=== PATIENT | female | born 1960 | race Caucasian/White ===

== ENCOUNTER 2017-02-20 10:24 | Observation (INO) | payer MEDICARE ==
--- NOTE | 2017-02-20 11:19 | ED ---
General Adult HPI - General Source: patient, RN notes reviewed Mode of arrival: ambulatory Limitations: no limitations <Ben Lynn - Last Filed: 02/20/17 11:17> <Ben Oliveira - Last Filed: 02/20/17 14:30> - General Chief complaint: Shortness of Breath Stated complaint: fatigue/sweating Time Seen by Provider: 02/20/17 11:12 - History of Present Illness Initial comments: Patient is a pleasant 56-year-old female presenting to the emergency department with exertional dyspnea. Sometimes have been worsening over the past couple of months, especially the past week. Patient has decreased exercise tolerance. Patient is easily fatigued. Patient has shortness of breath only with exertion. Patient had a minimal amount of chest discomfort last time she tried to exercise a couple of days ago. No chest discomfort today. Patient still has fatigue and exercise intolerance. No leg pain or leg swelling. Patient is on Coumadin with history of blood clots. Patient states this does not feel like her previous history of blood clots. (Ben Lynn) - Related Data Home Medications Medication Instructions Recorded Confirmed Amitriptyline HCl [Elavil] 75 mg PO HS 02/20/17 02/20/17 Biotin 5 mg PO DAILY 02/20/17 02/20/17 Cyclobenzaprine [Flexeril] 10 mg PO BID 02/20/17 02/20/17 HYDROcodone/APAP 10-325MG [[place] 1 tab PO DAILY 02/20/17 02/20/17 10-325] Morphine Sulfate ER [Ms Contin 30 mg PO BID 02/20/17 02/20/17 30Mg] Morphine Sulfate ER [Ms Contin] 15 mg PO HS 02/20/17 02/20/17 [place]-3 Fatty Acids/Fish Oil [Fish 1 cap PO DAILY 02/20/17 02/20/17 Oil 1,000 mg Softgel] Pregabalin [Lyrica] 225 mg PO BID 02/20/17 02/20/17 Verapamil [Isoptin] 80 mg PO BID 02/20/17 02/20/17 Warfarin [Coumadin] 3.75 mg PO SUMOTUTHFR 02/20/17 02/20/17 Warfarin [Coumadin] 5 mg PO WESA 02/20/17 02/20/17 buPROPion [Wellbutrin] 75 mg PO DAILY 02/20/17 02/20/17 Allergies Allergy/AdvReac Type Severity Reaction Status Date / Time carbamazepine [From Tegretol] Allergy Rash/Hives Verified 02/20/17 11:35 codeine Allergy Anaphylaxis Verified 02/20/17 11:35 Review of Systems ROS Other: All systems not noted in ROS Statement are negative. Constitutional: Denies: fever Eyes: Denies: eye pain ENT: Denies: ear pain Respiratory: Reports: dyspnea Cardiovascular: Denies: palpitations Endocrine: Reports: fatigue Gastrointestinal: Denies: abdominal pain Genitourinary: Denies: dysuria Musculoskeletal: Denies: back pain Skin: Denies: rash Neurological: Denies: weakness <Ben Lynn - Last Filed: 02/20/17 11:17> ROS Other: All systems not noted in ROS Statement are negative. <Ben Oliveira - Last Filed: 02/20/17 14:30> ROS Statement: Those systems with pertinent positive or pertinent negative responses have been documented in the HPI. Past Medical History Past Medical History: COPD, Fibromyalgia, Thyroid Disorder Additional Past Medical History / Comment(s): atypical facial pain, trigeminal neuralgia History of Any Multi-Drug Resistant Organisms: None Reported Past Surgical History: No Surgical Hx Reported Past Psychological History: Depression Smoking Status: Never smoker Past Alcohol Use History: None Reported Past Drug Use History: None Reported <Ben Lynn - Last Filed: 02/20/17 11:17> General Exam Limitations: no limitations General appearance: alert, in no apparent distress Head exam: Present: atraumatic Eye exam: Present: normal appearance, PERRL ENT exam: Present: normal oropharynx Neck exam: Present: normal inspection Respiratory exam: Present: normal lung sounds bilaterally Cardiovascular Exam: Present: regular rate, normal rhythm, normal heart sounds Expanded Peripheral pulses: 2+: Radial (R), Radial (L), Posterior Tibialis (R), Posterior Tibialis (L) GI/Abdominal exam: Present: soft. Absent: tenderness Extremities exam: Present: normal inspection. Absent: pedal edema, calf tenderness Neurological exam: Present: alert Psychiatric exam: Present: normal affect, normal mood Skin exam: Present: normal color <Ben Lynn - Last Filed: 02/20/17 11:17> Course <Ben Lynn - Last Filed: 02/20/17 11:17> <Ben Oliveira - Last Filed: 02/20/17 14:30> Vital Signs 02/20/17 02/20/17 02/20/17 10:33 11:32 12:32 Temperature 97.6 F Pulse Rate 107 H 86 87 Respiratory 18 18 20 Rate Blood Pressure 131/77 120/66 117/77 O2 Sat by Pulse 96 94 L 95 Oximetry 02/20/17 13:42 Temperature Pulse Rate 96 Respiratory 20 Rate Blood Pressure 110/74 O2 Sat by Pulse 96 Oximetry - Reevaluation(s) Reevaluation #1: 02/20/17 14:29 Patient was endorsed to me by Dr. Lynn and her shift change at 12 pm. This is pending a CAT scan of the chest. The scans negative for PE patient will be admitted however 4 evaluation of exertional dyspnea cardiac disease is considered (Ben Oliveira) EKG Findings - EKG Comments: EKG Findings:: Normal sinus rhythm 93. VA 168. QRS 88. QT 370. QTc 460. Normal axis. Normal QRS. No acute ST change. <Ben Lynn - Last Filed: 02/20/17 11:17> Medical Decision Making - Lab Data Result diagrams: 02/20/17 11:30 02/20/17 11:30 <Ben Oliveira - Last Filed: 02/20/17 14:30> - Lab Data Lab Results 02/20/17 02/20/17 02/20/17 Range/Units 11:30 11:30 11:30 WBC 8.4 (3.8-10.6) k/uL RBC 4.55 (3.80-5.40) m/uL Hgb 13.2 (11.4-16.0) gm/dL Hct 40.9 (34.0-46.0) % MCV 89.8 (80.0-100.0) fL MCH 29.0 (25.0-35.0) pg MCHC 32.3 (31.0-37.0) g/dL RDW 13.4 (11.5-15.5) % Plt Count 246 (150-450) k/uL Neutrophils % 69 % Lymphocytes % 21 % Monocytes % 7 % Eosinophils % 1 % Basophils % 1 % Neutrophils # 5.8 (1.3-7.7) k/uL Lymphocytes # 1.7 (1.0-4.8) k/uL Monocytes # 0.6 (0-1.0) k/uL Eosinophils # 0.1 (0-0.7) k/uL Basophils # 0.1 (0-0.2) k/uL PT (9.0-12.0) sec INR (<1.2) APTT (22.0-30.0) sec Sodium 139 (137-145) mmol/L Potassium 4.3 (3.5-5.1) mmol/L Chloride 106 (98-107) mmol/L Carbon Dioxide 23 (22-30) mmol/L Anion Gap 10 mmol/L BUN 17 (7-17) mg/dL Creatinine 0.90 (0.52-1.04) mg/dL Est GFR (MDRD) Af Amer >60 (>60 ml/min/1.73 sqM) Est GFR (MDRD) Non-Af >60 (>60 ml/min/1.73 sqM) Glucose 101 H (74-99) mg/dL Calcium 9.3 (8.4-10.2) mg/dL Total Bilirubin 0.3 (0.2-1.3) mg/dL AST 23 (14-36) U/L ALT 37 (9-52) U/L Alkaline Phosphatase 92 (38-126) U/L Total Creatine Kinase 96 (30-135) U/L CK-MB (CK-2) 0.4 (0.0-2.4) ng/mL CK-MB (CK-2) Rel Index 0.4 Troponin I <0.012 (0.000-0.034) ng/mL NT-Pro-B Natriuret Pep pg/mL Total Protein 6.7 (6.3-8.2) g/dL Albumin 3.6 (3.5-5.0) g/dL TSH 0.034 L (0.465-4.680) mIU/L Free T4 1.54 (0.78-2.19) ng/dL Free T3 pg/mL 3.1 (2.8-5.3) pg/ml 02/20/17 02/20/17 Range/Units 11:30 11:30 WBC (3.8-10.6) k/uL RBC (3.80-5.40) m/uL Hgb (11.4-16.0) gm/dL Hct (34.0-46.0) % MCV (80.0-100.0) fL MCH (25.0-35.0) pg MCHC (31.0-37.0) g/dL RDW (11.5-15.5) % Plt Count (150-450) k/uL Neutrophils % % Lymphocytes % % Monocytes % % Eosinophils % % Basophils % % Neutrophils # (1.3-7.7) k/uL Lymphocytes # (1.0-4.8) k/uL Monocytes # (0-1.0) k/uL Eosinophils # (0-0.7) k/uL Basophils # (0-0.2) k/uL PT 15.9 H (9.0-12.0) sec INR 1.6 H (<1.2) APTT 27.2 (22.0-30.0) sec Sodium (137-145) mmol/L Potassium (3.5-5.1) mmol/L Chloride (98-107) mmol/L Carbon Dioxide (22-30) mmol/L Anion Gap mmol/L BUN (7-17) mg/dL Creatinine (0.52-1.04) mg/dL Est GFR (MDRD) Af Amer (>60 ml/min/1.73 sqM) Est GFR (MDRD) Non-Af (>60 ml/min/1.73 sqM) Glucose (74-99) mg/dL Calcium (8.4-10.2) mg/dL Total Bilirubin (0.2-1.3) mg/dL AST (14-36) U/L ALT (9-52) U/L Alkaline Phosphatase (38-126) U/L Total Creatine Kinase (30-135) U/L CK-MB (CK-2) (0.0-2.4) ng/mL CK-MB (CK-2) Rel Index Troponin I (0.000-0.034) ng/mL NT-Pro-B Natriuret Pep 39 pg/mL Total Protein (6.3-8.2) g/dL Albumin (3.5-5.0) g/dL TSH (0.465-4.680) mIU/L Free T4 (0.78-2.19) ng/dL Free T3 pg/mL (2.8-5.3) pg/ml Disposition <Lynn,Ben - Last Filed: 02/20/17 11:17> <Ben Oliveira - Last Filed: 02/20/17 14:30> Clinical Impression: Exertional dyspnea, Atypical chest pain Disposition: ADMITTED IP TO THIS HOSP Condition: Stable Referrals: Yovanny Mcdonald MD [Primary Care Provider] - 1-2 days
[2017-02-20 11:49] LABS: Basophils # (A) 0.1 k/uL (0-0.2); Basophils % (A) 1 %; CH 28.9; CHCM 32.4; Eosinophils # (A) 0.1 k/uL (0-0.7); Eosinophils % (A) 1 %; HCT 40.9 % (34.0-46.0); HDW 2.48; HGB 13.2 gm/dL (11.4-16.0); Luc # (Auto) 0.15; Luc % (Auto) 2; Lymphocytes # (A) 1.7 k/uL (1.0-4.8); Lymphocytes % (A) 21 %; MCHC 32.3 g/dL (31.0-37.0); MCV 89.8 fL (80.0-100.0); Mean Platelet Volume 6.6; Monocytes # (A) 0.6 k/uL (0-1.0); Monocytes % (A) 7 %; Neutrophils # (A) 5.8 k/uL (1.3-7.7); Neutrophils % (A) 69 %; RBC 4.55 m/uL (3.80-5.40); RDW 13.4 % (11.5-15.5); WBC 8.4 k/uL (3.8-10.6); WBC (Perox) 8.42
[2017-02-20 12:03] LABS: ALT 37 U/L (9-52); AST 23 U/L (14-36); Alkaline Phosphatase 92 U/L (38-126); Anion Gap 10 mmol/L; Blood Urea Nitrogen 17 mg/dL (7-17); Calcium 9.3 mg/dL (8.4-10.2); Carbon Dioxide 23 mmol/L (22-30); Chloride 106 mmol/L (98-107); Glucose 101 mg/dL (74-99); Non-African American GFR(MDRD) >60 (>60 ml/min/1.73 sqM); Potassium 4.3 mmol/L (3.5-5.1); Sodium 139 mmol/L (137-145); Total Bilirubin 0.3 mg/dL (0.2-1.3); Total Protein 6.7 g/dL (6.3-8.2)
[2017-02-20 12:09] LABS: Creatine Kinase 96 U/L (30-135)
[2017-02-20 12:12] LABS: INR 1.6 (<1.2); Partial Thromboplastin Time 27.2 sec (22.0-30.0); Prothrombin Time 15.9 sec (9.0-12.0)
--- NOTE | 2017-02-20 12:19 | XR ---
EXAMINATION TYPE: XR chest 2V DATE OF EXAM: 02/20/2017 COMPARISON: 3-to-12 HISTORY: Weakness and shortness of breath TECHNIQUE: Frontal and lateral views of the chest are obtained. FINDINGS: There is no focal air space opacity, pleural effusion, or pneumothorax seen. The cardiac silhouette size is within normal limits. The osseous structures are intact. Mild degenerative grady es of the thoracic spine and acromioclavicular joints are noted. IMPRESSION: No acute cardiopulmonary process.
[2017-02-20 12:22] LABS: Creatine Kinase MB 0.4 ng/mL (0.0-2.4); Troponin I <0.012 ng/mL (0.000-0.034)
[2017-02-20] MEDS ORDERED: RX INFO: IV CONTRAST WAS GIVEN 1 EACH MISC MISCELLANE PRN (12:50)
--- NOTE | 2017-02-20 13:38 | CT ---
EXAMINATION TYPE: CT angio chest DATE OF EXAM: 02/20/2017 COMPARISON: NONE HISTORY: Fatigue, Diaphoresis, SOB since September CT DLP: 662 mGycm. Automated Exposure Control for Dose Reduction was Utilized. CONTRAST: CTA scan of the thorax is performed with IV Contrast, patient injected with 100 ml mL of Omnipaque 30 0, pulmonary embolism protocol. MIP Images are created on CT scanner and reviewed. FINDINGS: LUNGS: Scattered areas of subsegmental atelectasis predominating dependently within the lungs. Right apical patchy groundglass airspace disease measures 1.7 x 1.2 cm. There is no concerning parenchymal mass or nodule identified. There is no pleural effusion or pneumothorax seen. The tracheobronchial tree is patent. MEDIASTINUM: There is slightly diminished enhancement of the pulmonary artery and its branches, howev er there is no CT evidence for pulmonary embolism. There are no greater than 1 cm hilar or mediastin al lymph nodes. No cardiomegaly or pericardial effusion is seen. The main pulmonary artery is mildl y enlarged measuring 3.2 cm, which may clinically correlate with pulmonary arterial hypertension. OTHER: No additional significant abnormality is seen. IMPRESSION: 1. No evidence of pulmonary embolus. 2. Right apical groundglass opacity that is favored to represent atelectasis, however this could repr esent early pneumonia or inflammatory etiology. Other scattered areas of predominantly dependent atel ectasis are seen throughout the lungs. 3. Main pulmonary arterial enlargement, which may clinically correlate with pulmonary arterial hypert ension.
[2017-02-20] MEDS ORDERED: NITROGLYCERIN SL TABS 0.4 MG TAB SUBLINGUAL PRN (14:30)
[2017-02-20 15:45] VITALS: RESP 18
--- NOTE | 2017-02-20 17:20 | P.HPIM ---
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 Patient underwent an extensive workup in the ER all of which came back negative patient had a CT angios the chest did not show any pulmonary embolism except for some nonspecific groundglass a paced is no pneumonia on the chest x-ray. Patient the does not have any fluid overload patient's BNP is 49 patient denied any orthopnea PND patient also is complaining of excessive diaphoresis upon ambulation. Patient had history of DVTs in the past INR is subtherapeutic at 1.7 because of which Coumadin dose is being increased. Patient denied any nausea vomiting diarrhea fever chills dysuria. Denied any fevers. TSH is low T4 is 1.54, patient is not on any thyroid medications. Unsure of the exact etiology of her shortness of breath patient vitals are stable saturating well on room air and anion relation. We will obtain ABG, cardiology will be consulted with possible shortness of breath being an anginal equalant may need a stress test, we'll rule out acute coronary syndromes with 2 more sets of troponins. Pulmonology will be consulted as well. Anxiety may be a contributing for her factor for her shortness of breath patient is menopausal it to 38 years of age Review of Systems REVIEW OF SYSTEMS: CONSTITUTIONAL: No fever, no malaise, no fatigue. HEENT: No recent visual problems or hearing problems. Denied any sore throat. CARDIOVASCULAR: No chest pain, orthopnea, PND, no palpitations, no syncope. PULMONARY: no cough, no hemoptysis. GASTROINTESTINAL: No diarrhea, no nausea, no vomiting, no abdominal pain. Normoactive bowel sounds. NEUROLOGICAL: No headaches, no weakness, no numbness. HEMATOLOGICAL: Denies any bleeding or petechiae. GENITOURINARY: Denies any burning micturition, frequency, or urgency. MUSCULOSKELETAL/RHEUMATOLOGICAL: Denies any joint pain, swelling, or any muscle pain. ENDOCRINE: Denies any polyuria or polydipsia. The rest of the 14-point review of systems is negative. 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 History of Any Multi-Drug Resistant Organisms: None Reported Past Surgical History: Appendectomy, Section, Cholecystectomy Additional Past Surgical History / Comment(s): 2 c-sections, fissurectomy, colonoscopy Past Anesthesia/Blood Transfusion Reactions: No Reported Reaction Smoking Status: Never smoker - Past Family History Mother Family Medical History: Hypertension Additional Family Medical History / Comment(s): mom's mom had mi and stroke, mom 's dad had hx of first mi age 40 and several after and stroke. Father Family Medical History: Cancer, Diabetes Mellitus, Mitral Valve Prolapse (MVP) Additional Family Medical History / Comment(s): lung/bone cancer. dad's mother had hx of cervical cancer and a pacemaker and dad's dad had hx mi's Sister(s) Family Medical History: Cancer, Diabetes Mellitus, Seizure Disorder Additional Family Medical History / Comment(s): one sister had seizures and 2nd sister had dm,skin cancer. Brother(s) Additional Family Medical History / Comment(s): brother had hernia sx and post op complictions-bleeding Medications and Allergies Home Medications Medication Instructions Recorded Confirmed Type Amitriptyline HCl [Elavil] 75 mg PO HS 02/20/17 02/20/17 History Biotin 5 mg PO DAILY 02/20/17 02/20/17 History Cyclobenzaprine [Flexeril] 10 mg PO BID 02/20/17 02/20/17 History HYDROcodone/APAP 10-325MG [[place] 1 tab PO DAILY 02/20/17 02/20/17 History 10-325] Morphine Sulfate ER [Ms Contin 30 mg PO BID 02/20/17 02/20/17 History 30Mg] Morphine Sulfate ER [Ms Contin] 15 mg PO HS 02/20/17 02/20/17 History [place]-3 Fatty Acids/Fish Oil [Fish 1 cap PO DAILY 02/20/17 02/20/17 History Oil 1,000 mg Softgel] Pregabalin [Lyrica] 225 mg PO BID 02/20/17 02/20/17 History Verapamil [Isoptin] 80 mg PO BID 02/20/17 02/20/17 History Warfarin [Coumadin] 3.75 mg PO SUMOTUTHFR 02/20/17 02/20/17 History Warfarin [Coumadin] 5 mg PO WESA 02/20/17 02/20/17 History buPROPion [Wellbutrin] 75 mg PO DAILY 02/20/17 02/20/17 History Allergies Allergy/AdvReac Type Severity Reaction Status Date / Time carbamazepine [From Tegretol] Allergy Rash/Hives Verified 02/20/17 11:35 codeine Allergy Anaphylaxis Verified 02/20/17 11:35 Physical Exam Vitals: Vital Signs Temp Pulse Pulse Resp BP BP Pulse Ox 02/20/17 15:43 98.0 F 77 18 129/74 95 02/20/17 14:56 98.6 F 95 20 105/66 97 02/20/17 13:42 96 20 110/74 96 02/20/17 12:32 87 20 117/77 95 02/20/17 11:32 86 18 120/66 94 L 02/20/17 10:33 97.6 F 107 H 18 131/77 96 Intake and Output 02/20/17 02/20/17 02/20/17 06:59 14:59 22:59 Other: Weight 103.873 kg 101.9 kg Patient Weight 02/21/17 06:59 Weight 101.9 kg PHYSICAL EXAMINATION: GENERAL: The patient is alert and oriented x3, not in any acute distress. Well developed, well nourished. HEENT: Pupils are round and equally reacting to light. EOMI. No scleral icterus. No conjunctival pallor. Normocephalic, atraumatic. No pharyngeal erythema. No thyromegaly. CARDIOVASCULAR: S1 and S2 present. No murmurs, rubs, or gallops. PULMONARY: Chest is clear to auscultation, no wheezing or crackles. ABDOMEN: Soft, nontender, nondistended, normoactive bowel sounds. No palpable organomegaly. MUSCULOSKELETAL: No joint swelling or deformity. EXTREMITIES: No cyanosis, clubbing, or pedal edema. NEUROLOGICAL: Gross neurological examination did not reveal any focal deficits. SKIN: No rashes. Results CBC & Chem 7: 02/20/17 11:30 09/28/17 11:30 Labs: Abnormal Lab Results - Last 24 Hours (Table) 02/20/17 02/20/17 Range/Units 11:30 11:30 PT 15.9 H (9.0-12.0) sec INR 1.6 H (<1.2) Glucose 101 H (74-99) mg/dL TSH 0.034 L (0.465-4.680) mIU/L Assessment and Plan Plan: #1 shortness of breath: All the workup so far is negative. Patient will be admitted and monitored overnight on telemetry. Her shortness of breath may be related to anxiety. Anyways pulmonology and cardiology consulted since will be obtained. Possibly of discharge tomorrow. #2 history of DVT in the past: Patient is of the week and INR increase the Coumadin to 5 mg. #3 fibromyalgia.
[2017-02-20] MEDS ORDERED: WARFARIN 5 MG TAB PO SCH (18:00)
--- NOTE | 2017-02-20 18:04 | P.CNPUL ---
History of Present Illness Consult date: 02/20/17 Requesting physician: Gianfranco Wilson Reason for consult: dyspnea Chief complaint: Shortness of breath on exertion History of present illness: This is a 56-year-old female with history of fibromyalgia, chronic pain syndrome , history of deep vein thrombosis, but no documented pulmonary embolism. Patient is also known to have history of chronic facial pain secondary to trigeminal neuralgia. History of hypercoagulable state, maintained on Coumadin because of multiple episodes of deep vein thromboses in the past. At any rate patient has been following up with Dr. Mcdonald primary care physician, and since October of 2016, patient has been complaining of shortness of breath with any activity. Unable to walk even 1 block without having to rest. Denies any chest pain, denies any fever, no chills, no hemoptysis. Denies any wheezing. Patient had no previous pulmonary history whatsoever no history of asthma as a child. No history of pulmonary hypertension. No history of smoking. She does have a strong family history of coronary artery disease including her sister was couple of years younger than the patient had recent OR. CT of the chest was noted to be nondiagnostic. But was negative for pulmonary embolism. CBC was normal. Electrolytes and basic metabolic profile were normal. INR was subtherapeutic. Considering shortness of breath on exertion, this consult was initiated. I reviewed the CT of the chest, and I have noted that the findings are nonspecific. Review of Systems ROS Other: All systems not noted in ROS Statement are negative. Constitutional: No weight loss, no fever, no chills, she does have generalized weakness, fatigue, and chronic pain syndrome Eyes: No blurred vision no diplopia. ENT: No earache, no tinnitus, no vertigo Respiratory: As noted in HPI Cardiovascular: As noted in HPI Endocrine: No heat or cold intolerance, no polyuria, polyphagia, no polydipsia Gastrointestinal: No nausea vomiting abdominal pain melena or hematemesis Genitourinary: No dysuria frequency or urgency Musculoskeletal: Chronic pain syndrome and chronic facial pain. Skin: No rashes, no ulcerations. Neurological: No headaches, no blurred vision, no dizziness, no ataxia, patient has symptoms of trigeminal neuralgia. 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 History of Any Multi-Drug Resistant Organisms: None Reported Past Surgical History: Appendectomy, Section, Cholecystectomy Additional Past Surgical History / Comment(s): 2 c-sections, fissurectomy, colonoscopy Past Anesthesia/Blood Transfusion Reactions: No Reported Reaction Smoking Status: Never smoker - Past Family History Mother Family Medical History: Hypertension Additional Family Medical History / Comment(s): mom's mom had mi and stroke, mom 's dad had hx of first mi age 40 and several after and stroke. Father Family Medical History: Cancer, Diabetes Mellitus, Mitral Valve Prolapse (MVP) Additional Family Medical History / Comment(s): lung/bone cancer. dad's mother had hx of cervical cancer and a pacemaker and dad's dad had hx mi's Sister(s) Family Medical History: Cancer, Diabetes Mellitus, Seizure Disorder Additional Family Medical History / Comment(s): one sister had seizures and 2nd sister had dm,skin cancer. Brother(s) Additional Family Medical History / Comment(s): brother had hernia sx and post op complictions-bleeding Medications and Allergies Home Medications Medication Instructions Recorded Confirmed Type Amitriptyline HCl [Elavil] 75 mg PO HS 02/20/17 02/20/17 History Biotin 5 mg PO DAILY 02/20/17 02/20/17 History Cyclobenzaprine [Flexeril] 10 mg PO BID 02/20/17 02/20/17 History HYDROcodone/APAP 10-325MG [[place] 1 tab PO DAILY 02/20/17 02/20/17 History 10-325] Morphine Sulfate ER [Ms Contin 30 mg PO BID 02/20/17 02/20/17 History 30Mg] Morphine Sulfate ER [Ms Contin] 15 mg PO HS 02/20/17 02/20/17 History [place]-3 Fatty Acids/Fish Oil [Fish 1 cap PO DAILY 02/20/17 02/20/17 History Oil 1,000 mg Softgel] Pregabalin [Lyrica] 225 mg PO BID 02/20/17 02/20/17 History Verapamil [Isoptin] 80 mg PO BID 02/20/17 02/20/17 History Warfarin [Coumadin] 3.75 mg PO SUMOTUTHFR 02/20/17 02/20/17 History Warfarin [Coumadin] 5 mg PO WESA 02/20/17 02/20/17 History buPROPion [Wellbutrin] 75 mg PO DAILY 02/20/17 02/20/17 History Allergies Allergy/AdvReac Type Severity Reaction Status Date / Time carbamazepine [From Tegretol] Allergy Rash/Hives Verified 02/20/17 11:35 codeine Allergy Anaphylaxis Verified 02/20/17 11:35 Physical Exam Vitals: Vital Signs Temp Pulse Pulse Resp BP BP Pulse Ox 02/20/17 15:43 98.0 F 77 18 129/74 95 02/20/17 14:56 98.6 F 95 20 105/66 97 02/20/17 14:31 95 02/20/17 13:42 96 20 110/74 96 02/20/17 12:32 87 20 117/77 95 02/20/17 11:32 86 18 120/66 94 L 02/20/17 10:33 97.6 F 107 H 18 131/77 96 Intake and Output 02/20/17 02/20/17 02/20/17 06:59 14:59 22:59 Other: Weight 103.873 kg 101.9 kg Patient Weight 02/21/17 06:59 Weight 101.9 kg General appearance: alert, in no apparent distress Head exam: Normocephalic, atraumatic Eye exam: PERRLA, EOMI, no icterus ENT exam: No neck masses, no JVD, no stridor, no thyromegaly, or lymphadenopathy Neck exam: Short obese neck, no neck masses. Respiratory exam: Clear throughout, crackles or rhonchi or wheezes, no tenderness, symmetrical chest expansion Cardiovascular Exam: Normal S1 and S2, no S3 gallop, no murmur, Peripheral pulses: 2+: Radial (R), Radial (L), Posterior Tibialis (R), Posterior Tibialis (L) GI/Abdominal exam: Soft nontender no megaly no rebound no guarding. Extremities exam: No clubbing edema or cyanosis. Neurological exam: No focal neurologic deficit Psychiatric exam: Normal mood and affect, normal mental status examination. Skin exam: No rashes, no ulcerations. Results - Laboratory Findings CBC and BMP: 02/20/17 11:30 02/20/17 11:30 PT/INR, D-dimer PT 15.9 sec (9.0-12.0) H 02/20/17 11:30 INR 1.6 (<1.2) H 02/20/17 11:30 Abnormal lab findings: Abnormal Labs 02/20/17 02/20/17 11:30 11:30 PT 15.9 H INR 1.6 H Glucose 101 H TSH 0.034 L - Diagnostic Findings CT scan - chest: image reviewed (Findings are nonspecific, and definitely did not correlate with the clinical history.) Assessment and Plan Plan: Impression: 1 chronic dyspnea on exertion, the differential diagnoses includes pulmonary disease, cardiac disease, and/or deconditioning. I feel that the patient has some underlying cardiac disease mostly based on her clinical history and based on her strong family history of underlying coronary artery disease. Hence I have recommended an echocardiogram to be done in a.m., assess LV function, and assess for any possibility of pulmonary hypertension, patient will have to be seen by cardiology on consultation, and at least should have a Cardiolite stress test. I would even recommend further workup including cardiac catheterization before we could blame her symptoms on deconditioning or anxiety. Based on the clinical history and the lung findings, patient does not seem to have any intrinsic pulmonary disease. Patient to be seen by cardiology on consultation in a.m. 2 multiple comorbidities including history of chronic pain syndrome, fibromyalgia, hypothyroidism, trigeminal neuralgia, atypical facial pain, and history of depression. I will also recommend a bedside spirometry to be done on this patient in a.m. however I strongly doubt underlying pulmonary disease. To explain her symptoms Time with Patient: Greater than 30
[2017-02-20 18:10] LABS: Creatine Kinase 79 U/L (30-135)
[2017-02-20 18:22] LABS: Creatine Kinase MB 0.4 ng/mL (0.0-2.4); Troponin I <0.012 ng/mL (0.000-0.034)
[2017-02-20] MEDS: CYCLOBENZAPRINE 10 MG TAB PO SCH (20:06)
[2017-02-20] MEDS: PREGABALIN 75 MG CAP PO SCH (20:06)
[2017-02-20] MEDS: MORPHINE SULFATE ER 30 MG TABLET PO SCH (20:07)
[2017-02-20] MEDS ORDERED: AMITRIPTYLINE HCL 25 MG TAB PO SCH (21:00)
[2017-02-20] MEDS ORDERED: MORPHINE SULFATE ER 15 MG TABLET PO SCH (21:00)
[2017-02-20 21:13] LABS: ABG PCO2 35 mmHg (35-45); ABG PH 7.48 (7.35-7.45)
[2017-02-20 21:14] LABS: ABG HCO3 26 mmol/L (21-25); ABG PO2 77 mmHg (83-108); ABG TCO2 27 mmol/L (19-24)
[2017-02-20 21:15] LABS: ABG Base Excess 2.5 mmol/L; ABG Oxygen Saturation 96.2 % (94-97)
[2017-02-20] MEDS: VERAPAMIL 80 MG TAB PO SCH (22:17)
[2017-02-20 23:37] LABS: Cholesterol 197 mg/dL (<200); HDL Cholesterol 47 mg/dL (40-60)
[2017-02-21 00:54] LABS: Creatine Kinase 60 U/L (30-135)
[2017-02-21 01:08] LABS: Creatine Kinase MB 0.4 ng/mL (0.0-2.4); Troponin I <0.012 ng/mL (0.000-0.034)
[2017-02-21] MEDS ORDERED: DOBUTamine DRIP for NUC MED 500 MG in DEXTROSE/WATER 1 250ML.BAG IV ONE (08:53)
[2017-02-21] MEDS ORDERED: buPROPion 75 MG TAB PO SCH (09:00)
[2017-02-21] MEDS ORDERED: ASPIRIN 325 MG TAB PO SCH (09:00)
[2017-02-21] MEDS ORDERED: HYDROcodone/APAP 10-325MG 1 EACH TAB PO SCH (09:00)
[2017-02-21] MEDS ORDERED: NON-FORMULARY DRUG (Biotin [Biotin] 5 MG) PO SCH (09:00)
[2017-02-21] MEDS ORDERED: NON-FORMULARY DRUG (Omega-3 Fatty Acids/Fish Oil [Fish Oil 1,000 Mg Softgel] 1 CAP) PO SCH (09:00)
--- NOTE | 2017-02-21 10:22 | P.CRDCN ---
History of Present Illness History of present illness: Patient reviewed and examined. Admitted with shortness of breath and diaphoresis Cardiac consult to evaluate the symptoms Cardiac enzymes are normal 3. ECG is normal. Symptoms are very atypical for a cardiac problem 2-D echo reviewed normal LV function normal valves Suggest Dobutamine stress echo to evaluate for ischemia/possible CAD Update Dobutamine stress echo was normal Mild dyslipidemia with a mildly elevated triglyceride and LDL TSH is suppressed, needs evaluation and treatment as appropriate Please evaluate for noncardiac causes of chest discomfort Past Medical History Past Medical History: COPD, Fibromyalgia, Thyroid Disorder Additional Past Medical History / Comment(s): atypical facial pain, trigeminal neuralgia, "24 hour tension headache syndrome", migraines, shingles 2013 .,hx dvt rt leg and multiple pe's found,past tx for "copd d/t mold in basement of her home thqat permeated to upstairs", murmur when younger,constipation,vertigo , "dry eye syndrome uses drops 4-6 times a day. History of Any Multi-Drug Resistant Organisms: None Reported Past Surgical History: Appendectomy, Section, Cholecystectomy Additional Past Surgical History / Comment(s): 2 c-sections, fissurectomy, colonoscopy Past Anesthesia/Blood Transfusion Reactions: No Reported Reaction Smoking Status: Never smoker - Past Family History Mother Family Medical History: Hypertension Additional Family Medical History / Comment(s): mom's mom had mi and stroke, mom 's dad had hx of first mi age 40 and several after and stroke. Father Family Medical History: Cancer, Diabetes Mellitus, Mitral Valve Prolapse (MVP) Additional Family Medical History / Comment(s): lung/bone cancer. dad's mother had hx of cervical cancer and a pacemaker and dad's dad had hx mi's Sister(s) Family Medical History: Cancer, Diabetes Mellitus, Seizure Disorder Additional Family Medical History / Comment(s): one sister had seizures and 2nd sister had dm,skin cancer. Brother(s) Additional Family Medical History / Comment(s): brother had hernia sx and post op complictions-bleeding Medications and Allergies Home Medications Medication Instructions Recorded Confirmed Type Amitriptyline HCl [Elavil] 75 mg PO HS 02/20/17 02/20/17 History Biotin 5 mg PO DAILY 02/20/17 02/20/17 History Cyclobenzaprine [Flexeril] 10 mg PO BID 02/20/17 02/20/17 History HYDROcodone/APAP 10-325MG [[place] 1 tab PO DAILY 02/20/17 02/20/17 History 10-325] Morphine Sulfate ER [Ms Contin 30 mg PO BID 02/20/17 02/20/17 History 30Mg] Morphine Sulfate ER [Ms Contin] 15 mg PO HS 02/20/17 02/20/17 History [place]-3 Fatty Acids/Fish Oil [Fish 1 cap PO DAILY 02/20/17 02/20/17 History Oil 1,000 mg Softgel] Pregabalin [Lyrica] 225 mg PO BID 02/20/17 02/20/17 History Verapamil [Isoptin] 80 mg PO BID 02/20/17 02/20/17 History Warfarin [Coumadin] 3.75 mg PO SUMOTUTHFR 02/20/17 02/20/17 History Warfarin [Coumadin] 5 mg PO WESA 02/20/17 02/20/17 History buPROPion [Wellbutrin] 75 mg PO DAILY 02/20/17 02/20/17 History Allergies Allergy/AdvReac Type Severity Reaction Status Date / Time carbamazepine [From Tegretol] Allergy Rash/Hives Verified 02/20/17 11:35 codeine Allergy Anaphylaxis Verified 02/20/17 11:35 Physical Exam Vitals: Vital Signs Temp Pulse Pulse Resp BP BP Pulse Ox 02/21/17 07:40 98.1 F 70 18 108/58 96 02/21/17 03:18 65 18 02/21/17 03:12 98.2 F 69 18 104/57 95 02/21/17 00:00 98.7 F 67 18 109/58 96 02/20/17 20:00 76 18 02/20/17 19:43 98.2 F 75 18 95/56 93 L 02/20/17 15:43 98.0 F 77 18 129/74 95 02/20/17 14:56 98.6 F 95 20 105/66 97 02/20/17 14:31 95 02/20/17 13:42 96 20 110/74 96 02/20/17 12:32 87 20 117/77 95 02/20/17 11:32 86 18 120/66 94 L 02/20/17 10:33 97.6 F 107 H 18 131/77 96 Intake and Output 02/20/17 02/21/17 02/21/17 22:59 06:59 14:59 Intake Total 236 Balance 236 Intake: Oral 236 Other: Weight 101.9 kg Results 02/20/17 11:30 02/20/17 11:30 Cardiac Enzymes 02/20/17 02/20/17 02/20/17 Range/Units 11:30 11:30 17:49 AST 23 (14-36) U/L CK-MB (CK-2) 0.4 0.4 (0.0-2.4) ng/mL Troponin I <0.012 <0.012 (0.000-0.034) ng/mL 02/21/17 Range/Units 00:06 AST (14-36) U/L CK-MB (CK-2) 0.4 (0.0-2.4) ng/mL Troponin I <0.012 (0.000-0.034) ng/mL Coagulation 02/20/17 Range/Units 11:30 PT 15.9 H (9.0-12.0) sec APTT 27.2 (22.0-30.0) sec Lipids 02/20/17 Range/Units 11:30 Triglycerides 186 H (<150) mg/dL Cholesterol 197 (<200) mg/dL HDL Cholesterol 47 (40-60) mg/dL CBC 02/20/17 Range/Units 11:30 WBC 8.4 (3.8-10.6) k/uL RBC 4.55 (3.80-5.40) m/uL Hgb 13.2 (11.4-16.0) gm/dL Hct 40.9 (34.0-46.0) % Plt Count 246 (150-450) k/uL Comprehensive Metabolic Panel 02/20/17 Range/Units 11:30 Sodium 139 (137-145) mmol/L Potassium 4.3 (3.5-5.1) mmol/L Chloride 106 (98-107) mmol/L Carbon Dioxide 23 (22-30) mmol/L BUN 17 (7-17) mg/dL Creatinine 0.90 (0.52-1.04) mg/dL Glucose 101 H (74-99) mg/dL Calcium 9.3 (8.4-10.2) mg/dL AST 23 (14-36) U/L ALT 37 (9-52) U/L Alkaline Phosphatase 92 (38-126) U/L Total Protein 6.7 (6.3-8.2) g/dL Albumin 3.6 (3.5-5.0) g/dL Current Medications Generic Name Dose Route Start Last Admin Trade Name Freq PRN Reason Stop Dose Admin Hydrocodone Bitart/Acetaminophen 1 each 02/21/17 09:00 [place] 10 PO DAILY KIMBERLYN Amitriptyline HCl 75 mg 02/20/17 21:00 02/20/17 20:06 Elavil PO 75 mg HS KIMBERLYN Administration Aspirin 325 mg 02/21/17 09:00 Aspirin PO DAILY KIMBERLYN Bupropion HCl 75 mg 02/21/17 09:00 Wellbutrin PO DAILY KIMBERLYN Cyclobenzaprine HCl 10 mg 02/20/17 21:00 02/20/17 20:06 Flexeril PO 10 mg BID KIMBERLYN Administration Miscellaneous Information 1 each 02/20/17 12:50 Rx Info: Iv Contrast Was Given MISCELLANE 02/22/17 12:50 DAILY PRN Per Protocol Morphine Sulfate 30 mg 02/20/17 21:00 02/20/17 20:07 Ms Contin PO 30 mg BID KIMBERLYN Administration Morphine Sulfate 15 mg 02/20/17 21:00 02/20/17 20:07 Ms Contin PO 15 mg HS KIMBERLYN Administration Nitroglycerin 0.4 mg 02/20/17 14:30 Nitrostat SUBLINGUAL Q5M PRN Chest Pain Pregabalin 225 mg 02/20/17 21:00 02/20/17 20:06 Lyrica PO 225 mg BID KIMBERLYN Administration Verapamil HCl 80 mg 02/20/17 21:00 02/20/17 22:17 Isoptin PO Not Given BID KIMBERLYN Warfarin Sodium 5 mg 02/20/17 18:00 02/20/17 18:40 Coumadin PO 5 mg DAILY@1800 KIMBERLYN Administration Intake and Output 02/20/17 02/21/17 02/21/17 22:59 06:59 14:59 Intake Total 236 Balance 236 Intake: Oral 236 Other: Weight 101.9 kg 02/20/17 11:30 02/20/17 11:30
[2017-02-21] MEDS: CYCLOBENZAPRINE 10 MG TAB PO SCH (10:29)
[2017-02-21] MEDS: PREGABALIN 75 MG CAP PO SCH (10:30)
[2017-02-21] MEDS: MORPHINE SULFATE ER 30 MG TABLET PO SCH (10:31)
[2017-02-21] MEDS: VERAPAMIL 80 MG TAB PO SCH (10:31)
--- NOTE | 2017-02-21 10:31 | P.CRDCN ---
History of Present Illness Consult date: 02/21/17 History of present illness: This is a 56-year-old female. Past medical history significant for chronic DVT, essential hypertension, chronic pain syndrome, fibromyalgia and chronic headaches. Patient states beginning back in approximately October she started feeling shortness of breath with exertion. She states this has progressively gotten worse over the previous couple of months. In the last week with shortness of breath has been associated with extreme diaphoresis. She says it is hard to determine if she is having chest pain because she takes pain medications on a regular basis which include MS Contin, [place], Elavil and Flexeril. She states her shortness of breath is getting progressively worse she can barely make it through department stores without having to stop and take a rest. She denies diabetes, hyperlipidemia or tobacco use. She states she has a family history her sister recently had a heart attack last week. She has never seen a audio visual project manager. And has had any undergone any recent stress testing. She follows regularly with her primary care doctor. EKG reveals normal sinus mechanism with no acute ST or T-wave abnormality. Troponin negative 3, potassium 4.3 proBNP 39, TSH 0.034. Blood pressure 108/58 heart rate 70. Review of Systems Extensive review of systems performed, negative except mentioned in HPI. 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 History of Any Multi-Drug Resistant Organisms: None Reported Past Surgical History: Appendectomy, Section, Cholecystectomy Additional Past Surgical History / Comment(s): 2 c-sections, fissurectomy, colonoscopy Past Anesthesia/Blood Transfusion Reactions: No Reported Reaction Smoking Status: Never smoker - Past Family History Mother Family Medical History: Hypertension Additional Family Medical History / Comment(s): mom's mom had mi and stroke, mom 's dad had hx of first mi age 40 and several after and stroke. Father Family Medical History: Cancer, Diabetes Mellitus, Mitral Valve Prolapse (MVP) Additional Family Medical History / Comment(s): lung/bone cancer. dad's mother had hx of cervical cancer and a pacemaker and dad's dad had hx mi's Sister(s) Family Medical History: Cancer, Diabetes Mellitus, Seizure Disorder Additional Family Medical History / Comment(s): one sister had seizures and 2nd sister had dm,skin cancer. Brother(s) Additional Family Medical History / Comment(s): brother had hernia sx and post op complictions-bleeding Medications and Allergies Home Medications Medication Instructions Recorded Confirmed Type Amitriptyline HCl [Elavil] 75 mg PO HS 02/20/17 02/20/17 History Biotin 5 mg PO DAILY 02/20/17 02/20/17 History Cyclobenzaprine [Flexeril] 10 mg PO BID 02/20/17 02/20/17 History HYDROcodone/APAP 10-325MG [[place] 1 tab PO DAILY 02/20/17 02/20/17 History 10-325] Morphine Sulfate ER [Ms Contin 30 mg PO BID 02/20/17 02/20/17 History 30Mg] Morphine Sulfate ER [Ms Contin] 15 mg PO HS 02/20/17 02/20/17 History [place]-3 Fatty Acids/Fish Oil [Fish 1 cap PO DAILY 02/20/17 02/20/17 History Oil 1,000 mg Softgel] Pregabalin [Lyrica] 225 mg PO BID 02/20/17 02/20/17 History Verapamil [Isoptin] 80 mg PO BID 02/20/17 02/20/17 History Warfarin [Coumadin] 3.75 mg PO SUMOTUTHFR 02/20/17 02/20/17 History Warfarin [Coumadin] 5 mg PO WESA 02/20/17 02/20/17 History buPROPion [Wellbutrin] 75 mg PO DAILY 02/20/17 02/20/17 History Allergies Allergy/AdvReac Type Severity Reaction Status Date / Time carbamazepine [From Tegretol] Allergy Rash/Hives Verified 02/20/17 11:35 codeine Allergy Anaphylaxis Verified 02/20/17 11:35 Physical Exam Vitals: Vital Signs Temp Pulse Pulse Resp BP BP Pulse Ox 02/21/17 07:40 98.1 F 70 18 108/58 96 02/21/17 03:18 65 18 02/21/17 03:12 98.2 F 69 18 104/57 95 02/21/17 00:00 98.7 F 67 18 109/58 96 02/20/17 20:00 76 18 02/20/17 19:43 98.2 F 75 18 95/56 93 L 02/20/17 15:43 98.0 F 77 18 129/74 95 02/20/17 14:56 98.6 F 95 20 105/66 97 02/20/17 14:31 95 02/20/17 13:42 96 20 110/74 96 02/20/17 12:32 87 20 117/77 95 02/20/17 11:32 86 18 120/66 94 L 02/20/17 10:33 97.6 F 107 H 18 131/77 96 Intake and Output 02/20/17 02/21/17 02/21/17 22:59 06:59 14:59 Intake Total 236 Balance 236 Intake: Oral 236 Other: Weight 101.9 kg GENERAL: This is a 56-year-old female in no apparent distress at the time of my examination. Obese. HEENT: Head is atraumatic, normocephalic. Pupils are equal, round. Sclerae anicteric. Conjunctivae are clear. Mucous membranes of the mouth are moist. Neck is supple. There is no jugular venous distention. No carotid bruit is heard. LUNGS: Clear to auscultation no wheezes, rales or rhonchi. No chest wall tenderness is noted on palpation or with deep breathing. HEART: Regular rate and rhythm without murmurs, rubs or gallops. S1 and S2 heard. ABDOMEN: Soft, nontender. Bowel sounds are heard. No organomegaly noted. EXTREMITIES: 2+ peripheral pulses with no evidence of peripheral edema and no calf tenderness noted. NEUROLOGIC: Patient is awake, alert and oriented x3. Results 02/20/17 11:30 02/20/17 11:30 Cardiac Enzymes 02/20/17 02/20/17 02/20/17 Range/Units 11:30 11:30 17:49 AST 23 (14-36) U/L CK-MB (CK-2) 0.4 0.4 (0.0-2.4) ng/mL Troponin I <0.012 <0.012 (0.000-0.034) ng/mL 02/21/17 Range/Units 00:06 AST (14-36) U/L CK-MB (CK-2) 0.4 (0.0-2.4) ng/mL Troponin I <0.012 (0.000-0.034) ng/mL Coagulation 02/20/17 Range/Units 11:30 PT 15.9 H (9.0-12.0) sec APTT 27.2 (22.0-30.0) sec Lipids 02/20/17 Range/Units 11:30 Triglycerides 186 H (<150) mg/dL Cholesterol 197 (<200) mg/dL HDL Cholesterol 47 (40-60) mg/dL CBC 02/20/17 Range/Units 11:30 WBC 8.4 (3.8-10.6) k/uL RBC 4.55 (3.80-5.40) m/uL Hgb 13.2 (11.4-16.0) gm/dL Hct 40.9 (34.0-46.0) % Plt Count 246 (150-450) k/uL Comprehensive Metabolic Panel 02/20/17 Range/Units 11:30 Sodium 139 (137-145) mmol/L Potassium 4.3 (3.5-5.1) mmol/L Chloride 106 (98-107) mmol/L Carbon Dioxide 23 (22-30) mmol/L BUN 17 (7-17) mg/dL Creatinine 0.90 (0.52-1.04) mg/dL Glucose 101 H (74-99) mg/dL Calcium 9.3 (8.4-10.2) mg/dL AST 23 (14-36) U/L ALT 37 (9-52) U/L Alkaline Phosphatase 92 (38-126) U/L Total Protein 6.7 (6.3-8.2) g/dL Albumin 3.6 (3.5-5.0) g/dL Current Medications Generic Name Dose Route Start Last Admin Trade Name Freq PRN Reason Stop Dose Admin Hydrocodone Bitart/Acetaminophen 1 each 02/21/17 09:00 [place] 10 PO DAILY KIMBERLYN Amitriptyline HCl 75 mg 02/20/17 21:00 02/20/17 20:06 Elavil PO 75 mg HS KIMBERLYN Administration Aspirin 325 mg 02/21/17 09:00 Aspirin PO DAILY KIMBERLYN Bupropion HCl 75 mg 02/21/17 09:00 Wellbutrin PO DAILY KIMBERLYN Cyclobenzaprine HCl 10 mg 02/20/17 21:00 02/20/17 20:06 Flexeril PO 10 mg BID KIMBERLYN Administration Miscellaneous Information 1 each 02/20/17 12:50 Rx Info: Iv Contrast Was Given MISCELLANE 02/22/17 12:50 DAILY PRN Per Protocol Morphine Sulfate 30 mg 02/20/17 21:00 02/20/17 20:07 Ms Contin PO 30 mg BID KIMBERLYN Administration Morphine Sulfate 15 mg 02/20/17 21:00 02/20/17 20:07 Ms Contin PO 15 mg HS KIMBERLYN Administration Nitroglycerin 0.4 mg 02/20/17 14:30 Nitrostat SUBLINGUAL Q5M PRN Chest Pain Pregabalin 225 mg 02/20/17 21:00 02/20/17 20:06 Lyrica PO 225 mg BID KIMBERLYN Administration Verapamil HCl 80 mg 02/20/17 21:00 02/20/17 22:17 Isoptin PO Not Given BID KIMBERLYN Warfarin Sodium 5 mg 02/20/17 18:00 02/20/17 18:40 Coumadin PO 5 mg DAILY@1800 KIMBERLYN Administration Intake and Output 02/20/17 02/21/17 02/21/17 22:59 06:59 14:59 Intake Total 236 Balance 236 Intake: Oral 236 Other: Weight 101.9 kg 02/20/17 11:30 02/20/17 11:30 EKG Interpretations (text) EKG reveals sinus mechanism with no acute ST or T-wave abnormalities. Assessment and Plan Plan: ASSESSMENT 1. Shortness of breath on exertion 2. Hyperthyroid, appears new PLAN 2D echo and doppler study normal, dobutamine stress echo normal. Cardiac cause of shortness of breath not supported. Thyroid suppression should be evaluated per medical team. According to ACC risk assessment tool, 10 year risk of heart attack 2.6%. Statins not indicated at this time. Lifestyle modification with weight reduction discussed. Nurse Practitioner note has been reviewed, I agree with a documented findings and plan of care. Patient was seen and examined.
--- NOTE | 2017-02-21 11:22 | ECHOF ---
Referral Reason:pulm htn,sob MEASUREMENTS -------- HEIGHT: 175.3 cm WEIGHT: 101.6 kg BP: 104/67 RVIDd: 2.9 cm (< 3.3) IVSd: 1.1 cm (0.6 - 1.1) LVIDd: 4.6 cm (3.9 - 5.3) LVPWd: 1.2 cm (0.6 - 1.1) IVSs: 1.6 cm LVIDs: 3.2 cm LVPWs: 1.7 cm LA Diam: 3.7 cm (2.7 - 3.8) LAESV Index (A-L): 23.41 ml/m Ao Diam: 3.7 cm (2.0 - 3.7) AV Cusp: 2.1 cm (1.5 - 2.6) MV EXCURSION: 17.354 mm (> 18.000) MV EF SLOPE: 102 mm/s (70 - 150) EPSS: 0.5 cm MV E Ramez: 0.59 m/s MV DecT: 204 ms MV A Ramez: 0.70 m/s MV E/A Ratio: 0.85 FINDINGS -------- Sinus rhythm. This was a technically adequate study. The left ventricular size is normal. There is borderline concentric left ventricular hypertrophy. Overall left ventricular systolic function is normal with, an EF between 60 - 65 %. The right ventricle is normal in size. Normal LA size by volume 22+/-6 ml/m2. The right atrium is normal in size. The aortic valve is trileaflet and appears structurally normal. The mitral valve is normal. Trace tricuspid regurgitation present. Trace/mild (physiologic) pulmonic regurgitation. The aortic root size is normal. IVC Not well visulized. There is no pericardial effusion. CONCLUSIONS -------- 1. Sinus rhythm. 2. The mitral valve is normal. 3. Trace tricuspid regurgitation present. 4. Trace/mild (physiologic) pulmonic regurgitation. 5. The aortic root size is normal. 6. IVC Not well visulized. 7. There is no pericardial effusion. 8. This was a technically adequate study. 9. The left ventricular size is normal. 10. There is borderline concentric left ventricular hypertrophy. 11. Overall left ventricular systolic function is normal with, an EF between 60 - 65 %. 12. The right ventricle is normal in size. 13. Normal LA size by volume 22+/-6 ml/m2. 14. The right atrium is normal in size. 15. The aortic valve is trileaflet and appears structurally normal. CHARM FILTER OPERATOR HELPER: Geneva Spence RDCS
[2017-02-21 11:37] VITALS: BP 113/59; PULSE 75; TEMP 98.3
--- NOTE | 2017-02-21 12:57 | P.DS ---
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 Patient underwent an extensive workup in the ER all of which came back negative patient had a CT angios the chest did not show any pulmonary embolism except for some nonspecific groundglass a paced is no pneumonia on the chest x-ray. Patient the does not have any fluid overload patient's BNP is 49 patient denied any orthopnea PND patient also is complaining of excessive diaphoresis upon ambulation. Patient had history of DVTs in the past INR is subtherapeutic at 1.7 because of which Coumadin dose is being increased. Patient denied any nausea vomiting diarrhea fever chills dysuria. Denied any fevers. TSH is low T4 is 1.54, patient is not on any thyroid medications. Unsure of the exact etiology of her shortness of breath patient vitals are stable saturating well on room air and anion relation. We will obtain ABG, cardiology will be consulted with possible shortness of breath being an anginal equalant may need a stress test, we'll rule out acute coronary syndromes with 2 more sets of troponins. Pulmonology will be consulted as well. Anxiety may be a contributing for her factor for her shortness of breath patient is menopausal it to 38 years of age 0902/21/2017 Patient was evaluated bypulmonary and cardiology, pulmonary will follow the patient as outpatient and the cardiology recommended no be given a call after that patient will be discharged, if that is negative. Patient shortness of breath is probably related to her anxiety disorder. PHYSICAL EXAMINATION: GENERAL: The patient is alert and oriented x3, not in any acute distress. Well developed, well nourished. HEENT: Pupils are round and equally reacting to light. EOMI. No scleral icterus. No conjunctival pallor. Normocephalic, atraumatic. No pharyngeal erythema. No thyromegaly. CARDIOVASCULAR: S1 and S2 present. No murmurs, rubs, or gallops. PULMONARY: Chest is clear to auscultation, no wheezing or crackles. ABDOMEN: Soft, nontender, nondistended, normoactive bowel sounds. No palpable organomegaly. MUSCULOSKELETAL: No joint swelling or deformity. EXTREMITIES: No cyanosis, clubbing, or pedal edema. NEUROLOGICAL: Gross neurological examination did not reveal any focal deficits. SKIN: No rashes. #1 shortness of breath: Aprobably due to anxiety disorder #2 history of DVT in the past: Patient is of the week and INR increase the Coumadin to 5 mg. #3 fibromyalgia. Patient Condition at Discharge: Stable Plan - Discharge Summary New Discharge Prescriptions: No Action Amitriptyline HCl [Elavil] 75 mg PO HS Biotin 5 mg PO DAILY buPROPion [Wellbutrin] 75 mg PO DAILY Cyclobenzaprine [Flexeril] 10 mg PO BID HYDROcodone/APAP 10-325MG [[place] 10-325] 1 tab PO DAILY Morphine Sulfate ER [Ms Contin 30Mg] 30 mg PO BID Morphine Sulfate ER [Ms Contin] 15 mg PO HS [place]-3 Fatty Acids/Fish Oil [Fish Oil 1,000 mg Softgel] 1 cap PO DAILY Pregabalin [Lyrica] 225 mg PO BID Verapamil [Isoptin] 80 mg PO BID Warfarin [Coumadin] 3.75 mg PO SUMOTUTHFR Warfarin [Coumadin] 5 mg PO WESA Discharge Medication List Amitriptyline HCl [Elavil] 75 mg PO HS 02/20/17 [History] Biotin 5 mg PO DAILY 02/20/17 [History] Cyclobenzaprine [Flexeril] 10 mg PO BID 02/20/17 [History] HYDROcodone/APAP 10-325MG [[place] 10-325] 1 tab PO DAILY 02/20/17 [History] Morphine Sulfate ER [Ms Contin 30Mg] 30 mg PO BID 02/20/17 [History] Morphine Sulfate ER [Ms Contin] 15 mg PO HS 02/20/17 [History] [place]-3 Fatty Acids/Fish Oil [Fish Oil 1,000 mg Softgel] 1 cap PO DAILY [History] Pregabalin [Lyrica] 225 mg PO BID 02/20/17 [History] Verapamil [Isoptin] 80 mg PO BID 02/20/17 [History] Warfarin [Coumadin] 3.75 mg PO SUMOTUTHFR 02/20/17 [History] Warfarin [Coumadin] 5 mg PO WESA 02/20/17 [History] buPROPion [Wellbutrin] 75 mg PO DAILY 02/20/17 [History] Follow up Appointment(s)/Referral(s): Yovanny Mcdonald MD [Primary Care Provider] - 3 Days Discharge Disposition: HOME SELF-CARE
--- NOTE | 2017-02-21 13:20 | ECHOS ---
STRESS ECHOCARDIOGRAM INDICATIONS: Chest pain. BASELINE HEART RATE: 75 BASELINE BLOOD PRESSURE: 108/61 MAXIMUM HEART RATE: 122 MAXIMUM BLOOD PRESSURE: 171/53 85% MPHR: 139 100% MPHR: 164 MAXIMUM STAGE REACHED: 6 TOTAL EXERCISE TIME: 15:10 CLINICAL INFORMATION: Patient presenting with shortness of breath and sweating spells. This is a dobutamine stress echo to evaluate for ischemia. Baseline heart rate 75 beats per minute. Baseline blood pressure 108/61 mmHg. Baseline 12-lead ECG shows sinus rhythm and normal ST segments. Patient received dobutamine infusion per protocol up to 50 mcg. Normal heart rate and blood pressure response to dobutamine infusion. There was no ECG evidence for ischemia. No arrhythmias were noted. The baseline 2D echo images showed normal LV size and systolic function without segmental wall motion abnormalities. There was a stepwise increment in overall LV contractility without developing any wall motion abnormalities. At recovery, regional global LV systolic function remained normal. IMPRESSION: No ECG or echocardiographic evidence for ischemia. MMODL / IJN: [id number] /
--- NOTE | 2017-02-21 14:20 | P.PN ---
Subjective Principal diagnosis: Shortness of breath on exertion This is a 56-year-old female with history of fibromyalgia, chronic pain syndrome , history of deep vein thrombosis, but no documented pulmonary embolism. Patient is also known to have history of chronic facial pain secondary to trigeminal neuralgia. History of hypercoagulable state, maintained on Coumadin because of multiple episodes of deep vein thromboses in the past. At any rate patient has been following up with Dr. Mcdonald primary care physician, and since October of 2016, patient has been complaining of shortness of breath with any activity. Unable to walk even 1 block without having to rest. Denies any chest pain, denies any fever, no chills, no hemoptysis. Denies any wheezing. Patient had no previous pulmonary history whatsoever no history of asthma as a child. No history of pulmonary hypertension. No history of smoking. She does have a strong family history of coronary artery disease including her sister was couple of years younger than the patient had recent MA. CT of the chest was noted to be nondiagnostic. But was negative for pulmonary embolism. CBC was normal. Electrolytes and basic metabolic profile were normal. INR was subtherapeutic. Considering shortness of breath on exertion, this consult was initiated. I reviewed the CT of the chest, and I have noted that the findings are nonspecific. On 02/21/2017 patient underwent debridement stress echo which did not reveal any ECG or echocardiographic evidence for ischemia. Her troponins were negative 3. Cardiac workup was negative. She is in no apparent distress resting in bed. Her lung sounds are clear, no evidence of lower leg edema. She will be discharged home today. She needs to follow up with Dr. Knowles in the office for evaluation of her pulmonary function status. Objective - Vital Signs Vital signs: Vital Signs Temp 98.3 F 02/21/17 11:36 Pulse 75 02/21/17 11:36 Resp 18 02/21/17 12:00 BP 113/59 02/21/17 11:36 Pulse Ox 95 02/21/17 11:36 Intake & Output 02/20/17 02/21/17 02/21/17 18:59 06:59 18:59 Intake Total 236 240 Balance 236 240 Weight 101.9 kg Intake: Oral 236 240 - Exam GENERAL EXAM: Alert, comfortable in no apparent distress. HEAD: Normocephalic. EYES: Normal reaction of pupils, equal size. NOSE: Clear with pink turbinates. THROAT: No erythema or exudates. NECK: No masses, no JVD. CHEST: No chest wall deformity. LUNGS: Equal air entry with no crackles, wheeze, rhonchi or dullness. CVS: S1 and S2 normal with no audible mumurs, regular rhythm. ABDOMEN: No hepatosplenomegaly, normal bowel sounds, no guarding or rigidity. SPINE: No scoliosis or deformity SKIN: No rashes CENTRAL NERVOUS SYSTEM: No focal deficits, tone is normal in all 4 extremities. - Labs CBC & Chem 7: 02/20/17 11:30 02/20/17 11:30 Labs: Abnormal Lab Results - Last 24 Hours (Table) 02/20/17 02/20/17 Range/Units 11:30 21:04 ABG pH 7.48 H (7.35-7.45) ABG pO2 77 L (83-108) mmHg ABG HCO3 26 H (21-25) mmol/L ABG Total CO2 27 H (19-24) mmol/L Triglycerides 186 H (<150) mg/dL LDL Cholesterol, Calc 113 H (0-99) mg/dL Assessment and Plan Plan: Assessment and Plan Plan: Impression: 1 chronic dyspnea on exertion, the differential diagnoses includes pulmonary disease, cardiac disease, and/or deconditioning. I feel that the patient has some underlying cardiac disease mostly based on her clinical history and based on her strong family history of underlying coronary artery disease. Patient cardiac workup did not show any evidence of ischemia. 2-D echocardiogram showed overall left ventricular systolic function normal with an EF between 60 and 65% Based on the clinical history and the lung findings, patient does not seem to have any intrinsic pulmonary disease. She may be discharged home today. 2 multiple comorbidities including history of chronic pain syndrome, fibromyalgia, hypothyroidism, trigeminal neuralgia, atypical facial pain, and history of depression. Plan: Patient may be discharged home today. Patient needs to follow-up with Dr. Knowles in the office in one week for evaluation of her pulmonary function status. I performed a history & physical examination of the patient and discussed their management with my nurse practitioner, Tiana Carrillo. I reviewed the nurse practitioner's note and agree with the documented findings and plan of care.
[2017-02-21] MEDS ORDERED: WARFARIN 2.5 MG TAB PO SCH (18:00)
[2017-02-22] MEDS ORDERED: WARFARIN 5 MG TAB PO SCH (18:00)
== END 2017-02-21 15:02 | disposition home or self-care (01) ==
LOC: EC 10:24 → 3OBS 14:31
PROVIDERS: ADMIT Hospitalist; ATTEND Hospitalist
DX: R06.02 Shortness of breath (principal); R61 Generalized hyperhidrosis; R07.89 Other chest pain; F41.9 Anxiety disorder, unspecified; R79.1 Abnormal coagulation profile; G50.0 Trigeminal neuralgia; M79.7 Fibromyalgia; F32.9 Major depressive disorder, single episode, unspecified; J44.9 Chronic obstructive pulmonary disease, unspecified; E07.9 Disorder of thyroid, unspecified; I10 Essential (primary) hypertension; G89.4 Chronic pain syndrome; G44.209 Tension-type headache, unspecified, not intractable; G43.909 Migraine, unspecified, not intractable, without status migrainosus; H04.129 Dry eye syndrome of unspecified lacrimal gland; E78.1 Pure hyperglyceridemia; E66.9 Obesity, unspecified; E78.5 Hyperlipidemia, unspecified; Z86.718 Personal history of other venous thrombosis and embolism; Z79.01 Long term (current) use of anticoagulants; Z79.891 Long term (current) use of opiate analgesic; Z79.899 Other long term (current) drug therapy; Z88.5 Allergy status to narcotic agent; Z88.8 Allergy status to other drugs, medicaments and biological substances; Z86.711 Personal history of pulmonary embolism; Z82.49 Family history of ischemic heart disease and other diseases of the circulatory system
CPT/HCPCS: 99285 ×2; 36415; 93005; 93017; 93306; 93350; 84439; 84481; 83880; 80061; 80053; 82550 ×2; 82553 ×2; 82805; 84443; 84484 ×2; 85025; 85610; 85730; 71020; 71275; G0378 ×2; J1250; Q9967

== ENCOUNTER → 2017-03-01 | Outpatient (CLI) | payer MEDICARE ==
--- NOTE | 2017-03-01 09:20 | MR ---
EXAMINATION TYPE: MR magdaleneine/lspine wo con DATE OF EXAM ORDERED: 03/01/2017 9:14 AM HISTORY: M54.2 cervicalgia,M54.5 lumbago. TECHNOLOGIST HISTORY AT TIME OF EXAM: Neck and back pain into darrell upper and lower extremities COMPARISON: Previous MRI of the cervical and lumbar spines dated 11/04/2014. TECHNIQUE: Multiplanar, multiecho imaging of the cervical and lumbar spines was obtained without con trast on a 1.5 pawel magnet. FINDINGS: CERVICAL SPINE: Prevertebral soft tissues are normal. Vertebral body height and alignment are maintained. There is a normal craniocervical junction. Cord signal is normal. At C2-C3, no definite abnormality is seen. At C3-C4, there is mild uncovertebral joint hypertrophy causing minimal right-sided intervertebral fo raminal narrowing. There is no significant compressive discopathy. The facets are unremarkable. At C4-C5, there is bilateral intervertebral foraminal narrowing, worse on the right than the left. Th ere is facet arthropathy on the right. There is mild uncovertebral joint disease. There is no signifi cant compressive discopathy. At C5-C6, there is bilateral intervertebral foraminal narrowing, worse on the right than the left. Th ere is no significant compressive discopathy. The facet are unremarkable. There is mild uncovertebral joint change. At C6-C7, there is mild, bilateral intervertebral foraminal narrowing. There is no significant compre ssive discopathy. The facets are unremarkable. There is mild uncovertebral joint disease. At C7-T1, no definite abnormality is seen. IMPRESSION: 1. NO SIGNIFICANT COMPRESSIVE DISCOPATHY. 2. MULTILEVEL INTERVERTEBRAL FORAMINAL NARROWING. 3. MILD FACET AND UNCOVERTEBRAL JOINT DISEASE. LUMBAR SPINE: Paravertebral soft tissues are unremarkable. There is a mild dextroscoliosis with its apex at the thoracolumbar junction. Vertebral body height is maintained. There is a mild, degenerative grade 1 spondylolisthesis of L4 on L5. Alignment is otherw ise normal. Cord signal is maintained. The conus ends normally at the level of the T12-L1 disc. At T12-L1, no definite abnormality is seen. At L1-2, there is mild disc space loss. Intervertebral foramina are reasonably well-maintained. There is mild hypertrophic change and capsulitis within the facets. There is a bilobed disc displacement. There is mild trefoiling of the thecal sac. At L2-3, there is disc space loss. Intervertebral foramina are reasonably well-maintained. There is a diffuse disc displacement. There is mild hypertrophic change and capsulitis within the facets. There is mild trefoiling of the thecal sac. At L3-4, there is mild disc space loss. There is a broad-based disc displacement. The intervertebral foramina are reasonably well-maintained. There is moderate facet arthropathy. There is mild trefoilin g of the thecal sac. At L4-5, there is a mild, degenerative grade 1 spondylolisthesis of L4 on L5. This has progressed fro m previous. There is mild, bilateral intervertebral foraminal narrowing. There is a mild pseudodisc. There are fairly marked hypertrophic changes in the facets. There is mild trefoiling of the thecal sa c. At L5-S1, the intervertebral foramina are well maintained. There is tiny central disc displacement mi ldly deforming the thecal sac without definite neural compression. This hypertrophic changes within t he facets. IMPRESSION: 1. DIFFUSE DEGENERATIVE DISC DISEASE AND FACET ARTHROPATHY. 2. DEGENERATIVE, GRADE 1 SPONDYLOLISTHESIS OF L4 AND L5, CAUSING MILD, BILATERAL INTERVERTEBRAL ZAHIDA INAL NARROWING.
== END ==
LOC: RADMRIMAIN 07:58
PROVIDERS: ATTEND Physician Assistant
DX: M99.71 Connective tissue and disc stenosis of intervertebral foramina of cervical region (principal); M99.73 Connective tissue and disc stenosis of intervertebral foramina of lumbar region; M43.16 Spondylolisthesis, lumbar region; M51.36 Other intervertebral disc degeneration, lumbar region; M46.86 Other specified inflammatory spondylopathies, lumbar region
CPT/HCPCS: 72141; 72148

== ENCOUNTER 2017-07-15 17:45 | Observation (INO) | payer MEDICARE ==
[2017-07-15] MEDS ORDERED: WARFARIN 7.5 MG TAB PO SCH (18:00)
[2017-07-15] MEDS ORDERED: NITROGLYCERIN OINT 1 INCH/GM PACKET TOPICAL STA (18:07)
[2017-07-15] MEDS ORDERED: ASPIRIN 81 MG PO STA (18:07)
--- NOTE | 2017-07-15 18:09 | ED ---
General Adult HPI - General Chief complaint: Chest Pain Stated complaint: Chest pain Time Seen by Provider: 07/15/17 17:50 Source: patient, RN notes reviewed Mode of arrival: ambulatory Limitations: no limitations - History of Present Illness Initial comments: This is a 56-year-old female presents emergency department past medical history significant for a pain syndrome for which she is on morphine and hydrocodone. Patient also states she has fibromyalgia. Patient states she also is going she has a clotting problem. Patient comes in today because she's been having intermittent chest pain that unlike her fibromyalgia. Patient states the pain is in her left chest that lasted typically for an hour and then it subsides. Patient states exertion has brought him in the past as well. Patient states the pain is gone down the left arm and she's also been short of breath. Patient states currently she is not having any chest pain at all. Patient denies any difficulty breathing at this time. Patient denies any calf tenderness or leg swelling. Patient denies abdominal pain patient denies nausea vomiting diarrhea. Patient denies any lightheadedness or dizziness currently. - Related Data Home Medications Medication Instructions Recorded Confirmed Amitriptyline HCl [Elavil] 75 mg PO HS 02/20/17 07/15/17 Cyclobenzaprine [Flexeril] 10 mg PO BID 02/20/17 07/15/17 HYDROcodone/APAP 10-325MG [[place] 1 tab PO BID@1200,2100 02/20/17 07/15/17 10-325] Morphine Sulfate ER [Ms Contin] 30 mg PO BID@0800,1500 02/20/17 07/15/17 [place] Fatty Acids/Fish Oil [Fish 1 cap PO DAILY 02/20/17 07/15/17 Oil 1,000 mg Softgel] Pregabalin [Lyrica] 225 mg PO BID 02/20/17 07/15/17 Verapamil [Isoptin] 80 mg PO BID 02/20/17 07/15/17 buPROPion [Wellbutrin] 75 mg PO DAILY 02/20/17 07/15/17 Warfarin [Coumadin] 3.75 mg PO SUTUWETHSA 07/15/17 07/15/17 Warfarin [Coumadin] 5 mg PO MOFR 07/15/17 07/15/17 Allergies Allergy/AdvReac Type Severity Reaction Status Date / Time carbamazepine [From Tegretol] Allergy Rash/Hives Verified 07/15/17 18:39 codeine Allergy Anaphylaxis Verified 07/15/17 18:39 Review of Systems ROS Statement: Those systems with pertinent positive or pertinent negative responses have been documented in the HPI. ROS Other: All systems not noted in ROS Statement are negative. 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 History of Any Multi-Drug Resistant Organisms: None Reported Past Surgical History: Appendectomy, Section, Cholecystectomy Additional Past Surgical History / Comment(s): 2 c-sections, fissurectomy, colonoscopy Past Anesthesia/Blood Transfusion Reactions: No Reported Reaction Past Psychological History: Depression Smoking Status: Never smoker Past Alcohol Use History: None Reported Past Drug Use History: None Reported - Past Family History Mother Family Medical History: Hypertension Additional Family Medical History / Comment(s): mom's mom had mi and stroke, mom 's dad had hx of first mi age 40 and several after and stroke. Father Family Medical History: Cancer, Diabetes Mellitus, Mitral Valve Prolapse (MVP) Additional Family Medical History / Comment(s): lung/bone cancer. dad's mother had hx of cervical cancer and a pacemaker and dad's dad had hx mi's Sister(s) Family Medical History: Cancer, Diabetes Mellitus, Seizure Disorder Additional Family Medical History / Comment(s): one sister had seizures and 2nd sister had dm,skin cancer. Brother(s) Additional Family Medical History / Comment(s): brother had hernia sx and post op complictions-bleeding General Exam - General Exam Comments Initial Comments: GENERAL: Patient is well-developed and well-nourished. Patient is nontoxic and well- hydrated and is in no acute distress. ENT: Neck is soft and supple. No significant lymphadenopathy is noted. Oropharynx is clear. Moist mucous membranes. EYES: The sclera were anicteric and conjunctiva were pink and moist. Extraocular movements were intact and pupils were equal round and reactive to light. Eyelids were unremarkable. PULMONARY: Unlabored respirations. Good breath sounds bilaterally. No audible rales rhonchi or wheezing was noted. CARDIOVASCULAR: There is a regular rate and rhythm without any murmurs gallops or rubs. ABDOMEN: Soft and nontender with normal bowel sounds. No palpable organomegaly was noted. There is no palpable pulsatile mass. SKIN: Skin is clear with no lesions or rashes and otherwise unremarkable. NEUROLOGIC: Patient is alert and oriented x3. Cranial nerves II through XII are grossly intact. Motor and sensory are also intact. Normal speech, volume and content. Symmetrical smile. MUSCULOSKELETAL: Normal extremities with adequate strength and full range of motion. LYMPHATICS: No significant lymphadenopathy is noted PSYCHIATRIC: Normal psychiatric evaluation. Limitations: no limitations Course Vital Signs 07/15/17 07/15/17 17:50 18:28 Temperature 97.1 F L Pulse Rate 101 H 84 Respiratory 18 Rate Blood Pressure 126/82 131/82 O2 Sat by Pulse 97 94 L Oximetry Medical Decision Making - Medical Decision Making EKG shows a normal sinus rhythm at 77 bpm IL interval 166 dresses 82 QT interval 380 QTC is 4:30 per patient's EKG shows no ST segment elevation or depression or T wave abnormalities are noted. Chest x-ray shows no acute normalities. I spoke with the patient she is no longer having any pain at this time. I spoke with Dr. Sandy he agreed to admit the patient admitted the patient I wrote admitting orders. Held a heparin because the patient started on Coumadin and therapeutic. Consult cardiology. - Lab Data Result diagrams: 07/15/17 18:13 07/15/17 18:13 Lab Results 07/15/17 07/15/17 07/15/17 Range/Units 18:13 18:13 18:13 WBC 10.4 (3.8-10.6) k/uL RBC 4.85 (3.80-5.40) m/uL Hgb 13.7 (11.4-16.0) gm/dL Hct 42.8 (34.0-46.0) % MCV 88.2 (80.0-100.0) fL MCH 28.2 (25.0-35.0) pg MCHC 32.0 (31.0-37.0) g/dL RDW 13.1 (11.5-15.5) % Plt Count 239 (150-450) k/uL Neutrophils % 44 % Lymphocytes % 45 % Monocytes % 7 % Eosinophils % 2 % Basophils % 1 % Neutrophils # 4.5 (1.3-7.7) k/uL Lymphocytes # 4.7 (1.0-4.8) k/uL Monocytes # 0.8 (0-1.0) k/uL Eosinophils # 0.2 (0-0.7) k/uL Basophils # 0.1 (0-0.2) k/uL PT (9.0-12.0) sec INR (<1.2) APTT (22.0-30.0) sec Sodium 138 (137-145) mmol/L Potassium 4.1 (3.5-5.1) mmol/L Chloride 102 (98-107) mmol/L Carbon Dioxide 25 (22-30) mmol/L Anion Gap 11 mmol/L BUN 17 (7-17) mg/dL Creatinine 0.95 (0.52-1.04) mg/dL Est GFR (MDRD) Af Amer >60 (>60 ml/min/1.73 sqM) Est GFR (MDRD) Non-Af >60 (>60 ml/min/1.73 sqM) Glucose 89 (74-99) mg/dL Calcium 9.5 (8.4-10.2) mg/dL Magnesium 1.7 (1.6-2.3) mg/dL Total Bilirubin 0.4 (0.2-1.3) mg/dL AST 27 (14-36) U/L ALT 31 (9-52) U/L Alkaline Phosphatase 95 (38-126) U/L Total Creatine Kinase 62 (30-135) U/L CK-MB (CK-2) 0.6 (0.0-2.4) ng/mL CK-MB (CK-2) Rel Index 1.0 Troponin I <0.012 (0.000-0.034) ng/mL Total Protein 7.0 (6.3-8.2) g/dL Albumin 4.0 (3.5-5.0) g/dL 07/15/17 Range/Units 18:13 WBC (3.8-10.6) k/uL RBC (3.80-5.40) m/uL Hgb (11.4-16.0) gm/dL Hct (34.0-46.0) % MCV (80.0-100.0) fL MCH (25.0-35.0) pg MCHC (31.0-37.0) g/dL RDW (11.5-15.5) % Plt Count (150-450) k/uL Neutrophils % % Lymphocytes % % Monocytes % % Eosinophils % % Basophils % % Neutrophils # (1.3-7.7) k/uL Lymphocytes # (1.0-4.8) k/uL Monocytes # (0-1.0) k/uL Eosinophils # (0-0.7) k/uL Basophils # (0-0.2) k/uL PT 23.1 H (9.0-12.0) sec INR 2.6 H (<1.2) APTT 31.4 H (22.0-30.0) sec Sodium (137-145) mmol/L Potassium (3.5-5.1) mmol/L Chloride (98-107) mmol/L Carbon Dioxide (22-30) mmol/L Anion Gap mmol/L BUN (7-17) mg/dL Creatinine (0.52-1.04) mg/dL Est GFR (MDRD) Af Amer (>60 ml/min/1.73 sqM) Est GFR (MDRD) Non-Af (>60 ml/min/1.73 sqM) Glucose (74-99) mg/dL Calcium (8.4-10.2) mg/dL Magnesium (1.6-2.3) mg/dL Total Bilirubin (0.2-1.3) mg/dL AST (14-36) U/L ALT (9-52) U/L Alkaline Phosphatase (38-126) U/L Total Creatine Kinase (30-135) U/L CK-MB (CK-2) (0.0-2.4) ng/mL CK-MB (CK-2) Rel Index Troponin I (0.000-0.034) ng/mL Total Protein (6.3-8.2) g/dL Albumin (3.5-5.0) g/dL Disposition Clinical Impression: Unstable angina pectoris Disposition: ADMITTED IP TO THIS HOSP Referrals: Yovanny Mcdonald MD [Primary Care Provider] - 1-2 days Time of Disposition: 19:15
--- NOTE | 2017-07-15 18:29 | XR ---
EXAMINATION TYPE: XR chest 2V DATE OF EXAM: 07/15/2017 COMPARISON: Prior exam 02/20/2017 HISTORY: Chest pain TECHNIQUE: Frontal and lateral views of the chest are obtained. FINDINGS: There is no focal air space opacity, pleural effusion, or pneumothorax seen. The cardiac silhouette size is within normal limits. There are overlying cardiac leads. The osseous structures a re intact. IMPRESSION: No acute cardiopulmonary process.
[2017-07-15 18:37] LABS: Basophils # (A) 0.1 k/uL (0-0.2); Basophils % (A) 1 %; Eosinophils # (A) 0.2 k/uL (0-0.7); Eosinophils % (A) 2 %; HCT 42.8 % (34.0-46.0); HGB 13.7 gm/dL (11.4-16.0); Lymphocytes # (A) 4.7 k/uL (1.0-4.8); Lymphocytes % (A) 45 %; MCH 28.2 pg (25.0-35.0); MCV 88.2 fL (80.0-100.0); Mean Platelet Volume 6.8; Monocytes # (A) 0.8 k/uL (0-1.0); Monocytes % (A) 7 %; Neutrophils # (A) 4.5 k/uL (1.3-7.7); Neutrophils % (A) 44 %; Platelet Count 239 k/uL (150-450); RBC 4.85 m/uL (3.80-5.40); RDW 13.1 % (11.5-15.5); WBC 10.4 k/uL (3.8-10.6)
[2017-07-15 18:42] LABS: INR 2.6 (<1.2); Partial Thromboplastin Time 31.4 sec (22.0-30.0); Prothrombin Time 23.1 sec (9.0-12.0)
[2017-07-15 18:45] LABS: ALT 31 U/L (9-52); AST 27 U/L (14-36); Alkaline Phosphatase 95 U/L (38-126); Anion Gap 11 mmol/L; Blood Urea Nitrogen 17 mg/dL (7-17); Calcium 9.5 mg/dL (8.4-10.2); Carbon Dioxide 25 mmol/L (22-30); Chloride 102 mmol/L (98-107); Glucose 89 mg/dL (74-99); Magnesium 1.7 mg/dL (1.6-2.3); Potassium 4.1 mmol/L (3.5-5.1); Sodium 138 mmol/L (137-145); Total Bilirubin 0.4 mg/dL (0.2-1.3)
[2017-07-15 18:50] LABS: Creatine Kinase 62 U/L (30-135)
[2017-07-15 19:02] LABS: Creatine Kinase MB 0.6 ng/mL (0.0-2.4); Troponin I <0.012 ng/mL (0.000-0.034)
[2017-07-15] MEDS ORDERED: NITROGLYCERIN SL TABS 0.4 MG TAB SUBLINGUAL PRN (19:16)
[2017-07-15] MEDS ORDERED: HYDROcodone/APAP 10-325MG 1 EACH TAB PO SCH (21:00)
[2017-07-15] MEDS ORDERED: AMITRIPTYLINE HCL 25 MG TAB PO SCH (21:00)
[2017-07-15] MEDS: NITROGLYCERIN OINT 1 INCH/GM PACKET TOPICAL SCH (23:31)
[2017-07-16 00:56] LABS: Creatine Kinase 54 U/L (30-135)
[2017-07-16 01:09] LABS: Creatine Kinase MB 0.4 ng/mL (0.0-2.4); Troponin I <0.012 ng/mL (0.000-0.034)
[2017-07-16] MEDS ORDERED: TEMAZEPAM 15 MG CAP PO PRN (01:22)
--- NOTE | 2017-07-16 06:10 | HP ---
HISTORY AND PHYSICAL DATE OF SERVICE: 07/15/2017 CHIEF COMPLAINT: Chest pain. HISTORY OF PRESENT ILLNESS: This 56-year-old woman with a past medical history of multiple medical problems including COPD, fibromyalgia, hypothyroidism, atypical facial pain, trigeminal neuralgia, history of appendectomy, section, and depression being followed by Dr. Yovanny Mcdonald in the outpatient setting was complaining of chest pain. Patient apparently had a stress test in January. Subsequently patient with on and off chest pain in the anterior part of the chest. Patient also had plowed snow recently and then subsequently patient had pain in the anterior part of the chest. Today, the pain started mostly in the left side, then radiated slightly to the mid part and right side and also to the left abdomen. Patient came to [facility] and was admitted for further evaluation and treatment. There is no history of any fever, rigors or chills. No history of headache, loss of consciousness or seizures. The patient also had multiple other symptoms including shortness of breath also. PAST MEDICAL HISTORY: History of COPD, fibromyalgia, hypothyroidism, trigeminal neuralgia, appendectomy, section, cholecystectomy. MEDICATIONS: Medications prior to admission include: 1. Morphine sulfate, MS Contin, 30 mg p.o. b.i.d. 2. Coumadin 5 mg Friday and Friday and 3.75 mg Friday, Friday, Friday, , Friday. 3. Hydrocodone 10 mg p.o. b.i.d. 4. Elavil 75 mg q.h.s. 5. Wellbutrin 75 mg p.o. daily. 6. Isoptin 80 mg p.o. b.i.d. 7. Lyrica 225 mg p.o. b.i.d. 8. Fish oil 1 p.o. daily. 9. Flexeril 10 mg p.o. b.i.d. ALLERGIES: Allergies are TEGRETOL and CODEINE. FAMILY HISTORY: History of stroke in the family and also coronary artery disease in the family. 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 No history of smoking. No history of alcohol intake. REVIEW OF SYSTEMS: ENT: No diminished hearing or diminished vision. CARDIOVASCULAR SYSTEM: As mentioned earlier. RESPIRATORY SYSTEM: As mentioned earlier. GI: No nausea, as mentioned earlier. : No dysuria. NERVOUS SYSTEM: No numbness or weakness. ALLERGY/IMMUNOLOGY: No history of asthma. MUSCULOSKELETAL: As mentioned earlier. HEMATOLOGY/ONCOLOGY: As mentioned earlier. ENDOCRINE: As mentioned earlier. CONSTITUTIONAL: As mentioned earlier. DERMATOLOGY: Negative. RHEUMATOLOGY: Negative. PSYCHIATRY: As mentioned earlier. PHYSICAL EXAMINATION: The patient is alert and oriented x3. Pulse 79, blood pressure 93/52, respirations 16, temperature 97.5, pulse ox 90% on room air. HEENT: Conjunctivae normal. Oral mucosa moist. Neck is no jugular venous distention. No carotid bruit. No lymph node enlargement. CARDIOVASCULAR: S1 and S2 muffled. No S3 or S4. RESPIRATORY: Breath sounds diminished at the bases. No rhonchi. No crackles. ABDOMEN: Soft, obese, nontender. No mass palpable. LEGS: No edema, no swelling. NERVOUS SYSTEM: Higher functions as mentioned earlier. Moves all 4 limbs. No focal motor or sensory deficits. LYMPHATICS: No lymphadenopathy of the neck, axillae or groin. SKIN: No ulcer, rash or bleeding. LAB: CBC within normal limits. INR 2.6. BMP within normal limits. ASSESSMENT: 1. Chest pain, possible unstable angina. 2. History of chronic obstructive pulmonary disease. 3. Fibromyalgia. 4. Hypothyroidism. 5. Trigeminal neuralgia. 6. History of tension headaches and history of migraines. 7. History of shingles. 8. History of dry eye syndrome. 9. History of depression. RECOMMENDATIONS AND DISCUSSION: In this 56-year-old woman who presented with multiple complex medical issues, will monitor the patient closely, continue the current medications, continue symptomatic treatment, rule out myocardial infarction, unstable angina protocol, cardiology consultation. EKG showed incomplete right bundle block. Otherwise, I would recommend further testing either stress testing or cardiac catheterization to delineate multiple continuous symptomatology. The prognosis guarded. Will closely follow with Cardiology and await their input and further recommendation to follow. Discussed with the patient, understands and agrees and will monitor the PT, INR closely. MMODL / IJN: [id number] /
[2017-07-16] MEDS: NITROGLYCERIN OINT 1 INCH/GM PACKET TOPICAL SCH (06:12)
[2017-07-16 07:26] LABS: Prothrombin Time 26.5 sec (9.0-12.0)
[2017-07-16 07:39] LABS: Creatine Kinase 56 U/L (30-135)
[2017-07-16 07:45] LABS: Cholesterol 207 mg/dL (<200); HDL Cholesterol 47 mg/dL (40-60); LDL Cholesterol,Calculated 120 mg/dL (0-99); Triglycerides 201 mg/dL (<150)
[2017-07-16 07:50] LABS: Creatine Kinase MB 0.4 ng/mL (0.0-2.4); Troponin I <0.012 ng/mL (0.000-0.034)
[2017-07-16] MEDS ORDERED: MORPHINE SULFATE ER 30 MG TABLET PO SCH (08:00)
[2017-07-16] MEDS ORDERED: ASPIRIN 325 MG TAB PO SCH (09:00)
[2017-07-16] MEDS ORDERED: NON-FORMULARY DRUG (Omega-3 Fatty Acids/Fish Oil [Fish Oil 1,000 Mg Softgel] 1 CAP) PO SCH (09:00)
[2017-07-16] MEDS ORDERED: buPROPion 75 MG TAB PO SCH (09:00)
[2017-07-16] MEDS ORDERED: CYCLOBENZAPRINE 10 MG TAB PO SCH (09:00)
[2017-07-16] MEDS ORDERED: VERAPAMIL 80 MG TAB PO SCH (09:00)
[2017-07-16] MEDS ORDERED: PREGABALIN 75 MG CAP PO SCH (09:00)
[2017-07-16 10:29] LABS: T4, Free (Free Thyroxine) 1.49 ng/dL (0.78-2.19)
--- NOTE | 2017-07-16 11:10 | P.CRDCN ---
History of Present Illness Consult date: 07/16/17 Consult reason: chest pain History of present illness: Mrs. Mendez is a pleasant 56-year-old female patient past medical history significant for COPD, fibromyalgia, history of DVT and PE. She denies history of coronary artery disease. She was here in January with similar symptoms and underwent a dobutamine stress test that was negative for stress induced ischemia. We have been asked to see her in consultation for chest pain. She states approximately 3 weeks ago while she was shoveling she experienced increased shortness of breath, palpitations and mild chest pain. The symptoms relieved on its own after she sat down and rested. Yesterday she was shopping at [employer] and afterwards walking to her car she felt very fatigued, weak and short of breath. She went home and laid down to rest and started having chest pain. The pain was heavy and in the precordial region. it radiated to the midsternal region and over to the right then back to the left and into the left shoulder. This went off an on over about 2 hrs before she came to the hospital. overnight while she was getting up and down to the bathroom and around the room she felt increased shortness of breath with exertion. At the time of my exam she is chest pain free and breathing is better. EKG on arrival reveals sinus mechanism with no acute ST or T-wave abnormalities. Chest xray is negative for an acute cardiopulmonary process. Laboratory data reviewed, hgb 13.7, plt 239, INR 3.0, potassium 4.1, magnesium 1.7, creatinine 0.95, cardiac enzymes negative x3, LDL 120, HDL 47, TSH 1.5, free T4 1.49. Currently she takes verapamil 80 mg BID for migraines and coumadin 5mg - and 3.75 mg Xp-Ce-C--. Most recent echocardiogram was performed 01/2017 reveals preserved systolic LV function with EF 60-65%. Most recent stress test was a dobuatime echo 01/2017 was negative for stress induced ischemia. Review of Systems At the time of my exam: CONSTITUTIONAL: Denies fever. Denies chills. EYES: Denies blurred vision. Denies vision changes. Denies eye pain. EARS, NOSE, MOUTH & THROAT: Denies headache. Denies sore throat. Denies ear pain. CARDIOVASCULAR: Denies chest pain. Denies shortness of breath. Denies orthopnea. Denies PND. Denies palpitations. RESPIRATORY: Denies cough. GASTROINTESTINAL: Denies abdominal pain. Denies diarrhea. Denies constipation. Denies nausea. Denies vomiting. MUSCULOSKELETAL: Denies myalgias. INTEGUMENTARY: Denies pruitis. Denies rash. NEUROLOGIC: Denies numbness. Denies tingling. Denies weakness. PSYCHIATRIC: Denies anxiety. Denies depression. ENDOCRINE: Denies fatigue. Denies weight change. Denies polydipsia. Denies polyurina. GENITOURINARY: Denies burning, hematuria or urgency with micturation. HEMATOLOGIC: Denies history of anemia. Denies bleeding. 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 inpast used 02 but not now", murmur when younger,constipation(last bm 2-18,vertigo, "dry eye syndrome uses drops 4-6 times a day.stress test .had mamogram apr 2017-neg History of Any Multi-Drug Resistant Organisms: None Reported Past Surgical History: Appendectomy, Section, Cholecystectomy Additional Past Surgical History / Comment(s): 2 c-sections, fissurectomy, colonoscopy Past Anesthesia/Blood Transfusion Reactions: No Reported Reaction Smoking Status: Never smoker - Past Family History Mother Family Medical History: Hypertension Additional Family Medical History / Comment(s): mom's mom had mi and stroke, mom 's dad had hx of first mi age 40 and several after and stroke. Father Family Medical History: Cancer, Diabetes Mellitus, Mitral Valve Prolapse (MVP) Additional Family Medical History / Comment(s): lung/bone cancer. dad's mother had hx of cervical cancer and a pacemaker and dad's dad had hx mi's Sister(s) Family Medical History: Cancer, Diabetes Mellitus, Seizure Disorder Additional Family Medical History / Comment(s): one sister had seizures and 2nd sister had dm,skin cancer. Brother(s) Additional Family Medical History / Comment(s): brother had hernia sx and post op complictions-bleeding Medications and Allergies Home Medications Medication Instructions Recorded Confirmed Type Amitriptyline HCl [Elavil] 75 mg PO HS 02/20/17 07/15/17 History Cyclobenzaprine [Flexeril] 10 mg PO BID 02/20/17 07/15/17 History HYDROcodone/APAP 10-325MG [[place] 1 tab PO BID@1200,2100 02/20/17 07/15/17 History 10-325] Morphine Sulfate ER [Ms Contin] 30 mg PO BID@0800,1500 02/20/17 07/15/17 History [place]-3 Fatty Acids/Fish Oil [Fish 1 cap PO DAILY 02/20/17 07/15/17 History Oil 1,000 mg Softgel] Pregabalin [Lyrica] 225 mg PO BID 02/20/17 07/15/17 History Verapamil [Isoptin] 80 mg PO BID 02/20/17 07/15/17 History buPROPion [Wellbutrin] 75 mg PO DAILY 02/20/17 07/15/17 History Warfarin [Coumadin] 3.75 mg PO SUTUWETHSA 07/15/17 07/15/17 History Warfarin [Coumadin] 5 mg PO MOFR 07/15/17 07/15/17 History Allergies Allergy/AdvReac Type Severity Reaction Status Date / Time carbamazepine [From Tegretol] Allergy Rash/Hives Verified 07/15/17 18:39 codeine Allergy Anaphylaxis Verified 07/15/17 18:39 Physical Exam Vitals: Vital Signs Temp Pulse Pulse Resp BP BP BP 07/16/17 08:00 97.4 F L 71 17 92/50 07/16/17 03:50 16 07/16/17 03:42 97.9 F 70 16 102/57 07/16/17 00:00 97.5 F L 79 16 93/52 07/15/17 20:40 98.4 F 70 16 123/75 07/15/17 20:00 16 07/15/17 18:28 84 131/82 07/15/17 17:50 97.1 F L 101 H 18 126/82 Pulse Ox 07/16/17 08:00 93 L 07/16/17 03:50 07/16/17 03:42 93 L 07/16/17 00:00 90 L 07/15/17 20:40 93 L 07/15/17 20:00 07/15/17 18:28 94 L 07/15/17 17:50 97 Intake and Output 07/15/17 07/16/17 07/16/17 22:59 06:59 14:59 Intake Total 50 Balance 50 Intake: Amount of Fluid Infused ( 50 ml) Other: # Voids 1 Weight 108.862 kg Blood pressure 92/50 heart rate 71 afebrile GENERAL: This is a 13-[id number]-year-old female in no apparent distress at the time of my examination. Obese. HEENT: Head is atraumatic, normocephalic. Pupils are equal, round. Sclerae anicteric. Conjunctivae are clear. Mucous membranes of the mouth are moist. Neck is supple. There is no jugular venous distention. No carotid bruit is heard. LUNGS: Clear to auscultation no wheezes, rales or rhonchi. No chest wall tenderness is noted on palpation or with deep breathing. HEART: Regular rate and rhythm without murmurs, rubs or gallops. S1 and S2 heard. ABDOMEN: Soft, nontender. Bowel sounds are heard. No organomegaly noted. EXTREMITIES: No evidence of peripheral edema and no calf tenderness noted. VASCULAR: Radial and dorsalis pedis pulses palpated, no evidence of clubbing. NEUROLOGIC: Patient is awake, alert and oriented x3. Results 07/15/17 18:13 07/15/17 18:13 Cardiac Enzymes 07/15/17 07/15/17 07/16/17 Range/Units 18:13 18:13 00:13 AST 27 (14-36) U/L CK-MB (CK-2) 0.6 0.4 (0.0-2.4) ng/mL Troponin I <0.012 <0.012 (0.000-0.034) ng/mL 07/16/17 Range/Units 06:45 AST (14-36) U/L CK-MB (CK-2) 0.4 (0.0-2.4) ng/mL Troponin I <0.012 (0.000-0.034) ng/mL Coagulation 07/15/17 07/16/17 Range/Units 18:13 06:45 PT 23.1 H 26.5 H (9.0-12.0) sec APTT 31.4 H (22.0-30.0) sec Lipids 07/16/17 Range/Units 06:45 Triglycerides 201 H (<150) mg/dL Cholesterol 207 H (<200) mg/dL HDL Cholesterol 47 (40-60) mg/dL CBC 07/15/17 Range/Units 18:13 WBC 10.4 (3.8-10.6) k/uL RBC 4.85 (3.80-5.40) m/uL Hgb 13.7 (11.4-16.0) gm/dL Hct 42.8 (34.0-46.0) % Plt Count 239 (150-450) k/uL Comprehensive Metabolic Panel 07/15/17 Range/Units 18:13 Sodium 138 (137-145) mmol/L Potassium 4.1 (3.5-5.1) mmol/L Chloride 102 (98-107) mmol/L Carbon Dioxide 25 (22-30) mmol/L BUN 17 (7-17) mg/dL Creatinine 0.95 (0.52-1.04) mg/dL Glucose 89 (74-99) mg/dL Calcium 9.5 (8.4-10.2) mg/dL AST 27 (14-36) U/L ALT 31 (9-52) U/L Alkaline Phosphatase 95 (38-126) U/L Total Protein 7.0 (6.3-8.2) g/dL Albumin 4.0 (3.5-5.0) g/dL Current Medications Generic Name Dose Route Start Last Admin Trade Name Freq PRN Reason Stop Dose Admin Hydrocodone Bitart/Acetaminophen 1 each 07/15/17 21:00 07/15/17 21:22 [place] 10 PO 1 each BID@1200,2100 KIMBERLYN Administration Amitriptyline HCl 75 mg 07/15/17 21:00 07/15/17 21:22 Elavil PO 75 mg HS KIMBERLYN Administration Aspirin 325 mg 07/16/17 09:00 Aspirin PO DAILY KIMBERLYN Bupropion HCl 75 mg 07/16/17 09:00 Wellbutrin PO DAILY KIMBERLYN Cyclobenzaprine HCl 10 mg 07/16/17 09:00 Flexeril PO BID KIMBERLYN Morphine Sulfate 30 mg 07/16/17 08:00 Ms Contin PO BID@0800,1500 [facility] Nitroglycerin 1 inch 07/16/17 00:00 07/16/17 06:12 Nitro-Bid Oint TOPICAL Not Given Q6HR [facility] Nitroglycerin 0.4 mg 07/15/17 19:16 Nitrostat SUBLINGUAL Q5M PRN Chest Pain Non-Formulary Medication 1 cap 07/16/17 09:00 [place]-3 Fatty Acids/Fish Oil [Fish Oil 1,000 Mg Softgel] PO DAILY [facility] Pregabalin 225 mg 07/16/17 09:00 Lyrica PO BID KIMBERLYN Temazepam 15 mg 07/16/17 01:22 07/16/17 01:32 Restoril PO 15 mg HS PRN Administration Insomnia Verapamil HCl 80 mg 07/16/17 09:00 Isoptin PO BID KIMBERLYN Warfarin Sodium 3.75 mg 07/15/17 18:00 07/15/17 21:22 Coumadin PO Not Given SUTUWETHSA [facility] Warfarin Sodium 5 mg 07/18/17 18:00 Coumadin PO MOFR KIMBERLYN Intake and Output 07/15/17 07/16/17 07/16/17 22:59 06:59 14:59 Intake Total 50 Balance 50 Intake: Amount of Fluid Infused ( 50 ml) Other: # Voids 1 Weight 108.862 kg 07/15/17 18:13 07/15/17 18:13 Assessment and Plan Assessment: ASSESSMENT 1. Chest pain, atypical. No EKG evidence of ischemia with negative cardiac enzymes. 2. Shortness of breath on exertion, effectively anticoagulated on Coumadin INR 3 for history of DVT and PE. Recent echo shows normal EF. 3. Palpitations PLAN Check TSH and free T4. Pt is stable from a cardiac perspective. No need for any further work-up as an inpatient. Recommend she goes home with an event monitor for 2 weeks to assess palpitations. Outpatient Lexiscan stress test and follow-up appointment with Dr. Luu. These appointments have been made with the office. Nurse Practitioner note has been reviewed, I agree with a documented findings and plan of care. Patient was seen and examined.
[2017-07-16 12:04] VITALS: BP 115/70; PULSE 85; RESP 18; TEMP 97.5
--- NOTE | 2017-07-17 06:53 | DS ---
DISCHARGE SUMMARY DATE OF SERVICE: 07/16/2017 FINAL DIAGNOSES: 1. Chest pain, myocardial infarction ruled out, rule out coronary artery disease. 2. History of chronic obstructive pulmonary disease. 3. Fibromyalgia. 4. Recent negative stress test. 5. Hypothyroidism. 6. History of trigeminal neuralgia. 7. History of tension headaches and history of migraine. 8. History of shingles. 9. History of dry eye syndrome. 10.History of depression. DISCHARGE DISPOSITION: The patient will be discharged in a stable condition with guarded prognosis. Cardiology cleared the patient for discharge. HISTORY OF PRESENT ILLNESS: This 56-year-old woman with past medical history of multiple medical problems admitted with chest pain. Myocardial infarction ruled out. Cardiology recommended the patient to follow up in outpatient setting for possible evaluation including cardiac cath if the patient is not feeling better. On exam, vitals are stable. CARDIOVASCULAR: S1 and S2 muffled. ABDOMEN: Soft. NERVOUS SYSTEM: No focal deficits. DISCHARGE ADVICE: 1. Diet is cardiac. 2. Activity limited until followup. 3. Follow up with Dr. Mcdonald in 2 to 3 days. 4. Follow up with Cardiology as recommended. Medications are as follows: 1. Elavil 75 mg q.h.s. 2. Wellbutrin 75 mg daily. 3. Flexeril 10 mg p.o. b.i.d. 4. [place] 10 mg b.i.d. p.r.n. 5. MS Contin 30 mg p.o. b.i.d. 6. [place]-3 fatty acids 1 p.o. daily. 7. Lyrica 225 mg p.o. b.i.d. 8. Isoptin 80 mg p.o. b.i.d. 9. Coumadin 5 mg on Friday and Friday, 3.75 mg on other days. Once again, the patient will be discharged in a stable condition with guarded prognosis. MMODL / IJN: [id number] / JUDY
[2017-07-18] MEDS ORDERED: WARFARIN 5 MG TAB PO SCH (18:00)
== END 2017-07-16 12:55 | disposition home or self-care (01) ==
LOC: EC 17:45 → 3OBS 19:16
PROVIDERS: ADMIT Hospitalist; ATTEND Hospitalist
DX: R07.9 Chest pain, unspecified (principal); J44.9 Chronic obstructive pulmonary disease, unspecified; M79.7 Fibromyalgia; E03.9 Hypothyroidism, unspecified; G50.0 Trigeminal neuralgia; G43.909 Migraine, unspecified, not intractable, without status migrainosus; Z86.19 Personal history of other infectious and parasitic diseases; H04.129 Dry eye syndrome of unspecified lacrimal gland; F32.9 Major depressive disorder, single episode, unspecified; G50.1 Atypical facial pain; G44.209 Tension-type headache, unspecified, not intractable; K59.00 Constipation, unspecified; R53.1 Weakness; R00.2 Palpitations; R42 Dizziness and giddiness; R06.02 Shortness of breath; Z86.711 Personal history of pulmonary embolism; Z86.718 Personal history of other venous thrombosis and embolism; Z80.1 Family history of malignant neoplasm of trachea, bronchus and lung; Z82.3 Family history of stroke; Z82.49 Family history of ischemic heart disease and other diseases of the circulatory system; Z83.3 Family history of diabetes mellitus; Z82.0 Family history of epilepsy and other diseases of the nervous system; Z80.8 Family history of malignant neoplasm of other organs or systems; Z88.8 Allergy status to other drugs, medicaments and biological substances; Z88.5 Allergy status to narcotic agent; Z79.899 Other long term (current) drug therapy; Z79.891 Long term (current) use of opiate analgesic; Z79.01 Long term (current) use of anticoagulants; Z90.49 Acquired absence of other specified parts of digestive tract
CPT/HCPCS: 99285; 36415; 93005; 84439; 80061; 80053; 84443; 82550 ×2; 82553 ×2; 83735; 84484 ×2; 85025; 85610 ×2; 85730; 71046; G0378 ×2

== ENCOUNTER → 2018-01-28 | Outpatient (CLI) | payer MEDICARE | END | disposition home or self-care (01) | LOC: LABWHC1 10:12 | PROVIDERS: ATTEND Physician Assistant | DX: I49.9 Cardiac arrhythmia, unspecified (principal) | CPT/HCPCS: 93005 ==

== ENCOUNTER 2018-04-16 13:03 | Emergency (ER) | payer MEDICARE ==
[2018-04-16 13:15] VITALS: BP 117/81; PULSE 114; RESP 18; TEMP 97.6
[2018-04-16] MEDS ORDERED: ACETAMINOPHEN TAB 500 MG TAB PO STA (13:49)
[2018-04-16] MEDS ORDERED: IBUPROFEN 800 MG TAB PO STA (13:49)
--- NOTE | 2018-04-16 13:52 | ED ---
General Adult HPI - General Chief complaint: Extremity Injury, Lower Stated complaint: fall left hip pain Source: patient Mode of arrival: wheelchair Limitations: no limitations - History of Present Illness Initial comments: Dictation was produced using [employer] dictation software. please excuse any grammatical, word or spelling errors. Chief Complaint: 57-year-old female with past medical history of chronic pain presents with left hip pain. History of Present Illness: Patient complains of left hip pain. Last week she fell in her garage. She states she struck her head had a traumatic nosebleed. She was seen at [facility] were computed tomography scan was performed. Patient was cleared for discharge. 2 days after that incident she began noticing that her left hip was hurting. She states that she would [place] however she had delivery of a lot of close to her house. Patient states that she has severe left hip pain. She is able to actively however with difficulties. No other complaints at this time. The ROS documented in this emergency department record has been reviewed and confirmed by me. Those systems with pertinent positive or negative responses have been documented in the HPI. All other systems are other negative and/or noncontributory. - Related Data Home Medications Medication Instructions Recorded Confirmed Amitriptyline HCl [Elavil] 75 mg PO HS 02/20/17 04/16/18 Cyclobenzaprine [Flexeril] 10 mg PO BID 02/20/17 04/16/18 HYDROcodone/APAP 10-325MG [[place] 1 tab PO BID@1200,2100 02/20/17 04/16/18 10-325] Morphine Sulfate ER [Ms Contin] 30 mg PO BID@0800,1500 02/20/17 04/16/18 [place]-3 Fatty Acids/Fish Oil [Fish 1 cap PO DAILY 02/20/17 04/16/18 Oil 1,000 mg Softgel] Pregabalin [Lyrica] 225 mg PO BID 02/20/17 04/16/18 buPROPion [Wellbutrin] 75 mg PO DAILY 02/20/17 04/16/18 Warfarin [Coumadin] 3.75 mg PO DAILY 07/15/17 04/16/18 Levothyroxine Sodium [Synthroid] 150 mcg PO DAILY 04/16/18 04/16/18 Propranolol HCl [Propranolol HCl 120 mg PO DAILY 04/16/18 04/16/18 ER] Allergies Allergy/AdvReac Type Severity Reaction Status Date / Time carbamazepine [From Tegretol] Allergy Rash/Hives Verified 04/16/18 14:11 codeine Allergy Anaphylaxis Verified 04/16/18 14:11 Review of Systems ROS Statement: Those systems with pertinent positive or pertinent negative responses have been documented in the HPI. ROS Other: All systems not noted in ROS Statement are negative. 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 inpast used 02 but not now", murmur when younger,constipation(last bm 07-15-17,vertigo, "dry eye syndrome uses drops 4-6 times a day.stress test .had mamogram apr 2017-neg History of Any Multi-Drug Resistant Organisms: None Reported Past Surgical History: Appendectomy, Section, Cholecystectomy Additional Past Surgical History / Comment(s): 2 c-sections, fissurectomy, colonoscopy Past Anesthesia/Blood Transfusion Reactions: No Reported Reaction Past Psychological History: Depression Smoking Status: Never smoker - Past Family History Mother Family Medical History: Hypertension Additional Family Medical History / Comment(s): mom's mom had mi and stroke, mom 's dad had hx of first mi age 40 and several after and stroke. Father Family Medical History: Cancer, Diabetes Mellitus, Mitral Valve Prolapse (MVP) Additional Family Medical History / Comment(s): lung/bone cancer. dad's mother had hx of cervical cancer and a pacemaker and dad's dad had hx mi's Sister(s) Family Medical History: Cancer, Diabetes Mellitus, Seizure Disorder Additional Family Medical History / Comment(s): one sister had seizures and 2nd sister had dm,skin cancer. Brother(s) Additional Family Medical History / Comment(s): brother had hernia sx and post op complictions-bleeding General Exam - General Exam Comments Initial Comments: PHYSICAL EXAM: General Impression: Alert and oriented x3, not in acute distress HEENT: Normocephalic atraumatic, extra-ocular movements intact, pupils equal and reactive to light bilaterally, mucous membranes moist. Cardiovascular: Heart regular rate and rhythm, S1&S2 audible, no murmurs, rubs or gallops Chest: Lungs clear to auscultation bilaterally, no rhonchi, no wheeze, no rales Abdomen: Bowel sounds present, abdomen soft, non-tender, non-distended, no organomegaly Musculoskeletal: Pulses present and equal in all extremities, no peripheral edema, tenderness to palpation over the left hip. Patient the left hip with range of motion motion passively. Left lower extremity is not shortened Motor: Antalgic Neurological: CN II-XII grossly intact, no focal motor or sensory deficits noted Skin: Intact with no visualized rashes Psych: Normal affect and mood Limitations: no limitations Course Vital Signs 04/16/18 13:12 Temperature 97.6 F Pulse Rate 114 H Respiratory 18 Rate Blood Pressure 117/81 O2 Sat by Pulse 97 Oximetry Medical Decision Making - Medical Decision Making ED course: 57-year-old female presents with chief complaint of left hip pain. Patient did have a genetic fall approximately one week ago. Arrival are within acceptable limits. Patient stable to walk however walking very gingerly. X-ray of the pelvis and left hip was obtained showing no acute processes. Patient has MS Contin at home that she is going to take for her analgesia. Patient told to wait so she gets home before taking this medication. Patient given referral to orthopedic surgery. Disposition Clinical Impression: Hip strain Disposition: HOME SELF-CARE Condition: Good Instructions: Muscle Strain (ED) Is patient prescribed a controlled substance at d/c from ED?: No Referrals: Yovanny Mcdonald MD [Primary Care Provider] - 1-2 days Justo Banda MD [STAFF PHYSICIAN] - 1-2 days Time of Disposition: 16:50
--- NOTE | 2018-04-16 14:48 | XR ---
EXAMINATION TYPE: XR Hip LT and AP Pelvis DATE OF EXAM: 04/16/2018 COMPARISON: NONE HISTORY: Pelvic and left hip pain after fall injury 2 weeks ago. TECHNIQUE: A single AP view of the pelvis is obtained. Two views of the left hip are obtained. FINDINGS: There is no acute fracture/dislocation evident in the pelvis. The hip and sacroiliac join ts appear symmetric and unremarkable. Scattered pelvic phleboliths are present. Two views of left hip show no acute fracture or dislocation. No focal lytic or sclerotic lesion seen in the proximal left femur. The overlying soft tissue is unremarkable. IMPRESSION: There is no acute fracture or dislocation in the pelvis or left hip.
== END 2018-04-16 17:06 | disposition home or self-care (01) ==
LOC: EC 13:03
DX: S76.012A Strain of muscle, fascia and tendon of left hip, initial encounter (principal); M79.7 Fibromyalgia; E07.9 Disorder of thyroid, unspecified; F32.9 Major depressive disorder, single episode, unspecified; Z86.718 Personal history of other venous thrombosis and embolism; Z79.01 Long term (current) use of anticoagulants; Z79.891 Long term (current) use of opiate analgesic; Z79.899 Other long term (current) drug therapy; Z88.5 Allergy status to narcotic agent; Z88.8 Allergy status to other drugs, medicaments and biological substances; W19.XXXA Unspecified fall, initial encounter
CPT/HCPCS: 73502; 99283

== ENCOUNTER → 2018-09-03 | Outpatient (CLI) | payer MEDICARE ==
--- NOTE | 2018-09-03 16:35 | CT ---
EXAMINATION TYPE: CT chest wo con DATE OF EXAM: 09/03/2018 COMPARISON: 02/20/2017 HISTORY: ILD. CT DLP: 241 mGycm, Automated exposure control for dose reduction was used. CONTRAST: None TECHNIQUE: Axial images were obtained at 1 mm thick sections at 10 mm intervals. This will limit po rtions of the examination which may not be visualized within the [id number]. Images were obtained in the prone and supine views. FINDINGS: No suspicious lung nodules or focal infiltrates are present. No enlarged mediastinal or hilar adenopathy is evident. The ascending aorta diameter at the level o f the main pulmonary artery is 3.2 cm. The main pulmonary artery diameter at the bifurcation is 3.9 cm. Correlate for pulmonary hypertension. Limited CT sections are obtained through the upper abdomen. Abdomen is essentially unremarkable. IMPRESSIONS: 1. Normal High Resolution Chest CT. 2. Prominent main pulmonary artery, correlate for pulmonary hypertension.
== END | disposition home or self-care (01) ==
LOC: RADCTMAIN 15:49
PROVIDERS: ATTEND Preventive Medicine Preventive Medicine/Occupational Environmental Medicine
DX: J84.9 Interstitial pulmonary disease, unspecified (principal)
CPT/HCPCS: 71250

== ENCOUNTER → 2018-10-21 | Outpatient (CLI) | payer MEDICARE ==
[2018-10-21 09:16] LABS: INR 0.9 (<1.2)
== END | disposition home or self-care (01) ==
LOC: LABWHC1 08:54
PROVIDERS: ATTEND Physician Assistant
DX: Z51.81 Encounter for therapeutic drug level monitoring (principal); Z79.01 Long term (current) use of anticoagulants; Z79.899 Other long term (current) drug therapy
CPT/HCPCS: 36415; 85610

== ENCOUNTER → 2018-11-03 | Outpatient (CLI) | payer MEDICARE ==
--- NOTE | 2018-11-04 05:25 | CONS ---
CONSULTATION REASON FOR CONSULTATION: Poor sleep quality. This patient was referred to me by her teacher assistant and neurologist for further advice regarding her sleep. Note that the patient has been seen by me many years back for DVT and pulmonary embolism. 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 Meanwhile the patient also has history of fibromyalgia, depression, hypothyroidism and chronic back pain. I lost to follow up this patient for quite some time. During this time, the patient had some Mold exposures, which she has been seen by Dr. Ben Snell at [place], [place]. He has an industrial teacher assistant. Apparently, the patient has been having a lot of other symptoms including shortness of breath with activity and walking, complete body aches, facial pain, headaches, entire body aching, difficulty with mobility and walk, tension and migraine, chronic stiffness, numbness and tingling and difficulty with memory and concentration and irritability, difficulty in focusing. She feels as if she is drunk all the time. This affected her sleep quality. She has been having some difficulty in sleep initiation. She is going to bed around 3:30 a.m. and sometimes she goes to sleep at around 5:30 a.m. she gets out of bed somewhere between 7 to 9 a.m. in the morning. In the morning she feels like she is constantly lethargic, sleepy, weak, hangover and she reports feeling drunk even at around 11 p.m. According to her , she estimates her time of sleep to be somewhere between 2 to 4 hours. She does not take any naps during the day. She is not sure if she snores however she has been diagnosed having obstructive sleep apnea. She was offered CPAP therapy more than 10 years ago by another teacher assistant and she has quit the treatment due to failure to respond back then. Over the years, she has gained significant amount of weight and her weight is up for now in the order of 35 pounds over the past 1 year. She states she sleeps on her back. She has no sleep paralysis, hallucinations or cataplexy. She has been also on thyroid replacement therapy regarding hypothyroidism. She takes Flexeril for muscle aches and pains and hydrocodone 10/325 for chronic pain and she is also on MS Contin 30 mg p.o. b.i.d. and Lyrica 225 mg p.o. b.i.d., and she takes bupropion 75 mg for chronic anxiety/depression. PAST MEDICAL HISTORY: 1. Questionable history of JULITA. 2. 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 3. DVT and pulmonary embolism 2007 and 2011 respectively. 4. Fibromyalgia. 5. Depression. 6. Hypothyroidism. 7. Chronic back pain. SURGICAL HISTORY: Surgical history includes laparoscopic cholecystectomy, appendectomy and 2 C-sections. DRUG ALLERGIES: Drug allergies are not known other than CODEINE and TEGRETOL. OUTPATIENT MEDICATION: Outpatient medications include propranolol 120 mg p.o. q. day, Flexeril 10 mg 3 times a day, warfarin 2.5 mg alternating with 3.5 mg, levothyroxine 175 mcg, [place] 10/325 on a p.r.n. basis, amitriptyline 75 mg at bedtime, MS Contin 30 mg b.i.d., Lyrica 225 mg p.o. b.i.d., and bupropion 75 mg p.o. daily. SOCIAL HISTORY: Nonsmoker. No history of alcohol. No history of IV drugs. FAMILY HISTORY: Positive for sleep apnea. REVIEW OF SYSTEMS: Fourteen-point review of system was done. There is no history of snoring. She has occasional symptoms of nocturia and waking up gasping for air. She wakes up with dry mouth. She has occasional nighttime palpitations. She has problem with concentration, memory and tiredness and weakness and fatigue. She has occasional anxiety. PHYSICAL EXAMINATION: BP is 118/89, pulse 89, respirations 16, temperature 98.4, saturation 92% on room air. Height is 5 feet 6 inches, weight is 232. Neck size 16 inches. Parnell score is 2. Her BMI 37.4. GENERAL APPEARANCE: Calm, comfortable. HEAD: Atraumatic, normocephalic. NECK: Supple. There is no JVD. No goiter or neck mass. LUNGS: Clear to auscultation. HEART: Sounds regular rate and rhythm. Normal S1, S2. No S3. No murmurs. ABDOMEN: Soft, nontender. No organomegaly. EXTREMITIES: No edema, cyanosis or clubbing. IMPRESSION: 1. Poor sleep quality essentially with symptoms of sleep onset and maintenance insomnia. Obviously the patient has multiple medical problems and comorbidities that can affect her sleep quality in general. She has poor sleep hygiene measures. In addition, she has fibromyalgia, chronic pain, depression and she has been on a combination of treatments including cyclobenzaprine, [place], MS Contin, Lyrica. She is also takes amitriptyline and Wellbutrin at the bedtime. She also gives a vague history of obstructive sleep apnea which could be another contributing factor to her poor sleep quality. This needs to be further investigated. 2. History of deep venous thrombosis and pulmonary embolism on lifelong anticoagulation with Coumadin. 3. History of mold exposure, consider toxic mold syndrome. 4. Fibromyalgia. 5. Depression. 6. Hypothyroidism. 7. Chronic back pain. 8. History of trigeminal neuralgia. PLAN: 1. Continue with same medication, no adjustment will be done for today. 2. Obtain records from her teacher assistant Dr. Ben Snell. 3. Set up this patient for polysomnogram to assess the severity of her insomnia, the extent of sleep disruption, rule out any underlying obstructive sleep apnea that may need further treatment and plan on treatment accordingly. 4. No change in medication will be done for now. 5. We will continue to follow. MMODL / IJN: [id number] /
== END | disposition home or self-care (01) ==
LOC: SLEEP 15:30
PROVIDERS: ATTEND Internal Medicine Critical Care Medicine
DX: G47.33 Obstructive sleep apnea (adult) (pediatric) (principal); M79.7 Fibromyalgia; F32.9 Major depressive disorder, single episode, unspecified; E03.9 Hypothyroidism, unspecified; G89.29 Other chronic pain; M54.5 Low back pain; Z86.69 Personal history of other diseases of the nervous system and sense organs; Z87.898 Personal history of other specified conditions; Z79.891 Long term (current) use of opiate analgesic; Z79.899 Other long term (current) drug therapy; Z86.718 Personal history of other venous thrombosis and embolism; Z86.711 Personal history of pulmonary embolism; Z79.01 Long term (current) use of anticoagulants; Z88.8 Allergy status to other drugs, medicaments and biological substances; Z88.5 Allergy status to narcotic agent
CPT/HCPCS: 99211

== ENCOUNTER → 2019-11-18 | Outpatient (CLI) | payer MEDICARE ==
[2019-11-19 10:05] VITALS: BMI 41.5
== END | disposition home or self-care (01) ==
LOC: DBWHC3 09:04
PROVIDERS: ATTEND Orthopaedic Surgery
DX: E66.9 Obesity, unspecified (principal); Z68.41 Body mass index [BMI] 40.0-44.9, adult
CPT/HCPCS: 97802

== ENCOUNTER → 2020-05-02 | Outpatient (CLI) | payer MEDICARE ==
--- NOTE | 2020-05-02 15:33 | CT ---
EXAMINATION TYPE: CT chest wo con DATE OF EXAM: 05/02/2020 COMPARISON: Prior chest CT September 03, 2018 and older CTA chest February 20, 2017 HISTORY: SOB CT DLP: 761 mGycm. Automated Exposure Control for Dose Reduction was Utilized. TECHNIQUE: CT scan of the thorax is performed without IV contrast. FINDINGS: LUNGS: Persistent mild to moderate peripheral reticulation in the lower lungs greatest in the lingula not significantly changed from 2017 study. No pleural effusion or pneumothorax seen bilaterally. Tra cheobronchial tree is patent. No new consolidation. No suspicious new masses. MEDIASTINUM: Lack of IV contrast is noted to limit evaluation for mediastinal and especially hilar ad enopathy. There are no definitive greater than 1 cm hilar or mediastinal lymph nodes. No cardiomega ly or pericardial effusion is seen. Stable enlarged main pulmonary artery of 3.9 cm greater than petr cent ascending aorta axial image 24. CT finding consistent with underlying pulmonary hypertension. OTHER: Visualized liver shows market hypodensity consistent with marked fatty infiltration. Cholecyst ectomy clips are redemonstrated. Colonic interposition anteriorly again seen. IMPRESSION: Mild pulmonary fibrotic changes inferiorly without significant progression from 2017 stud y. No new acute pulmonary process.
== END | disposition home or self-care (01) ==
LOC: RADCTMAIN 14:27
PROVIDERS: ATTEND Preventive Medicine Preventive Medicine/Occupational Environmental Medicine
DX: J84.10 Pulmonary fibrosis, unspecified (principal)
CPT/HCPCS: 71250

== ENCOUNTER → 2020-06-23 | Outpatient (CLI) | payer MEDICARE | END | disposition home or self-care (01) | LOC: LABWHC1 11:56 | PROVIDERS: ATTEND Physician Assistant | DX: I49.9 Cardiac arrhythmia, unspecified (principal) | CPT/HCPCS: 36415; 93005 ==

== ENCOUNTER 2020-08-14 18:45 | Emergency (ER) | payer MEDICARE ==
[2020-08-14 18:55] VITALS: TEMP 98.8
[2020-08-14] MEDS ORDERED: SODIUM CHLORIDE 0.9% 500 ML 500 ML IV STA (20:27)
[2020-08-14 20:42] LABS: Basophils # (A) 0.1 k/uL (0-0.2); Basophils % (A) 1 %; Eosinophils # (A) 0.3 k/uL (0-0.7); Eosinophils % (A) 3 %; HCT 41.4 % (34.0-46.0); HGB 14.1 gm/dL (11.4-16.0); Lymphocytes # (A) 4.4 k/uL (1.0-4.8); Lymphocytes % (A) 46 %; MCHC 33.9 g/dL (31.0-37.0); MCV 85.3 fL (80.0-100.0); Mean Platelet Volume 7.3; Monocytes % (A) 10 %; Neutrophils # (A) 3.8 k/uL (1.3-7.7); Neutrophils % (A) 39 %; Platelet Count 230 k/uL (150-450); RBC 4.85 m/uL (3.80-5.40); RDW 13.9 % (11.5-15.5); WBC 9.7 k/uL (3.8-10.6)
--- NOTE | 2020-08-14 20:57 | ED ---
General Adult HPI - General Chief complaint: Weakness Stated complaint: altered mental status Time Seen by Provider: 08/14/20 19:48 Source: patient Mode of arrival: ambulatory Limitations: no limitations - History of Present Illness Initial comments: Patient is a 59-year-old female presenting to the emergency Department with complaints of increasing weakness in her lower legs. Patient states she has chronic back pain and sometimes has "paralysis of one or both of her legs." She states she feels like this is been getting worse over the past few weeks. She did try to contact her doctor but they were unavailable today. Patient states she also has 2 bad knees and is getting total knee replacements in the next few months. She is also complaining of "had fallen and fatigue." She states that over the past few weeks she has been unable to get around her house secondary to the weakness in her legs, left is worse than the right. She denies any recent falls or trauma. She denies any fever or chills. She states she has had recent MRIs but through [place]. She does take morphine and [place] as at home for her chronic back pain. She has history of COPD and fibromyalgia as well. She denies any fever or chills, no chest pain or shortness of breath, no urinary or fecal incontinence. No saddle paresthesias. She has no further complaints at this time. - Related Data Home Medications Medication Instructions Recorded Confirmed Amitriptyline HCl [Elavil] 75 mg PO HS 02/20/17 08/14/20 Cyclobenzaprine [Flexeril] 10 mg PO BID 02/20/17 08/14/20 HYDROcodone/APAP 10-325MG [[place] 1 tab PO BID 02/20/17 08/14/20 10-325] Morphine Sulfate ER [Ms Contin] 30 mg PO BID 02/20/17 08/14/20 Pregabalin [Lyrica] 225 mg PO BID 02/20/17 08/14/20 buPROPion [Wellbutrin] 75 mg PO BID 02/20/17 08/14/20 Warfarin [Coumadin] 3.75 mg PO MOTH 07/15/17 08/14/20 Propranolol HCl [Propranolol HCl 120 mg PO DAILY 04/16/18 08/14/20 ER] Ascorbic Acid [Vitamin C] 1,000 mg PO DAILY 08/14/20 08/14/20 DULoxetine HCL [Cymbalta] 30 mg PO DAILY 08/14/20 08/14/20 Levothyroxine Sodium [Synthroid] 175 mcg PO DAILY 08/14/20 08/14/20 Meclizine HCl 25 mg PO TID PRN 08/14/20 08/14/20 Montelukast Sodium [Singulair] 10 mg PO HS 08/14/20 08/14/20 Multivitamins, Thera [Multivitamin 1 tab PO DAILY 08/14/20 08/14/20 (formulary)] Triamterene-Hctz 37.5-25Mg 1 cap PO DAILY 08/14/20 08/14/20 [Dyazide 37.5-25 Capsule] Warfarin Sodium [Jantoven] 3.125 mg PO SUTUWEFRSA 08/14/20 08/14/20 Previous Rx's Medication Instructions Recorded predniSONE 50 mg PO DAILY #5 tab 08/14/20 Allergies Allergy/AdvReac Type Severity Reaction Status Date / Time carbamazepine [From Tegretol] Allergy Rash/Hives Verified 08/14/20 21:04 codeine Allergy Anaphylaxis Verified 08/14/20 21:04 Review of Systems ROS Statement: Those systems with pertinent positive or pertinent negative responses have been documented in the HPI. ROS Other: All systems not noted in ROS Statement are negative. 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 inpast used 02 but not now", murmur when younger,constipation(last bm 2--18,vertigo, "dry eye syndrome uses drops 4-6 times a day.stress test .had mamogram apr 2017-neg History of Any Multi-Drug Resistant Organisms: None Reported Past Surgical History: Appendectomy, Section, Cholecystectomy Additional Past Surgical History / Comment(s): 2 c-sections, fissurectomy, colonoscopy Past Anesthesia/Blood Transfusion Reactions: No Reported Reaction Past Psychological History: Depression Smoking Status: Never smoker Past Alcohol Use History: None Reported Past Drug Use History: None Reported - Past Family History Mother Family Medical History: Hypertension Additional Family Medical History / Comment(s): mom's mom had mi and stroke, mom's dad had hx of first mi age 40 and several after and stroke. Father Family Medical History: Cancer, Diabetes Mellitus, Mitral Valve Prolapse (MVP) Additional Family Medical History / Comment(s): lung/bone cancer. dad's mother had hx of cervical cancer and a pacemaker and dad's dad had hx mi's Sister(s) Family Medical History: Cancer, Diabetes Mellitus, Seizure Disorder Additional Family Medical History / Comment(s): one sister had seizures and 2nd sister had dm,skin cancer. Brother(s) Additional Family Medical History / Comment(s): brother had hernia sx and post op complictions-bleeding General Exam - General Exam Comments Initial Comments: GENERAL: Patient is well-developed and well-nourished. Patient is nontoxic and in no acute distress. HEAD: Atraumatic, normocephalic. EYES: Pupils equal round and reactive to light, extraocular movements intact, sclera anicteric, conjunctiva are normal. Eyelids were unremarkable. ENT: TMs normal, nares patent, oropharynx clear without exudates. Moist mucous membranes. NECK: Normal range of motion, supple without lymphadenopathy or JVD. LUNGS: Unlabored respirations. Breath sounds clear to auscultation bilaterally and equal. No wheezes rales or rhonchi. HEART: Regular rate and rhythm without murmurs, rubs or gallops. ABDOMEN: Soft, nontender, normoactive bowel sounds. No guarding, no rebound. No masses appreciated. : Deferred MUSCULOSKELETAL: Patient is unable to actively lift her left extremity, however she is able to roll over onto her left side without difficulty, she is able to sit up on the bed without difficulty and can flex her left knee. Sensation is equal and bilateral lower extremities. She has 5 out of 5 strength in bilateral ankles. NEUROLOGICAL: Patient is alert and oriented x 3. Motor and sensory are also intact. Cranial nerves II through XII grossly intact. Symmetrical smile. Normal speech, she is able to ambulate around the room. PSYCH: Normal mood, normal affect. SKIN: Warm, Dry, normal turgor, no rashes or lesions noted. Limitations: no limitations Rectal exam: Present: normal inspection, normal rectal tone Course Vital Signs 08/14/20 18:52 Temperature 98.8 F Pulse Rate 88 Respiratory 20 Rate Blood Pressure 128/73 O2 Sat by Pulse 98 Oximetry Medical Decision Making - Medical Decision Making Patient is a 59-year-old female history of chronic back pain presenting with increased weakness of her lower extremities as well as having "brain fog." She takes chronic pain meds for her back pain. She denies any recent injuries or falls. She does admit to increased weakness of her left leg versus the right. Patient will not actively lift her left hip but is able to bend her left leg, roll over on her left side and sit up without difficulty. Sensation is equal and bilateral, rectal tone is normal, no saddle paresthesias. The urinary or fecal incontinence. I did do a CT of her low back which shows some chronic changes, no acute process. Lab work is also at her baseline. He was able to ambulate around the room. I discussed with patient that she is to follow-up with her back doctor regarding her symptoms. She is in agreement with this plan of care. I did recommend a small course of steroids to help improve inflammation. Return parameters were discussed with the patient she verbalized understanding. Case discussed with Dr. Small. - Lab Data Result diagrams: 08/14/20 20:34 08/14/20 20:34 Lab Results 08/14/20 08/14/20 Range/Units 20:34 20:34 WBC 9.7 (3.8-10.6) k/uL RBC 4.85 (3.80-5.40) m/uL Hgb 14.1 (11.4-16.0) gm/dL Hct 41.4 (34.0-46.0) % MCV 85.3 (80.0-100.0) fL MCH 29.0 (25.0-35.0) pg MCHC 33.9 (31.0-37.0) g/dL RDW 13.9 (11.5-15.5) % Plt Count 230 (150-450) k/uL MPV 7.3 Neutrophils % 39 % Lymphocytes % 46 % Monocytes % 10 % Eosinophils % 3 % Basophils % 1 % Neutrophils # 3.8 (1.3-7.7) k/uL Lymphocytes # 4.4 (1.0-4.8) k/uL Monocytes # 1.0 (0-1.0) k/uL Eosinophils # 0.3 (0-0.7) k/uL Basophils # 0.1 (0-0.2) k/uL Sodium 134 L (137-145) mmol/L Potassium 3.6 (3.5-5.1) mmol/L Chloride 98 (98-107) mmol/L Carbon Dioxide 30 (22-30) mmol/L Anion Gap 6 mmol/L BUN 18 H (7-17) mg/dL Creatinine 1.06 H (0.52-1.04) mg/dL Est GFR (CKD-EPI)AfAm 67 (>60 ml/min/1.73 sqM) Est GFR (CKD-EPI)NonAf 58 (>60 ml/min/1.73 sqM) Glucose 99 (74-99) mg/dL Calcium 9.2 (8.4-10.2) mg/dL Total Bilirubin 0.4 (0.2-1.3) mg/dL AST 41 H (14-36) U/L ALT 28 (4-34) U/L Alkaline Phosphatase 99 (38-126) U/L Total Protein 7.1 (6.3-8.2) g/dL Albumin 3.9 (3.5-5.0) g/dL Disposition Clinical Impression: Lower extremity weakness, Chronic back pain Disposition: HOME SELF-CARE Condition: Stable Instructions (If sedation given, give patient instructions): Chronic Back Pain (DC) Additional Instructions: Please return to the Emergency Department if symptoms worsen or any other concerns. Trial of steroids for possible inflammation. Follow-up with your regular doctor concerning back pain. Prescriptions: predniSONE 50 mg PO DAILY #5 tab Is patient prescribed a controlled substance at d/c from ED?: No Referrals: Yovanny Mcdonald MD [Primary Care Provider] - 1-2 days Time of Disposition: 21:36
[2020-08-14 21:04] LABS: Albumin 3.9 g/dL (3.5-5.0); Calcium 9.2 mg/dL (8.4-10.2); Potassium 3.6 mmol/L (3.5-5.1); Total Bilirubin 0.4 mg/dL (0.2-1.3); Total Protein 7.1 g/dL (6.3-8.2)
--- NOTE | 2020-08-14 21:08 | CT ---
EXAMINATION TYPE: CT lumbar spine wo con DATE OF EXAM: 08/14/2020 8:51 PM COMPARISON: None available. HISTORY: Increase in lumbar pain, c/o numbness bilateral legs CT DLP: 1233.6 mGycm TECHNIQUE: Axial images through the lumbar spine were obtained without contrast. Coronal and sagittal reformats were obtained. Automated dose control was used for this exam. FINDINGS: There are 5 nonrib-bearing vertebrae with lumbar characteristics. There is no acute fracture. Vertebr al body heights are maintained. There is mild levoconvex scoliosis centered at L2-L3. There is modera te disc height narrowing at L2-L3. Otherwise mild disc height narrowing elsewhere. There is mild to m oderate facet arthropathy in the lower lumbar spine. No significant paraspinal soft tissue abnormalit y. There is incidental 0.6 cm nonobstructing left renal calculus seen. IMPRESSION: Mild levoconvex scoliosis with associated moderate L2-L3 spondylosis.
[2020-08-14 22:09] VITALS: BP 104/63; PULSE 79; RESP 17
== END 2020-08-14 22:08 | disposition home or self-care (01) ==
LOC: EC 18:45
DX: R53.1 Weakness (principal); G89.29 Other chronic pain; M54.9 Dorsalgia, unspecified; J44.9 Chronic obstructive pulmonary disease, unspecified; M79.7 Fibromyalgia; E07.9 Disorder of thyroid, unspecified; F32.9 Major depressive disorder, single episode, unspecified; Z86.718 Personal history of other venous thrombosis and embolism
CPT/HCPCS: 36415; 72131; 80053; 85025; 99285

== ENCOUNTER → 2021-05-17 | Outpatient (CLI) | payer MEDICARE ==
--- NOTE | 2021-05-17 14:25 | FL ---
EXAMINATION TYPE: FL barium swallow w video DATE OF EXAM: 05/17/2021 COMPARISON: NONE HISTORY: Dysphagia. 43 seconds fluoroscopy time, no images obtained The patient was evaluated in the lateral projection during real-time fluoroscopy, during ingestion of barium mixed with solids and liquids. No aspiration or laryngeal penetration. Swallowing mechanism is normal. See report from speech pathology.
== END | disposition home or self-care (01) ==
LOC: RADFLMAIN 10:27
PROVIDERS: ATTEND Psychiatry & Neurology Neurology
DX: R13.10 Dysphagia, unspecified (principal)
CPT/HCPCS: 74230

== ENCOUNTER → 2021-06-14 | Outpatient (CLI) | payer MEDICARE | END | disposition home or self-care (01) | LOC: LABWHC1 10:41 | PROVIDERS: ATTEND Physician Assistant | DX: R47.02 Dysphasia (principal) | CPT/HCPCS: 36415 ==

== ENCOUNTER → 2021-06-26 | Outpatient (CLI) | payer MEDICARE | LOC: CPPFTMAIN 12:03 | DX: R05.9 Cough, unspecified (principal); I27.20 Pulmonary hypertension, unspecified; R06.09 Other forms of dyspnea; I26.99 Other pulmonary embolism without acute cor pulmonale; Z88.5 Allergy status to narcotic agent; Z88.1 Allergy status to other antibiotic agents | CPT/HCPCS: 94060; 94726; 94729 ==

== ENCOUNTER 2021-07-14 00:56 | Observation (INO) | payer MEDICARE ==
[2021-07-14] MEDS ORDERED: SODIUM CHLORIDE 0.9% 500 ML 500 ML IV ONE (01:27)
[2021-07-14] MEDS ORDERED: KETOROLAC 15 MG/ML 1 ML VIAL IVP STA (01:27)
[2021-07-14] MEDS ORDERED: METOCLOPRAMIDE 5 MG/ML 2 ML VIAL IVP STA (01:27)
[2021-07-14] MEDS ORDERED: diphenhydrAMINE 50 MG/ML 1 ML VIAL IVP STA (01:27)
--- NOTE | 2021-07-14 01:58 | ED ---
Headache HPI - General Mode of arrival: EMS <Sharlene Howell - Last Filed: 07/14/21 03:15> <Zan Amin - Last Filed: 07/14/21 06:47> - General Chief Complaint: Headache Stated Complaint: Dizziness, headache Time Seen by Provider: 07/14/21 01:02 - History of Present Illness Initial Comments: 60 year-old female patient presents to the emergency department for evaluation of headache. States she has been having persistent headaches for the last week. States that she has history of migraines and intermittent paralysis to various parts of her body on the right and left sides. States she thinks it is from exposure to [place] and toxic mold in the past. States she was seen at [facility] last week for similar symptoms. Denies any fever or chills. Denies any new symptoms other than persistent headaches. States her current paralysis is in her legs, thought she is able to feel and move some muscle groups. She does see a neurologist, Dr. Suazo for these issues. (Sharlene Howell) - Related Data Home Medications Medication Instructions Recorded Confirmed Amitriptyline HCl [Elavil] 75 mg PO HS 02/20/17 08/14/20 Cyclobenzaprine [Flexeril] 10 mg PO BID 02/20/17 08/14/20 HYDROcodone/APAP 10-325MG [[place] 1 tab PO BID 02/20/17 08/14/20 10-325] Morphine Sulfate ER [Ms Contin] 30 mg PO BID 02/20/17 08/14/20 Pregabalin [Lyrica] 225 mg PO BID 02/20/17 08/14/20 buPROPion [Wellbutrin] 75 mg PO BID 02/20/17 08/14/20 Warfarin [Coumadin] 3.75 mg PO MOTH 07/15/17 08/14/20 Propranolol HCl [Propranolol HCl 120 mg PO DAILY 04/16/18 08/14/20 ER] Ascorbic Acid [Vitamin C] 1,000 mg PO DAILY 08/14/20 08/14/20 DULoxetine HCL [Cymbalta] 30 mg PO DAILY 08/14/20 08/14/20 Levothyroxine Sodium [Synthroid] 175 mcg PO DAILY 08/14/20 08/14/20 Meclizine HCl 25 mg PO TID PRN 08/14/20 08/14/20 Montelukast Sodium [Singulair] 10 mg PO HS 08/14/20 08/14/20 Multivitamins, Thera [Multivitamin 1 tab PO DAILY 08/14/20 08/14/20 (formulary)] Triamterene-Hctz 37.5-25Mg 1 cap PO DAILY 08/14/20 08/14/20 [Dyazide 37.5-25 Capsule] Warfarin Sodium [Jantoven] 3.125 mg PO SUTUWEFRSA 08/14/20 08/14/20 Previous Rx's Medication Instructions Recorded predniSONE 50 mg PO DAILY #5 tab 08/14/20 Allergies Allergy/AdvReac Type Severity Reaction Status Date / Time carbamazepine [From Tegretol] Allergy Rash/Hives Verified 08/14/20 21:04 codeine Allergy Anaphylaxis Verified 08/14/20 21:04 Review of Systems ROS Other: All systems not noted in ROS Statement are negative. <Sharlene Howell - Last Filed: 07/14/21 03:15> ROS Other: All systems not noted in ROS Statement are negative. <Zan Amin - Last Filed: 07/14/21 06:47> ROS Statement: Those systems with pertinent positive or pertinent negative responses have been documented in the HPI. 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 inpast used 02 but not now", murmur when younger,constipation(last bm 2-18,vertigo, "dry eye syndrome uses drops 4-6 times a day.stress test .had mamogram apr 2017-neg History of Any Multi-Drug Resistant Organisms: None Reported Past Surgical History: Appendectomy, Section, Cholecystectomy Additional Past Surgical History / Comment(s): 2 c-sections, fissurectomy, colonoscopy Past Anesthesia/Blood Transfusion Reactions: No Reported Reaction Past Psychological History: Depression Smoking Status: Never smoker Past Alcohol Use History: None Reported Past Drug Use History: None Reported - Past Family History Mother Family Medical History: Hypertension Additional Family Medical History / Comment(s): mom's mom had mi and stroke, mom's dad had hx of first mi age 40 and several after and stroke. Father Family Medical History: Cancer, Diabetes Mellitus, Mitral Valve Prolapse (MVP) Additional Family Medical History / Comment(s): lung/bone cancer. dad's mother had hx of cervical cancer and a pacemaker and dad's dad had hx mi's Sister(s) Family Medical History: Cancer, Diabetes Mellitus, Seizure Disorder Additional Family Medical History / Comment(s): one sister had seizures and 2nd sister had dm,skin cancer. Brother(s) Additional Family Medical History / Comment(s): brother had hernia sx and post op complictions-bleeding <Sharlene Howell M - Last Filed: 07/14/21 03:15> General Exam General appearance: alert, in no apparent distress Eye exam: Present: normal appearance, PERRL, EOMI. Absent: scleral icterus, conjunctival injection, nystagmus, periorbital swelling ENT exam: Present: normal exam, normal oropharynx, mucous membranes moist Respiratory exam: Present: normal lung sounds bilaterally. Absent: respiratory distress, wheezes, rales, rhonchi, stridor Cardiovascular Exam: Present: regular rate, normal rhythm, normal heart sounds. Absent: systolic murmur, diastolic murmur, rubs, gallop, clicks GI/Abdominal exam: Present: soft, normal bowel sounds. Absent: distended, tenderness, guarding, rebound, rigid Neurological exam: Present: alert, oriented X3, CN II-XII intact Expanded Motor strength exam: RUE: 5, LUE: 5 Psychiatric exam: Present: normal affect, normal mood Skin exam: Present: warm, dry, intact, normal color. Absent: rash <Sharlene Howell - Last Filed: 07/14/21 03:15> General appearance: alert, in no apparent distress Head exam: Present: atraumatic, normocephalic, normal inspection Eye exam: Present: normal appearance, PERRL, EOMI. Absent: scleral icterus, conjunctival injection, periorbital swelling ENT exam: Present: normal exam, mucous membranes moist Neck exam: Present: normal inspection. Absent: tenderness, meningismus, lymphadenopathy Respiratory exam: Present: normal lung sounds bilaterally. Absent: respiratory distress, wheezes, rales, rhonchi, stridor Cardiovascular Exam: Present: regular rate, normal rhythm, normal heart sounds. Absent: systolic murmur, diastolic murmur, rubs, gallop, clicks GI/Abdominal exam: Present: soft, normal bowel sounds. Absent: distended, tenderness, guarding, rebound, rigid Extremities exam: Present: normal inspection, full ROM, normal capillary refill. Absent: tenderness, pedal edema, joint swelling, calf tenderness Back exam: Present: normal inspection Neurological exam: Present: alert, oriented X3, CN II-XII intact Psychiatric exam: Present: normal affect, normal mood Skin exam: Present: warm, dry, intact, normal color. Absent: rash <Zan Amin - Last Filed: 07/14/21 06:47> Course Vital Signs 07/14/21 07/14/21 07/14/21 01:01 03:30 06:04 Temperature 98.5 F Pulse Rate 80 84 103 H Respiratory 18 18 18 Rate Blood Pressure 125/80 129/78 123/77 O2 Sat by Pulse 98 98 95 Oximetry Medical Decision Making <Sharlene Howell - Last Filed: 07/14/21 03:15> - Lab Data Result diagrams: 07/14/21 06:23 - EKG Data -: EKG Interpreted by Me (EKG shows sinus rhythm rate of 96 TN 181 QRS 94 QTC 407) <Zan Amin - Last Filed: 07/14/21 06:47> - Medical Decision Making 60 year-old female patient presents for evaluation of headache. Patient chronic migraines. Physical examination is unremarkable. She was given IV fluids and medication. Did report slight improvement in symptoms on re-evaluation. States dilaudid usually works for her. She will be discharged to follow up with the [facility] physician and her neurologist for further evaluation. Return parameters are discussed in detail. She verbalizes understanding and agrees with this plan. My attending is Dr. Amin. (Sharlene Howell) 60 female feels discharge, patient is unable to ambulate secondary to pain. Patient need to be admitted for further evaluation management (Fransisca Amin) - Lab Data Lab Results 07/14/21 Range/Units 06:23 WBC 8.3 (3.8-10.6) k/uL RBC 4.40 (3.80-5.40) m/uL Hgb 12.8 (11.4-16.0) gm/dL Hct 38.0 (34.0-46.0) % MCV 86.5 (80.0-100.0) fL MCH 29.2 (25.0-35.0) pg MCHC 33.7 (31.0-37.0) g/dL RDW 15.1 (11.5-15.5) % Plt Count 194 (150-450) k/uL MPV 7.2 Neutrophils % 45 % Lymphocytes % 43 % Monocytes % 7 % Eosinophils % 2 % Basophils % 1 % Neutrophils # 3.7 (1.3-7.7) k/uL Lymphocytes # 3.6 (1.0-4.8) k/uL Monocytes # 0.6 (0-1.0) k/uL Eosinophils # 0.1 (0-0.7) k/uL Basophils # 0.1 (0-0.2) k/uL Disposition Is patient prescribed a controlled substance at d/c from ED?: No Time of Disposition: 02:58 <Sharlene Howlel - Last Filed: 07/14/21 03:15> Is patient prescribed a controlled substance at d/c from ED?: No <Zan Amin - Last Filed: 07/14/21 06:47> Clinical Impression: Migraine headache, Chronic pain, Weakness, Failure to thrive Disposition: ADMITTED IP TO THIS HOSP Condition: Good Instructions (If sedation given, give patient instructions): Migraine Headache (ED) Additional Instructions: Follow-up with Dr. Suazo's office on Friday. Return for any new, worsening, or concerning symptoms. Referrals: Yovanny Mcdonald MD [Primary Care Provider] - 1-2 days
[2021-07-14] MEDS ORDERED: HYDROmorphone 0.5 MG/0.5 ML SYRINGE IVP STA (02:55)
[2021-07-14] MEDS ORDERED: HYDROmorphone 1 MG/ML 1 ML SYRINGE IVP STA (05:59)
[2021-07-14] MEDS ORDERED: HYDROmorphone 1 MG/ML 1 ML SYRINGE IVP PRN (05:59)
[2021-07-14] MEDS ORDERED: SODIUM CHLORIDE 0.9% 1,000 ML IV STA ×2 (05:59)
[2021-07-14 06:39] LABS: Basophils # (A) 0.1 k/uL (0-0.2); Basophils % (A) 1 %; Eosinophils # (A) 0.1 k/uL (0-0.7); Eosinophils % (A) 2 %; HGB 12.8 gm/dL (11.4-16.0); Lymphocytes # (A) 3.6 k/uL (1.0-4.8); Lymphocytes % (A) 43 %; MCH 29.2 pg (25.0-35.0); MCHC 33.7 g/dL (31.0-37.0); MCV 86.5 fL (80.0-100.0); Mean Platelet Volume 7.2; Monocytes # (A) 0.6 k/uL (0-1.0); Monocytes % (A) 7 %; Neutrophils # (A) 3.7 k/uL (1.3-7.7); Neutrophils % (A) 45 %; Platelet Count 194 k/uL (150-450); RDW 15.1 % (11.5-15.5); WBC 8.3 k/uL (3.8-10.6)
[2021-07-14] MEDS ORDERED: NALOXONE 0.4 MG/ML 1 ML VIAL IV PRN (06:40)
[2021-07-14] MEDS ORDERED: ONDANSETRON 4 MG/2 ML VIAL IVP PRN (06:40)
[2021-07-14] MEDS ORDERED: LORazepam 2 MG/ML INJ IV PRN (06:40)
--- NOTE | 2021-07-14 06:42 | ED ---
Medical Decision Making - Medical Decision Making 60 female DF for evaluation. Upon attempted discharge patient states she hasn't inability to ambulate states she gets paralyzed in both of her legs and left arm on and off for the past 2 years and is currently paralyzed secondary to pain patient has severe pain headache pain bodyaches and generalized pain. Patient states she is unable to go home even though she wants to go home - Lab Data Result diagrams: 07/14/21 06:23 Lab Results 07/14/21 Range/Units 06:23 WBC 8.3 (3.8-10.6) k/uL RBC 4.40 (3.80-5.40) m/uL Hgb 12.8 (11.4-16.0) gm/dL Hct 38.0 (34.0-46.0) % MCV 86.5 (80.0-100.0) fL MCH 29.2 (25.0-35.0) pg MCHC 33.7 (31.0-37.0) g/dL RDW 15.1 (11.5-15.5) % Plt Count 194 (150-450) k/uL MPV 7.2 Neutrophils % 45 % Lymphocytes % 43 % Monocytes % 7 % Eosinophils % 2 % Basophils % 1 % Neutrophils # 3.7 (1.3-7.7) k/uL Lymphocytes # 3.6 (1.0-4.8) k/uL Monocytes # 0.6 (0-1.0) k/uL Eosinophils # 0.1 (0-0.7) k/uL Basophils # 0.1 (0-0.2) k/uL - Radiology Data Radiology results: report reviewed (CT C-spine and L-spine are pending), image reviewed Disposition Clinical Impression: Migraine headache, Chronic pain, Weakness, Failure to thrive Disposition: ADMITTED IP TO THIS [facility] Condition: Good Instructions (If sedation given, give patient instructions): Migraine Headache (ED) Additional Instructions: Follow-up with Dr. Suazo's office on Friday. Return for any new, worsening, or concerning symptoms. Is patient prescribed a controlled substance at d/c from ED?: No Referrals: Yovanny Mcdonald MD [Primary Care Provider] - 1-2 days
[2021-07-14 06:52] LABS: Albumin 3.5 g/dL (3.5-5.0); INR 2.6 (<1.2); Phosphorus 4.5 mg/dL (2.5-4.5); Total Bilirubin 0.6 mg/dL (0.2-1.3)
--- NOTE | 2021-07-14 07:24 | CT ---
EXAMINATION TYPE: CT cervical spine wo con DATE OF EXAM: 07/14/2021 COMPARISON: HISTORY: pain, pain down Lt leg TECHNIQUE: CT scan of the cervical spine performed without contrast CT DLP: 702.8 mGycm Automated exposure control for dose reduction was used. FINDINGS: Craniocervical junction alignment is maintained. There is slight straightening of the cervical curvat ure. Vertebral body heights are maintained. Posterior elements are acutely intact. Mild degenerative changes are seen at C1-2. Mild narrowing seen at C5-6, C6-7 and C7-T1. Mild uncover tebral facet joint arthropathy changes are also present. No bony spinal canal stenosis seen. No signi ficant soft tissue swelling. There is a 2.1 x 0.8 cm lucency in the inferior aspect of the right occipital bone. No aggressive ass ociated features seen. No cervical lymphadenopathy seen. Mild right maxillary sinus opacification is partially seen. Mastoid air cells are well aerated. Parapharyngeal fat is maintained. Linear opacities noted in the right up per lung may be reflective of atelectasis, clinical correlation is recommended. IMPRESSION: 1. NO ACUTE FRACTURE OR DISLOCATION. 2. LUCENT LESION IN THE RIGHT INFERIOR OCCIPITAL BONE MEASURING 2.1 X 0.8 CM, NO AGGRESSIVE FEATURES ARE SEEN. FOLLOW-UP WITH NONURGENT NONCONTRAST MRI OF THE CERVICAL SPINE FOR BETTER CHARACTERIZATION IS RECOMMENDED. 3. PARTIAL OPACIFICATION OF THE RIGHT MAXILLARY SINUS MAY BE REFLECTIVE OF MILD MUCOSAL SINUS DISEASE . 4. MILD DEGENERATIVE CHANGES OF THE CERVICAL SPINE.
[2021-07-14 07:27] LABS: Potassium 3.7 mmol/L (3.5-5.1)
--- NOTE | 2021-07-14 07:32 | CT ---
EXAMINATION TYPE: CT lumbar spine wo con DATE OF EXAM: 07/14/2021 COMPARISON: 01/14/2021 HISTORY: pain, pain down Lt leg TECHNIQUE: CT scan of the lumbar spine without contrast CT DLP: 1535.6 mGycm Automated exposure control for dose reduction was used. FINDINGS: Mild osteopenic changes. There is mild scoliosis and straightening of the lumbar curvature. There is mild narrowing of the int ervertebral spaces at L1-2, L2-3 and L5-S1. No bony spinal canal stenosis. Posterior elements are acu tely intact and vertebral body heights are within normal limits and not significantly changed. Disc d egenerative disease seen at L5-S1. Multilevel facet joint arthropathy changes are again seen. L5-1 bi lateral neural foraminal narrowing with bony spurring. No Significant soft tissue swelling seen. 0.5 cm calculi seen in the left kidney similar to prior study, no obvious hydronephrosis. Low attenua tion of the partially visualized liver suggestive of steatosis. Prominent extrahepatic common bile du ct similar to prior study status post cystectomy. IMPRESSION: 1. DEGENERATIVE CHANGES OF THE SPINE DESCRIBED ABOVE, NO ACUTE PROCESS SEEN. DEGENERATIVE CHANGES MAY HAVE PROGRESSED SLIGHTLY. 2. INCIDENTAL FINDINGS DESCRIBED IN BODY OF REPORT WITHOUT SIGNIFICANT CHANGE.
[2021-07-14] MEDS: SODIUM CHLORIDE 0.9% 1,000 ML IV SCH ×3 (08:05→21:12)
[2021-07-14] MEDS: MORPHINE SULFATE ER 30 MG TABLET PO SCH (16:43)
[2021-07-14] MEDS: PREGABALIN 75 MG CAP PO SCH (16:43)
[2021-07-14] MEDS: PROPRANOLOL LA 60 MG CAP.SA.24H PO SCH (17:13)
[2021-07-14] MEDS: WARFARIN 3 MG TAB PO SCH (17:16)
[2021-07-14 17:36] LABS: Appearance,Urine Clear (Clear); Bilirubin,Urine Negative (Negative); Blood,Urine Negative (Negative); Color,Urine Yellow; Glucose,Urine (UA) Negative (Negative); Ketones,Urine Negative (Negative); Leukocyte Esterase,Urine Negative (Negative); Nitrite,Urine Negative (Negative); Protein,Urine Negative (Negative); Specific Gravity,Urine 1.013 (1.001-1.035); Urobilinogen,Urine <2.0 mg/dL (<2.0)
--- NOTE | 2021-07-14 20:08 | P.HPIM ---
History of Present Illness H&P Date: 07/14/21 Chief Complaint: Intractable headache 60 year-old female patient presents to the emergency department for evaluation of headache. States she has been having persistent headaches for the last week. States that she has history of migraines and intermittent paralysis to various parts of her body on the right and left sides. States she thinks it is from exposure to Round-Up and toxic mold in the past. States she was seen at [facility] last week for similar symptoms. Denies any fever or chills. Denies any new symptoms other than persistent headaches. States her current paralysis is in her legs, thought she is able to feel and move some muscle groups. She does see a neurologist, Dr. Suazo for these issues. Workup in ED includes blood work revealing WBC of 8.3, hemoglobin 12.8, hematocrit 38.0 and platelet count of 194 Patient was initially planned to be discharged home; upon attempted discharge patient was unable to ambulate reporting that she gets paralyzed in both arms and and Lasix off and on for past 2 years secondary to pain Review of Systems REVIEW OF SYSTEMS: CONSTITUTIONAL: No fever, no malaise, no fatigue. HEENT: No recent visual problems or hearing problems. Denied any sore throat. CARDIOVASCULAR: No chest pain, orthopnea, PND, no palpitations, no syncope. PULMONARY: No shortness of breath, no cough, no hemoptysis. GASTROINTESTINAL: No diarrhea, no nausea, no vomiting, no abdominal pain. NEUROLOGICAL: No headaches, no weakness, no numbness. HEMATOLOGICAL: Denies any bleeding or petechiae. GENITOURINARY: Denies any burning micturition, frequency, or urgency. MUSCULOSKELETAL/RHEUMATOLOGICAL: Denies any joint pain, swelling, or any muscle pain. ENDOCRINE: Denies any polyuria or polydipsia. The rest of the 14-point review of systems is negative. 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 Father Family Medical History: Cancer, Diabetes Mellitus, Mitral Valve Prolapse (MVP) Additional Family Medical History / Comment(s): lung/bone cancer. dad's mother had hx of cervical cancer and a pacemaker and dad's dad had hx mi's Sister(s) Family Medical History: Cancer, Diabetes Mellitus, Seizure Disorder Additional Family Medical History / Comment(s): one sister had seizures and 2nd sister had dm,skin cancer. Brother(s) Additional Family Medical History / Comment(s): brother had hernia sx and post op complictions-bleeding Medications and Allergies Home Medications Medication Instructions Recorded Confirmed Type Amitriptyline HCl [Elavil] 75 mg PO HS 02/20/17 07/14/21 History Cyclobenzaprine [Flexeril] 10 mg PO BID 02/20/17 07/14/21 History HYDROcodone/APAP 10-325MG [[place] 1 tab PO BID 02/20/17 07/14/21 History 10-325] Morphine Sulfate ER [Ms Contin] 30 mg PO Q12H 02/20/17 07/14/21 History Pregabalin [Lyrica] 225 mg PO BID@0900,1600 02/20/17 07/14/21 History buPROPion [Wellbutrin] 75 mg PO BID 02/20/17 07/14/21 History Propranolol HCl [Propranolol HCl 120 mg PO DAILY 04/16/18 07/14/21 History ER] Levothyroxine Sodium [Synthroid] 175 mcg PO DAILY 08/14/20 07/14/21 History Montelukast Sodium [Singulair] 10 mg PO HS 08/14/20 07/14/21 History Triamterene-Hctz 37.5-25Mg 1 cap PO DAILY 08/14/20 07/14/21 History [Dyazide 37.5-25 Capsule] Warfarin Sodium [Jantoven] 3.125 mg PO DAILY 08/14/20 07/14/21 History Acetaminophen Tab [Tylenol Tab] 1,000 mg PO Q6H PRN 07/14/21 07/14/21 History Atorvastatin [Lipitor] 20 mg PO DAILY 07/14/21 07/14/21 History Cholecalciferol [Vitamin D3 (25 25 mcg PO DAILY 07/14/21 07/14/21 History Mcg = 1000 Iu)] Multivit-Min/FA/Lycopen/Lutein 1 tab PO DAILY 07/14/21 07/14/21 History [Centrum Silver Tablet] Ondansetron Odt [Zofran Odt] 4 mg PO DAILY PRN 07/14/21 07/14/21 History Zinc 50 mg PO DAILY 07/14/21 07/14/21 History Allergies Allergy/AdvReac Type Severity Reaction Status Date / Time carbamazepine [From Tegretol] Allergy Anaphylaxis Verified 07/14/21 09:10 codeine Allergy Anaphylaxis Verified 07/14/21 09:10 Physical Exam Vitals: Vital Signs Temp Pulse Pulse Resp BP BP Pulse Ox 07/14/21 12:20 97.8 F 95 19 168/82 99 07/14/21 11:36 88 18 131/75 96 07/14/21 06:04 103 H 18 123/77 95 07/14/21 03:30 84 18 129/78 98 07/14/21 01:01 98.5 F 80 18 125/80 98 Intake and Output 07/13/21 07/14/21 07/14/21 22:59 06:59 14:59 Other: Weight 120.202 kg 120.202 kg - Constitutional General appearance: Present: average body habitus, cooperative, no acute distress - EENT Eyes: Present: anicteric sclerae, EOMI, PERRLA, normal appearance ENT: Present: hearing grossly normal, normal oropharynx Ears: bilateral: normal - Neck Neck: Present: normal ROM. Absent: lymphadenopathy, rigidity, thyromegaly Carotids: negative: bruit present Thyroid: bilateral: normal size, negative: enlarged, nodule - Respiratory Respiratory: bilateral: CTA, negative: rales, rhonchi, wheezing - Cardiovascular Rhythm: regular Heart sounds: normal: S1, S2 Abnormal Heart Sounds: Absent: systolic murmur, diastolic murmur - Gastrointestinal General gastrointestinal: Present: normal bowel sounds, soft. Absent: distended, organomegaly, tenderness - Genitourinary Genitourinary Comment(s): deferred - Integumentary Integumentary: Present: normal turgor. Absent: jaundiced, rash, ulcer - Neurologic Neurologic: Present: CNII-XII intact. Absent: focal deficits - Musculoskeletal Musculoskeletal: Present: gait normal, strength equal bilaterally - Psychiatric Psychiatric: Present: A&O x's 3, appropriate affect, intact judgment & insight Results CBC & Chem 7: 07/14/21 06:23 07/14/21 06:23 Labs: Abnormal Lab Results - Last 24 Hours (Table) 07/14/21 07/14/21 Range/Units 06:23 06:23 PT 26.0 H (9.0-12.0) sec INR 2.6 H (<1.2) APTT 35.0 H (22.0-30.0) sec Carbon Dioxide 31 H (22-30) mmol/L BUN 18 H (7-17) mg/dL Creatinine 1.06 H (0.52-1.04) mg/dL AST 39 H (14-36) U/L Assessment and Plan Assessment: 1. Intractable headache; migraine; [place] 10 mg by mouth twice a day; morphine sulfate 30 mg by mouth every 12 hours; patient has been using Dilaudid 1 mg IV every 4 hours when necessary along with Toradol - Continue with propranolol 120 mg daily 2. Failure to thrive; likely related to intractable migraines; we will plan to monitor patient for next 24 hours with plans to consult neurology if continues to have headache 3. COPD/Asthma; Singulair 10 mg daily 4. Hypothyroidism; continue levothyroxine 176 MCG daily 5. Hypertension; propranolol 120 mg daily 6. 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 Fibromyalgia; Elavil 75 mg by mouth daily at bedtime; Lyrica to 25 mg by mouth twice a day 8. Hyperlipidemia; Lipitor 20 mg by mouth daily at bedtime DVT prophylaxis; SCDs/systemic anticoagulation CODE STATUS; full code
[2021-07-14] MEDS: CYCLOBENZAPRINE 10 MG TAB PO SCH (21:10)
[2021-07-14] MEDS: MONTELUKAST 10 MG TAB PO SCH (21:10)
[2021-07-14] MEDS: AMITRIPTYLINE HCL 25 MG TAB PO SCH (21:11)
[2021-07-14] MEDS: buPROPion 75 MG TAB PO SCH (21:11)
[2021-07-14] MEDS: HYDROcodone/APAP 10-325MG 1 EACH TAB PO SCH (21:11)
[2021-07-15] MEDS: MORPHINE SULFATE ER 30 MG TABLET PO SCH ×2 (03:00→15:33)
[2021-07-15] MEDS: LEVOTHYROXINE 88 MCG TAB PO SCH (05:31)
[2021-07-15 06:03] LABS: INR 2.6 (<1.2); Prothrombin Time 25.9 sec (9.0-12.0)
[2021-07-15] MEDS: SODIUM CHLORIDE 0.9% 1,000 ML IV SCH ×3 (07:45→23:35)
[2021-07-15] MEDS: TRIAMTERENE-HCTZ 37.5-25MG 1 EACH CAP PO SCH (08:31)
[2021-07-15] MEDS: PROPRANOLOL LA 60 MG CAP.SA.24H PO SCH (08:31)
[2021-07-15] MEDS: ATORVASTATIN 20 MG TAB PO SCH (08:40)
[2021-07-15] MEDS: CHOLECALCIFEROL 25 MCG (1000 IU) TABLET PO SCH (08:41)
[2021-07-15] MEDS: CYCLOBENZAPRINE 10 MG TAB PO SCH ×2 (08:41→21:05)
[2021-07-15] MEDS: HYDROcodone/APAP 10-325MG 1 EACH TAB PO SCH ×2 (08:42→21:05)
[2021-07-15] MEDS: MULTIVITAMINS, THERA 1 EACH TAB PO SCH (08:43)
[2021-07-15] MEDS: buPROPion 75 MG TAB PO SCH ×2 (08:43→21:05)
[2021-07-15] MEDS: ZINC SULFATE 220 MG CAP PO SCH (08:43)
[2021-07-15] MEDS: PREGABALIN 75 MG CAP PO SCH ×2 (08:43→15:33)
[2021-07-15 09:03] LABS: Basophils # (A) 0.07 X 10*3/uL (0.00-0.10); Eosinophils # (A) 0.16 X 10*3/uL (0.04-0.35); Eosinophils % (A) 2.4 %; HCT 36.2 % (37.2-46.3); HGB 11.2 g/dL (12.0-15.0); Immature Grans, Automated 0.6 %; Lymphocytes # (A) 3.29 X 10*3/uL (0.90-5.00); Lymphocytes % (A) 48.4 %; MCH 27.6 pg (27.0-32.0); MCHC 30.9 g/dL (32.0-37.0); MCV 89.2 fL (80.0-97.0); Mean Platelet Volume 9.7 fL (9.5-12.2); Monocytes # (A) 0.75 X 10*3/uL (0.20-1.00); NRBC Per 100 WBC 0 /100 WBCS (0.0-0.0); Neutrophils # (A) 2.49 X 10*3/uL (1.80-7.70); Neutrophils % (A) 36.6 %; Platelet Count 182 X 10*3/uL (140-440); RBC 4.06 X 10*6/uL (4.10-5.20); RDW 15.3 % (11.5-14.5)
[2021-07-15 09:19] LABS: African American GFR (CKD) 92.9 (60.0-200.0); Albumin 2.9 g/dL (3.8-4.9); Albumin/Globulin Ratio 1.21 (1.60-3.17); BUN/Creat Ratio 11.63 Ratio (12.00-20.00); Blood Urea Nitrogen 9.3 mg/dL (9.0-27.0); Calcium 8.2 mg/dL (8.7-10.3); Globulin 2.4 g/dL (1.6-3.3); Magnesium 2.1 mg/dL (1.5-2.4); Non-African American GFR(CKD) 80.1 (60.0-200.0); Phosphorus 2.4 mg/dL (2.4-5.1); Potassium 4.1 mmol/L (3.5-5.5); Total Bilirubin 0.3 mg/dL (0.30-1.20); Total Protein 5.3 g/dL (6.2-8.2)
--- NOTE | 2021-07-15 11:32 | P.PN ---
Subjective Progress Note Date: 07/15/21 Principal diagnosis: Intractable migraine headache Adult failure to thrive related to intractable migraines 60 year-old female patient presents to the emergency department for evaluation of headache. States she has been having persistent headaches for the last week. States that she has history of migraines and intermittent paralysis to various parts of her body on the right and left sides. States she thinks it is from exposure to Round-Up and toxic mold in the past. States she was seen at [facility] last week for similar symptoms. Denies any fever or chills. Denies any new symptoms other than persistent headaches. States her current paralysis is in her legs, thought she is able to feel and move some muscle groups. She does see a neurologist, Dr. Suazo for these issues. Workup in ED includes blood work revealing WBC of 8.3, hemoglobin 12.8, hematocrit 38.0 and platelet count of 194 Patient was initially planned to be discharged home; upon attempted discharge patient was unable to ambulate reporting that she gets paralyzed in both arms and and Lasix off and on for past 2 years secondary to pain 07/15/2021 Patient is seen and evaluated in room at bedside; does report slight improvement in headache but continues to have multiple complaints of weakness and inability to ambulate Vital signs are reviewed and stable with a temperature of 98.4, pulse 68, respiration 18 and blood pressure of 93/55, O2 saturation 95% on 2 L Laboratory review shows CBC of 6.8, hemoglobin 11.2, hematocrit 36.2 and platelet count of 182, INR of 2.6, sodium 141, potassium 4.1, BUN/creatinine of 9.3/0.8 Patient did have mild renal injury on admission which is resolved; neurology is consulted for multiple neurological complaints and inability to ambulate; headache is somewhat improved; patient has been placed back on home migraine regimen Further recommendations once neurology has evaluated patient; we will consult PT/OT Objective - Vital Signs Vital signs: Vital Signs Temp 98.4 F 07/15/21 07:24 Pulse 68 07/15/21 07:37 Resp 18 07/15/21 02:00 BP 93/55 07/15/21 07:24 Pulse Ox 95 07/15/21 07:24 Intake & Output 07/14/21 07/15/21 07/15/21 18:59 06:59 18:59 Weight 120.202 kg Other: Voiding Method Bedpan Bedpan # Voids 1 1 - Exam PHYSICAL EXAMINATION: GENERAL: The patient is alert and oriented x3, not in any acute distress. Well developed, well nourished. HEENT: Pupils are round and equally reacting to light. EOMI. No scleral icterus. No conjunctival pallor. Normocephalic, atraumatic. No pharyngeal erythema. No thyromegaly. CARDIOVASCULAR: S1 and S2 present. No murmurs, rubs, or gallops. PULMONARY: Chest is clear to auscultation, no wheezing or crackles. ABDOMEN: Soft, nontender, nondistended, normoactive bowel sounds. No palpable organomegaly. MUSCULOSKELETAL: No joint swelling or deformity. EXTREMITIES: No cyanosis, clubbing, or pedal edema. NEUROLOGICAL: Gross neurological examination did not reveal any focal deficits. SKIN: No rashes. - Labs CBC & Chem 7: 07/15/21 05:30 07/15/21 05:30 Labs: Abnormal Lab Results - Last 24 Hours (Table) 07/15/21 Range/Units 05:30 PT 25.9 H (9.0-12.0) sec INR 2.6 H (<1.2) Assessment and Plan Assessment: 1. Intractable headache; migraine; [place] 10 mg by mouth twice a day; morphine sulfate 30 mg by mouth every 12 hours; patient has been using Dilaudid 1 mg IV every 4 hours when necessary along with Toradol - Continue with propranolol 120 mg daily 2. Failure to thrive; likely related to intractable migraines; we will plan to monitor patient for next 24 hours with plans to consult neurology if continues to have headache 3. COPD/Asthma; Singulair 10 mg daily 4. Hypothyroidism; continue levothyroxine 176 MCG daily 5. Hypertension; propranolol 120 mg daily 6. 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 Fibromyalgia; Elavil 75 mg by mouth daily at bedtime; Lyrica to 25 mg by mouth twice a day 8. Hyperlipidemia; Lipitor 20 mg by mouth daily at bedtime DVT prophylaxis; SCDs/systemic anticoagulation CODE STATUS; full code
--- NOTE | 2021-07-15 14:38 | P.CNNES ---
History of Present Illness Consult date: 07/15/21 Reason for Consult: intractable headache History of Present Illness: The patient is a 60-year-old, right-handed female who is seen in n eurologic consultation on July 15, 2021, via telemedicine. The patient is being seen because of the intractable headache and other neurologic symptoms. According to the patient's nurse, she admitted the patient last p.m. and at that time the patient was reportedly "paralyzed from the shoulders down". This paralysis resolved and then reportedly returned again. According to the patient's nurse, this morning, the patient had paralysis of her legs and this supposedly resolved and then subsequently, reportedly returned. Upon review of the emergency department notes, patient was seen for severe headache and was ready to be discharged when she reportedly had "paralysis of both arms and legs" . The patient herself reports that she has been having these episodes of paralysis, off-and-on for the past 3 years. They are apparently becoming more frequent. They are always associated with a headache. Patient states that her initial episode of paralysis involved her left leg. She then had an episode involving her right leg. The left side is reportedly more involved than the right. The patient reports that her left leg "paralyzes every day". She also has episodes of paralysis of her left arm, her left vocal cord, her left head, back and throat. The patient states that she has been seen by a headache specialist however this was back in 1997. She has not returned to see the specialist. She does report that her current neurologist is reportedly a pain specialist. The patient reports that she was diagnosed with "24-hour tension headache syndrome". The patient describes her headache as a stabbing and tightness in her head. She says that last week the pain was as high as a 9 out of 10. The patient reports that she had a history of trigeminal neuralgia. She says that her neurologist is trying to find out what is causing all of her symptoms. There have been reported considerations for myasthenia gravis, multiple sclerosis. The patient reports having seen a "back surgeon" in the past because of back pain and right leg weakness. She was reportedly scheduled to have surgery however because of various problems, she missed her appointment to see him. The patient describes numerous neurological symptoms including, intermittent blurred vision, bilateral facial numbness, weakness of eye opening, difficulty initiating urination, occasional difficulty swallowing and paralysis of her left vocal cord. Review of Systems see history of present illness Past Medical History Past Medical History: COPD, Fibromyalgia, Thyroid Disorder Additional Past Medical History / Comment(s): atypical facial pain, trigeminal neuralgia, "24 hour tension headache syndrome", migraines, shingles 2013 around her rt eye area.,hx dvt rt leg and multiple pe's found,past tx for "copd d/t mold in basement of her home that permeated to upstairs. 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 Father Family Medical History: Cancer, Diabetes Mellitus, Mitral Valve Prolapse (MVP) Additional Family Medical History / Comment(s): lung/bone cancer. dad's mother had hx of cervical cancer and a pacemaker and dad's dad had hx mi's Sister(s) Family Medical History: Cancer, Diabetes Mellitus, Seizure Disorder Additional Family Medical History / Comment(s): one sister had seizures and 2nd sister had dm,skin cancer. Brother(s) Additional Family Medical History / Comment(s): brother had hernia sx and post op complictions-bleeding Medications and Allergies Home Medications Medication Instructions Recorded Confirmed Type Amitriptyline HCl [Elavil] 75 mg PO HS 02/20/17 07/14/21 History Cyclobenzaprine [Flexeril] 10 mg PO BID 02/20/17 07/14/21 History HYDROcodone/APAP 10-325MG [[place] 1 tab PO BID 02/20/17 07/14/21 History 10-325] Morphine Sulfate ER [Ms Contin] 30 mg PO Q12H 02/20/17 07/14/21 History Pregabalin [Lyrica] 225 mg PO BID@0900,1600 02/20/17 07/14/21 History buPROPion [Wellbutrin] 75 mg PO BID 02/20/17 07/14/21 History Propranolol HCl [Propranolol HCl 120 mg PO DAILY 04/16/18 07/14/21 History ER] Levothyroxine Sodium [Synthroid] 175 mcg PO DAILY 08/14/20 07/14/21 History Montelukast Sodium [Singulair] 10 mg PO HS 08/14/20 07/14/21 History Triamterene-Hctz 37.5-25Mg 1 cap PO DAILY 08/14/20 07/14/21 History [Dyazide 37.5-25 Capsule] Warfarin Sodium [Jantoven] 3.125 mg PO DAILY 08/14/20 07/14/21 History Acetaminophen Tab [Tylenol Tab] 1,000 mg PO Q6H PRN 07/14/21 07/14/21 History Atorvastatin [Lipitor] 20 mg PO DAILY 07/14/21 07/14/21 History Cholecalciferol [Vitamin D3 (25 25 mcg PO DAILY 07/14/21 07/14/21 History Mcg = 1000 Iu)] Multivit-Min/FA/Lycopen/Lutein 1 tab PO DAILY 07/14/21 07/14/21 History [Centrum Silver Tablet] Ondansetron Odt [Zofran Odt] 4 mg PO DAILY PRN 07/14/21 07/14/21 History Zinc 50 mg PO DAILY 07/14/21 07/14/21 History Allergies Allergy/AdvReac Type Severity Reaction Status Date / Time carbamazepine [From Tegretol] Allergy Anaphylaxis Verified 07/14/21 09:10 codeine Allergy Anaphylaxis Verified 07/14/21 09:10 Physical Examination - Vital Signs Vital Signs: Vital Signs Temp Pulse Pulse Resp BP BP Pulse Ox 07/15/21 07:37 68 07/15/21 07:24 98.4 F 68 93/55 95 02/20/22 02:00 98.6 F 70 18 100/65 98 07/14/21 20:12 83 18 07/14/21 19:53 98.0 F 83 16 127/80 97 07/14/21 14:00 97.9 F 64 18 122/64 93 L 07/14/21 12:20 97.8 F 95 19 168/82 99 07/14/21 11:36 88 18 131/75 96 Intake and Output 07/14/21 07/15/21 07/15/21 22:59 06:59 14:59 Other: Voiding Method Bedpan Bedpan # Voids 1 1 Gen.: The patient is reclining in the bed. She is in no acute distress. She is obese. HEENT: Head is atraumatic, normocephalic. Fundus not visualized. There is no scleral icterus. Mucous membranes are moist. Neck: Supple without carotid bruits Heart: Regular rate and rhythm Lungs: Clear to auscultation Extremities: Without edema Neurological examination Mental status: The patient is awake, alert and oriented 3. Her speech is clear. There is no dysarthria or aphasia. The patient's voice is high pitched at times and raspy at times. Cranial nerves: Pupils are equal at 3 mm and reactive. Visual alvarado are full to confrontation. Extraocular movements are intact. There is no nystagmus. Facial sensation is intact. There is no facial asymmetry. Hearing is grossly intact. Uvula and palate are midline. Shoulder shrug is symmetric. Tongue protrudes midline. Motor: Strength is 5/5 in the bilateral upper extremities. Prior to strength testing of the lower extremities, the patient is observed to have movement of her toes, under the blankets. With formal strength testing of the lower extremities, there is no effort with testing of hip flexor strength (there is la ck of downward pressure of the opposite heel, when attempting to raise either leg from the bed), ankle dorsiflexors, plantar flexors, quadriceps or hamstrings. Sensation: Grossly intact to light touch throughout. There is no extinction with double simultaneous stimulation. Deep tendon reflexes: 2+/4+ throughout. Plantar responses are flexor bilaterally. Gait: Not assessed Results - Laboratory Findings CBC and BMP: 07/15/21 05:30 07/15/21 05:30 Abnormal Lab Findings: Abnormal Labs 07/14/21 07/14/21 07/15/21 06:23 06:23 05:30 RBC 4.06 L Hgb 11.2 L Hct 36.2 L MCHC 30.9 L RDW 15.3 H PT 26.0 H INR 2.6 H APTT 35.0 H Chloride Carbon Dioxide 31 H Anion Gap BUN 18 H Creatinine 1.06 H BUN/Creatinine Ratio Calcium AST 39 H Total Protein Albumin Albumin/Globulin Ratio 07/15/21 07/15/21 05:30 05:30 RBC Hgb Hct MCHC RDW PT 25.9 H INR 2.6 H APTT Chloride 110 H Carbon Dioxide Anion Gap 8.00 L BUN Creatinine BUN/Creatinine Ratio 11.63 L Calcium 8.2 L AST Total Protein 5.3 L Albumin 2.9 L Albumin/Globulin Ratio 1.21 L Assessment and Plan Assessment: 1. Reported history of chronic headaches, being treated by a neurologist- complicated migraine would/could cause unilateral neurologic deficits, not bilateral 2. Multiple neurological complaints with unclear/questionable etiology Plan: 1. The patient's chronic pain would be better served if with treatment other than opioids 2. It was suggested to the patient that she return to a headache/migraine specialist for more up-to-date treatment of her migraines, such as CGRP meds 3. Consider psychiatry consultation 4. Agree with physical therapy consultation Time with Patient: Greater than 30 (spent 40 minutes with patient via telemedicine)
[2021-07-15] MEDS: WARFARIN 3 MG TAB PO SCH (17:02)
[2021-07-15] MEDS: MONTELUKAST 10 MG TAB PO SCH (21:05)
[2021-07-15] MEDS: AMITRIPTYLINE HCL 25 MG TAB PO SCH (21:05)
[2021-07-16] MEDS: MORPHINE SULFATE ER 30 MG TABLET PO SCH ×2 (02:50→15:52)
[2021-07-16] MEDS: LEVOTHYROXINE 88 MCG TAB PO SCH (05:41)
[2021-07-16] MEDS: SODIUM CHLORIDE 0.9% 1,000 ML IV SCH ×3 (05:41→22:04)
[2021-07-16] MEDS: PREGABALIN 75 MG CAP PO SCH ×2 (09:56→15:52)
[2021-07-16] MEDS: MULTIVITAMINS, THERA 1 EACH TAB PO SCH (09:56)
[2021-07-16] MEDS: ATORVASTATIN 20 MG TAB PO SCH (09:56)
[2021-07-16] MEDS: ZINC SULFATE 220 MG CAP PO SCH (09:56)
[2021-07-16] MEDS: CHOLECALCIFEROL 25 MCG (1000 IU) TABLET PO SCH (09:56)
[2021-07-16] MEDS: TRIAMTERENE-HCTZ 37.5-25MG 1 EACH CAP PO SCH (09:56)
[2021-07-16] MEDS: CYCLOBENZAPRINE 10 MG TAB PO SCH ×2 (09:56→22:03)
[2021-07-16] MEDS: HYDROcodone/APAP 10-325MG 1 EACH TAB PO SCH ×2 (09:56→22:03)
[2021-07-16] MEDS: buPROPion 75 MG TAB PO SCH ×2 (09:57→22:02)
[2021-07-16] MEDS: PROPRANOLOL LA 60 MG CAP.SA.24H PO SCH (09:57)
[2021-07-16 10:20] LABS: INR 2.36 (0.90-1.11); Prothrombin Time 25.6 sec (9.9-11.9)
[2021-07-16 10:27] LABS: African American GFR (CKD) 80.5 (60.0-200.0); Anion Gap 10.2 mmol/L (10.00-18.00); BUN/Creat Ratio 13.78 Ratio (12.00-20.00); Blood Urea Nitrogen 12.4 mg/dL (9.0-27.0); Calcium 8.4 mg/dL (8.7-10.3); Carbon Dioxide 22.8 mmol/L (20.0-27.5); Non-African American GFR(CKD) 69.5 (60.0-200.0); Potassium 4.2 mmol/L (3.5-5.5)
--- NOTE | 2021-07-16 16:29 | P.PN ---
Subjective Progress Note Date: 07/16/21 Intractable migraine headache Adult failure to thrive related to intractable migraines 60 year-old female patient presents to the emergency department for evaluation of headache. States she has been having persistent headaches for the last week. States that she has history of migraines and intermittent paralysis to various parts of her body on the right and left sides. States she thinks it is from exp osure to Round-Up and toxic mold in the past. States she was seen at [facility] last week for similar symptoms. Denies any fever or chills. Denies any new symptoms other than persistent headaches. States her current paralysis is in her legs, thought she is able to feel and move some muscle groups. She does see a neurologist, Dr. Suazo for these issues. Workup in ED includes blood work revealing WBC of 8.3, hemoglobin 12.8, hematocrit 38.0 and platelet count of 194 Patient was initially planned to be discharged home; upon attempted discharge patient was unable to ambulate reporting that she gets paralyzed in both arms and and Lasix off and on for past 2 years secondary to pain 07/15/2021 Patient is seen and evaluated in room at bedside; does report slight improvement in headache but continues to have multiple complaints of weakness and inability to ambulate Vital signs are reviewed and stable with a temperature of 98.4, pulse 68, respiration 18 and blood pressure of 93/55, O2 saturation 95% on 2 L Laboratory review shows CBC of 6.8, hemoglobin 11.2, hematocrit 36.2 and platelet count of 182, INR of 2.6, sodium 141, potassium 4.1, BUN/creatinine of 9.3/0.8 Patient did have mild renal injury on admission which is resolved; neurology is consulted for multiple neurological complaints and inability to ambulate; headache is somewhat improved; patient has been placed back on home migraine regimen Further recommendations once neurology has evaluated patient; we will consult PT/OT 07/16/2021 Patient is seen and evaluated and follow-up currently being closely monitored. She continues with severe headache and also inability to ambulate and currently awaiting PT/OT therapy consultation. Patient continued on appropriate home medications and also being followed by neurology. Patient does follow with Dr. Suazo in the outpatient setting and recommended close outpatient follow-up with him. She denies any chest pain, shortness of breath, or palpitations. Patient is afebrile. Patient denies nausea or vomiting and is tolerating diet. INR is 2.36 Review of systems: Constitutional: No reports of fatigue, fever, or chills Cardiovascular: No reports of chest pain or palpitations Respiratory: No reports of shortness of breath or cough GI: No reports of nausea, no reports of of vomiting : No reports of dysuria or retention Neurovascular: reports of generalized weakness, reports inability to walk All medications have been reviewed Active Medications Hydrocodone Bitart/Acetaminophen (Hydrocodone/Apap 10-325mg 1 Each Tab) 1 each PO BID [facility] Last Admin: 07/16/21 09:56 Dose: 1 each Documented by: Amitriptyline HCl (Amitriptyline Hcl 25 Mg Tab) 75 mg PO [facility] Last Admin: 07/15/21 21:05 Dose: 75 mg Documented by: Atorvastatin Calcium (Atorvastatin 20 Mg Tab) 20 mg PO DAILY [facility] Last Admin: 07/16/21 09:56 Dose: 20 mg Documented by: Bupropion HCl (Bupropion 75 Mg Tab) 75 mg PO BID [facility] Last Admin: 07/16/21 09:57 Dose: 75 mg Documented by: Cholecalciferol (Cholecalciferol 25 Mcg (1000 Iu) Tablet) 25 mcg PO DAILY [facility] Last Admin: 07/16/21 09:56 Dose: 25 mcg Documented by: Cyclobenzaprine HCl (Cyclobenzaprine 10 Mg Tab) 10 mg PO BID [facility] Last Admin: 07/16/21 09:56 Dose: 10 mg Documented by: Sodium Chloride (Saline 0.9%) 1,000 mls @ 130 mls/hr IV .Q7H42M [facility] Last Admin: 07/16/21 14:18 Dose: Not Given Documented by: Levothyroxine Sodium (Levothyroxine 88 Mcg Tab) 176 mcg PO DAILY@0630 [facility] Last Admin: 07/16/21 05:41 Dose: 176 mcg Documented by: Lorazepam (Lorazepam 2 Mg/Ml Inj) 0.5 mg IV Q6HR PRN PRN Reason: Anxiety Miscellaneous Information (Warfarin Per Pharmacy) 0 each MISCELLANE DIRECTED PRN PRN Reason: INR Montelukast Sodium (Montelukast 10 Mg Tab) 10 mg PO [facility] Last Admin: 07/15/21 21:05 Dose: 10 mg Documented by: Morphine Sulfate (Morphine Sulfate Er 30 Mg Tablet) 30 mg PO Q12H [facility]; Protocol Last Admin: 07/16/21 02:50 Dose: 30 mg Documented by: Multivitamins (Multivitamins, Thera 1 Each Tab) 1 each PO DAILY [facility] Last Admin: 07/16/21 09:56 Dose: 1 each Documented by: Naloxone HCl (Naloxone 0.4 Mg/Ml 1 Ml Vial) 0.2 mg IV Q2M PRN PRN Reason: Opioid Reversal Ondansetron HCl (Ondansetron 4 Mg/2 Ml Vial) 4 mg IVP Q8HR PRN PRN Reason: Nausea And Vomiting Pregabalin (Pregabalin 75 Mg Cap) 225 mg PO BID@0900,1600 [facility] Last Admin: 07/16/21 09:56 Dose: 225 mg Documented by: Propranolol HCl (Propranolol La 60 Mg Cap.Sa.24h) 120 mg PO DAILY [facility] Last Admin: 07/16/21 09:57 Dose: 120 mg Documented by: Triamterene/Hydrochlorothiazide (Triamterene-Hctz 37.5-25mg 1 Each Cap) 1 each PO DAILY [facility] Last Admin: 07/16/21 09:56 Dose: 1 each Documented by: Warfarin Sodium (Warfarin 3 Mg Tab) 3 mg PO DAILY@1800 [facility]; Protocol Last Admin: 07/15/21 17:02 Dose: 3 mg Documented by: Zinc Sulfate (Zinc Sulfate 220 Mg Cap) 220 mg PO DAILY [facility] Last Admin: 07/16/21 09:56 Dose: 220 mg Documented by: PHYSICAL EXAMINATION: GENERAL: The patient is alert and oriented x4, Well developed, well nourished. Morbidly obese HEENT: Pupils are round and equally reacting to light. EOMI. does have scleral icterus. No conjunctival pallor. Normocephalic, atraumatic. No pharyngeal erythema. No thyromegaly. CARDIOVASCULAR: S1 and S2 muffled PULMONARY: diminished breath sounds bilaterally with some mild scattered rhonchi noted. ABDOMEN: soft. Nontender on exam. obese. non-distended, normoactive bowel sounds. No palpable organomegaly. MUSCULOSKELETAL: No joint swelling or deformity. EXTREMITIES: No cyanosis, clubbing, or pedal edema. NEUROLOGICAL: Gross neurological examination did not reveal any focal deficits. Diffuse weakness SKIN: No rashes. Assessment: Intractable headache, migraine Failure to thrive, likely related to intractable migraines COPD/asthma, not in acute exacerbation Hypothyroidism Hypertension Fibromyalgia hyperlipidemia History of DVT/PE maintained on Coumadin GI prophylaxis DVT prophylaxis Full code Plan: Recommend to continue with current medications and management. She continues with inability to walk and will have PT/OT therapy evaluate the patient. Yolanda lynn has been evaluated by neurology recommending close outpatient follow-up with her neurologist Dr. Suazo. Resumed appropriate home medications. Patient is tearful on exam and will await PT/OT evaluation. Patient continues with headache although less intense. INR is therapeutic at 2.36 as patient is on Coumadin for history of DVT/PE. Due to multiple complex medical issues, prognosis is guarded. Further recommendations to follow based on the clinical course of the patient. The impression and plan of care has been dictated by Ijeoma Aguilar, nurse practitioner as directed. MD Ochoa I have performed a history and examination and MDM of this patient, discussed the same with the dictator, and agree with the dictator's assessment and plan as written ,documented as a scribe. Based on total visit time, I have performed more than 50% of the visit. Any additional findings or plans will be noted. Objective - Vital Signs Vital signs: Vital Signs Temp 98.5 F 07/16/21 08:00 Pulse 78 07/16/21 08:00 Resp 18 07/16/21 08:00 BP 152/93 07/16/21 08:00 Pulse Ox 96 07/16/21 08:00 Intake & Output 07/15/21 07/16/21 07/16/21 18:59 06:59 18:59 Other: Voiding Method Bedpan Bedpan # Voids 2 1 - Labs CBC & Chem 7: 07/15/21 05:30 07/16/21 04:18
[2021-07-16] MEDS: WARFARIN 3 MG TAB PO SCH (18:50)
[2021-07-16] MEDS: AMITRIPTYLINE HCL 25 MG TAB PO SCH (22:02)
[2021-07-16] MEDS: MONTELUKAST 10 MG TAB PO SCH (22:03)
[2021-07-17] MEDS: MORPHINE SULFATE ER 30 MG TABLET PO SCH ×2 (02:14→14:27)
[2021-07-17] MEDS: LEVOTHYROXINE 88 MCG TAB PO SCH (06:00)
[2021-07-17] MEDS: SODIUM CHLORIDE 0.9% 1,000 ML IV SCH ×3 (07:59→21:57)
[2021-07-17] MEDS: ATORVASTATIN 20 MG TAB PO SCH (08:54)
[2021-07-17] MEDS: buPROPion 75 MG TAB PO SCH ×2 (08:55→20:33)
[2021-07-17] MEDS: CHOLECALCIFEROL 25 MCG (1000 IU) TABLET PO SCH (08:55)
[2021-07-17] MEDS: HYDROcodone/APAP 10-325MG 1 EACH TAB PO SCH ×2 (08:56→20:31)
[2021-07-17] MEDS: CYCLOBENZAPRINE 10 MG TAB PO SCH ×2 (08:56→20:32)
[2021-07-17] MEDS: MULTIVITAMINS, THERA 1 EACH TAB PO SCH (08:58)
[2021-07-17] MEDS: PREGABALIN 75 MG CAP PO SCH ×2 (08:59→14:27)
[2021-07-17] MEDS: TRIAMTERENE-HCTZ 37.5-25MG 1 EACH CAP PO SCH (08:59)
[2021-07-17] MEDS: PROPRANOLOL LA 60 MG CAP.SA.24H PO SCH (09:00)
[2021-07-17] MEDS: ZINC SULFATE 220 MG CAP PO SCH (09:00)
[2021-07-17 09:34] LABS: INR 2.21 (0.90-1.11)
--- NOTE | 2021-07-17 15:41 | P.PN ---
Subjective Progress Note Date: 07/17/21 Intractable migraine headache Adult failure to thrive related to intractable migraines 60 year-old female patient presents to the emergency department for evaluation of headache. States she has been having persistent headaches for the last week. States that she has history of migraines and intermittent paralysis to various parts of her body on the right and left sides. States she thinks it is from exp osure to Round-Up and toxic mold in the past. States she was seen at [facility] last week for similar symptoms. Denies any fever or chills. Denies any new symptoms other than persistent headaches. States her current paralysis is in her legs, thought she is able to feel and move some muscle groups. She does see a neurologist, Dr. Suazo for these issues. Workup in ED includes blood work revealing WBC of 8.3, hemoglobin 12.8, hematocrit 38.0 and platelet count of 194 Patient was initially planned to be discharged home; upon attempted discharge patient was unable to ambulate reporting that she gets paralyzed in both arms and and Lasix off and on for past 2 years secondary to pain 07/15/2021 Patient is seen and evaluated in room at bedside; does report slight improvement in headache but continues to have multiple complaints of weakness and inability to ambulate Vital signs are reviewed and stable with a temperature of 98.4, pulse 68, respiration 18 and blood pressure of 93/55, O2 saturation 95% on 2 L Laboratory review shows CBC of 6.8, hemoglobin 11.2, hematocrit 36.2 and platelet count of 182, INR of 2.6, sodium 141, potassium 4.1, BUN/creatinine of 9.3/0.8 Patient did have mild renal injury on admission which is resolved; neurology is consulted for multiple neurological complaints and inability to ambulate; headache is somewhat improved; patient has been placed back on home migraine regimen Further recommendations once neurology has evaluated patient; we will consult PT/OT 07/16/2021 Patient is seen and evaluated and follow-up currently being closely monitored. She continues with severe headache and also inability to ambulate and currently awaiting PT/OT therapy consultation. Patient continued on appropriate home medications and also being followed by neurology. Patient does follow with Dr. Suazo in the outpatient setting and recommended close outpatient follow-up with him. She denies any chest pain, shortness of breath, or palpitations. Patient is afebrile. Patient denies nausea or vomiting and is tolerating diet. INR is 2.36 07/17/2021 Patient is seen this morning continues to have difficulty in ambulating and extreme weakness of bilateral lower extremities and also having back pain and continued headache. Patient does follow with Dr. Suazo in the outpatient setting and recommend close outpatient follow-up with neurologist for further testing and continued treatments. Patient was evaluated by physical therapy today and patient extremely weak and unable to walk. Plan is for possible ECF for continued PT/OT therapy for strengthening mobility. Patient states she has had some initial workup regarding multiple sclerosis although nothing extensive with her neurologist. Patient was maintained on IV hydration and will decrease the dose his kidney functions have improved. INR today is 2.21 and will continue with Coumadin pharmacy to dose. Encouraged increased activity as tolerated. Review of systems: Constitutional: No reports of fatigue, fever, or chills Cardiovascular: No reports of chest pain or palpitations Respiratory: No reports of shortness of breath or cough GI: No reports of nausea, no reports of of vomiting : No reports of dysuria or retention Neurovascular: reports of generalized weakness, reports inability to walk and bilateral lower extremity weakness All medications have been reviewed Active Medications Hydrocodone Bitart/Acetaminophen (Hydrocodone/Apap 10-325mg 1 Each Tab) 1 each PO BID [facility] Last Admin: 07/17/21 08:56 Dose: 1 each Documented by: Amitriptyline HCl (Amitriptyline Hcl 25 Mg Tab) 75 mg PO HS [facility] Last Admin: 07/16/21 22:02 Dose: 75 mg Documented by: Atorvastatin Calcium (Atorvastatin 20 Mg Tab) 20 mg PO DAILY [facility] Last Admin: 07/17/21 08:54 Dose: 20 mg Documented by: Bupropion HCl (Bupropion 75 Mg Tab) 75 mg PO BID [facility] Last Admin: 07/17/21 08:55 Dose: 75 mg Documented by: Cholecalciferol (Cholecalciferol 25 Mcg (1000 Iu) Tablet) 25 mcg PO DAILY [facility] Last Admin: 07/17/21 08:55 Dose: 25 mcg Documented by: Cyclobenzaprine HCl (Cyclobenzaprine 10 Mg Tab) 10 mg PO BID [facility] Last Admin: 07/17/21 08:56 Dose: 10 mg Documented by: Sodium Chloride (Saline 0.9%) 1,000 mls @ 130 mls/hr IV .Q7H42M [facility] Last Admin: 07/17/21 13:16 Dose: 130 mls/hr Documented by: Levothyroxine Sodium (Levothyroxine 88 Mcg Tab) 176 mcg PO DAILY@0630 [facility] Last Admin: 07/17/21 06:00 Dose: 176 mcg Documented by: Lorazepam (Lorazepam 2 Mg/Ml Inj) 0.5 mg IV Q6HR PRN PRN Reason: Anxiety Miscellaneous Information (Warfarin Per Pharmacy) 0 each MISCELLANE DIRECTED PRN PRN Reason: INR Montelukast Sodium (Montelukast 10 Mg Tab) 10 mg PO HS [facility] Last Admin: 07/16/21 22:03 Dose: 10 mg Documented by: Morphine Sulfate (Morphine Sulfate Er 30 Mg Tablet) 30 mg PO Q12H [facility]; Protocol Last Admin: 07/17/21 14:27 Dose: 30 mg Documented by: Multivitamins (Multivitamins, Thera 1 Each Tab) 1 each PO DAILY [facility] Last Admin: 07/17/21 08:58 Dose: 1 each Documented by: Naloxone HCl (Naloxone 0.4 Mg/Ml 1 Ml Vial) 0.2 mg IV Q2M PRN PRN Reason: Opioid Reversal Ondansetron HCl (Ondansetron 4 Mg/2 Ml Vial) 4 mg IVP Q8HR PRN PRN Reason: Nausea And Vomiting Pregabalin (Pregabalin 75 Mg Cap) 225 mg PO BID@0900,1600 [facility] Last Admin: 07/17/21 14:27 Dose: 225 mg Documented by: Propranolol HCl (Propranolol La 60 Mg Cap.Sa.24h) 120 mg PO DAILY [facility] Last Admin: 07/17/21 09:00 Dose: 120 mg Documented by: Triamterene/Hydrochlorothiazide (Triamterene-Hctz 37.5-25mg 1 Each Cap) 1 each PO DAILY [facility] Last Admin: 07/17/21 08:59 Dose: 1 each Documented by: Warfarin Sodium (Warfarin 3 Mg Tab) 3 mg PO DAILY@1800 [facility]; Protocol Last Admin: 07/16/21 18:50 Dose: 3 mg Documented by: Zinc Sulfate (Zinc Sulfate 220 Mg Cap) 220 mg PO DAILY [facility] Last Admin: 07/17/21 09:00 Dose: 220 mg Documented by: PHYSICAL EXAMINATION: GENERAL: The patient is alert and oriented x4, Well developed, well nourished. Morbidly obese HEENT: Pupils are round and equally reacting to light. EOMI. does have scleral icterus. No conjunctival pallor. Normocephalic, atraumatic. No pharyngeal erythema. No thyromegaly. CARDIOVASCULAR: S1 and S2 muffled PULMONARY: diminished breath sounds bilaterally with some mild scattered rhonchi noted. ABDOMEN: soft. Nontender on exam. obese. non-distended, normoactive bowel sounds. No palpable organomegaly. MUSCULOSKELETAL: No joint swelling or deformity. EXTREMITIES: No cyanosis, clubbing, or pedal edema. NEUROLOGICAL: Gross neurological examination did not reveal any focal deficits. Diffuse weakness SKIN: No rashes. 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 She continues with inability to walk and PT/OT therapy evaluated the patient recommend a subacute rehab social work following working on accepting facilities. Patient has been evaluated by neurology recommending close outpatient follow-up with her neurologist Dr. Suazo. Resumed appropriate home medications. Patient continues with headache although less intense. INR is therapeutic at 2.21 as patient is on Coumadin for history of DVT/PE. Due to multiple complex medical issues, prognosis is guarded. Further recommendations to follow based on the clinical course of the patient. Possible discharge in 24-48 hours The impression and plan of care has been dictated by Ijeoma Aguilar, nurse practitioner as directed. MD Ochoa I have performed a history and examination and MDM of this patient, discussed the same with the dictator, and agree with the dictator's assessment and plan as written ,documented as a scribe. Based on total visit time, I have performed more than 50% of the visit. Any additional findings or plans will be noted. Objective - Vital Signs Vital signs: Vital Signs Temp 97.6 F 07/17/21 08:00 Pulse 67 07/17/21 08:00 Resp 16 07/17/21 08:00 BP 114/78 07/17/21 08:00 Pulse Ox 97 07/17/21 08:00 Intake & Output 07/16/21 07/17/21 07/17/21 18:59 06:59 18:59 Intake Total 540 Output Total 2100 Balance -1560 Intake: Oral 540 Output: Urine 2100 Other: # Voids 2 # Bowel Movements 0 - Labs CBC & Chem 7: 07/15/21 05:30 07/16/21 04:18 Labs: Abnormal Lab Results - Last 24 Hours (Table) 07/16/21 07/16/21 07/17/21 Range/Units 04:18 04:18 03:59 PT 25.6 H 24.0 H (9.9-11.9) sec INR 2.36 H 2.21 H (0.90-1.11) Calcium 8.4 L (8.7-10.3) mg/dL
[2021-07-17] MEDS: WARFARIN 3 MG TAB PO SCH (17:11)
--- NOTE | 2021-07-17 17:16 | P.CN ---
Psychiatric Consult - . Consult date: 07/17/21 Consult:: 07/17/21 17:03 psychiatric consultation. 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 She did not exhibt any panic or phobia but since then, she become increasingly preoccupied with her multiple somatic complaints since [id number]. Her marriage ended in divorce. She recalled she was diagnosed asa MDD with suicidal ideation and attempt She would not further elaborate on the intensity. She was relatively social isolated with few family support. She was admitted to the medical unit complaining of 1. escalating vague somatic pain almost constant, dull in ature,starting from her lower extremities to the torso and her back; 2. migraine headache and tension headache; 3. left side weakness and dysphonia. She was disapppointed over her perceived lack of "attention from the medical staff". However, she earlier stated she was considered for comprehensive investigation to rule out Multiple sclerosis and myashenia gravis . She did not have any history of stroke no active uncontrolled cardiac events. MSE>She was speaking with a peculiar tone of voice ranging from whispering to soft-tone of voice. No expressive aphasia. Her affect was almost tearful, and sad congruent with her thought content. She indicated she would be GLAD if the real neurological disorder owuld be diagnosed. NO psychotic symptoms of hallcinations or delusons of guilt. She endorsed full range of depressive symptoms: with anergy, appetite and sleep disturbances. Cognition: fully oriented. articulate and marginal insight. Diagnosis: Somatiform disorder. pending the results of full scale Med investigation. comorbid MDD and rule out somatic delusion disorder. Early Trumatic stress cannot be ruled out Management : Dr. Moore Would follow the patient currently no treatment would be recoommended before any firm med. diagnosis Once med. is ruled out, she may benefit from inpatient treatment including rTMS and atypical augmentation strategy.
[2021-07-17] MEDS: AMITRIPTYLINE HCL 25 MG TAB PO SCH (20:32)
[2021-07-17] MEDS: MONTELUKAST 10 MG TAB PO SCH (20:33)
[2021-07-18] MEDS: MORPHINE SULFATE ER 30 MG TABLET PO SCH ×2 (04:59→14:08)
[2021-07-18] MEDS: LEVOTHYROXINE 88 MCG TAB PO SCH (05:54)
[2021-07-18] MEDS: PROPRANOLOL LA 60 MG CAP.SA.24H PO SCH (09:21)
[2021-07-18] MEDS: CYCLOBENZAPRINE 10 MG TAB PO SCH ×2 (09:21→21:38)
[2021-07-18] MEDS: TRIAMTERENE-HCTZ 37.5-25MG 1 EACH CAP PO SCH (09:21)
[2021-07-18] MEDS: MULTIVITAMINS, THERA 1 EACH TAB PO SCH (09:21)
[2021-07-18] MEDS: CHOLECALCIFEROL 25 MCG (1000 IU) TABLET PO SCH (09:21)
[2021-07-18] MEDS: HYDROcodone/APAP 10-325MG 1 EACH TAB PO SCH ×2 (09:21→21:38)
[2021-07-18] MEDS: PREGABALIN 75 MG CAP PO SCH ×2 (09:21→14:08)
[2021-07-18] MEDS: ATORVASTATIN 20 MG TAB PO SCH (09:23)
[2021-07-18] MEDS: ZINC SULFATE 220 MG CAP PO SCH (09:23)
[2021-07-18] MEDS: buPROPion 75 MG TAB PO SCH ×2 (09:23→21:39)
[2021-07-18 11:31] LABS: INR 2.3 (<1.2); Prothrombin Time 23.3 sec (9.0-12.0)
[2021-07-18] MEDS ORDERED: LACTULOSE 20 GM/30 ML CUP PO ONE (12:18)
--- NOTE | 2021-07-18 13:56 | P.PN ---
Progress Note - Text Progress Note Date: 07/18/21 Interval History: Patient was seen today for psychiatric follow-up. patient was initially seen for consultation from Dr Avelar. Patient's nurse states that patient was acting bizarre and paranoid earlier today and wanted to go into another patient's room and was difficult to redirect. Nurse claims that patient has been alert and oriented 3. Patient was seen at the bedside today and spoke about why she came to the hospital. She tended to exaggerate alot of her symptoms and appeared to be fairly preoccupied with not being diagnosed with several different medical conditions. She claims that she is dealing with some depression and anxiety mainly. She states that she is worried about some of her symptoms. She claims that she believes that the doctor and also the nurse were talking behind her back in the other room that's why she wanted to go in there. She was fairly directable during conversation and attempting to be appropriate. She claims that she is not sleeping well at night and has poor appetite. She had mild insight into her condition. At this time patient denies any suicidal or homical ideations, intent or plan. Patient denies any auditory, visual hallucinations. Some paranoia present. Patient denies any side effects from the medications and has been compliant with meds. Mental Status Exam: General Appearance: Patient appears to be overweight, stated age is alert, directable, and mild paranoia at times. Behavior: Patient is calmly seated without any agitated behavior. Attempts to cooperate. Speech: Patient's speech is fluent and nonpressured. Mood/Affect: Mood is depressed and anxious, affect is congruent and constricted. Suicidality/Homicidality: Patient denies having any suicidal or homicidal ideation intent or plan. Perceptions: Patient denies any visual hallucinations and denies any auditory hallucinations Though content/process: Mild paranoia. Goal oriented. Memory and concentration: AOX3, grossly intact for the purposes of this session Judgment and insight: Poor, Improving mildly Assessment Rule out brief psychotic episode Cluster B personality disorder Somatoform disorder unspecified Plan: -At this time patient DOES NOT meet criteria for inpatient psychiatric admission HOWEVER will continue to follow along during treatment to see if patient does meet criteria. -Delirium precautions recommended with patient including - avoiding use of narcotics and [employer] sedatives, limit anticholinergic medications when possible, frequent re-orientation, minimize use of restraints, open window shades during the day and close them at night -Would recommend the following medication changes/additions: Plan to taper off amitriptyline, decreased down to 25 mg daily at bedtime for tonight and then discontinue afterwards. Cymbalta to be started today 30 mg daily for mood/anxiety/pain. Seroquel 50 mg daily at bedtime for psychosis/mood adjunct -bridge ironworker to provide patient with outpatient mental health/psychiatry resources for appropriate follow up upon discharge -Communicated plan to patient's nurse -Will continue to follow along
[2021-07-18] MEDS: SODIUM CHLORIDE 0.9% 1,000 ML IV SCH (14:09)
[2021-07-18] MEDS: DULoxetine HCL 30 MG CAPSULE.DR PO SCH (14:25)
[2021-07-18] MEDS: WARFARIN 3 MG TAB PO SCH (17:24)
[2021-07-18] MEDS ORDERED: QUEtiapine 50 MG TAB PO SCH (21:00)
[2021-07-18] MEDS ORDERED: QUEtiapine 25 MG TAB PO SCH (21:00)
--- NOTE | 2021-07-18 21:11 | P.PN ---
Progress Note - Text Progress Note Date: 07/18/21 Intractable migraine headache Adult failure to thrive related to intractable migraines 60 year-old female patient presents to the emergency department for evaluation of headache. States she has been having persistent headaches for the last week. States that she has history of migraines and intermittent paralysis to various parts of her body on the right and left sides. States she thinks it is from exposure to Round-Up and toxic mold in the past. States she was seen at [facility] last week for similar symptoms. Denies any fever or chills. Denies any new symptoms other than persistent headaches. States her current paralysis is in her legs, thought she is able to feel and move some muscle groups. She does see a neurologist, Dr. Suazo for these issues. Workup in ED includes blood work revealing WBC of 8.3, hemoglobin 12.8, hematocrit 38.0 and platelet count of 194 Patient was initially planned to be discharged home; upon attempted discharge patient was unable to ambulate reporting that she gets paralyzed in both arms and and Lasix off and on for past 2 years secondary to pain 07/15/2021 Patient is seen and evaluated in room at bedside; does report slight improvement in headache but continues to have multiple complaints of weakness and inability to ambulate Vital signs are reviewed and stable with a temperature of 98.4, pulse 68, respiration 18 and blood pressure of 93/55, O2 saturation 95% on 2 L Laboratory review shows CBC of 6.8, hemoglobin 11.2, hematocrit 36.2 and platelet count of 182, INR of 2.6, sodium 141, potassium 4.1, BUN/creatinine of 9.3/0.8 Patient did have mild renal injury on admission which is resolved; neurology is consulted for multiple neurological complaints and inability to ambulate; headache is somewhat improved; patient has been placed back on home migraine regimen Further recommendations once neurology has evaluated patient; we will consult PT/OT 07/16/2021 Patient is seen and evaluated and follow-up currently being closely monitored. She continues with severe headache and also inability to ambulate and currently awaiting PT/OT therapy consultation. Patient continued on appropriate home medications and also being followed by neurology. Patient does follow with Dr. Suazo in the outpatient setting and recommended close outpatient follow-up with him. She denies any chest pain, shortness of breath, or palpitations. Patient is afebrile. Patient denies nausea or vomiting and is tolerating diet. INR is 2.36 07/17/2021 Patient is seen this morning continues to have difficulty in ambulating and extreme weakness of bilateral lower extremities and also having back pain and continued headache. Patient does follow with Dr. Suazo in the outpatient setting and recommend close outpatient follow-up with neurologist for further testing and continued treatments. Patient was evaluated by physical therapy today and patient extremely weak and unable to walk. Plan is for possible ECF for continued PT/OT therapy for strengthening mobility. Patient states she has had some initial workup regarding multiple sclerosis although nothing extensive with her neurologist. Patient was maintained on IV hydration and will decrease the dose his kidney functions have improved. INR today is 2.21 and will continue with Coumadin pharmacy to dose. Encouraged increased activity as tolerated. July 18: Sitting up in bed. Comfortable. Eating fair amount. She did walk in the room with a walker and also was noticed to walk to the next room. As per the nurse patient was a bit paranoid. Things that people are out to cheating her. Awaiting to see psychiatry. States she has not had a bowel movement for over a week. Lactulose ordered and if no result then Mag citrate ordered. Patient seems to be walking at her baseline. Patient was later seen by Dr. Snyder is from psychiatry. Active Medications Hydrocodone Bitart/Acetaminophen (Hydrocodone/Apap 10-325mg 1 Each Tab) 1 each PO BID [facility] Last Admin: 07/18/21 09:21 Dose: 1 each Documented by: Atorvastatin Calcium (Atorvastatin 20 Mg Tab) 20 mg PO DAILY [facility] Last Admin: 07/18/21 09:23 Dose: 20 mg Documented by: Bupropion HCl (Bupropion 75 Mg Tab) 75 mg PO BID [facility] Last Admin: 07/18/21 09:23 Dose: 75 mg Documented by: Cholecalciferol (Cholecalciferol 25 Mcg (1000 Iu) Tablet) 25 mcg PO DAILY [facility] Last Admin: 07/18/21 09:21 Dose: 25 mcg Documented by: Cyclobenzaprine HCl (Cyclobenzaprine 10 Mg Tab) 10 mg PO BID [facility] Last Admin: 07/18/21 09:21 Dose: 10 mg Documented by: Duloxetine HCl (Duloxetine Hcl 30 Mg Capsule.) 30 mg PO DAILY [facility] Last Admin: 07/18/21 14:25 Dose: 30 mg Documented by: Sodium Chloride (Saline 0.9%) 1,000 mls @ 50 mls/hr IV .Q20H [facility] Last Admin: 07/18/21 14:09 Dose: Not Given Documented by: Levothyroxine Sodium (Levothyroxine 88 Mcg Tab) 176 mcg PO DAILY@0630 [facility] Last Admin: 07/18/21 05:54 Dose: 176 mcg Documented by: Miscellaneous Information (Warfarin Per Pharmacy) 0 each MISCELLANE DIRECTED PRN PRN Reason: INR Montelukast Sodium (Montelukast 10 Mg Tab) 10 mg PO [facility] Last Admin: 07/17/21 20:33 Dose: 10 mg Documented by: Morphine Sulfate (Morphine Sulfate Er 30 Mg Tablet) 30 mg PO Q12H [facility]; Protocol Last Admin: 07/18/21 14:08 Dose: 30 mg Documented by: Multivitamins (Multivitamins, Thera 1 Each Tab) 1 each PO DAILY [facility] Last Admin: 07/18/21 09:21 Dose: 1 each Documented by: Naloxone HCl (Naloxone 0.4 Mg/Ml 1 Ml Vial) 0.2 mg IV Q2M PRN PRN Reason: Opioid Reversal Ondansetron HCl (Ondansetron 4 Mg/2 Ml Vial) 4 mg IVP Q8HR PRN PRN Reason: Nausea And Vomiting Pregabalin (Pregabalin 75 Mg Cap) 225 mg PO BID@0900,1600 [facility] Last Admin: 07/18/21 14:08 Dose: 225 mg Documented by: Propranolol HCl (Propranolol La 60 Mg Cap.Sa.24h) 120 mg PO DAILY [facility] Last Admin: 07/18/21 09:21 Dose: 120 mg Documented by: Quetiapine Fumarate (Quetiapine 50 Mg Tab) 50 mg PO [facility] Triamterene/Hydrochlorothiazide (Triamterene-Hctz 37.5-25mg 1 Each Cap) 1 each PO DAILY [facility] Last Admin: 07/18/21 09:21 Dose: 1 each Documented by: Warfarin Sodium (Warfarin 3 Mg Tab) 3 mg PO DAILY@1800 [facility]; Protocol Last Admin: 07/18/21 17:24 Dose: 3 mg Documented by: Zinc Sulfate (Zinc Sulfate 220 Mg Cap) 220 mg PO DAILY [facility] Last Admin: 07/18/21 09:23 Dose: 220 mg Documented by: On examination: VITAL SIGNS: 98.2, 67, 18, 106/72, 92% room air GENERAL APPEARANCE: BMI 40.3, sitting up in bed awake, comfortable HEENT: Normal external appearance of nose and ear. Oral cavity normal EYES: Pupils equal. Conjunctiva normal. NECK: JVD not raised. Mass not palpable. RESPIRATORY: Respiratory effort normal. Lungs clear to auscultation. CARDIOVASCULAR: First and second sounds normal. No edema. ABDOMEN: Soft. Liver and spleen not palpable. No tenderness. No mass palpable. PSYCHIATRY: Alert and oriented x3. Mood and affect normal. INVESTIGATIONS, reviewed in the clinical context: INR 2.3 White count 6.8 hemoglobin 11.2 platelets 182 potassium 4.2 creatinine 0.9 COVID 19: Not detected Lumbar spine CT: DJD changes. 0.5 cm calculus in the left kidney. Assessment and plan: -Per psychiatry: Rule out brief Psychotic episode, cluster B personality disorder, somatoform disorder unspecified. Started on Cymbalta 30 mg a day, Seroquel 50 mg daily at bedtime -Morbid obesity BMI 40.3 Weight loss measures -COPD Singulair 10 mg by mouth daily -Chronic fibromyalgia, with chronic pain syndrome Wellbutrin 75 mg twice a day, Flexeril 10 mg twice a day, [place] 10 one tablet twice a day, MS Contin 30 mg every 12, Lyrica to 25 mg by mouth twice a day Patient does follow with Dr. Emerson for pain management -Chronic DVTs and PEs On Coumadin -Hypothyroid Synthroid 136 g daily -Chronic headaches Patient is to follow with her neurologist. -Dry eye syndrome Artificial tears Care was discussed length with the patient. Also discussed with the nurse and the delinquency prevention social worker. Hold discharge currently. Per psychiatry patient started on Cymbalta 30 mg daily and Seroquel 50 mg at night. Patient otherwise seems to be ambulating on a baseline. Total time spent today about 45 minutes with over 25 minutes of discussion.
[2021-07-18] MEDS: MONTELUKAST 10 MG TAB PO SCH (21:38)
[2021-07-19] MEDS: MORPHINE SULFATE ER 30 MG TABLET PO SCH ×2 (02:40→13:40)
[2021-07-19 06:37] LABS: INR 1.9 (<1.2); Prothrombin Time 19.4 sec (9.0-12.0)
[2021-07-19] MEDS: MULTIVITAMINS, THERA 1 EACH TAB PO SCH (07:19)
[2021-07-19] MEDS: LEVOTHYROXINE 88 MCG TAB PO SCH (07:19)
[2021-07-19] MEDS: TRIAMTERENE-HCTZ 37.5-25MG 1 EACH CAP PO SCH (07:19)
[2021-07-19] MEDS: CHOLECALCIFEROL 25 MCG (1000 IU) TABLET PO SCH (07:19)
[2021-07-19] MEDS: ATORVASTATIN 20 MG TAB PO SCH (07:20)
[2021-07-19] MEDS: buPROPion 75 MG TAB PO SCH (07:20)
[2021-07-19] MEDS: HYDROcodone/APAP 10-325MG 1 EACH TAB PO SCH ×2 (07:20→20:10)
[2021-07-19] MEDS: ZINC SULFATE 220 MG CAP PO SCH (07:20)
[2021-07-19] MEDS: PROPRANOLOL LA 60 MG CAP.SA.24H PO SCH (07:20)
[2021-07-19] MEDS: PREGABALIN 75 MG CAP PO SCH ×2 (07:21→13:40)
[2021-07-19] MEDS: CYCLOBENZAPRINE 10 MG TAB PO SCH ×2 (07:21→20:11)
[2021-07-19] MEDS: DULoxetine HCL 30 MG CAPSULE.DR PO SCH (07:25)
[2021-07-19 11:50] VITALS: BMI 40.3
--- NOTE | 2021-07-19 14:05 | P.PN ---
Progress Note - Text Progress Note Date: 07/19/21 Interval History: Patient was seen today for psychiatric follow-up. Patient's nurse claims that patient has been paranoid and fairly delusional this morning after seeing the doctor. She apparently has been calling administration on her phone and complaining and also believes that "Cortes" has people hidden in her apartment and has been trying to come after her to harm her. Patient was seen at the bedside and continues to endorse depression and anxiety. She continues to be paranoid and focused on people talking behind her back and also a man by the name of "Cortes" which has been plotting against her and trying to track her down. She claims that she believes that the nurse and the doctor have been colluding against her. She was illogical at times. She was alert and oriented 3 again today. She continues to endorse poor sleep and poor appetite. She had mild insight into her condition. At this time patient denies any suicidal or homical ideations, intent or plan. Patient denies any auditory, visual hallucinations. Patient denies any side effects from the medications and has been compliant with meds. Mental Status Exam: General Appearance: Patient appears to be overweight, stated age is alert, directable, and paranoid. Behavior: Patient is calmly seated without any agitated behavior. Attempts to cooperate. Paranoid and suspicious. Speech: Patient's speech is fluent and nonpressured. Rambles at times. Mood/Affect: Mood is depressed and anxious, affect is congruent and constricted. Suicidality/Homicidality: Patient denies having any suicidal or homicidal ideation intent or plan. Perceptions: Patient denies any visual hallucinations and denies any auditory hallucinations Though content/process: paranoia. Goal oriented. Delusional. Illogical at times. Memory and concentration: AOX3, grossly intact for the purposes of this session Judgment and insight: Poor Assessment Brief psychotic episode Cluster B personality disorder Somatoform disorder unspecified Plan: -At this time patient DOES meet criteria for inpatient psychiatric admission once patient is cleared medically including a CT scan of brain to rule out any organiz abnormalities. -Delirium precautions recommended with patient including - avoiding use of narcotics and [employer] sedatives, limit anticholinergic medications when possible, frequent re-orientation, minimize use of restraints, open window shades during the day and close them at night -Would recommend the following medication changes/additions: Cymbalta 30 mg daily for mood/anxiety/pain. start invega 3 mg qhs for psychosis/paranoia. -Communicated plan to patient's nurse -if patient becomes agitated or having behavioral issues then please start sitter until patient is transferred to [facility]. -Psychiatry will sign off at this time.
--- NOTE | 2021-07-19 14:31 | CT ---
EXAMINATION TYPE: CT brain wo con DATE OF EXAM: 07/19/2021 COMPARISON: Brain MR 12/16/2010 HISTORY: Altered mental status CT DLP: 1104.4 mGycm Automated exposure control for dose reduction was used. Helical imaging through the brain. FINDINGS: Extensive inflammatory change present in the right maxillary sinus with some associated high attenuat ion, correlate for possible noninvasive fungal infection. Inflammatory changes also present in the et hmoid air cells, right frontal and sphenoid sinus. There is no hemorrhage or hydrocephalus. Calvarium is intact. Mastoid air cells are well aerated. Brain density is within normal limits. There may be a partially empty sella. IMPRESSION: SINUS DISEASE DESCRIBED. NO ACUTE BRAIN ABNORMALITIES EVIDENT. CONSIDER MRI INDICATED.
[2021-07-19] MEDS: PALIPERIDONE 3 MG TAB.ER.24 PO SCH ×2 (15:47→17:05)
[2021-07-19] MEDS: WARFARIN 3 MG TAB PO SCH (17:11)
[2021-07-19] MEDS ORDERED: WARFARIN 0.5 MG TAB PO ONE (18:00)
--- NOTE | 2021-07-19 18:17 | P.PN ---
Progress Note - Text Progress Note Date: 07/19/21 Intractable migraine headache Adult failure to thrive related to intractable migraines 60 year-old female patient presents to the emergency department for evaluation of headache. States she has been having persistent headaches for the last week. States that she has history of migraines and intermittent paralysis to various parts of her body on the right and left sides. States she thinks it is from exposure to Round-Up and toxic mold in the past. States she was seen at [facility] last week for similar symptoms. Denies any fever or chills. Denies any new symptoms other than persistent headaches. States her current paralysis is in her legs, thought she is able to feel and move some muscle groups. She does see a neurologist, Dr. Suazo for these issues. Workup in ED includes blood work revealing WBC of 8.3, hemoglobin 12.8, hematocrit 38.0 and platelet count of 194 Patient was initially planned to be discharged home; upon attempted discharge patient was unable to ambulate reporting that she gets paralyzed in both arms and and Lasix off and on for past 2 years secondary to pain 07/15/2021 Patient is seen and evaluated in room at bedside; does report slight improvement in headache but continues to have multiple complaints of weakness and inability to ambulate Vital signs are reviewed and stable with a temperature of 98.4, pulse 68, respiration 18 and blood pressure of 93/55, O2 saturation 95% on 2 L Laboratory review shows CBC of 6.8, hemoglobin 11.2, hematocrit 36.2 and platelet count of 182, INR of 2.6, sodium 141, potassium 4.1, BUN/creatinine of 9.3/0.8 Patient did have mild renal injury on admission which is resolved; neurology is consulted for multiple neurological complaints and inability to ambulate; headache is somewhat improved; patient has been placed back on home migraine regimen Further recommendations once neurology has evaluated patient; we will consult PT/OT 07/16/2021 Patient is seen and evaluated and follow-up currently being closely monitored. She continues with severe headache and also inability to ambulate and currently awaiting PT/OT therapy consultation. Patient continued on appropriate home medications and also being followed by neurology. Patient does follow with Dr. Suazo in the outpatient setting and recommended close outpatient follow-up with him. She denies any chest pain, shortness of breath, or palpitations. Patient is afebrile. Patient denies nausea or vomiting and is tolerating diet. INR is 2.36 07/17/2021 Patient is seen this morning continues to have difficulty in ambulating and extreme weakness of bilateral lower extremities and also having back pain and continued headache. Patient does follow with Dr. Suazo in the outpatient setting and recommend close outpatient follow-up with neurologist for further testing and continued treatments. Patient was evaluated by physical therapy today and patient extremely weak and unable to walk. Plan is for possible ECF for continued PT/OT therapy for strengthening mobility. Patient states she has had some initial workup regarding multiple sclerosis although nothing extensive with her neurologist. Patient was maintained on IV hydration and will decrease the dose his kidney functions have improved. INR today is 2.21 and will continue with Coumadin pharmacy to dose. Encouraged increased activity as tolerated. July 18: Sitting up in bed. Comfortable. Eating fair amount. She did walk in the room with a walker and also was noticed to walk to the next room. As per the nurse patient was a bit paranoid. Things that people are out to cheating her. Awaiting to see psychiatry. States she has not had a bowel movement for over a week. Lactulose ordered and if no result then Mag citrate ordered. Patient seems to be walking at her baseline. Patient was later seen by Dr. Snyder is from psychiatry. July 19: Oral intake fair. Patient seen by Dr. Snyder from psychiatry. [place] [facility] patient had episode of psychosis. Will need adjustment treatment of medications, and the psychiatry unit. Computed tomography scan of the head done. Question about fungal infection. ID consulted.. Active Medications Hydrocodone Bitart/Acetaminophen (Hydrocodone/Apap 10-325mg 1 Each Tab) 1 each PO BID [facility] Last Admin: 07/19/21 07:20 Dose: 1 each Documented by: Atorvastatin Calcium (Atorvastatin 20 Mg Tab) 20 mg PO DAILY [facility] Last Admin: 07/19/21 07:20 Dose: 20 mg Documented by: Cholecalciferol (Cholecalciferol 25 Mcg (1000 Iu) Tablet) 25 mcg PO DAILY [facility] Last Admin: 07/19/21 07:19 Dose: 25 mcg Documented by: Cyclobenzaprine HCl (Cyclobenzaprine 10 Mg Tab) 10 mg PO BID [facility] Last Admin: 07/19/21 07:21 Dose: 10 mg Documented by: Duloxetine HCl (Duloxetine Hcl 30 Mg Capsule.) 30 mg PO DAILY [facility] Last Admin: 07/19/21 07:25 Dose: 30 mg Documented by: Sodium Chloride (Saline 0.9%) 1,000 mls @ 50 mls/hr IV .Q20H [facility] Last Admin: 07/18/21 14:09 Dose: Not Given Documented by: Levothyroxine Sodium (Levothyroxine 88 Mcg Tab) 176 mcg PO DAILY@0630 [facility] Last Admin: 07/19/21 07:19 Dose: 176 mcg Documented by: Miscellaneous Information (Warfarin Per Pharmacy) 0 each MISCELLANE DIRECTED PRN PRN Reason: INR Montelukast Sodium (Montelukast 10 Mg Tab) 10 mg PO HS [facility] Last Admin: 07/18/21 21:38 Dose: 10 mg Documented by: Morphine Sulfate (Morphine Sulfate Er 30 Mg Tablet) 30 mg PO Q12H [facility]; Protocol Last Admin: 07/19/21 13:40 Dose: 30 mg Documented by: Multivitamins (Multivitamins, Thera 1 Each Tab) 1 each PO DAILY [facility] Last Admin: 07/19/21 07:19 Dose: 1 each Documented by: Naloxone HCl (Naloxone 0.4 Mg/Ml 1 Ml Vial) 0.2 mg IV Q2M PRN PRN Reason: Opioid Reversal Ondansetron HCl (Ondansetron 4 Mg/2 Ml Vial) 4 mg IVP Q8HR PRN PRN Reason: Nausea And Vomiting Paliperidone (Paliperidone 3 Mg Tab.Er.24) 3 mg PO DAILY [facility] Last Admin: 07/19/21 17:05 Dose: 3 mg Documented by: Pregabalin (Pregabalin 75 Mg Cap) 225 mg PO BID@0900,1600 [facility] Last Admin: 07/19/21 13:40 Dose: 225 mg Documented by: Propranolol HCl (Propranolol La 60 Mg Cap.Sa.24h) 120 mg PO DAILY [facility] Last Admin: 07/19/21 07:20 Dose: 120 mg Documented by: Triamterene/Hydrochlorothiazide (Triamterene-Hctz 37.5-25mg 1 Each Cap) 1 each PO DAILY [facility] Last Admin: 07/19/21 07:19 Dose: 1 each Documented by: Warfarin Sodium (Warfarin 3 Mg Tab) 3 mg PO DAILY@1800 [facility]; Protocol Last Admin: 07/19/21 17:11 Dose: 3 mg Documented by: Zinc Sulfate (Zinc Sulfate 220 Mg Cap) 220 mg PO DAILY [facility] Last Admin: 07/19/21 07:20 Dose: 220 mg Documented by: On examination: VITAL SIGNS: 97.8, 74, 20, 143/85, 97% room air GENERAL APPEARANCE: Laying in bed comfortable HEENT: Normal external appearance of nose and ear. Oral cavity normal EYES: Pupils equal. Conjunctiva normal. NECK: JVD not raised. Mass not palpable. RESPIRATORY: Respiratory effort normal. Lungs clear to auscultation. CARDIOVASCULAR: First and second sounds normal. No edema. ABDOMEN: Soft. Liver and spleen not palpable. No tenderness. No mass palpable. PSYCHIATRY: Alert and oriented x3. Mood and affect normal. INVESTIGATIONS, reviewed in the clinical context: INR 2.3 White count 6.8 hemoglobin 11.2 platelets 182 potassium 4.2 creatinine 0.9 COVID 19: Not detected Lumbar spine CT: DJD changes. 0.5 cm calculus in the left kidney. Assessment and plan: -Per psychiatry: Possible Psychotic episode, cluster B personality disorder, somatoform disorder unspecified. Cymbalta 30 mg a day, Seroquel 50 mg daily at bedtime, in [place] 3 mg daily at bedtime started -Computed tomography scan of the brain showing extensive inflammatory changes: Acute versus chronic changes Maxillary sinus with some associated high attenuation. Also to include right- sided frontal, sphenoid, ethmoid air cells. Consult ID -Morbid obesity BMI 40.3 Weight loss measures -COPD Singulair 10 mg by mouth daily -Chronic fibromyalgia, with chronic pain syndrome Wellbutrin 75 mg twice a day, Flexeril 10 mg twice a day, [place] 10 one tablet twice a day, MS Contin 30 mg every 12, Lyrica to 25 mg by mouth twice a day Patient does follow with Dr. Emerson for pain management -Chronic DVTs and PEs On Coumadin -Hypothyroid Synthroid 136 g daily -Chronic headaches Patient is to follow with her neurologist. -Dry eye syndrome Artificial tears In [place] started by psychiatry. Computed tomography scan results noted. Consult ID. Other medications to continue. Oral intake fair. Discussed with Dr. Snyder.
[2021-07-19] MEDS: SODIUM CHLORIDE 0.9% 1,000 ML IV SCH (19:35)
[2021-07-19] MEDS: MONTELUKAST 10 MG TAB PO SCH (20:11)
--- NOTE | 2021-07-19 22:52 | P.CONS ---
History of Present Illness - Reason for Consult Consult date: 07/19/21 maxillary sinus infection Requesting physician: Brando Mcguire - Chief Complaint headache x 1 week - History of Present Illness History of Present Illness : Patient is 60-year-old female with a past medical history significant for trigeminal neuralgia this patient did have a chronic left-sided facial pain patient presenting to the hospital 5 days ago for evaluation of a headache that has been persistent for about a week before presentation to the hospital patient also complaining of some pain to the left side of the facial area more of a dull aching at times sharp 5-6 out of 10 no radiation patient denies having any purulent nasal drainage did have some po stnasal drip though patient also complaining of poor dental hygiene as she has not been able to see the dentist in the last 3 years with the center the patient has been evaluated by ER physician on arrival to the ER the patient was afebrile and no fever had been recorded subsequently patient did have a normal white count on admission BMP was mildly with subsequent normal liver enzymes are normal urine was negative lopes PCR was negative patient did have a evaluation by neurology services and the CT of the brain was done which shows no acute brain abnormalities however extensive fluid changes present in the right maxillary sinus with some associated high attenuation correlate for possible no ninvasive fungal infection in this patient who is not diabetic and has not been on any high-dose corticosteroid therapy this has prompted this infectious disease consultation Review of system: CONSTITUTIONAL: Positive for weakness denies fever. EYES: No complaint. ENT: As per history of present illness. RESPIRATORY: No complaint. CARDIOVASCULAR: No complaint. GENITOURINARY: No complaint. GASTROINTESTINAL: No complaint. MUSCULOSKELETAL: No complaint. INTEGUMENTARY : No complaint. PSYCHOLOGIC: No complaint. ENDOCRINE: No complaint. NEUROLOGIC: As per history of present illness Past medical history : Reviewed, documented below Past surgical history : Reviewed, documented below Social history: Reviewed, documented below Medications: Reviewed, as documented below EXAMINATION: Vital sigans= Reviewed and documented below GENERAL DESCRIPTION: Middle-aged male lying in bed, no distress. No tachypnea or accessory muscle of respiration use. HEENT: Shows Pallor , no scleral icterus. Oral mucous membrane is dry. NECK: Trachea central, no thyromegaly. LUNGS: Unlabored breathing. Clear to auscultation anteriorly. No wheeze or crackle. HEART: S1, S2, regular rate and rhythm. ABDOMEN: Soft, no tenderness , guarding or rigidity EXTREMITIES: No edema feet SKIN: No rash, no masses palpable. NEUROLOGICAL: The patient is awake, alert, oriented x3, mood and affect normal. LABS AND RADIOLOGY: Reviewed results see below Assessment : Patient presented to hospital with a headache and this patient also have some left-sided maxillary/facial area pain he did have a poor dental hygiene with an abnormal CT possible maxillary sinusitis patient is not a clinical risk factor for fungal infection in this patient was not diabetic not on any steroids patient did not have any fever or elevated white count Plan: 1-blood cultures will be obtained 2-we will also check a CRP a procalcitonin level 3-empirically start the patient on Unasyn 3 g every 6 hours We will follow on clinical condition and cultures to further adjust medication if needed Thank you for this consultation we will follow the patient along with you Past Medical History Past Medical History: COPD, Fibromyalgia, Thyroid Disorder Additional Past Medical History / Comment(s): atypical facial pain, trigeminal neuralgia, "24 hour tension headache syndrome", migraines, shingles 2013 around her rt eye area.,hx dvt rt leg and multiple pe's found,past tx for "copd d/t mold in basement of her home that permeated to upstairs. 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 Father Family Medical History: Cancer, Diabetes Mellitus, Mitral Valve Prolapse (MVP) Additional Family Medical History / Comment(s): lung/bone cancer. dad's mother had hx of cervical cancer and a pacemaker and dad's dad had hx mi's Sister(s) Family Medical History: Cancer, Diabetes Mellitus, Seizure Disorder Additional Family Medical History / Comment(s): one sister had seizures and 2nd sister had dm,skin cancer. Brother(s) Additional Family Medical History / Comment(s): brother had hernia sx and post op complictions-bleeding Medications and Allergies Home Medications Medication Instructions Recorded Confirmed Type Cyclobenzaprine [Flexeril] 10 mg PO BID 02/20/17 07/14/21 History HYDROcodone/APAP 10-325MG [[place] 1 tab PO BID 02/20/17 07/14/21 History 10-325] Morphine Sulfate ER [Ms Contin] 30 mg PO Q12H 02/20/17 07/14/21 History Pregabalin [Lyrica] 225 mg PO BID@0900,1600 02/20/17 07/14/21 History buPROPion [Wellbutrin] 75 mg PO BID 02/20/17 07/14/21 History Propranolol HCl [Propranolol HCl 120 mg PO DAILY 04/16/18 07/14/21 History ER] Levothyroxine Sodium [Synthroid] 175 mcg PO DAILY 08/14/20 07/14/21 History Montelukast Sodium [Singulair] 10 mg PO HS 08/14/20 07/14/21 History Triamterene-Hctz 37.5-25Mg 1 cap PO DAILY 08/14/20 07/14/21 History [Dyazide 37.5-25 Capsule] Warfarin Sodium [Jantoven] 3.125 mg PO DAILY 08/14/20 07/14/21 History Acetaminophen Tab [Tylenol] 1,000 mg PO Q6H PRN 07/14/21 07/14/21 History Atorvastatin [Lipitor] 20 mg PO DAILY 07/14/21 07/14/21 History Cholecalciferol [Vitamin D3 (25 25 mcg PO DAILY 07/14/21 07/14/21 History Mcg = 1000 Iu)] Multivit-Min/FA/Lycopen/Lutein 1 tab PO DAILY 07/14/21 07/14/21 History [Centrum Silver Tablet] Ondansetron Odt [Zofran ODT] 4 mg PO DAILY PRN 07/14/21 07/14/21 History Zinc 50 mg PO DAILY 07/14/21 07/14/21 History DULoxetine HCL [Cymbalta] 30 mg PO DAILY #30 07/19/21 Rx DULoxetine HCL [Cymbalta] 30 mg PO DAILY #30 cap 07/19/21 Rx QUEtiapine [SEROquel] 50 mg PO HS #30 tab 07/19/21 Rx Allergies Allergy/AdvReac Type Severity Reaction Status Date / Time carbamazepine [From Tegretol] Allergy Anaphylaxis Verified 07/14/21 09:10 codeine Allergy Anaphylaxis Verified 07/14/21 09:10 Physical Exam Vitals: Vital Signs Temp Pulse Resp BP Pulse Ox 07/19/21 07:53 97.4 F L 64 18 134/76 92 L 07/19/21 01:04 97.4 F L 57 L 15 99/68 95 07/18/21 19:35 97.7 F 65 14 104/70 92 L Intake and Output 07/19/21 07/19/21 07/19/21 06:59 14:59 22:59 Other: # Voids 1 Weight 120.202 kg Results CBC & Chem 7: 07/15/21 05:30 07/16/21 04:18 Labs: Abnormal Lab Results - Last 24 Hours (Table) 07/19/21 Range/Units 05:18 PT 19.4 H (9.0-12.0) sec INR 1.9 H (<1.2)
[2021-07-20] MEDS: AMPICILLIN-SULBACTAM 3 GM in SODIUM CHLORIDE 0.9% 100 ML IVPB SCH ×4 (01:13→17:03)
[2021-07-20] MEDS: MORPHINE SULFATE ER 30 MG TABLET PO SCH ×2 (03:24→16:58)
[2021-07-20 05:32] LABS: INR 1.8 (<1.2); Prothrombin Time 18.3 sec (9.0-12.0)
[2021-07-20] MEDS: LEVOTHYROXINE 88 MCG TAB PO SCH (07:19)
[2021-07-20 07:41] VITALS: RESP 16
[2021-07-20] MEDS: CHOLECALCIFEROL 25 MCG (1000 IU) TABLET PO SCH (07:57)
[2021-07-20] MEDS: CYCLOBENZAPRINE 10 MG TAB PO SCH ×2 (07:57→19:57)
[2021-07-20] MEDS: HYDROcodone/APAP 10-325MG 1 EACH TAB PO SCH ×2 (07:57→19:57)
[2021-07-20] MEDS: ATORVASTATIN 20 MG TAB PO SCH (07:57)
[2021-07-20] MEDS: PREGABALIN 75 MG CAP PO SCH ×2 (07:58→16:58)
[2021-07-20] MEDS: MULTIVITAMINS, THERA 1 EACH TAB PO SCH (07:58)
[2021-07-20] MEDS: ZINC SULFATE 220 MG CAP PO SCH (07:59)
[2021-07-20] MEDS: SODIUM CHLORIDE 0.9% 1,000 ML IV SCH (08:54)
--- NOTE | 2021-07-20 09:44 | P.PN ---
Subjective Progress Note Date: 07/17/21 Patient was seen for a follow-up. Patient initially seen by Dr. Chanelle Moreland. Please refer to his note for details. Patient has intractable headaches with paralysis. It was reported her exam is inconsistent. Dr. Moreland has felt that it is unlikely to have organic etiology for "paralysis". Patient at present is laying comfortably in the bed. Patient states her head, face, arm, whole body is hurting. Patient states "feels like I'm being electrocuted". Patient says that her eyes don't want to open. When I asked about the headache on a scale of 1-10, patient states "A million". Patient states that she feels her head will explode. She says that she has been diagnosed with migraine and tension headache. She has a "horrible horrible headache". She says she feels like she has paralysis in the legs. States her arms feel "really heavy and weak". She claims she has "partially paralyzed voc al cords. Patient states that when ever she pees, she has to bear down so hard as if her "eyes will pop out". She states her bladder is not working. About 3 times she has to put some much pressure to pass a urine. Patient states that she was supposed to have back surgery but has not done. Patient has been seen by psychiatrist, and diagnosed with somatoform disorder, comorbid MDD and rule out somatic delusional disorder. Objective - Vital Signs Vital signs: Vital Signs Temp 97.6 F 07/17/21 14:00 Pulse 76 07/17/21 14:00 Resp 18 07/17/21 14:00 BP 120/83 07/17/21 14:00 Pulse Ox 93 L 07/17/21 14:00 Intake & Output 07/16/21 07/17/21 07/17/21 18:59 06:59 18:59 Intake Total 540 Output Total 2100 1100 Balance -1560 -1100 Intake: Oral 540 Output: Urine 2100 1100 Other: Voiding Method External Catheter # Voids 2 # Bowel Movements 0 - Exam Patient's mental status, speech and language functions are normal. Her cranial nerves are all normal. No aphasia or dysarthria. Patient's voice sometimes gets raspy. Cranial nerves are normal. Muscle strength normal in the upper limbs. Sensations equal. No ataxia. - Labs CBC & Chem 7: 07/15/21 05:30 07/16/21 04:18 Labs: Abnormal Lab Results - Last 24 Hours (Table) 07/17/21 Range/Units 03:59 PT 24.0 H (9.9-11.9) sec INR 2.21 H (0.90-1.11) Assessment and Plan Assessment: 1. Reported history of chronic headaches, being treated by a neurologist- complicated migraine would/could cause unilateral neurologic deficits, not bila teral 2. Multiple neurological complaints with unclear/questionable etiology 3. Somatoform pain disorder. Plan: * Psychiatry to follow-up. * No other neurological workup indicated. * Thyroid functions are normal. * Patient's previous acetylcholine receptor binding antibodies was negative, striated muscle antibodies negative on 06/14/2021.
--- NOTE | 2021-07-20 09:54 | P.PN ---
Subjective Progress Note Date: 07/19/21 07/19/2021: Patient states today I have more headache. It involves the left parietal region and also like a band. She claims she has 24 hours migraine and tension headache syndrome that was diagnosed in the clinic. Her eyes are closing a lot more. She is getting paralysis in vocal cords. Hands and arms will paralyze "like ". Numbness at the roof of mouth and part of tongue. Patient states that she keeps on hearing noises, but then realized, the nurses and staff voice were traveling through the door and she couldn't understand. Although at one point she felt that they were "spying on her". She claims that her legs gets paralyzed off and on in bed. Most of the time she can walk. Once leg at paralyzed, it does not go to the side. She can open her knees "just a little" (pointing to hip abduction movement). Patient states "my back gets paralyzed, more on the left". Knees are weak on the left side. States she has trigeminal neuralgia but not so bad. 07/17/2021: Patient was seen for a follow-up. Patient initially seen by Dr. Chanelle Moreland. Please refer to his note for details. Patient has intractable headaches with paralysis. It was reported her exam is inconsistent. Dr. Moreland has felt that it is unlikely to have organic etiology for "paralysis". Patient at present is laying comfortably in the bed. Patient states her head, face, arm, whole body is hurting. Patient states "feels like I'm being electrocuted". Patient says that her eyes don't want to open. When I asked about the headache on a scale of 1-10, patient states "A million". Patient states that she feels her head will explode. She says that she has been diagnosed with migraine and tension headache. She has a "horrible horrible headache". She says she feels like she has paralysis in the legs. States her arms feel "really heavy and weak". She claims she has "partially paralyzed vocal cords. Patient states that when ever she pees, she has to bear down so hard as if her "eyes will pop out". She states her bladder is not working. About 3 times she has to put some much pressure to pass a urine. Patient states that she was supposed to have back surgery but has not done. Patient has been seen by psychiatrist, and diagnosed with somatoform disorder, comorbid MDD and rule out somatic delusional disorder. Objective - Vital Signs Vital signs: Vital Signs Temp 97.4 F L 07/19/21 07:53 Pulse 64 07/19/21 07:53 Resp 18 07/19/21 07:53 BP 134/76 07/19/21 07:53 Pulse Ox 92 L 07/19/21 07:53 Intake & Output 07/18/21 07/19/21 07/19/21 18:59 06:59 18:59 Intake Total 1080 Output Total 1999 Balance -920 Weight 120.202 kg Intake: Oral 1080 Output: Urine 1999 Other: Voiding Method External Catheter # Voids 1 - Exam Patient's mental status, speech and language functions are normal. Her cranial nerves are all normal. No aphasia or dysarthria. Patient's voice sometimes gets raspy. Cranial nerves are normal. Visual alvarado are full on confrontation. No neglect. Face is symmetric. Tongue protrudes to the midline. Shoulder shrug normal. Muscle strength normal in the upper limbs. Muscle strength is also normal in the lower limbs. Sensations equal. No ataxia for [id number] testing. She does have mild peripheral edema. Reflexes are symmetric. Plantars downgoing. - Labs CBC & Chem 7: 07/15/21 05:30 07/16/21 04:18 Labs: Abnormal Lab Results - Last 24 Hours (Table) 07/19/21 Range/Units 05:18 PT 19.4 H (9.0-12.0) sec INR 1.9 H (<1.2) Assessment and Plan Assessment: 1. Somatoform pain disorder. 2. Multiple neurological complaints with unclear/questionable etiology 3. Conversion disorder. Plan: * Psychiatry to continue to follow-up. * Patient had a repeat computed tomography scan of head performed today, which is normal. I personally reviewed the computed tomography scan. Brain parenchyma is normal. Patient has significant paranasal sinus disease, with almost complete opacification of the right frontal, right maxillary, right ethmoid and right sphenoid sinuses. Infectious disease consult appreciated. Patient started on Unasyn for sinusitis. May need ENT. * No other neurological workup indicated. * Thyroid functions are normal. * Patient's previous acetylcholine receptor binding antibodies was negative, striated muscle antibodies negative on 06/14/2021. * We will check B12, folate.
[2021-07-20] MEDS: DULoxetine HCL 30 MG CAPSULE.DR PO SCH (10:27)
[2021-07-20] MEDS: PROPRANOLOL LA 60 MG CAP.SA.24H PO SCH (10:27)
[2021-07-20] MEDS: TRIAMTERENE-HCTZ 37.5-25MG 1 EACH CAP PO SCH (10:27)
[2021-07-20] MEDS: PALIPERIDONE 3 MG TAB.ER.24 PO SCH (10:28)
[2021-07-20 15:28] VITALS: BP 105/63; PULSE 73; TEMP 98.3
--- NOTE | 2021-07-20 16:20 | P.DS ---
Providers Date of admission: 07/16/21 15:47 Expected date of discharge: 07/20/21 Attending physician: Brando Mcguire Consults: 07/14/21 20:12 Consult Physician Routine Consulting Provider: Christian Martin Consult Reason/Comments: Intractable headache Do you want consulting provider notified?: Yes, Notify in am 07/16/21 11:40 Consult Physician Urgent Consulting Provider: Reji Snyder Consult Reason/Comments: chronic pain, depression Do you want consulting provider notified?: Yes 07/19/21 15:25 Consult Physician Routine Consulting Provider: George Najera Consult Reason/Comments: maxillary sinuis inflammation/infection with pos sible noninvasive fungus Do you want consulting provider notified?: Yes [facility] Course: Intractable migraine headache Adult failure to thrive related to intractable migraines 60 year-old female patient presents to the emergency department for evaluation of headache. States she has been having persistent headaches for the last week. States that she has history of migraines and intermittent paralysis to various parts of her body on the right and left sides. States she thinks it is from exposure to Round-Up and toxic mold in the past. States she was seen at [facility] last week for similar symptoms. Denies any fever or chills. Denies any new symptoms other than persistent headaches. States her current paralysis is in her legs, thought she is able to feel and move some muscle groups. She does see a neurologist, Dr. Suazo for these issues. Workup in ED includes blood work revealing WBC of 8.3, hemoglobin 12.8, hematocrit 38.0 and platelet count of 194 Patient was initially planned to be discharged home; upon attempted discharge steve justice was unable to ambulate reporting that she gets paralyzed in both arms and and Lasix off and on for past 2 years secondary to pain 07/15/2021 Patient is seen and evaluated in room at bedside; does report slight improvement in headache but continues to have multiple complaints of weakness and inability to ambulate Vital signs are reviewed and stable with a temperature of 98.4, pulse 68, respiration 18 and blood pressure of 93/55, O2 saturation 95% on 2 L Laboratory review shows CBC of 6.8, hemoglobin 11.2, hematocrit 36.2 and platelet count of 182, INR of 2.6, sodium 141, potassium 4.1, BUN/creatinine of 9.3/0.8 Patient did have mild renal injury on admission which is resolved; neurology is consulted for multiple neurological complaints and inability to ambulate; headache is somewhat improved; patient has been placed back on home migraine regimen Further recommendations once neurology has evaluated patient; we will consult PT/OT 07/16/2021 Patient is seen and evaluated and follow-up currently being closely monitored. She continues with severe headache and also inability to ambulate and currently awaiting PT/OT therapy consultation. Patient continued on appropriate home medications and also being followed by neurology. Patient does follow with Dr. Suazo in the outpatient setting and recommended close outpatient follow-up with him. She denies any chest pain, shortness of breath, or palpitations. Patient is afebrile. Patient denies nausea or vomiting and is tolerating diet. INR is 2.36 07/17/2021 Patient is seen this morning continues to have difficulty in ambulating and extreme weakness of bilateral lower extremities and also having back pain and continued headache. Patient does follow with Dr. Suazo in the outpatient sett ing and recommend close outpatient follow-up with neurologist for further testing and continued treatments. Patient was evaluated by physical therapy today and patient extremely weak and unable to walk. Plan is for possible ECF for continued PT/OT therapy for strengthening mobility. Patient states she has had some initial workup regarding multiple sclerosis although nothing extensive with her neurologist. Patient was maintained on IV hydration and will decrease the dose his kidney functions have improved. INR today is 2.21 and will continue with Coumadin pharmacy to dose. Encouraged increased activity as tolerated. July 18: Sitting up in bed. Comfortable. Eating fair amount. She did walk in the room with a walker and also was noticed to walk to the next room. As per the nurse patient was a bit paranoid. Things that people are out to cheating her. Awaiting to see psychiatry. States she has not had a bowel movement for over a week. Lactulose ordered and if no result then Mag citrate ordered. Patient seems to be walking at her baseline. Patient was later seen by Dr. Snyder is from psychiatry. July 19: Oral intake fair. Patient seen by Dr. Snyder from psychiatry. [place] patient had episode of psychosis. Will need adjustment treatment of medications, and the psychiatry unit. Computed tomography scan of the head done. Question about fungal infection. ID consulted.. July 19: Patient laying in bed. Comfortable. She thinks her daughter is maligning her amputation. And she facial gets stuck in 3 W. Myself and the presence of nurse Jillian had a very lengthy discussion with her. She is finally agreeable to go downstairs. Also discussed with Dr. Grace from ID. Report believed that the headache is not connected to the sinusitis. She can be switch ed over to Augmentin. She'll go down to the psychiatry unit. I did inform her that the workup for psychosis will be completed by the psychiatrist downstairs and she should not be concerned about getting stuck in the psychiatry unit. Discussion and discharge planning more than 35 minutes On examination: VITAL SIGNS: 98.3, 73, 16, 105/63, 96% room air GENERAL APPEARANCE: Laying in bed comfortable HEENT: Normal external appearance of nose and ear. Oral cavity normal EYES: Pupils equal. Conjunctiva normal. NECK: JVD not raised. Mass not palpable. RESPIRATORY: Respiratory effort normal. Lungs clear to auscultation. CARDIOVASCULAR: First and second sounds normal. No edema. ABDOMEN: Soft. Liver and spleen not palpable. No tenderness. No mass palpable. PSYCHIATRY: Alert and oriented x3. Mood and affect slightly withdrawn INVESTIGATIONS, reviewed in the clinical context: CT brain: Evidence of sinusitis INR 2.3 White count 6.8 hemoglobin 11.2 platelets 182 potassium 4.2 creatinine 0.9 COVID 19: Not detected Lumbar spine CT: DJD changes. 0.5 cm calculus in the left kidney. Assessment and plan: -Per psychiatry: Possible Psychotic episode, cluster B personality disorder, somatoform disorder unspecified. Cymbalta 30 mg a day, Seroquel 50 mg daily at bedtime, in [place] 3 mg daily at bedtime . Patient being transferred to 3 W. -Computed tomography scan of the brain showing extensive inflammatory changes: Acute versus chronic changes Maxillary sinus with some associated high attenuation. Also to include right- sided frontal, sphenoid, ethmoid air cells. Started on IV Unasyn by Dr. Grace from [place]. We will take 2-D weeks of Augmentin -Morbid obesity BMI 40.3 Weight loss measures -COPD Singulair 10 mg by mouth daily -Chronic fibromyalgia, with chronic pain syndrome Wellbutrin 75 mg twice a day, Flexeril 10 mg twice a day, [place] 10 one tablet twice a day, MS Contin 30 mg every 12, Lyrica to 25 mg by mouth twice a day Patient does follow with Dr. Emerson for pain management -Chronic DVTs and PEs On Coumadin -Hypothyroid Synthroid 136 g daily -Chronic headaches Patient is to follow with her neurologist. -Dry eye syndrome Artificial tears Disposition: 3 W. psychiatry unit inpatient Plan - Discharge Summary Discharge Rx Participant: Yes New Discharge Prescriptions: New DULoxetine HCL [Cymbalta] 30 mg PO DAILY #30 QUEtiapine [SEROquel] 50 mg PO HS #30 tab DULoxetine HCL [Cymbalta] 30 mg PO DAILY #30 cap Amoxicillin/Potassium Clav [Augmentin 875-125 Tablet] 1 tab PO Q12HR 1 Days #14 tab Continue buPROPion [Wellbutrin] 75 mg PO BID Cyclobenzaprine [Flexeril] 10 mg PO BID HYDROcodone/APAP 10-325MG [Schoolcraft 10-325] 1 tab PO BID Morphine Sulfate ER [Ms Contin] 30 mg PO Q12H Pregabalin [Lyrica] 225 mg PO BID@0900,1600 Propranolol HCl [Propranolol HCl ER] 120 mg PO DAILY Montelukast Sodium [Singulair] 10 mg PO HS Cholecalciferol [Vitamin D3 (25 Mcg = 1000 Iu)] 25 mcg PO DAILY Ondansetron Odt [Zofran ODT] 4 mg PO DAILY PRN PRN Reason: Nausea Zinc 50 mg PO DAILY Atorvastatin [Lipitor] 20 mg PO DAILY Triamterene-Hctz 37.5-25Mg [Dyazide 37.5-25 Capsule] 1 cap PO DAILY Levothyroxine Sodium [Synthroid] 175 mcg PO DAILY Warfarin Sodium [Jantoven] 3.125 mg PO DAILY Multivit-Min/FA/Lycopen/Lutein [Centrum Silver Tablet] 1 tab PO DAILY Acetaminophen Tab [Tylenol] 1,000 mg PO Q6H PRN PRN Reason: Pain Discontinued Amitriptyline HCl [Elavil] 75 mg PO HS Discharge Medication List Cyclobenzaprine [Flexeril] 10 mg PO BID 02/20/17 [History] HYDROcodone/APAP 10-325MG [Schoolcraft 10-325] 1 tab PO BID 02/20/17 [History] Morphine Sulfate ER [Ms Contin] 30 mg PO Q12H 02/20/17 [History] Pregabalin [Lyrica] 225 mg PO BID@0900,1600 02/20/17 [History] buPROPion [Wellbutrin] 75 mg PO BID 02/20/17 [History] Propranolol HCl [Propranolol HCl ER] 120 mg PO DAILY 04/16/18 [History] Levothyroxine Sodium [Synthroid] 175 mcg PO DAILY 08/14/20 [History] Montelukast Sodium [Singulair] 10 mg PO HS 08/14/20 [History] Triamterene-Hctz 37.5-25Mg [Dyazide 37.5-25 Capsule] 1 cap PO DAILY 08/14/20 [History] Warfarin Sodium [Jantoven] 3.125 mg PO DAILY 08/14/20 [History] Acetaminophen Tab [Tylenol] 1,000 mg PO Q6H PRN 07/14/21 [History] Atorvastatin [Lipitor] 20 mg PO DAILY 07/14/21 [History] Cholecalciferol [Vitamin D3 (25 Mcg = 1000 Iu)] 25 mcg PO DAILY 07/14/21 [History] Multivit-Min/FA/Lycopen/Lutein [Centrum Silver Tablet] 1 tab PO DAILY 07/14/21 [History] Ondansetron Odt [Zofran ODT] 4 mg PO DAILY PRN 07/14/21 [History] Zinc 50 mg PO DAILY 07/14/21 [History] DULoxetine HCL [Cymbalta] 30 mg PO DAILY #30 07/19/21 [Rx] DULoxetine HCL [Cymbalta] 30 mg PO DAILY #30 cap 07/19/21 [Rx] QUEtiapine [SEROquel] 50 mg PO HS #30 tab 07/19/21 [Rx] Amoxicillin/Potassium Clav [Augmentin 875-125 Tablet] 1 tab PO Q12HR 1 Days #14 tab 07/20/21 [Rx] Follow up Appointment(s)/Referral(s): dr ASTRID [Other] - 1 Week Yovanny Mcdonald MD [Primary Care Provider] - 1-2 days Jaylin Suazo MD [Medical Doctor] - 1 Week (Headches) Patient Instructions/Handouts: Migraine Headache (ED) Activity/Diet/Wound Care/Special Instructions: Follow-up with Dr. Suazo's office on Friday. Return for any new, worsening, or concerning symptoms. dc if ok with Dr Snyder
[2021-07-20] MEDS ORDERED: WARFARIN 7.5 MG TAB PO SCH (18:00)
[2021-07-20] MEDS ORDERED: WARFARIN 7.5 MG TAB PO ONE (18:00)
[2021-07-20] MEDS: MONTELUKAST 10 MG TAB PO SCH (19:59)
--- NOTE | 2021-07-20 21:51 | P.PN ---
Subjective Progress Note Date: 07/20/21 07/20/2021: Patient is laying comfortably in the bed. She probably is going to be transferred to inpatient psych today. Patient continues to explain the symptoms as mentioned yesterday. Patient has rambling speech, poor content. Some flight of ideas. Appears comfortable however complaining of severe headache. Patient does have sinus infection. 07/19/2021: Patient states today I have more headache. It involves the left parietal region and also like a band. She claims she has 24 hours migraine and tension headache syndrome that was diagnosed in the clinic. Her eyes are closing a lot more. She is getting paralysis in vocal cords. Hands and arms will paralyze "like ". Numbness at the roof of mouth and part of tongue. Patient states that she keeps on hearing noises, but then realized, the nurses and staff voice were traveling through the door and she couldn't understand. Although at one point she felt that they were "spying on her". She claims that her legs gets paralyzed off and on in bed. Most of the time she can walk. Once leg at paralyzed, it does not go to the side. She can open her knees "just a little" (pointing to hip abduction movement). Patient states "my back gets paralyzed, more on the left". Knees are weak on the left side. States she has trigeminal neuralgia but not so bad. 07/17/2021: Patient was seen for a follow-up. Patient initially seen by Dr. Chanelle Moreland. Please refer to his note for details. Patient has intractable headaches with paralysis. It was reported her exam is inconsistent. Dr. Moreland has felt that it is unlikely to have organic etiology for "paralysis". Patient at present is laying comfortably in the bed. Patient states her head, face, arm, whole body is hurting. Patient states "feels like I'm being electrocuted". Patient says that her eyes don't want to open. When I asked about the headache on a scale of 1-10, patient states "A million". Patient states that she feels her head will explode. She says that she has been diagnosed with migraine and tension headache. She has a "horrible horrible headache". She says she feels like she has paralysis in the legs. States her arms feel "really heavy and weak". She claims she has "partially paralyzed vocal cords. Patient states that when ever she pees, she has to bear down so hard as if her "eyes will pop out". She states her bladder is not working. About 3 times she has to put some much pressure to pass a urine. Patient states that she was supposed to have back surgery but has not done. Patient has been seen by psychiatrist, and diagnosed with somatoform disorder, comorbid MDD and rule out somatic delusional disorder. Objective - Vital Signs Vital signs: Vital Signs Temp 98.3 F 07/20/21 14:00 Pulse 73 07/20/21 14:00 Resp 16 07/20/21 14:00 BP 105/63 07/20/21 14:00 Pulse Ox 96 07/20/21 14:00 Intake & Output 07/20/21 07/20/21 07/21/21 06:59 18:59 06:59 Intake Total 100 2160 Balance 100 2160 Intake: Intake, IV Titration 100 Amount Ampicillin-Sulbactam 3 gm 100 In Sodium Chloride 0.9% 100 ml @ 200 mls/hr IVPB Q6H [facility] Rx#:[id number] Oral 2160 Other: # Voids 1 - Exam Patient's mental status, speech and language functions are normal. Her cranial nerves are all normal. No aphasia or dysarthria. Patient's voice gets raspy. Cranial nerves are normal. Visual alvarado are full on confrontation. No neglect. Face is symmetric. Tongue protrudes to the midline. Shoulder shrug normal. Muscle strength normal in the upper limbs. Muscle strength is also normal in the right lower limb, however the left hip flexion appears weak with some pain from her back. Sensations equal. No ataxia for [id number] testing. She does have mild peripheral edema. Reflexes are trace to 1 in the upper limbs, trace in the lower limbs. Plantars downgoing. - Labs CBC & Chem 7: 07/15/21 05:30 07/16/21 04:18 Labs: Abnormal Lab Results - Last 24 Hours (Table) 07/20/21 07/20/21 07/20/21 Range/Units 04:38 04:38 04:38 ESR 34 H (0-30) mm/Hr PT 18.3 H (9.0-12.0) sec INR 1.8 H (<1.2) C-Reactive Protein 1.40 H (0.00-0.80) mg/dL Assessment and Plan Assessment: 1. Headache, probable sinus headache. Patient has severe right-sided sinusitis, with complete blockage of the right frontal, ethmoid, sphenoid and maxillary sinuses. 2. Somatoform pain disorder. 3. Multiple neurological complaints with unclear/questionable etiology 4. Chronic back pain 5. Forced voice, likely due to sinusitis 6. Chronic DVTs and PE, on Coumadin Plan: * Patient had a computed tomography scan of head performed 07/19/2021, which revealed sinus disease with no acute brain abnormality. I personally reviewed the computed tomography scan. Brain parenchyma is normal. Patient has significant paranasal sinus disease, with almost complete opacification of the right frontal, right maxillary, right ethmoid and right sphenoid sinuses. Infectious disease consult appreciated. Patient started on Unasyn for sinusitis. May consider ENT consultation to rule out any sinus drainage obstruction. * Patient has chronic back pain related to lumbar spondylosis. May follow up with orthopedic spine as outpatient. * No other neurological workup indicated. * Psychiatry following. * Thyroid functions are normal. * Patient's previous acetylcholine receptor binding antibodies was negative, striated muscle antibodies negative on 06/14/2021. Repeat acetylcholine receptor antibodies again negative < 0.30, on 07/17/2021. * B12 451, folate 18.3.
--- NOTE | 2021-07-20 22:40 | P.PN ---
Subjective Progress Note Date: 07/20/21 Principal diagnosis: Maxillary sinusitis and poor dental hygiene Patient is a 60-year-old female with a chronic headache trigeminal neuralgia, admitted to the hospital with headache CT of the brain was suggestive of maxillary sinusitis, and patient reporting poor dental hygiene's. On today's evaluation that is 07/20/2021 the patient denies having any fever or any chills, the patient headache is mostly in the upper head area and not specifically in the left maxillary, patient denies having any chest pain or shortness of breath or cough no abdominal pain and no diarrhea Objective - Vital Signs Vital signs: Vital Signs Temp 98.3 F 07/20/21 14:00 Pulse 73 07/20/21 14:00 Resp 16 07/20/21 14:00 BP 105/63 07/20/21 14:00 Pulse Ox 96 07/20/21 14:00 Intake & Output 07/19/21 07/20/21 07/20/21 18:59 06:59 18:59 Intake Total 6353 266 7733 Balance 4585 565 4814 Weight 120.202 kg Intake: Intake, IV Titration 100 Amount Ampicillin-Sulbactam 3 gm 100 In Sodium Chloride 0.9% 100 ml @ 200 mls/hr IVPB Q6H [facility] Rx#:[id number] Oral 1080 2160 Other: # Voids 3 1 # Bowel Movements 1 - Exam GENERAL DESCRIPTION: An middle-aged female lying in bed in no distress RESPIRATORY SYSTEM: Unlabored breathing , decreased breath sounds at bases HEART: S1 S2 regular rate and rhythm , ABDOMEN: Soft , no tenderness EXTREMITIES: No edema feet - Labs CBC & Chem 7: 07/15/21 05:30 07/16/21 04:18 Labs: Abnormal Lab Results - Last 24 Hours (Table) 07/20/21 07/20/21 07/20/21 Range/Units 04:38 04:38 04:38 ESR 34 H (0-30) mm/Hr PT 18.3 H (9.0-12.0) sec INR 1.8 H (<1.2) C-Reactive Protein 1.40 H (0.00-0.80) mg/dL Assessment and Plan (1) Sinusitis Current Visit: Yes Status: Acute Code(s): J32.9 - CHRONIC SINUSITIS, UNSPECIFIED SNOMED Code(s): 52606734 Plan: 1patient with abnormal CT of the brain suspicious for maxillary sinusitis and revisit the possibility of possible fungal however the patient is currently do not have an equipment inspector for a fungal infection patient did have a poor dental hygiene could be contributing to some of the abnormality patient to continue with the Unasyn and will transition to oral Augmentin on discharge versus transfer to the mental health unit, This was discussed with the admitting physician Time with Patient: Less than 30
[2021-07-21 01:15] LABS: Folate, Serum 18.3 ng/mL (4.40-31.00)
== END 2021-07-20 20:00 ==
LOC: EC 00:56 → 4SSUR 06:40 → INTOOBSV 07-16 15:47 → OBSVTOIN 07-16 15:47 → UNDODISIN 07-20 17:40
PROVIDERS: ADMIT Hospitalist; ATTEND Hospitalist
DX: G43.919 Migraine, unspecified, intractable, without status migrainosus (principal); R62.7 Adult failure to thrive; J38.01 Paralysis of vocal cords and larynx, unilateral; G83.14 Monoplegia of lower limb affecting left nondominant side; G83.11 Monoplegia of lower limb affecting right dominant side; E66.01 Morbid (severe) obesity due to excess calories; Z68.41 Body mass index [BMI] 40.0-44.9, adult; J44.9 Chronic obstructive pulmonary disease, unspecified; G89.4 Chronic pain syndrome; M79.7 Fibromyalgia; F45.9 Somatoform disorder, unspecified; E78.5 Hyperlipidemia, unspecified; E03.9 Hypothyroidism, unspecified; H04.129 Dry eye syndrome of unspecified lacrimal gland; G50.0 Trigeminal neuralgia; F32.A Depression, unspecified; J32.0 Chronic maxillary sinusitis; G44.209 Tension-type headache, unspecified, not intractable; F22 Delusional disorders; F60.89 Other specific personality disorders; M47.816 Spondylosis without myelopathy or radiculopathy, lumbar region; F44.9 Dissociative and conversion disorder, unspecified; Z20.822 Contact with and (suspected) exposure to COVID-19; Z86.19 Personal history of other infectious and parasitic diseases; Z86.711 Personal history of pulmonary embolism; Z86.718 Personal history of other venous thrombosis and embolism; Z90.49 Acquired absence of other specified parts of digestive tract; Z79.899 Other long term (current) drug therapy; Z79.891 Long term (current) use of opiate analgesic; Z79.01 Long term (current) use of anticoagulants; Z79.890 Hormone replacement therapy; Z88.8 Allergy status to other drugs, medicaments and biological substances; Z88.5 Allergy status to narcotic agent; Z60.2 Problems related to living alone; Z87.19 Personal history of other diseases of the digestive system; Z98.891 History of uterine scar from previous surgery; Z98.890 Other specified postprocedural states; Z71.3 Dietary counseling and surveillance; Z82.49 Family history of ischemic heart disease and other diseases of the circulatory system; Z83.3 Family history of diabetes mellitus; Z82.3 Family history of stroke; Z80.1 Family history of malignant neoplasm of trachea, bronchus and lung; Z80.8 Family history of malignant neoplasm of other organs or systems; Z80.49 Family history of malignant neoplasm of other genital organs; Z82.0 Family history of epilepsy and other diseases of the nervous system; Z83.79 Family history of other diseases of the digestive system
CPT/HCPCS: 96365; 96366; 96376; 96375; 99285; 36415; 94760 ×4; 93005; 97116; 97110 ×2; 97530 ×4; 97162; 97535 ×3; 97166; 83519; 83880; 80053 ×2; 80048; 85652; 82607; 82746; 83605; 83735 ×2; 84100 ×2; 84443; 84484; 85025 ×2; 85610 ×7; 85730; 86140; 81003; 84145; 87635; 72125; 72131; 70450; G0378 ×7; J1200; J2765; J1170 ×2; J0295; J1885; 96374

== ENCOUNTER 2021-07-20 19:54 | Inpatient (IN) | payer MEDICARE ==
[2021-07-20] MEDS ORDERED: HALOPERIDOL LACTATE 5 MG/ML 1 ML VIAL IM PRN (20:01)
[2021-07-20] MEDS ORDERED: LORazepam 1 MG TAB PO PRN (20:01)
[2021-07-20] MEDS ORDERED: MAG HYDROX/AL HYDROX/SIMETH 30 ML CUP PO PRN (20:01)
[2021-07-20] MEDS ORDERED: MAGNESIUM HYDROXIDE 2,400 MG/10 ML CUP PO PRN (20:01)
[2021-07-20] MEDS ORDERED: ACETAMINOPHEN TAB 325 MG TAB PO PRN (20:01)
[2021-07-20] MEDS: PALIPERIDONE 3 MG TAB.ER.24 PO SCH (21:18)
[2021-07-21] MEDS: DULoxetine HCL 30 MG CAPSULE.DR PO SCH (08:45)
--- NOTE | 2021-07-21 11:43 | P.HP ---
Psychiatric H&P - . H&P Date: 07/21/21 History & Physical: Allergies Allergy/AdvReac Type Severity Reaction Status Date / Time carbamazepine [From Tegretol] Allergy Anaphylaxis Verified 07/20/21 20:10 codeine Allergy Anaphylaxis Verified 07/20/21 20:10 Vital Signs Temp 98.5 F 07/21/21 07:08 Pulse 86 07/21/21 07:08 Resp 16 07/20/21 21:35 BP 98/56 07/21/21 07:08 Pulse Ox 90 L 07/21/21 07:08 Intake & Output 07/20/21 07/21/21 07/21/21 18:59 06:59 18:59 Weight 122 kg 07/21/21 11:26 Chief complaint: This patient was seen in her room and is very tangential and it is difficult to follow her leads. History of present illness: She denies having any history of mental illness. She stated other people in the family are talking about her behind her back. She stated that her mother and her daughter are both in cahoots and she has heard some noises which she believes that her mother and daughter both are conspiring something against her. She thinks people are out to get her and is quite paranoid. She stated some insurance giles came to the house and he has something against her. Current medications: She stated that she is on Lyrica, MS Contin, hydrocodone, Wellbutrin twice a day, Flexeril, Dyazide, thyroid pill and propranolol. Past psychiatric history: She stated she has been hospitalized on this unit the second time and first time was in 2011 but she does not know what the reasons were. She does not think she had a mental illness. Substance abuse history: She denies a history of alcohol or using any other illicit drugs. Medical history: She stated she has headaches, facial pain, trigeminal neuralgia, fibromyalgia, COPD, pulmonary hypertension. Family history: She denied having any mental illness in her family. She denied having any alcohol or drug abuse in her family. She denied any history of suicide in the family. Social history: She stated she grew up with her mother and father. She stated she has associate degree in nursing. She stated she was working for [employer] and she worked there for about 3 years. She stated she is on disability now. Psychological trauma: She denied any history of physical, sexual or emotional abuse ever. Mental status: She is alert and was seen in the bed laying down. she stated she has to have a wheelchair to move out of the bed. She stated she is able to go to bathroom without wheelchair. She has psychomotor retardation. She was laying in the bed with her face covered with a piece of cloth and stated she has trigeminal neuralgia. Her behavior was cooperative her mood is blank. She stated she hears noises and thinks people are talking about her and people are out to get her. She is a very tangential and has a loose associations and circumstantiality and it is very difficult to follow her train of thought. She is unable to concentrate on things. I was unable to assess other memory functions. Her attention span is a poor. She has no insight into her problems and her judgment is impaired. Diagnostic impression: Psychotic disorder not otherwise specified. Treatment plan: She stated she was taking Seroquel and Cymbalta and stated she just got her invega injection yesterday. This information has not been verified. She will be maintained in milieu therapy and activity therapy on the unit and will be encouraged to come out of her room.
[2021-07-21] MEDS ORDERED: ONDANSETRON ODT 4 MG TAB PO PRN (14:25)
[2021-07-21] MEDS: ATORVASTATIN 20 MG TAB PO SCH (15:08)
[2021-07-21] MEDS: LEVOTHYROXINE 88 MCG TAB PO SCH (15:08)
[2021-07-21] MEDS: AMOXIC-POT CLAV 875-125MG 1 EACH TAB PO SCH (15:08)
[2021-07-21] MEDS: HYDROcodone/APAP 10-325MG 1 EACH TAB PO SCH ×2 (15:08→21:52)
[2021-07-21] MEDS: PREGABALIN 75 MG CAP PO SCH (15:08)
[2021-07-21] MEDS: PROPRANOLOL LA 60 MG CAP.SA.24H PO SCH (15:10)
[2021-07-21 15:45] LABS: INR 1.8 (<1.2); Prothrombin Time 17.9 sec (9.0-12.0)
[2021-07-21] MEDS: MORPHINE SULFATE ER 30 MG TABLET PO SCH ×2 (16:44→22:54)
--- NOTE | 2021-07-21 17:53 | P.CONS ---
History of Present Illness - Reason for Consult Consult date: 07/21/21 Medical management Requesting physician: Reji Snyder - Chief Complaint Psychosis - History of Present Illness 60 year-old female patient initially presents to the emergency department on July 14 for evaluation of headache. States she has been having persistent headaches for the last week. States that she has history of migraines and intermittent paralysis to various parts of her body on the right and left sides. States she thinks it is from exposure to Round-Up and toxic mold in the past. States she was seen at [facility] last week for similar symptoms. Denies any fever or chills. Denies any new symptoms other than persistent headaches. States her current paralysis is in her legs, thought she is able to feel and move some muscle groups. She does see a neurologist, Dr. Suazo for these issues, including chronic pain. Workup in ED includes blood work revealing WBC of 8.3, hemoglobin 12.8, hematocrit 38.0 and platelet count of 194 Patient was initially planned to be discharged home; upon attempted discharge patient was unable to ambulate reporting that she gets paralyzed in both arms and and Lasix off and on for past 2 years secondary to pain Patient subsequently was able to walk with a walker and felt walk in the hallway herself. Patient seen by psychiatry. [place] the patient may have issues with psychosis. And she was moved to 3 [address] floor. Patient appetite has been fair. Computed tomography scan of the head showed sinusitis. Mood was not felt to be contribution to her headaches. Patient otherwise rather comfortable. Patient is due to see ENT physician as outpatient. Today patient laying in bed. She feels numb in the pelvic area. Sometimes other parts of body. She thinks of her timings of medications have been changed around. Eating some. Review of systems: GEN.: Tired EYES: None HEENT: None NECK: None RESPIRATORY: None CARDIOVASCULAR: None GASTROINTESTINAL: None GENITOURINARY: None MUSCULOSKELETAL: Chronic joint pains LYMPHATICS: None HEMATOLOGICAL: None PSYCHIATRY: As above NEUROLOGICAL: [Able to get to the bathroom with walker Past medical history to include: COPD, chronic fibromyalgia with chronic pain syndrome, chronic DVTs and PEs for which patient is on Coumadin, hypothyroid, chronic headaches, dry eye syndrome, psychosis Social history: Lives alone in a condo. 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 No smoking or alcohol. Family history: Grandmother had stroke and heart attack. Grandfather heart attack. In the stroke. Physical examination: VITAL SIGNS: 98.3, 73, 16, 105/63, 96% room air GENERAL: BMI 40.9, laying in bed, awake, comfortable. EYES: Pupils equal. Conjunctiva normal. HEENT: External appearance of nose and ears normal, oral cavity grossly normal. NECK: JVD not raised; masses not palpable. HEART: First and second heart sounds are normal; no edema. LUNGS: Respiratory rate normal; clear to auscultation. ABDOMEN: Soft, nontender, liver spleen not palpable, no masses palpable. PSYCH: Alert and oriented x3; mood and affect normal. MUSCULOSKELETAL:No Clubbing/cyanosis;muscles-grossly intact. Evidence of OA. NEUROLOGICAL: [Cranial nerves grossly intact; no facial asymmetry, moving all 4 limbs. LYMPHATICS: No lymph nodes palpable in the axilla and neck INVESTIGATIONS, reviewed in the clinical context: From recent admission CT brain: Evidence of sinusitis White count 6.8 hemoglobin 11.2 platelets 182 potassium 4.2 creatinine 0.9 COVID 19: Not detected Lumbar spine CT: DJD changes. 0.5 cm calculus in the left kidney. Assessment and plan: -Psychotic disorder not otherwise specified, cluster B personality disorder, somatoform disorder unspecified. Cymbalta 30 mg a day, Seroquel 50 mg daily at bedtime, in [place] 3 mg daily at bedtime . . -Acute sinusitis Augmentin -Morbid obesity BMI 40.9 Weight loss measures -COPD Singulair 10 mg by mouth daily -Chronic fibromyalgia, with chronic pain syndrome Wellbutrin 75 mg twice a day, Flexeril 10 mg twice a day, [place] 10 one tablet twice a day, MS Contin 30 mg every 12, Lyrica to 25 mg by mouth twice a day Patient does follow with Dr. Emerson for pain management -Chronic DVTs and PEs On Coumadin -Hypothyroid Synthroid 136 g daily -Chronic headaches Patient is to follow with her neurologist. -Dry eye syndrome Artificial tears Psychiatry medications per psychiatry. Other medications to continue. Patient is to follow-up with neurologist upon discharge. Care was discussed with the patient. Thank you Dr. Snyder Past Medical History Past Medical History: COPD, Fibromyalgia, Thyroid Disorder Additional Past Medical History / Comment(s): atypical facial pain, trigeminal neuralgia, "24 hour tension headache syndrome", migraines, shingles 2013 around her rt eye area.,hx dvt rt leg and multiple pe's found,past tx for "copd d/t mold in basement of her home that permeated to upstairs. 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 Father Family Medical History: Cancer, Diabetes Mellitus, Mitral Valve Prolapse (MVP) Additional Family Medical History / Comment(s): lung/bone cancer. dad's mother had hx of cervical cancer and a pacemaker and dad's dad had hx mi's Sister(s) Family Medical History: Cancer, Diabetes Mellitus, Seizure Disorder Additional Family Medical History / Comment(s): one sister had seizures and 2nd sister had dm,skin cancer. Brother(s) Additional Family Medical History / Comment(s): brother had hernia sx and post op complictions-bleeding Medications and Allergies Home Medications Medication Instructions Recorded Confirmed Type Cyclobenzaprine [Flexeril] 10 mg PO BID 02/20/17 07/20/21 History HYDROcodone/APAP 10-325MG [[place] 1 tab PO BID 02/20/17 07/20/21 History 10-325] Morphine Sulfate ER [Ms Contin] 30 mg PO Q12H 02/20/17 07/20/21 History Pregabalin [Lyrica] 225 mg PO BID@0900,1600 02/20/17 07/20/21 History buPROPion [Wellbutrin] 75 mg PO BID 02/20/17 07/20/21 History Propranolol HCl [Propranolol HCl 120 mg PO DAILY 04/16/18 07/20/21 History ER] Levothyroxine Sodium [Synthroid] 175 mcg PO DAILY 08/14/20 07/20/21 History Montelukast Sodium [Singulair] 10 mg PO HS 08/14/20 07/20/21 History Triamterene-Hctz 37.5-25Mg 1 cap PO DAILY 08/14/20 07/20/21 History [Dyazide 37.5-25 Capsule] Warfarin Sodium [Jantoven] 3.125 mg PO DAILY 08/14/20 07/20/21 History Acetaminophen Tab [Tylenol] 1,000 mg PO Q6H PRN 07/14/21 07/20/21 History Atorvastatin [Lipitor] 20 mg PO DAILY 07/14/21 07/20/21 History Cholecalciferol [Vitamin D3 (25 25 mcg PO DAILY 07/14/21 07/20/21 History Mcg = 1000 Iu)] Multivit-Min/FA/Lycopen/Lutein 1 tab PO DAILY 07/14/21 07/20/21 History [Centrum Silver Tablet] Ondansetron Odt [Zofran ODT] 4 mg PO DAILY PRN 07/14/21 07/20/21 History Zinc 50 mg PO DAILY 07/14/21 07/20/21 History DULoxetine HCL [Cymbalta] 30 mg PO DAILY #30 07/19/21 07/20/21 Rx DULoxetine HCL [Cymbalta] 30 mg PO DAILY #30 cap 07/19/21 07/20/21 Rx QUEtiapine [SEROquel] 50 mg PO HS #30 tab 07/19/21 07/20/21 Rx Amoxicillin/Potassium Clav 1 tab PO Q12HR 1 Days #14 tab 07/20/21 07/20/21 Rx [Augmentin 875-125 Tablet] Allergies Allergy/AdvReac Type Severity Reaction Status Date / Time carbamazepine [From Tegretol] Allergy Anaphylaxis Verified 07/20/21 20:10 codeine Allergy Anaphylaxis Verified 07/20/21 20:10 Physical Exam Vitals: Vital Signs Temp Pulse Resp BP Pulse Ox 07/21/21 07:08 98.5 F 86 98/56 90 L 07/20/21 21:35 98.3 F 85 16 135/81 Intake and Output 07/20/21 07/21/21 07/21/21 22:59 06:59 14:59 Other: Weight 122 kg
[2021-07-21] MEDS ORDERED: WARFARIN 7.5 MG TAB PO ONE (18:00)
[2021-07-21] MEDS: QUEtiapine 50 MG TAB PO SCH (21:52)
[2021-07-21] MEDS: MONTELUKAST 10 MG TAB PO SCH (21:52)
[2021-07-21] MEDS: PALIPERIDONE 3 MG TAB.ER.24 PO SCH (21:52)
[2021-07-21] MEDS: CYCLOBENZAPRINE 10 MG TAB PO SCH (21:52)
[2021-07-22] MEDS: buPROPion 75 MG TAB PO SCH ×3 (08:11→22:44)
[2021-07-22] MEDS: AMOXIC-POT CLAV 875-125MG 1 EACH TAB PO SCH ×3 (08:11→22:43)
[2021-07-22 08:22] LABS: INR 1.8 (<1.2); Prothrombin Time 18.1 sec (9.0-12.0)
[2021-07-22] MEDS ORDERED: DULoxetine HCL 30 MG CAPSULE.DR PO SCH (09:00)
[2021-07-22] MEDS: LEVOTHYROXINE 88 MCG TAB PO SCH (09:34)
[2021-07-22] MEDS: CYCLOBENZAPRINE 10 MG TAB PO SCH ×2 (09:34→23:18)
[2021-07-22] MEDS: DULoxetine HCL 30 MG CAPSULE.DR PO SCH (09:34)
[2021-07-22] MEDS: ATORVASTATIN 20 MG TAB PO SCH (09:35)
[2021-07-22] MEDS: CHOLECALCIFEROL 25 MCG (1000 IU) TABLET PO SCH (09:36)
[2021-07-22] MEDS: MORPHINE SULFATE ER 30 MG TABLET PO SCH ×2 (09:37→23:18)
[2021-07-22] MEDS: MULTIVITAMINS, THERA 1 EACH TAB PO SCH (09:38)
[2021-07-22] MEDS: PROPRANOLOL LA 60 MG CAP.SA.24H PO SCH (11:07)
[2021-07-22] MEDS: HYDROcodone/APAP 10-325MG 1 EACH TAB PO SCH ×2 (11:08→23:16)
[2021-07-22] MEDS: PREGABALIN 75 MG CAP PO SCH ×2 (11:58→14:49)
--- NOTE | 2021-07-22 12:00 | P.PN ---
Progress Note - Text Progress Note Date: 07/22/21 Interval History: Patient was seen in her room and was directable and agreeable to speak with senior underwriter. She is preoccupied and withdrawn and stays to herself most of the time. She did not want to come out of her room. At this time patient denies any suicidal or homical ideations, intent or plan. Patient denies any auditory, visual hallucinations and denies any paranoia or delusions. Patient denies any side effects from the medications and has been compliant with meds. Mental Status Exam: General Appearance: Patient appears to be stated age is alert, directable, and cooperative. Behavior: Patient is calmly seated without any agitated behavior. Speech: Patient's speech is fluent and nonpressured. Mood/Affect: Mood is improving mildly, affect is congruent and constricted. Suicidality/Homicidality: Patient denies having any suicidal or homicidal ideation intent or plan. Perceptions: Patient denies any visual hallucinations and denies any auditory hallucinations Though content/process: There is no evidence of any delusional thought content and thought process is linear and goal-directed. Memory and concentration: AOX3, grossly intact for the purposes of this session Judgment and insight: Improving mildly Assessment This patient was admitted with a diagnosis of psychosis with the considerable residual symptoms necessitating ongoing hospitalization. Plan: -Patient continues to meet criteria for inpatient psychiatric admission for symptom stabilization and safety. -Medications: Continue medication as before. -When necessary Ativan and Haldol for agitation/aggression. -SW on board for discharge planning. Encouraged the patient to participate in milieu.
[2021-07-22] MEDS ORDERED: WARFARIN 1.5 MG TAB PO ONE (18:00)
--- NOTE | 2021-07-22 19:07 | P.PN ---
Progress Note - Text Progress Note Date: 07/22/21 - Chief Complaint Psychosis - History of Present Illness 60 year-old female patient initially presents to the emergency department on July 14 for evaluation of headache. States she has been having persistent headaches for the last week. States that she has history of migraines and intermittent paralysis to various parts of her body on the right and left sides. States she thinks it is from exposure to Round-Up and toxic mold in the past. States she was seen at [facility] last week for similar symptoms. Denies any fever or chills. Denies any new symptoms other than persistent headaches. States her current paralysis is in her legs, thought she is able to feel and move some muscle groups. She does see a neurologist, Dr. Suazo for these issues, including chronic pain. Workup in ED includes blood work revealing WBC of 8.3, hemoglobin 12.8, hematocrit 38.0 and platelet count of 194 Patient was initially planned to be discharged home; upon attempted discharge patient was unable to ambulate reporting that she gets paralyzed in both arms and and Lasix off and on for past 2 years secondary to pain Patient subsequently was able to walk with a walker and felt walk in the hallway herself. Patient seen by psychiatry. [place] the patient may have issues with psychosis. And she was moved to [address] floor. Patient appetite has been fair. Computed tomography scan of the head showed sinusitis. Mood was not felt to be contribution to her headaches. Patient otherwise rather comfortable. Patient is due to see ENT physician as outpatient. Today patient laying in bed. She feels numb in the pelvic area. Sometimes other parts of body. She thinks of her timings of medications have been changed around. Eating some. July 22: Patient complaining that people at the desk are talking about her laughing. She thinks; they have gone through her diarrhea and taken 3-4 pages out.. She did take a walker to go to lunch room and eat Active Medications Acetaminophen (Acetaminophen Tab 325 Mg Tab) 650 mg PO Q4HR PRN PRN Reason: Pain/Discomfort Hydrocodone Bitart/Acetaminophen (Hydrocodone/Apap 10-325mg 1 Each Tab) 1 each PO BID [facility] Last Admin: 07/22/21 11:08 Dose: 1 each Documented by: Al Hydroxide/Mg Hydroxide (Mag Hydrox/Al Hydrox/Simeth 30 Ml Cup) 30 ml PO Q4HR PRN PRN Reason: GI Upset Amoxicillin/Clavulanate Potassium (Amoxic-Pot Clav 875-125mg 1 Each Tab) 1 each PO Q12HR [facility]; Protocol Stop: 07/27/21 21:01 Last Admin: 07/22/21 09:35 Dose: 1 each Documented by: Atorvastatin Calcium (Atorvastatin 20 Mg Tab) 20 mg PO DAILY [facility] Last Admin: 07/22/21 09:35 Dose: 20 mg Documented by: Bupropion HCl (Bupropion 75 Mg Tab) 75 mg PO BID [facility] Last Admin: 07/22/21 09:36 Dose: 75 mg Documented by: Cholecalciferol (Cholecalciferol 25 Mcg (1000 Iu) Tablet) 25 mcg PO DAILY [facility] Last Admin: 07/22/21 09:36 Dose: 25 mcg Documented by: Cyclobenzaprine HCl (Cyclobenzaprine 10 Mg Tab) 10 mg PO BID [facility] Last Admin: 07/22/21 09:34 Dose: 10 mg Documented by: Duloxetine HCl (Duloxetine Hcl 60 Mg Capsule.Dr) 60 mg PO DAILY [facility] Haloperidol Lactate (Haloperidol Lactate 5 Mg/Ml 1 Ml Vial) 5 mg IM Q6HR PRN PRN Reason: Agitation or Acute Psychosis Levothyroxine Sodium (Levothyroxine 88 Mcg Tab) 176 mcg PO DAILY@0630 [facility] Last Admin: 07/22/21 09:34 Dose: 176 mcg Documented by: Lorazepam (Lorazepam 1 Mg Tab) 1 mg PO TID PRN PRN Reason: Anxiety, Agitation Magnesium Hydroxide (Magnesium Hydroxide 2,400 Mg/10 Ml Cup) 2,400 mg PO DAILY PRN PRN Reason: Constipation Miscellaneous Information (Warfarin Per Pharmacy) 1 each MISCELLANE DIRECTED PRN PRN Reason: Per Protocol Montelukast Sodium (Montelukast 10 Mg Tab) 10 mg PO [facility] Last Admin: 07/21/21 21:52 Dose: 10 mg Documented by: Morphine Sulfate (Morphine Sulfate Er 30 Mg Tablet) 30 mg PO Q12HR [facility]; Protocol Last Admin: 07/22/21 09:37 Dose: 30 mg Documented by: Multivitamins (Multivitamins, Thera 1 Each Tab) 1 each PO DAILY [facility] Last Admin: 07/22/21 09:38 Dose: 1 each Documented by: Ondansetron HCl (Ondansetron Odt 4 Mg Tab) 4 mg PO DAILY PRN PRN Reason: Nausea Paliperidone (Paliperidone 3 Mg Tab.Er.24) 3 mg PO HS [facility] Last Admin: 07/21/21 21:52 Dose: 3 mg Documented by: Pregabalin (Pregabalin 75 Mg Cap) 225 mg PO BID@0900,1600 [facility] Last Admin: 07/22/21 14:49 Dose: 225 mg Documented by: Propranolol HCl (Propranolol La 60 Mg Cap.Sa.24h) 120 mg PO DAILY [facility] Last Admin: 07/22/21 11:07 Dose: 120 mg Documented by: Quetiapine Fumarate (Quetiapine 50 Mg Tab) 50 mg PO [facility] Last Admin: 07/21/21 21:52 Dose: 50 mg Documented by: Past medical history to include: COPD, chronic fibromyalgia with chronic pain syndrome, chronic DVTs and PEs for which patient is on Coumadin, hypothyroid, chronic headaches, dry eye syndrome, psychosis Social history: [facility]. 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 Family history: Grandmother had stroke and heart attack. Grandfather heart attack. In the stroke. Physical examination: VITAL SIGNS: 97.5, 70, 20, 93/51, 90% room air GENERAL: laying in bed, awake, anxious EYES: Pupils equal. Conjunctiva normal. HEENT: External appearance of nose and ears normal, oral cavity grossly normal. NECK: JVD not raised; masses not palpable. HEART: First and second heart sounds are normal; no edema. LUNGS: Respiratory rate normal; clear to auscultation. ABDOMEN: Soft, nontender, liver spleen not palpable, no masses palpable. PSYCH: Alert and oriented x3; mood and affect anxious. MUSCULOSKELETAL:No Clubbing/cyanosis;muscles-grossly intact. Evidence of OA. NEUROLOGICAL: [Cranial nerves grossly intact; no facial asymmetry, moving all 4 limbs. LYMPHATICS: No lymph nodes palpable in the axilla and neck INVESTIGATIONS, reviewed in the clinical context: From recent admission CT brain: Evidence of sinusitis White count 6.8 hemoglobin 11.2 platelets 182 potassium 4.2 creatinine 0.9 COVID 19: Not detected Lumbar spine CT: DJD changes. 0.5 cm calculus in the left kidney. Assessment and plan: -Psychotic disorder not otherwise specified, cluster B personality disorder, somatoform disorder unspecified. Cymbalta 30 mg a day, Seroquel 50 mg daily at bedtime, in [place] 3 mg daily at bedtime . . -Acute sinusitis Augmentin -Morbid obesity BMI 40.9 Weight loss measures -COPD Singulair 10 mg by mouth daily -Chronic fibromyalgia, with chronic pain syndrome Wellbutrin 75 mg twice a day, Flexeril 10 mg twice a day, [place] 10 one tablet twice a day, MS Contin 30 mg every 12, Lyrica to 25 mg by mouth twice a day Patient does follow with Dr. Emerson for pain management -Chronic DVTs and PEs On Coumadin -Hypothyroid Synthroid 136 g daily -Chronic headaches Patient is to follow with her neurologist. -Dry eye syndrome Artificial tears Continue current medications. Patient is to follow-up with neurologist upon discharge. Discussed with patient Thank you Dr. Snyder
[2021-07-22] MEDS: QUEtiapine 50 MG TAB PO SCH (22:45)
[2021-07-22] MEDS: PALIPERIDONE 3 MG TAB.ER.24 PO SCH (22:45)
[2021-07-22] MEDS: MONTELUKAST 10 MG TAB PO SCH (22:46)
[2021-07-23] MEDS: LEVOTHYROXINE 88 MCG TAB PO SCH (06:24)
[2021-07-23 07:11] VITALS: RESP 16
[2021-07-23 08:32] LABS: INR 2.2 (<1.2); Prothrombin Time 22.4 sec (9.0-12.0)
[2021-07-23] MEDS: ATORVASTATIN 20 MG TAB PO SCH (08:46)
[2021-07-23] MEDS: MULTIVITAMINS, THERA 1 EACH TAB PO SCH (08:47)
[2021-07-23] MEDS: DULoxetine HCL 60 MG CAPSULE.DR PO SCH (08:47)
[2021-07-23] MEDS: buPROPion 75 MG TAB PO SCH ×2 (08:47→20:52)
[2021-07-23] MEDS: CHOLECALCIFEROL 25 MCG (1000 IU) TABLET PO SCH (08:47)
[2021-07-23] MEDS: AMOXIC-POT CLAV 875-125MG 1 EACH TAB PO SCH ×2 (08:47→20:53)
[2021-07-23] MEDS: PROPRANOLOL LA 60 MG CAP.SA.24H PO SCH (08:47)
[2021-07-23] MEDS: CYCLOBENZAPRINE 10 MG TAB PO SCH ×2 (08:48→20:53)
[2021-07-23] MEDS: PREGABALIN 75 MG CAP PO SCH ×2 (08:49→17:14)
[2021-07-23] MEDS: HYDROcodone/APAP 10-325MG 1 EACH TAB PO SCH ×2 (08:49→20:53)
[2021-07-23] MEDS: MORPHINE SULFATE ER 30 MG TABLET PO SCH ×2 (08:50→20:53)
--- NOTE | 2021-07-23 11:46 | P.PN ---
Progress Note - Text Progress Note Date: 07/23/21 Interval History: Patient was seen today for psychiatric follow-up. Patient was agreeable to s peak with machine sign writer today in the office. She was using a walker and was fairly somatically preoccupied today. She explained more about her paranoia about the nurses on the medical floors however states that she is getting along better with the nurses here on the mental health unit. She continues to be illogical at times however has been improving in terms of being more appropriate. She continues to ramble and is tangential/circumstantial. She had several complaints about pain and her palms with walking. She claims that she has been taking her medications. She was endorsing some depression today and feeling that she is "not being heard by people". She states that she was able to sleep last night better than before. She claims that she has an improving appetite. She states that she only has been going to some groups however we'll try to go to more today. She did not refer to "[place]" today. She had mild insight into her condition. At this time patient denies any suicidal or homical ideations, intent or plan. Patient denies any auditory, visual hallucinations. Patient denies any side effects from the medications and has been compliant with meds. Mental Status Exam: General Appearance: Patient appears to be overweight, stated age is alert, directable, and paranoid. Behavior: Patient is calmly seated without any agitated behavior. Attempts to cooperate. Paranoid and suspicious. Speech: Patient's speech is fluent and nonpressured. Rambles at times. Mood/Affect: Mood is depressed and anxious, affect is congruent and constricted. Suicidality/Homicidality: Patient denies having any suicidal or homicidal ideation intent or plan. Perceptions: Patient denies any visual hallucinations and denies any auditory hallucinations Though content/process: paranoia. Goal oriented. Delusional. Illogical at times. Memory and concentration: AOX3, grossly intact for the purposes of this session Judgment and insight: Poor Assessment: Brief psychotic disorder Cluster B personality disorder Somatoform disorder unspecified Plan: -Patient continues to meet criteria for inpatient psychiatric admission for symptom stabilization and safety. Patient has signed adult voluntary form and was placed in patient's chart. -Medications: Continue with Wellbutrin 75 mg twice a day for mood, Cymbalta 60 mg daily for mood/anxiety/pain, melatonin 10 mg daily at bedtime for sleep, p aliperidone increased to 6 mg daily at bedtime for psychosis. Discontinued Seroquel as there is no need for 2 antipsychotics. -When necessary Ativan and Haldol for agitation/aggression. -NRT - unneeded as patient does not smoke -SW on board for discharge planning. Encouraged the patient to participate in milieu. Likely discharge tomorrow.
[2021-07-23 17:26] LABS: Chol/HDL Ratio 4.15 Ratio; LDL Cholesterol,Calculated 91.1 mg/dL (0.0-131.0)
[2021-07-23] MEDS ORDERED: WARFARIN 3 MG TAB PO ONE (18:00)
--- NOTE | 2021-07-23 18:51 | P.PN ---
Progress Note - Text Progress Note Date: 07/23/21 - Chief Complaint Psychosis 60 year-old female patient initially presents to the emergency department on July 14 for evaluation of headache. States she has been having persistent headaches for the last week. States that she has history of migraines and intermittent paralysis to various parts of her body on the right and left sides. States she thinks it is from exposure to Round-Up and toxic mold in the past. States she was seen at [facility] last week for similar symptoms. Denies any fever or chills. Denies any new symptoms other than persistent headaches. States her current paralysis is in her legs, thought she is able to feel and move some muscle groups. She does see a neurologist, Dr. Suazo for these issues, including chronic pain. Workup in ED includes blood work revealing WBC of 8.3, hemoglobin 12.8, hematocrit 38.0 and platelet count of 194 Patient was initially planned to be discharged home; upon attempted discharge patient was unable to ambulate reporting that she gets paralyzed in both arms and and Lasix off and on for past 2 years secondary to pain Patient subsequently was able to walk with a walker and felt walk in the hallway herself. Patient seen by psychiatry. [place] the patient may have issues with psychosis. And she was moved to 3 [address] floor. Patient appetite has been fair. Computed tomography scan of the head showed sinusitis. Mood was not felt to be contribution to her headaches. Patient otherwise rather comfortable. Patient is due to see ENT physician as outpatient. Today patient laying in bed. She feels numb in the pelvic area. Sometimes other parts of body. She thinks of her timings of medications have been changed around. Eating some. July 22: Patient complaining that people at the desk are talking about her laughing. She thinks; they have gone through her diarrhea and taken 3-4 pages out.. She did take a walker to go to lunch room and eat July 23: Patient been for all her meals to the lunchroom today. Used a walker to get there. Per nursing not reporting any significant psychotic statement today. She's feeling better. Appears rather comfortable. She is on in [place]. Seroquel discontinued. Active Medications Acetaminophen (Acetaminophen Tab 325 Mg Tab) 650 mg PO Q4HR PRN PRN Reason: Pain/Discomfort Hydrocodone Bitart/Acetaminophen (Hydrocodone/Apap 10-325mg 1 Each Tab) 1 each PO BID [facility] Last Admin: 07/23/21 08:49 Dose: 1 each Documented by: Al Hydroxide/Mg Hydroxide (Mag Hydrox/Al Hydrox/Simeth 30 Ml Cup) 30 ml PO Q4HR PRN PRN Reason: GI Upset Amoxicillin/Clavulanate Potassium (Amoxic-Pot Clav 875-125mg 1 Each Tab) 1 each PO Q12HR [facility]; Protocol Stop: 07/27/21 21:01 Last Admin: 07/23/21 08:47 Dose: 1 each Documented by: Atorvastatin Calcium (Atorvastatin 20 Mg Tab) 20 mg PO DAILY [facility] Last Admin: 07/23/21 08:46 Dose: 20 mg Documented by: Bupropion HCl (Bupropion 75 Mg Tab) 75 mg PO BID [facility] Last Admin: 07/23/21 08:47 Dose: 75 mg Documented by: Cholecalciferol (Cholecalciferol 25 Mcg (1000 Iu) Tablet) 25 mcg PO DAILY [facility] Last Admin: 07/23/21 08:47 Dose: 25 mcg Documented by: Cyclobenzaprine HCl (Cyclobenzaprine 10 Mg Tab) 10 mg PO BID [facility] Last Admin: 07/23/21 08:48 Dose: 10 mg Documented by: Duloxetine HCl (Duloxetine Hcl 60 Mg Capsule.Dr) 60 mg PO DAILY [facility] Last Admin: 07/23/21 08:47 Dose: 60 mg Documented by: Haloperidol Lactate (Haloperidol Lactate 5 Mg/Ml 1 Ml Vial) 5 mg IM Q6HR PRN PRN Reason: Agitation or Acute Psychosis Levothyroxine Sodium (Levothyroxine 88 Mcg Tab) 176 mcg PO DAILY@0630 [facility] Last Admin: 07/23/21 06:24 Dose: 176 mcg Documented by: Lorazepam (Lorazepam 1 Mg Tab) 1 mg PO TID PRN PRN Reason: Anxiety, Agitation Magnesium Hydroxide (Magnesium Hydroxide 2,400 Mg/10 Ml Cup) 2,400 mg PO DAILY PRN PRN Reason: Constipation Melatonin (Melatonin 5 Mg Tablet) 10 mg PO [facility] Miscellaneous Information (Warfarin Per Pharmacy) 1 each MISCELLANE DIRECTED PRN PRN Reason: Per Protocol Montelukast Sodium (Montelukast 10 Mg Tab) 10 mg PO [facility] Last Admin: 07/22/21 22:46 Dose: 10 mg Documented by: Morphine Sulfate (Morphine Sulfate Er 30 Mg Tablet) 30 mg PO Q12HR [facility]; Protocol Last Admin: 07/23/21 08:50 Dose: 30 mg Documented by: Multivitamins (Multivitamins, Thera 1 Each Tab) 1 each PO DAILY [facility] Last Admin: 07/23/21 08:47 Dose: 1 each Documented by: Ondansetron HCl (Ondansetron Odt 4 Mg Tab) 4 mg PO DAILY PRN PRN Reason: Nausea Paliperidone (Paliperidone 6 Mg Tab.Er.24) 6 mg PO HS [facility] Pregabalin (Pregabalin 75 Mg Cap) 225 mg PO BID@0900,1600 [facility] Last Admin: 07/23/21 17:14 Dose: 225 mg Documented by: Propranolol HCl (Propranolol La 60 Mg Cap.Sa.24h) 120 mg PO DAILY [facility] Last Admin: 07/23/21 08:47 Dose: 120 mg Documented by: Past medical history to include: COPD, chronic fibromyalgia with chronic pain syndrome, chronic DVTs and PEs for which patient is on Coumadin, hypothyroid, chronic headaches, dry eye syndrome, psychosis Social history: Lives alone in a condo. 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 No smoking or alcohol. Family history: Grandmother had stroke and heart attack. Grandfather heart attack. In the stroke. Physical examination: VITAL SIGNS: 97, 58, 16, 104/58, GENERAL: laying in bed, awake, anxious EYES: Pupils equal. Conjunctiva normal. HEENT: External appearance of nose and ears normal, oral cavity grossly normal. NECK: JVD not raised; masses not palpable. HEART: First and second heart sounds are normal; no edema. LUNGS: Respiratory rate normal; clear to auscultation. ABDOMEN: Soft, nontender, liver spleen not palpable, no masses palpable. PSYCH: Alert and oriented x3; mood and affect anxious. MUSCULOSKELETAL:No Clubbing/cyanosis;muscles-grossly intact. Evidence of OA. NEUROLOGICAL: [Cranial nerves grossly intact; no facial asymmetry, moving all 4 limbs. LYMPHATICS: No lymph nodes palpable in the axilla and neck INVESTIGATIONS, reviewed in the clinical context: From recent admission CT brain: Evidence of sinusitis White count 6.8 hemoglobin 11.2 platelets 182 potassium 4.2 creatinine 0.9 COVID 19: Not detected Lumbar spine CT: DJD changes. 0.5 cm calculus in the left kidney. Assessment and plan: -Psychotic disorder not otherwise specified, cluster B personality disorder, somatoform disorder unspecified. Cymbalta 30 mg a day, Seroquel discontinued, inVega 3 mg daily at bedtime . . -Acute sinusitis Augmentin -Morbid obesity BMI 40.9 Weight loss measures -COPD Singulair 10 mg by mouth daily -Chronic fibromyalgia, with chronic pain syndrome Wellbutrin 75 mg twice a day, Flexeril 10 mg twice a day, [place] 10 one tablet twice a day, MS Contin 30 mg every 12, Lyrica to 25 mg by mouth twice a day Patient does follow with Dr. Emerson for pain management -Chronic DVTs and PEs On Coumadin -Hypothyroid Synthroid 136 g daily -Chronic headaches Patient is to follow with her neurologist. -Dry eye syndrome Artificial tears Continue current medications. Seroquel discontinued. Psychotic symptoms better. Patient to follow-up with neurology upon discharge. We will complete 7 more days of Augmentin. Thank you Dr. Snyder
[2021-07-23] MEDS: MONTELUKAST 10 MG TAB PO SCH (20:53)
[2021-07-23] MEDS ORDERED: PALIPERIDONE 6 MG TAB.ER.24 PO SCH (21:00)
[2021-07-23] MEDS ORDERED: MELATONIN 5 MG TABLET PO SCH (21:00)
[2021-07-24] MEDS: LEVOTHYROXINE 88 MCG TAB PO SCH (06:10)
[2021-07-24 06:28] VITALS: BP 103/53; PULSE 79; TEMP 98
[2021-07-24] MEDS: buPROPion 75 MG TAB PO SCH (08:12)
[2021-07-24] MEDS: PROPRANOLOL LA 60 MG CAP.SA.24H PO SCH (08:12)
[2021-07-24] MEDS: MORPHINE SULFATE ER 30 MG TABLET PO SCH (08:15)
[2021-07-24] MEDS: PREGABALIN 75 MG CAP PO SCH (08:15)
[2021-07-24] MEDS: MULTIVITAMINS, THERA 1 EACH TAB PO SCH (08:16)
[2021-07-24] MEDS: HYDROcodone/APAP 10-325MG 1 EACH TAB PO SCH (08:16)
[2021-07-24] MEDS: AMOXIC-POT CLAV 875-125MG 1 EACH TAB PO SCH (08:16)
[2021-07-24] MEDS: CHOLECALCIFEROL 25 MCG (1000 IU) TABLET PO SCH (08:16)
[2021-07-24] MEDS: ATORVASTATIN 20 MG TAB PO SCH (08:16)
[2021-07-24] MEDS: CYCLOBENZAPRINE 10 MG TAB PO SCH (08:16)
[2021-07-24] MEDS: DULoxetine HCL 60 MG CAPSULE.DR PO SCH (08:16)
[2021-07-24 08:58] LABS: INR 2.8 (<1.2); Prothrombin Time 28.1 sec (9.0-12.0)
--- NOTE | 2021-07-24 11:14 | P.DS ---
Providers Date of admission: 07/20/21 19:54 Expected date of discharge: 07/24/21 Attending physician: Reji Snyder MD Consults: 07/20/21 20:01 Consult Physician Routine Consulting Provider: Brando Mcguire Consult Reason/Comments: medical management Do you want consulting provider notified?: Already Contacted Primary care physician: Yovanny Mcdonald - Discharge Diagnosis(es) (1) Brief psychotic disorder Current Visit: Yes Status: Acute Priority: High (2) Cluster B personality disorder Current Visit: Yes Status: Acute Priority: Medium (3) Somatoform disorder, unspecified Current Visit: Yes Status: Acute Priority: Medium Hospital Course: Admission HPI: Admission note was completed by Dr Kapoor "This patient was seen in her room and is very tangential and it is difficult to follow her leads. She denies having any history of mental illness. She stated other people in the family are talking about her behind her back. She stated that her mother and her daughter are both in cahoots and she has heard some noises which she believes that her mother and daughter both are conspiring something against her. She thinks people are out to get her and is quite paranoid. She stated some insurance giles came to the house and he has something against her. She stated that she is on Lyrica, MS Contin, hydrocodone, Wellbutrin twice a day, Flexeril, Dyazide, thyroid pill and propranolol. She stated she has been hospitalized on this unit the second time and first time was in 2011 but she does not know what the reasons were. She does not think she had a mental illness." Hospital course: Upon admission to the unit patient was directable and agreeable to commence treatment and signed adult voluntary form. Patient got along well with other patients on the unit and followed unit protocol. Patient was compliant with the medications and denied any side effects throughout hospital course. Patient was started on her home dose of Wellbutrin 75 mg twice a day for mood, Cymbalta was increased to a dose of 60 mg daily for mood/anxiety/pain. Elavil was discontinued. Melatonin was increased to a dose of 10 mg daily at bedtime for sleep. Patient was also discontinued off of Seroquel due to ineffectiveness and replaced with paliperidone by mouth 3 mg daily at bedtime for psychosis/mood stabilization/insomnia. Patient spoke of her stressors and engaged in therapy both group and individual. Patient was also seen by medical team for history and physical exam. Patient had various pain complaints which appear to be chronic and was treated by the medical doctor. Patient was also started on by mouth Augmentin by Dr Mcguire and will be prescribed 3 more days upon discharge to complete the course. Throughout the course of the hospitalization patient gradually improved with regards to mood, anxiety, sleep and returned back to their baseline level of functioning. On the day of discharge patient denied any suicidal or homicidal ideations intent or plan denied any auditory or visual hallucinations. Patient endorsed wanting to live for her health and her future. The patient denied any access to guns or weapons. Patient denied any paranoia and did not endorse any delusions. Patient does not have a significant history of substance abuse however was counseled on abstaining from all substances including alcohol and marijuana. Patient was also counseled on the medications and need for regular compliance and was encouraged to follow-up with their outpatient appointment for mental health and also for primary care. Prior to discharge a family meeting will be arranged by social worker palliative care to answer any questions and ensure safety upon discharge. Mental status exam: General Appearance: Patient appears to be overweight, using a walker, wearing glasses, stated age is alert, pleasant, and cooperative. Patient is in no acute distress and has improved hygiene and grooming Behavior: Patient is calmly seated without any agitated behavior. Speech: Patient's speech is fluent and nonpressured. Mood/Affect: Patient reports their mood is "better", affect is congruent and euthymic. Suicidality/Homicidality: Patient denies having any suicidal or homicidal ideation intent or plan. Perceptions: Patient denies any auditory or visual hallucinations. Though content/process: There is no evidence of any delusional thought content and thought process is linear and goal-directed. Memory and concentration: AOX3, grossly intact for the purposes of this session. Can spell "WORLD" backwards correctly. Judgment and insight: chronically poor, however has improved with guarded prognosis Impression: Brief psychotic disorder Cluster B personality disorder Somatoform disorder unspecified Plan: -Continue with discharge today as patient has improved and stabilized psychiatrically and is not currently an imminent threat to herself and/or others. Patient will remain at chronically elevated risk for harm to self and/or others due to her impulsivity and chronically poor insight and judgment. -Continue medications: Wellbutrin 75 mg twice a day for mood, Cymbalta 60 mg daily for mood/anxiety/pain, melatonin 10 mg daily at bedtime for sleep, haloperidol 2 mg daily at bedtime for psychosis. -Patient was counseled on the need for medication compliance and appropriate follow-up at mental health and also primary care for medical issues. Patient verbalized understanding and agreed. -Social work to arrange for and conduct family meeting to ensure safety upon discharge and answer any questions/concerns. Social work also to arrange for patients follow up appointments for psychiatric care along with follow up with primary care provider. -Patient counseled on abstaining from recreational drugs and marijuana and alcohol. Was informed/educated on the adverse effects on their physical and mental health. Patient verbally agreed and understood. -Patient was instructed to return to the hospital or seek immediate medical care if their psychiatric or medical symptoms do worsen or reoccur. Allergies Allergy/AdvReac Type Severity Reaction Status Date / Time carbamazepine [From Tegretol] Allergy Anaphylaxis Verified 07/20/21 20:10 codeine Allergy Anaphylaxis Verified 07/20/21 20:10 Laboratory Results PT 28.1 sec (9.0-12.0) H 07/24/21 08:07 INR 2.8 (<1.2) H 07/24/21 08:[address] Glu mg/dL 118 07/20/21 04:38 Hemoglobin A1c 5.7 % (0.0-6.0) 07/20/21 04:38 Triglycerides 148.00 mg/dL (0.00-149.00) 07/20/21 04:38 Cholesterol 159.00 mg/dL (0.00-200.00) 07/20/21 04:38 LDL Cholesterol, Calc 91.1 mg/dL (0.0-131.0) 07/20/21 04:38 VLDL Cholesterol, Calc 29.60 mg/dL (5.00-40.00) 07/20/21 04:38 HDL Cholesterol 38.30 mg/dL (40.00-60.00) L 07/20/21 04:38 Cholesterol/HDL Ratio 4.15 Ratio 07/20/21 04:38 Vital Signs Temp 98 F 07/24/21 06:27 Pulse 79 07/24/21 06:27 Resp 16 07/23/21 07:03 BP 103/53 07/24/21 06:27 Pulse Ox 94 L 07/24/21 06:27 Patient Condition at Discharge: Stable Plan - Discharge Summary New Discharge Prescriptions: New buPROPion [Wellbutrin] 75 mg PO BID 30 Days tab Paliperidone [Invega] 3 mg PO HS 30 Days tab DULoxetine HCL [Cymbalta] 60 mg PO DAILY 30 Days Melatonin 10 mg PO HS 30 Days tablet Amoxic-Pot Clav 875-125Mg [Augmentin 875-125] 1 each PO Q12HR 3 Days tab Continue Cyclobenzaprine [Flexeril] 10 mg PO BID HYDROcodone/APAP 10-325MG [Barry 10-325] 1 tab PO BID Morphine Sulfate ER [Ms Contin] 30 mg PO Q12H Pregabalin [Lyrica] 225 mg PO BID@0900,1600 Propranolol HCl [Propranolol HCl ER] 120 mg PO DAILY Montelukast Sodium [Singulair] 10 mg PO HS Cholecalciferol [Vitamin D3 (25 Mcg = 1000 Iu)] 25 mcg PO DAILY Ondansetron Odt [Zofran ODT] 4 mg PO DAILY PRN PRN Reason: Nausea Atorvastatin [Lipitor] 20 mg PO DAILY Levothyroxine Sodium [Synthroid] 175 mcg PO DAILY Warfarin Sodium [Jantoven] 3.125 mg PO DAILY Multivit-Min/FA/Lycopen/Lutein [Centrum Silver Tablet] 1 tab PO DAILY Discontinued buPROPion [Wellbutrin] 75 mg PO BID Zinc 50 mg PO DAILY DULoxetine HCL [Cymbalta] 30 mg PO DAILY #30 Triamterene-Hctz 37.5-25Mg [Dyazide 37.5-25 Capsule] 1 cap PO DAILY Acetaminophen Tab [Tylenol] 1,000 mg PO Q6H PRN PRN Reason: Pain QUEtiapine [SEROquel] 50 mg PO HS #30 tab DULoxetine HCL [Cymbalta] 30 mg PO DAILY #30 cap Amoxicillin/Potassium Clav [Augmentin 875-125 Tablet] 1 tab PO Q12HR 1 Days #14 tab Discharge Medication List Cyclobenzaprine [Flexeril] 10 mg PO BID 02/20/17 [History] HYDROcodone/APAP 10-325MG [Barry 10-325] 1 tab PO BID 02/20/17 [History] Morphine Sulfate ER [Ms Contin] 30 mg PO Q12H 02/20/17 [History] Pregabalin [Lyrica] 225 mg PO BID@0900,1600 02/20/17 [History] Propranolol HCl [Propranolol HCl ER] 120 mg PO DAILY 04/16/18 [History] Levothyroxine Sodium [Synthroid] 175 mcg PO DAILY 08/14/20 [History] Montelukast Sodium [Singulair] 10 mg PO HS 08/14/20 [History] Warfarin Sodium [Jantoven] 3.125 mg PO DAILY 08/14/20 [History] Atorvastatin [Lipitor] 20 mg PO DAILY 07/14/21 [History] Cholecalciferol [Vitamin D3 (25 Mcg = 1000 Iu)] 25 mcg PO DAILY 07/14/21 [History] Multivit-Min/FA/Lycopen/Lutein [Centrum Silver Tablet] 1 tab PO DAILY 07/14/21 [History] Ondansetron Odt [Zofran ODT] 4 mg PO DAILY PRN 07/14/21 [History] Amoxic-Pot Clav 875-125Mg [Augmentin 875-125] 1 each PO Q12HR 3 Days tab 07/24/21 [Rx] DULoxetine HCL [Cymbalta] 60 mg PO DAILY 30 Days 07/24/21 [Rx] Melatonin 10 mg PO HS 30 Days tablet 07/24/21 [Rx] Paliperidone [Invega] 3 mg PO HS 30 Days tab 07/24/21 [Rx] buPROPion [Wellbutrin] 75 mg PO BID 30 Days tab 07/24/21 [Rx] Follow up Appointment(s)/Referral(s): [facility] [Outside] - 07/31/21 10:30 am (With Daisy) Activity/Diet/Wound Care/Special Instructions: Activity and diet as tolerated. Avoid the use of street drugs and alcohol. Take all medications as prescribed. When you are in need of refills on your medications please contact your medical provider and/or outpatient psychiatrist to have this done. Please go to scheduled outpatient appointment for aftercare treatment. If symptoms return or become worse, call the crisis line at and/or go to the nearest emergency room for evaluation Discharge Disposition: HOME SELF-CARE
[2021-07-24] MEDS ORDERED: WARFARIN 3 MG TAB PO ONE (18:00)
--- NOTE | 2021-07-24 22:14 | P.PN ---
Progress Note - Text Progress Note Date: 07/24/21 - Chief Complaint Psychosis 60 year-old female patient initially presents to the emergency department on July 14 for evaluation of headache. States she has been having persistent headaches for the last week. States that she has history of migraines and intermittent paralysis to various parts of her body on the right and left sides. States she thinks it is from exposure to Round-Up and toxic mold in the past. States she was seen at [facility] last week for similar symptoms. Denies any fever or chills. Denies any new symptoms other than persistent headaches. States her current paralysis is in her legs, thought she is able to feel and move some muscle groups. She does see a neurologist, Dr. Suazo for these issues, including chronic pain. Workup in ED includes blood work revealing WBC of 8.3, hemoglobin 12.8, hematocrit 38.0 and platelet count of 194 Patient was initially planned to be discharged home; upon attempted discharge patient was unable to ambulate reporting that she gets paralyzed in both arms and and Lasix off and on for past 2 years secondary to pain Patient subsequently was able to walk with a walker and felt walk in the hallway herself. Patient seen by psychiatry. [place] the patient may have issues with psychosis. And she was moved to [address] floor. Patient appetite has been fair. Computed tomography scan of the head showed sinusitis. Mood was not felt to be contribution to her headaches. Patient otherwise rather comfortable. Patient is due to see ENT physician as outpatient. Today patient laying in bed. She feels numb in the pelvic area. Sometimes other parts of body. She thinks of her timings of medications have been changed around. Eating some. July 22: Patient complaining that people at the desk are talking about her laughing. She thinks; they have gone through her diarrhea and taken 3-4 pages out.. She did take a walker to go to lunch room and eat July 23: Patient been for all her meals to the lunchroom today. Used a walker to get there. Per nursing not reporting any significant psychotic statement today. She's feeling better. Appears rather comfortable. She is on in [place]. Seroquel discontinued. July 24: Patient did not have a breakfast which is normal for her. Had lunch. No more psychotic symptoms. Smiling. Feeling much better. Has been cleared to go home. She will follow up with neurology outpatient. Headache is better. Current medications reviewed Past medical history to include: COPD, chronic fibromyalgia with chronic pain syndrome, chronic DVTs and PEs for which patient is on Coumadin, hypothyroid, chronic headaches, dry eye syndrome, psychosis Social history: Lives alone in a condo. 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 Family history: Grandmother had stroke and heart attack. Grandfather heart attack. In the stroke. Physical examination: VITAL SIGNS: 98, 79, 16, 103/53, 94% room air GENERAL: laying in bed, awake, anxious EYES: Pupils equal. Conjunctiva normal. HEENT: External appearance of nose and ears normal, oral cavity grossly normal. NECK: JVD not raised; masses not palpable. HEART: First and second heart sounds are normal; no edema. LUNGS: Respiratory rate normal; clear to auscultation. ABDOMEN: Soft, nontender, liver spleen not palpable, no masses palpable. PSYCH: Alert and oriented x3; mood and affect anxious. MUSCULOSKELETAL:No Clubbing/cyanosis;muscles-grossly intact. Evidence of OA. INVESTIGATIONS, reviewed in the clinical context: INR 2.[address] brain: Evidence of sinusitis White count 6.8 hemoglobin 11.2 platelets 182 potassium 4.2 creatinine 0.9 COVID 19: Not detected Lumbar spine CT: DJD changes. 0.5 cm calculus in the left kidney. Assessment and plan: -Psychotic disorder not otherwise specified, cluster B personality disorder, somatoform disorder unspecified. Cymbalta 30 mg a day, Seroquel discontinued, inVega 3 mg daily at bedtime . . -Acute sinusitis Augmentin for 3 days -Morbid obesity BMI 40.9 Weight loss measures -COPD Singulair 10 mg by mouth daily -Chronic fibromyalgia, with chronic pain syndrome Wellbutrin 75 mg twice a day, Flexeril 10 mg twice a day, [place] 10 one tablet twice a day, MS Contin 30 mg every 12, Lyrica to 25 mg by mouth twice a day Patient does follow with Dr. Emerson for pain management -Chronic DVTs and PEs On Coumadin -Hypothyroid Synthroid 136 g daily -Chronic headaches Patient is to follow with her neurologist. -Dry eye syndrome Artificial tears Continue current medication treatment plan. Follow-up with the PCP and her neurologist. Questions answered. Thank you Dr. Snyder
== END 2021-07-24 14:10 | disposition home or self-care (01) | DRG 885 ==
LOC: 3MHU 19:54
PROVIDERS: ADMIT Psychiatry & Neurology Psychiatry; ATTEND Psychiatry & Neurology Psychiatry
DX: F23 Brief psychotic disorder (principal); Z68.41 Body mass index [BMI] 40.0-44.9, adult; E03.9 Hypothyroidism, unspecified; E66.01 Morbid (severe) obesity due to excess calories; F32.A Depression, unspecified; F41.9 Anxiety disorder, unspecified; F60.89 Other specific personality disorders; F45.9 Somatoform disorder, unspecified; G47.00 Insomnia, unspecified; G50.0 Trigeminal neuralgia; G83.9 Paralytic syndrome, unspecified; G89.4 Chronic pain syndrome; H04.129 Dry eye syndrome of unspecified lacrimal gland; I27.20 Pulmonary hypertension, unspecified; Z20.822 Contact with and (suspected) exposure to COVID-19; J01.90 Acute sinusitis, unspecified; J44.9 Chronic obstructive pulmonary disease, unspecified; K59.00 Constipation, unspecified; M79.7 Fibromyalgia; Z79.01 Long term (current) use of anticoagulants; Z79.890 Hormone replacement therapy; Z79.899 Other long term (current) drug therapy; Z80.8 Family history of malignant neoplasm of other organs or systems; Z82.0 Family history of epilepsy and other diseases of the nervous system; Z82.3 Family history of stroke; Z82.49 Family history of ischemic heart disease and other diseases of the circulatory system; Z83.3 Family history of diabetes mellitus; Z86.718 Personal history of other venous thrombosis and embolism
CPT/HCPCS: 80061; 83036; 85610

== ENCOUNTER → 2021-09-12 | Outpatient (CLI) | payer MEDICARE ==
[2021-09-12 23:10] LABS: Protein, Total 6.7 g/dL (6.2-8.2)
[2021-09-12 23:24] LABS: HCT 43.3 % (37.2-46.3); HGB 13.6 g/dL (12.0-15.0); MCHC 31.4 g/dL (32.0-37.0); MCV 89.1 fL (80.0-97.0); Mean Platelet Volume 11.1 fL (9.5-12.2); NRBC Per 100 WBC 0 /100 WBCS (0.0-0.0); Platelet Count 246 X 10*3/uL (140-440); RBC 4.86 X 10*6/uL (4.10-5.20); RDW 13.9 % (11.5-14.5); WBC 8.83 X 10*3/uL (4.50-10.00)
[2021-09-13 00:24] LABS: African American GFR (CKD) 66.4 (60.0-200.0); Albumin 3.9 g/dL (3.8-4.9); Albumin/Globulin Ratio 1.38 (1.60-3.17); Anion Gap 10.6 mmol/L (10.00-18.00); BUN/Creat Ratio 19.71 Ratio (12.00-20.00); Blood Urea Nitrogen 20.7 mg/dL (9.0-27.0); Calcium 9.6 mg/dL (8.7-10.3); Carbon Dioxide 29.2 mmol/L (20.0-27.5); Globulin 2.8 g/dL (1.6-3.3); Non-African American GFR(CKD) 57.3 (60.0-200.0); Potassium 4.4 mmol/L (3.5-5.5); T4, Free (Free Thyroxine) 1.96 ng/dL (0.800-1.800); Total Bilirubin 0.2 mg/dL (0.30-1.20); Total Protein 6.7 g/dL (6.2-8.2)
== END | disposition home or self-care (01) ==
LOC: LABWHC1 15:52
PROVIDERS: ATTEND Physician Assistant
DX: G62.9 Polyneuropathy, unspecified (principal)
CPT/HCPCS: 36415; 80053; 82306; 82607; 84165; 84207; 84439; 84443; 84481; 85027

== ENCOUNTER → 2022-10-02 | Outpatient (CLI) | payer MEDICARE | END | disposition home or self-care (01) | LOC: LABWHC1 16:05 | PROVIDERS: ATTEND Psychiatry & Neurology Neurology | DX: Z01.812 Encounter for preprocedural laboratory examination (principal); I45.89 Other specified conduction disorders; R94.31 Abnormal electrocardiogram [ECG] [EKG] | CPT/HCPCS: 36415; 93005 ==

== ENCOUNTER 2022-10-17 09:15 | Emergency (ER) | payer MEDICARE ==
[2022-10-17] MEDS ORDERED: HYDROmorphone 1 MG/ML 1 ML SYRINGE IM STA (10:01)
--- NOTE | 2022-10-17 10:02 | ED ---
General Adult HPI - General Chief complaint: Headache Stated complaint: pain all over Time Seen by Provider: 10/17/22 09:23 Source: patient, RN notes reviewed Mode of arrival: ambulatory Limitations: no limitations - History of Present Illness Initial comments: 62-year-old female presents emergency Department with chief complaint of pain. Patient states that she was seen Dr. Suazo office for her chronic headaches, all of her pain. She was on [place] and MS Contin in which she was prescribed MS Contin anymore. Patient states she's been waiting 2 weeks the pain has been unbearable. Patient is here for pain control she denies any sick symptoms. Patient is scheduled to have a pain pump placed by Dr. Suazo. She denies any focal weakness denies any headache the usual. - Related Data Home Medications Medication Instructions Recorded Confirmed Cyclobenzaprine [Flexeril] 10 mg PO BID 02/20/17 07/20/21 HYDROcodone/APAP 10-325MG [[place] 1 tab PO BID 02/20/17 07/20/21 10-325] Morphine Sulfate ER [Ms Contin] 30 mg PO Q12H 02/20/17 07/20/21 Pregabalin [Lyrica] 225 mg PO BID@0900,1600 02/20/17 07/20/21 Propranolol HCl [Propranolol HCl 120 mg PO DAILY 04/16/18 07/20/21 ER] Levothyroxine Sodium [Synthroid] 175 mcg PO DAILY 08/14/20 07/20/21 Montelukast Sodium [Singulair] 10 mg PO HS 08/14/20 07/20/21 Warfarin Sodium [Jantoven] 3.125 mg PO DAILY 08/14/20 07/20/21 Atorvastatin [Lipitor] 20 mg PO DAILY 07/14/21 07/20/21 Cholecalciferol [Vitamin D3 (25 25 mcg PO DAILY 07/14/21 07/20/21 Mcg = 1000 Iu)] Multivit-Min/FA/Lycopen/Lutein 1 tab PO DAILY 07/14/21 07/20/21 [Centrum Silver Tablet] Ondansetron Odt [Zofran ODT] 4 mg PO DAILY PRN 07/14/21 07/20/21 Previous Rx's Medication Instructions Recorded Amoxic-Pot Clav 875-125Mg 1 each PO Q12HR 3 Days tab 07/24/21 [Augmentin 875-125] DULoxetine HCL [Cymbalta] 60 mg PO DAILY 30 Days 07/24/21 Melatonin 10 mg PO HS 30 Days tablet 07/24/21 Paliperidone [Invega] 3 mg PO HS 30 Days tab 07/24/21 buPROPion [Wellbutrin] 75 mg PO BID 30 Days tab 07/24/21 Allergies Allergy/AdvReac Type Severity Reaction Status Date / Time carbamazepine [From Tegretol] Allergy Anaphylaxis Verified 10/17/22 09:21 codeine Allergy Anaphylaxis Verified 10/17/22 09:21 Review of Systems ROS Statement: Those systems with pertinent positive or pertinent negative responses have been documented in the HPI. ROS Other: All systems not noted in ROS Statement are negative. 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 inpast used 02 but not now", murmur when younger,constipation(last bm 218,vertigo, "dry eye syndrome uses drops 4-6 times a day.stress test .had mamogram apr 2017-neg History of Any Multi-Drug Resistant Organisms: None Reported Past Surgical History: Appendectomy, Section, Cholecystectomy Additional Past Surgical History / Comment(s): 2 c-sections, fissurectomy, colonoscopy Past Anesthesia/Blood Transfusion Reactions: No Reported Reaction Past Psychological History: Depression Smoking Status: Never smoker Past Alcohol Use History: None Reported Past Drug Use History: None Reported - Past Family History Mother Family Medical History: Hypertension Additional Family Medical History / Comment(s): mom's mom had mi and stroke, mom's dad had hx of first mi age 40 and several after and stroke. Father Family Medical History: Cancer, Diabetes Mellitus, Mitral Valve Prolapse (MVP) Additional Family Medical History / Comment(s): lung/bone cancer. dad's mother had hx of cervical cancer and a pacemaker and dad's dad had hx mi's Sister(s) Family Medical History: Cancer, Diabetes Mellitus, Seizure Disorder Additional Family Medical History / Comment(s): one sister had seizures and 2nd sister had dm,skin cancer. Brother(s) Additional Family Medical History / Comment(s): brother had hernia sx and post op complictions-bleeding General Exam Limitations: no limitations General appearance: alert, in no apparent distress Head exam: Present: atraumatic, normocephalic, normal inspection Eye exam: Present: normal appearance, PERRL, EOMI. Absent: scleral icterus, conjunctival injection, periorbital swelling ENT exam: Present: normal exam, mucous membranes moist Neck exam: Present: normal inspection, full ROM. Absent: tenderness, meningismus, lymphadenopathy Respiratory exam: Present: normal lung sounds bilaterally. Absent: respiratory distress, wheezes, rales, rhonchi, stridor Cardiovascular Exam: Present: regular rate, normal rhythm, normal heart sounds. Absent: systolic murmur, diastolic murmur, rubs, gallop, clicks Neurological exam: Present: alert, oriented X3 Course Vital Signs 10/17/22 09:16 Temperature 98.7 F Pulse Rate 99 Respiratory 18 Rate Blood Pressure 164/103 O2 Sat by Pulse 96 Oximetry Medical Decision Making - Medical Decision Making Was pt. sent in by a medical professional or institution (, PA, IRRIGATION LABORER, urgent care, hospital, or detention...) When possible be specific @ - Pain management Did you speak to anyone other than the patient for history (EMS, parent, family, police, friend...)? What history was obtained from this source @ -No Did you review nursing and triage notes (agree or disagree)? Why? @ -I reviewed and agree with nursing and triage notes Were old charts reviewed (outside hosp., previous admission, EMS record, old EKG, old radiological studies, urgent care reports/EKG's, detention records)? Report findings @ -No old charts were reviewed Differential Diagnosis (chest pain, altered mental status, abdominal pain women, abdominal pain men, vaginal bleeding, weakness, fever, dyspnea, syncope, headache, dizziness, GI bleed, back pain, seizure, CVA, palpatations, mental health, musculoskeletal)? @ -Chronic pain, migraine headache, tension headache, back pain, neck pain EKG interpreted by me (3pts min.). @ -None X-rays interpreted by me (1pt min.). @ -None done CT interpreted by me (1pt min.). @ -None done U/S interpreted by me (1pt. min.). @ -None done What testing was considered but not performed or refused? (CT, X-rays, U/S, labs)? Why? @ -None What meds were considered but not given or refused? Why? @ -None Did you discuss the management of the patient with other professionals (professionals i.e. DrLew, PA, IRRIGATION LABORER, lab, RT, psych nurse, nursing home social worker, intensivist, teacher, agricultural technical officer, case fitter)? Give summary @ -No Was smoking cessation discussed for >3mins.? @ -No Was critical care preformed (if so, how long)? @ -No Were there social determinants of health that impacted care today? How? (Homelessness, low income, unemployed, alcoholism, drug addiction, transportation, low edu. Level, literacy, decrease access to med. care, halfway, rehab)? @ -No Was there de-escalation of care discussed even if they declined (Discuss DNR or withdrawal of care, Hospice)? DNR status @ -No What co-morbidities impacted this encounter? (DM, HTN, Smoking, COPD, CAD, Cancer, CVA, ARF, Chemo, Hep., AIDS, mental health diagnosis, sleep apnea, morbid obesity)? @ -Chronic pain Was patient admitted / discharged? Hospital course, mention meds given and route, prescriptions, significant lab abnormalities, going to OR and other pertinent info. @ -Discharge patient has chronic pain with no new symptoms she refuses all her testing. Patient try to pain relief and discharge she is advised that she needs contact her neurologist as pain management for any further medications Undiagnosed new problem with uncertain prognosis? @ -No Drug Therapy requiring intensive monitoring for toxicity (Heparin, Nitro, Insulin, Cardizem)? @ -No Were any procedures done? @ -No Diagnosis/symptom? @ -[Chronic pain Acute, or Chronic, or Acute on Chronic? @ -Acute Uncomplicated (without systemic symptoms) or Complicated (systemic symptoms)? @ -Uncomplicated Side effects of treatment? @ -No Exacerbation, Progression, or Severe Exacerbation? @ -No Poses a threat to life or bodily function? How? (Chest pain, [place], [place], pneumonia, PE, COPD, DKA, ARF, appy, cholecystitis, CVA, Diverticulitis, Homicidal, Suicidal, threat to staff... and all critical care pts) @ -No Disposition Clinical Impression: Chronic pain, Migraine headache Disposition: HOME SELF-CARE Condition: Stable Instructions (If sedation given, give patient instructions): Acute Headache (ED) Additional Instructions: Please return to the Emergency Department if symptoms worsen or any other concerns. Is patient prescribed a controlled substance at d/c from ED?: No Referrals: Yovanny Mcdonald MD [Primary Care Provider] - 1-2 days Time of Disposition: 10:02
[2022-10-17 10:27] VITALS: BP 125/80; PULSE 81; RESP 16; TEMP 97.8
== END 2022-10-17 10:27 | disposition home or self-care (01) ==
LOC: EC 09:15
DX: G43.909 Migraine, unspecified, not intractable, without status migrainosus (principal); G89.29 Other chronic pain; J44.9 Chronic obstructive pulmonary disease, unspecified; E07.9 Disorder of thyroid, unspecified; F32.A Depression, unspecified; Z79.890 Hormone replacement therapy; Z79.899 Other long term (current) drug therapy; Z88.5 Allergy status to narcotic agent; Z88.8 Allergy status to other drugs, medicaments and biological substances
CPT/HCPCS: 99284; 96372; J1170

== ENCOUNTER 2022-11-12 10:13 | Emergency (ER) | payer MEDICARE ==
[2022-11-12] MEDS ORDERED: SODIUM CHLORIDE 0.9% 1,000 ML IV STA (10:35)
[2022-11-12 10:46] LABS: Basophils # (A) 0.1 k/uL (0-0.2); Basophils % (A) 1 %; Eosinophils # (A) 0.2 k/uL (0-0.7); Eosinophils % (A) 2 %; HCT 43.9 % (34.0-46.0); HGB 14.6 gm/dL (11.4-16.0); Lymphocytes # (A) 1.9 k/uL (1.0-4.8); Lymphocytes % (A) 25 %; MCH 29.2 pg (25.0-35.0); MCHC 33.2 g/dL (31.0-37.0); Mean Platelet Volume 7.4; Monocytes # (A) 0.6 k/uL (0-1.0); Monocytes % (A) 8 %; Neutrophils % (A) 63 %; Platelet Count 222 k/uL (150-450); RBC 4.99 m/uL (3.80-5.40); RDW 13.8 % (11.5-15.5); WBC 7.9 k/uL (3.8-10.6)
[2022-11-12 10:58] LABS: Partial Thromboplastin Time 24.7 sec (22.0-30.0); Prothrombin Time 10.5 sec (9.0-12.0)
[2022-11-12 10:59] LABS: ALT 22 U/L (4-34); African American GFR (CKD) 67 (>60 ml/min/1.73 sqM); Albumin 4.4 g/dL (3.5-5.0); Anion Gap 10 mmol/L; Blood Urea Nitrogen 17 mg/dL (7-17); Calcium 9.6 mg/dL (8.4-10.2); Carbon Dioxide 26 mmol/L (22-30); Chloride 102 mmol/L (98-107); Glucose 92 mg/dL (74-99); Lipase 71 U/L (23-300); Non-African American GFR(CKD) 58 (>60 ml/min/1.73 sqM); Sodium 138 mmol/L (137-145); Total Bilirubin 0.7 mg/dL (0.2-1.3); Total Protein 7.9 g/dL (6.3-8.2)
[2022-11-12 11:00] LABS: AST 29 U/L (14-36); Alkaline Phosphatase 96 U/L (38-126); Magnesium 1.7 mg/dL (1.6-2.3); Potassium 4.4 mmol/L (3.5-5.1)
--- NOTE | 2022-11-12 11:04 | XR ---
EXAMINATION TYPE: XR chest 2V DATE OF EXAM: 11/12/2022 COMPARISON: 07/15/2017 TECHNIQUE: PA and lateral views submitted. HISTORY: Chest pain FINDINGS: The lungs are clear and there is no pneumothorax, pleural effusion, or focal pneumonia. Heart size normal and no overt failure. Osseous structures demonstrate hypertrophic and degenerative changes of the spine. Bilateral AC joint arthropathy. Mild hyperinflation. IMPRESSION: 1. No acute process. Correlate for asthma or COPD.
[2022-11-12] MEDS ORDERED: ALBUTEROL NEBULIZED 2.5 MG/3 ML INHALATION STA (11:05)
[2022-11-12] MEDS ORDERED: KETOROLAC 15 MG/ML 1 ML VIAL IVP STA (11:06)
--- NOTE | 2022-11-12 12:48 | ED ---
Chest Pain HPI - General Chief Complaint: Chest Pain Stated Complaint: chest pain Time Seen by Provider: 11/12/22 10:32 Source: patient Mode of arrival: wheelchair Limitations: no limitations - History of Present Illness Initial Comments: Patient is 62-year-old female presents to the emergency department for chest pain. It started yesterday. Pain is consistent in the right chest with radiation to her back. She describes as sharp it improves with activity. No exacerbating factors. No shortness of breath. No numbness or tingling. No nausea or vomiting. Patient does admit to a dry cough. She has history of COPD. She denies fever, chills, other cold-like symptoms. She does have history of DVT and PE she is currently on Eliquis she denies missing any doses. Denies leg pain and swelling. - Related Data Home Medications Medication Instructions Recorded Confirmed Cyclobenzaprine [Flexeril] 10 mg PO BID PRN 02/20/17 11/12/22 HYDROcodone/APAP 10-325MG [[place] 1 tab PO BID PRN 02/20/17 11/12/22 10-325] Pregabalin [Lyrica] 225 mg PO BID 02/20/17 11/12/22 Levothyroxine Sodium [Synthroid] 175 mcg PO DAILY 08/14/20 11/12/22 Montelukast Sodium [Singulair] 10 mg PO HS 08/14/20 11/12/22 Atorvastatin [Lipitor] 20 mg PO DAILY@1200 07/14/21 11/12/22 Albuterol Inhaler [Ventolin Hfa 2 puff INHALATION RT-Q4H PRN 11/12/22 11/12/22 Inhaler] Amitriptyline HCl [Elavil] 75 mg PO HS 11/12/22 11/12/22 Apixaban [Eliquis] 5 mg PO BID 11/12/22 11/12/22 Ergocalciferol [Vitamin D2 (1250 1,250 mcg PO MO 11/12/22 11/12/22 Mcg = 98961 Iu)] Triamterene-Hctz 37.5-25Mg 1 cap PO DAILY 11/12/22 11/12/22 [Dyazide 37.5-25 Capsule] buPROPion [Wellbutrin] 100 mg PO BID 11/12/22 11/12/22 Previous Rx's Medication Instructions Recorded Acetaminophen Tab [Tylenol Tab] 500 mg PO Q4H PRN #30 tablet 11/12/22 Azithromycin [Zithromax] 500 mg PO DAILY #5 tab 11/12/22 predniSONE 50 mg PO DAILY #5 tab 11/12/22 Allergies Allergy/AdvReac Type Severity Reaction Status Date / Time carbamazepine [From Tegretol] Allergy Anaphylaxis Verified 11/12/22 11:57 codeine Allergy Anaphylaxis Verified 11/12/22 11:57 Review of Systems ROS Statement: Those systems with pertinent positive or pertinent negative responses have been documented in the HPI. ROS Other: All systems not noted in ROS Statement are negative. 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 inpast used 02 but not now", murmur when younger,constipation(last bm 07-15-17,vertigo, "dry eye syndrome uses drops 4-6 times a day.stress test .had mamogram apr 2017-neg History of Any Multi-Drug Resistant Organisms: None Reported Past Surgical History: Appendectomy, Section, Cholecystectomy Additional Past Surgical History / Comment(s): 2 c-sections, fissurectomy, colonoscopy Past Anesthesia/Blood Transfusion Reactions: No Reported Reaction Past Psychological History: Depression Smoking Status: Never smoker Past Alcohol Use History: None Reported Past Drug Use History: None Reported - Past Family History Mother Family Medical History: Hypertension Additional Family Medical History / Comment(s): mom's mom had mi and stroke, mom's dad had hx of first mi age 40 and several after and stroke. Father Family Medical History: Cancer, Diabetes Mellitus, Mitral Valve Prolapse (MVP) Additional Family Medical History / Comment(s): lung/bone cancer. dad's mother had hx of cervical cancer and a pacemaker and dad's dad had hx mi's Sister(s) Family Medical History: Cancer, Diabetes Mellitus, Seizure Disorder Additional Family Medical History / Comment(s): one sister had seizures and 2nd sister had dm,skin cancer. Brother(s) Additional Family Medical History / Comment(s): brother had hernia sx and post op complictions-bleeding General Exam Limitations: no limitations General appearance: alert, in no apparent distress Eye exam: Present: normal appearance, PERRL, EOMI. Absent: scleral icterus, conjunctival injection, periorbital swelling Respiratory exam: Present: normal lung sounds bilaterally, wheezes (mild upper airways). Absent: respiratory distress, rales, rhonchi, stridor, chest wall tenderness, accessory muscle use, decreased breath sounds Cardiovascular Exam: Present: regular rate, normal rhythm, normal heart sounds. Absent: systolic murmur, diastolic murmur, rubs, gallop, clicks Extremities exam: Present: normal inspection, full ROM, normal capillary refill. Absent: tenderness, pedal edema, joint swelling, calf tenderness Neurological exam: Present: alert, oriented X3, CN II-XII intact Psychiatric exam: Present: normal affect, normal mood Skin exam: Present: warm, dry, intact, normal color. Absent: rash Course Vital Signs 11/12/22 11/12/22 11/12/22 10:20 10:33 10:45 Temperature 97 F L Pulse Rate 95 96 Respiratory 18 24 Rate Blood Pressure 130/78 143/88 O2 Sat by Pulse 96 96 Oximetry 11/12/22 11/12/22 11/12/22 11:00 11:15 11:30 Temperature Pulse Rate 92 89 89 Respiratory 27 H 22 Rate Blood Pressure 147/98 147/98 O2 Sat by Pulse 93 L 93 L 94 L Oximetry 11/12/22 11/12/22 11/12/22 13:47 13:52 13:54 Temperature 97.8 F Pulse Rate 77 75 75 Respiratory 18 18 18 Rate Blood Pressure 133/84 O2 Sat by Pulse 100 Oximetry Chest Pain [facility] EKG taken and sent 19:29, interpreted by myself Sinus rhythm, no ST segment was T-wave abnormality Ventricular rate 96, NH interval 173, QRS duration 93, QTC 394 Was pt. sent in by a medical professional or institution (, PA, [employer]AN[employer] DEALERS, urgent care, hospital, or assisted...) When possible be specific @ -No Did you speak to anyone other than the patient for history (EMS, parent, family, police, friend...)? What history was obtained from this source @ -No Did you review nursing and triage notes (agree or disagree)? Why? @ -I reviewed and agree with nursing and triage notes Were old charts reviewed (outside hosp., previous admission, EMS record, old EKG, old radiological studies, urgent care reports/EKG's, assisted records)? Report findings @ -Reviewed previous cardiology note patient had normal stress test in 2017 echo showed preserved LV systolic function Differential Diagnosis (chest pain, altered mental status, abdominal pain women, abdominal pain men, vaginal bleeding, weakness, fever, dyspnea, syncope, headache, dizziness, GI bleed, back pain, seizure, CVA, palpatations, mental health)? @ -Differential Chest Pain: Stable Angina, Unstable Angina, STEMI, NSTEMI Aortic Dissection, Pneumothorax, Musculoskeletal, Esophageal Spasm GERD, Cholecystitis, Pancreatitis, Zoster, this is not meant to be an all-inclusive list. EKG interpreted by me (3pts min.). @ -As above X-rays interpreted by me (1pt min.). @ - no acute cardiopulmonary process CT interpreted by me (1pt min.). @ -None done U/S interpreted by me (1pt. min.). @ -None done What testing was considered but not performed or refused? (CT, X-rays, U/S, labs)? Why? @ -None What meds were considered but not given or refused? Why? @ -None Did you discuss the management of the patient with other professionals (professionals i.e. , PA, FINANCIAL DEALERS, lab, RT, psych nurse, group social worker, life sciences manager, teacher, seismology technical officer, casework supervisor)? Give summary @ -No Was smoking cessation discussed for >3mins.? @ -No Was critical care preformed (if so, how long)? @ -No Were there social determinants of health that impacted care today? How? (Homelessness, low income, unemployed, alcoholism, drug addiction, transporta tion, low edu. Level, literacy, decrease access to med. care, alf, rehab)? @ -No Was there de-escalation of care discussed even if they declined (Discuss DNR or withdrawal of care, Hospice)? DNR status @ -No What co-morbidities impacted this encounter? (DM, HTN, Smoking, COPD, CAD, Cancer, CVA, ARF, Chemo, Hep., AIDS, mental health diagnosis, sleep apnea, morbid obesity)? @ -COPD, PE, DVT Was patient admitted / discharged? Hospital course, mention meds given and route, prescriptions, significant lab abnormalities, going to OR and other pertinent info. @ -Patient presenting with atypical chest pain. She is well-appearing no evidence of distress. Vitals within normal limits. EKG interpreted by myself no evidence of acute ischemia. Troponin within normal limits. Viral testing negative. Patient has wheezing of the upper airways given her history of COPD and recent cough I suspect symptoms are related to COPD exacerbation. Symptoms improved after pain medication, solumedrol, breathing treatment. Patient in stable medical condition for discharge she will be discharged with prednisone azithromycin and tylenol. She will continue using her inhaler as she does not have a nebulizer at home. We discussed strict return parameters. Undiagnosed new problem with uncertain prognosis? @ -No Drug Therapy requiring intensive monitoring for toxicity (Heparin, Nitro, Insulin, Cardizem)? @ -No Were any procedures done? @ -No Diagnosis/symptom? @ -COPD exacerbation, atypical chest pain Acute, or Chronic, or Acute on Chronic? @ -acute Uncomplicated (without systemic symptoms) or Complicated (systemic symptoms)? @ -uncomplicated Side effects of treatment? @ -No Exacerbation, Progression, or Severe Exacerbation? @ -No Poses a threat to life or bodily function? How? (Chest pain, [place], [place], pneumonia, PE, COPD, DKA, ARF, appy, cholecystitis, CVA, Diverticulitis, Homicidal, Suicidal, threat to staff... and all critical care pts) @ -No] Dr. Thurston is my attending Disposition Clinical Impression: COPD exacerbation, Atypical chest pain Disposition: HOME SELF-CARE Condition: Good Instructions (If sedation given, give patient instructions): Chest Pain (ED), COPD (Chronic Obstructive Pulmonary Disease) (ED) Additional Instructions: Take medication as directed. Please follow-up with your primary care provider in 1-2 days. Return to the emergency department if you experience new, concerning, or worsening symptoms. Prescriptions: predniSONE 50 mg PO DAILY #5 tab Acetaminophen Tab [Tylenol Tab] 500 mg PO Q4H PRN #30 tablet PRN Reason: Pain Azithromycin [Zithromax] 500 mg PO DAILY #5 tab Is patient prescribed a controlled substance at d/c from ED?: No Referrals: Yovanny Mcdonald MD [Primary Care Provider] - 1-2 days
[2022-11-12] MEDS ORDERED: methylPREDNISolone SOD SUCCI 125 MG/2 ML VIAL IV STA (13:30)
[2022-11-12] MEDS ORDERED: AZITHROMYCIN 500 MG TAB PO STA (13:30)
[2022-11-12 13:49] VITALS: RESP 18
[2022-11-12 13:53] VITALS: BP 133/84; PULSE 75; TEMP 97.8
[2022-11-12 13:59] LABS: Appearance,Urine Clear (Clear); Bacteria,Urine Occasional /hpf; Bilirubin,Urine Negative (Negative); Blood,Urine Negative (Negative); Color,Urine Yellow; Glucose,Urine (UA) Negative (Negative); Ketones,Urine Negative (Negative); Leukocyte Esterase,Urine Trace (Negative); Mucus,Urine Rare /hpf; Nitrite,Urine Negative (Negative); Protein,Urine Negative (Negative); Specific Gravity,Urine 1.011 (1.001-1.035); Squamous Epithelial Cell,Urine 3 /hpf (0-4); Urobilinogen,Urine <2.0 mg/dL (<2.0); WBC,Urine 2 /hpf (0-5)
== END 2022-11-12 14:00 | disposition home or self-care (01) ==
LOC: EC 10:13
DX: J44.1 Chronic obstructive pulmonary disease with (acute) exacerbation (principal); R07.89 Other chest pain; E07.9 Disorder of thyroid, unspecified; F32.A Depression, unspecified; Z79.890 Hormone replacement therapy; Z79.899 Other long term (current) drug therapy; Z88.5 Allergy status to narcotic agent; Z88.8 Allergy status to other drugs, medicaments and biological substances
CPT/HCPCS: 36415; 94640; 93005; 80053; 83690; 83735; 84484; 85025; 85610; 85730; 81001; 87636; 71046; 99285; 96374; 96375; 96361; J2930; J1885

== ENCOUNTER 2022-11-14 14:20 | Emergency (ER) | payer MEDICARE ==
[2022-11-14 15:08] LABS: Basophils % (A) 0 %; Eosinophils % (A) 0 %; HCT 44.7 % (34.0-46.0); HGB 14.8 gm/dL (11.4-16.0); Lymphocytes # (A) 0.9 k/uL (1.0-4.8); Lymphocytes % (A) 10 %; MCH 29.1 pg (25.0-35.0); MCHC 33.1 g/dL (31.0-37.0); MCV 87.8 fL (80.0-100.0); Mean Platelet Volume 7.3; Monocytes # (A) 0.3 k/uL (0-1.0); Monocytes % (A) 3 %; Neutrophils # (A) 8.1 k/uL (1.3-7.7); Neutrophils % (A) 87 %; Platelet Count 234 k/uL (150-450); RBC 5.09 m/uL (3.80-5.40); RDW 13.9 % (11.5-15.5); WBC 9.3 k/uL (3.8-10.6)
[2022-11-14 15:22] LABS: INR 0.9 (<1.2); Partial Thromboplastin Time 22.5 sec (22.0-30.0); Prothrombin Time 9.8 sec (9.0-12.0)
[2022-11-14 15:39] LABS: ALT 39 U/L (4-34); African American GFR (CKD) 86 (>60 ml/min/1.73 sqM); Albumin 4.4 g/dL (3.5-5.0); Anion Gap 14 mmol/L; Blood Urea Nitrogen 16 mg/dL (7-17); Calcium 9.5 mg/dL (8.4-10.2); Carbon Dioxide 21 mmol/L (22-30); Chloride 99 mmol/L (98-107); Glucose 126 mg/dL (74-99); Magnesium 1.9 mg/dL (1.6-2.3); Non-African American GFR(CKD) 75 (>60 ml/min/1.73 sqM); Sodium 134 mmol/L (137-145); Total Bilirubin 0.7 mg/dL (0.2-1.3); Total Protein 7.9 g/dL (6.3-8.2)
[2022-11-14 15:43] LABS: AST 44 U/L (14-36); Alkaline Phosphatase 101 U/L (38-126); Potassium 4.8 mmol/L (3.5-5.1)
--- NOTE | 2022-11-14 15:55 | ED ---
SOB HPI - General Chief Complaint: Shortness of Breath Stated Complaint: SOB Chest Pain Time Seen by Provider: 11/14/22 15:37 Source: patient Mode of arrival: wheelchair Limitations: no limitations - History of Present Illness Initial Comments: 's patient is a 62-year-old woman who presents with the complaint that she feels like her chest wall isn't wanting to move. She states she was diagnosed with shingles involving the right thorax on Friday. She states since that time she has been having intermittent feelings like she wasn't breathing properly but today things were worse. She has not noted a fever or cough. No chest pain. She states that it will feel for a period of time like her chest doesn't want to rise. She does have remote history of DVT/PE, states she does take her regularly MD Complaint: shortness of breath Onset/Timin -: days(s) Consistency: constant Improves With: nothing Worsens With: nothing Known History Of: COPD Associated Symptoms: denies other symptoms Treatments Prior to Arrival: none - Related Data Home Oxygen Therapy: No Home Medications Medication Instructions Recorded Confirmed Cyclobenzaprine [Flexeril] 10 mg PO BID PRN 02/20/17 11/12/22 HYDROcodone/APAP 10-325MG [[place] 1 tab PO BID PRN 02/20/17 11/12/22 10-325] Pregabalin [Lyrica] 225 mg PO BID 02/20/17 11/12/22 Levothyroxine Sodium [Synthroid] 175 mcg PO DAILY 08/14/20 11/12/22 Montelukast Sodium [Singulair] 10 mg PO HS 08/14/20 11/12/22 Atorvastatin [Lipitor] 20 mg PO DAILY@1200 07/14/21 11/12/22 Albuterol Inhaler [Ventolin Hfa 2 puff INHALATION RT-Q4H PRN 11/12/22 11/12/22 Inhaler] Amitriptyline HCl [Elavil] 75 mg PO HS 11/12/22 11/12/22 Apixaban [Eliquis] 5 mg PO BID 11/12/22 11/12/22 Ergocalciferol [Vitamin D2 (1250 1,250 mcg PO MO 11/12/22 11/12/22 Mcg = 53073 Iu)] Triamterene-Hctz 37.5-25Mg 1 cap PO DAILY 11/12/22 11/12/22 [Dyazide 37.5-25 Capsule] buPROPion [Wellbutrin] 100 mg PO BID 11/12/22 11/12/22 Previous Rx's Medication Instructions Recorded Acetaminophen Tab [Tylenol Tab] 500 mg PO Q4H PRN #30 tablet 11/12/22 Azithromycin [Zithromax] 500 mg PO DAILY #5 tab 11/12/22 predniSONE 50 mg PO DAILY #5 tab 11/12/22 Azithromycin [Zithromax] 0 mg PO DIRECTED #6 tab 11/14/22 Allergies Allergy/AdvReac Type Severity Reaction Status Date / Time carbamazepine [From Tegretol] Allergy Anaphylaxis Verified 11/14/22 14:53 codeine Allergy Anaphylaxis Verified 11/14/22 14:53 Review of Systems ROS Statement: Those systems with pertinent positive or pertinent negative responses have been documented in the HPI. ROS Other: All systems not noted in ROS Statement are negative. Constitutional: Denies: fever, chills Respiratory: Reports: dyspnea. 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 inpast used 02 but not now", murmur when younger,constipation(last bm 2-18,vertigo, "dry eye syndrome uses drops 4-6 times a day.stress test .had mamogram apr 2017-neg History of Any Multi-Drug Resistant Organisms: None Reported Past Surgical History: Appendectomy, Section, Cholecystectomy Additional Past Surgical History / Comment(s): 2 c-sections, fissurectomy, colonoscopy Past Anesthesia/Blood Transfusion Reactions: No Reported Reaction Past Psychological History: Depression Smoking Status: Never smoker Past Alcohol Use History: None Reported Past Drug Use History: None Reported - Past Family History Mother Family Medical History: Hypertension Additional Family Medical History / Comment(s): mom's mom had mi and stroke, mom's dad had hx of first mi age 40 and several after and stroke. Father Family Medical History: Cancer, Diabetes Mellitus, Mitral Valve Prolapse (MVP) Additional Family Medical History / Comment(s): lung/bone cancer. dad's mother had hx of cervical cancer and a pacemaker and dad's dad had hx mi's Sister(s) Family Medical History: Cancer, Diabetes Mellitus, Seizure Disorder Additional Family Medical History / Comment(s): one sister had seizures and 2nd sister had dm,skin cancer. Brother(s) Additional Family Medical History / Comment(s): brother had hernia sx and post op complictions-bleeding General Exam Limitations: no limitations General appearance: alert, in no apparent distress Head exam: Present: atraumatic, normocephalic Eye exam: Present: normal appearance. Absent: scleral icterus, conjunctival injection ENT exam: Present: normal oropharynx Neck exam: Present: normal inspection Respiratory exam: Present: normal lung sounds bilaterally. Absent: respiratory distress, wheezes, rales, rhonchi, stridor, accessory muscle use, decreased breath sounds Cardiovascular Exam: Present: regular rate, normal rhythm, normal heart sounds. Absent: systolic murmur, diastolic murmur, rubs, gallop GI/Abdominal exam: Present: soft. Absent: distended, tenderness, guarding, rebound, rigid, mass Extremities exam: Present: normal inspection, normal capillary refill. Absent: pedal edema, calf tenderness Back exam: Present: normal inspection. Absent: CVA tenderness (R), CVA tenderness (L) Neurological exam: Present: alert Skin exam: Present: warm, dry, intact, normal color, rash (There is fairly extensive rash to the right thorax that does appear consistent with zoster) Course Vital Signs 11/14/22 11/14/22 11/14/22 14:51 16:35 16:36 Temperature 97.7 F Pulse Rate 99 85 Respiratory 22 20 20 Rate Blood Pressure 114/81 109/73 O2 Sat by Pulse 95 95 Oximetry 11/14/22 11/14/22 19:11 20:43 Temperature 98.7 F Pulse Rate 80 78 Respiratory 16 16 Rate Blood Pressure 140/77 132/82 O2 Sat by Pulse 95 95 Oximetry Medical Decision Making - Medical Decision Making The patient had chest x-ray which I interpreted as showing acute infiltrate. Was pt. sent in by a medical professional or institution (, [facility], MICROBIOLOGY LAB MANAGER, urgent care, hospital, or shelter...) When possible be specific @ -[No] Did you speak to anyone other than the patient for history (EMS, parent, family, police, friend...)? What history was obtained from this source @ -[No] Did you review nursing and triage notes (agree or disagree)? Why? @ -[I reviewed and agree with nursing and triage notes] Were old charts reviewed (outside hosp., previous admission, EMS record, old EKG, old radiological studies, urgent care reports/EKG's, shelter records)? Report findings @ -[No old charts were reviewed] Differential Diagnosis (chest pain, altered mental status, abdominal pain women, abdominal pain men, vaginal bleeding, weakness, fever, dyspnea, syncope, headache, dizziness, GI bleed, back pain, seizure, CVA, palpatations, mental health, musculoskeletal)? @ -[Differential Dyspnea: Coronary syndrome, arrhythmia, tamponade, asthma, COPD, pulmonary embolism, pneumonia, pneumothorax, pulmonary effusion, anaphylaxis, diabetic ketoacidosis, flailed chest, pulmonary contusion, diaphragmatic rupture, anemia, neuromuscular, this is not meant to be an all-inclusive list. EKG interpreted by me (3pts min.). @ -[As above] X-rays interpreted by me (1pt min.). @ -[As above CT interpreted by me (1pt min.). @ -[None done] U/S interpreted by me (1pt. min.). @ -[None done] What testing was considered but not performed or refused? (CT, X-rays, U/S, labs)? Why? @ -[None] What meds were considered but not given or refused? Why? @ -[None] Did you discuss the management of the patient with other professionals (professionals i.e. [facility], MICROBIOLOGY LAB MANAGER, lab, RT, psych nurse, social media strategist, urologic nurse, teacher, flight communications officer, case repairer)? Give summary @ -[No] Was smoking cessation discussed for >3mins.? @ -[No] Was critical care preformed (if so, how long)? @ -[No] Were there social determinants of health that impacted care today? How? (Homelessness, low income, unemployed, alcoholism, drug addiction, transportation, low edu. Level, literacy, decrease access to med. care, senior care, rehab)? @ -[No] Was there de-escalation of care discussed even if they declined (Discuss DNR or withdrawal of care, Hospice)? DNR status @ -[No] What co-morbidities impacted this encounter? (DM, HTN, Smoking, COPD, CAD, Cancer, CVA, ARF, Chemo, Hep., AIDS, mental health diagnosis, sleep apnea, morbid obesity)? @ -[Herpes zoster Was patient admitted / discharged? Hospital course, mention meds given and route, prescriptions, significant lab abnormalities, going to OR and other pertinent info. @ -[This patient is 62-year-old woman found to have suspected acute pneumonia. Suspect that this is related to shallow breathing as result of the zoster outbreak. Patient is given incentive spirometry and training by pulmonary therapist. She would like to try a course of antibiotics at home. Discussed appropriate further care and follow-up as well as return parameters Undiagnosed new problem with uncertain prognosis? @ -[No] Drug Therapy requiring intensive monitoring for toxicity (Heparin, Nitro, Insulin, Cardizem)? @ -[No] Were any procedures done? @ -[No] Diagnosis/symptom? @ -[Acute pneumonia Subacute herpes zoster Acute, or Chronic, or Acute on Chronic? @ -[default] Uncomplicated (without systemic symptoms) or Complicated (systemic symptoms)? @ -[Uncomplicated Side effects of treatment? @ -[No] Exacerbation, Progression, or Severe Exacerbation? @ -[No] Poses a threat to life or bodily function? How? (Chest pain, USA, VT, pneumonia, PE, COPD, DKA, ARF, appy, cholecystitis, CVA, Diverticulitis, Homicidal, Suicidal, threat to staff... and all critical care pts) @ -[No] - Lab Data Result diagrams: 11/14/22 14:56 11/14/22 14:56 Lab Results 11/14/22 11/14/22 11/14/22 Range/Units 14:56 14:56 14:56 WBC 9.3 (3.8-10.6) k/uL RBC 5.09 (3.80-5.40) m/uL Hgb 14.8 (11.4-16.0) gm/dL Hct 44.7 (34.0-46.0) % MCV 87.8 (80.0-100.0) fL MCH 29.1 (25.0-35.0) pg MCHC 33.1 (31.0-37.0) g/dL RDW 13.9 (11.5-15.5) % Plt Count 234 (150-450) k/uL MPV 7.3 Neutrophils % 87 % Lymphocytes % 10 % Monocytes % 3 % Eosinophils % 0 % Basophils % 0 % Neutrophils # 8.1 H (1.3-7.7) k/uL Lymphocytes # 0.9 L (1.0-4.8) k/uL Monocytes # 0.3 (0-1.0) k/uL Eosinophils # 0.0 (0-0.7) k/uL Basophils # 0.0 (0-0.2) k/uL PT 9.8 (9.0-12.0) sec INR 0.9 (<1.2) APTT 22.5 (22.0-30.0) sec D-Dimer (<0.60) mg/L FEU Sodium 134 L (137-145) mmol/L Potassium 4.8 (3.5-5.1) mmol/L Chloride 99 (98-107) mmol/L Carbon Dioxide 21 L (22-30) mmol/L Anion Gap 14 mmol/L BUN 16 (7-17) mg/dL Creatinine 0.84 (0.52-1.04) mg/dL Est GFR (CKD-EPI)AfAm 86 (>60 ml/min/1.73 sqM) Est GFR (CKD-EPI)NonAf 75 (>60 ml/min/1.73 sqM) Glucose 126 H (74-99) mg/dL Calcium 9.5 (8.4-10.2) mg/dL Magnesium 1.9 (1.6-2.3) mg/dL Total Bilirubin 0.7 (0.2-1.3) mg/dL AST 44 H (14-36) U/L ALT 39 H (4-34) U/L Alkaline Phosphatase 101 (38-126) U/L Troponin I (0.000-0.034) ng/mL NT-Pro-B Natriuret Pep pg/mL Total Protein 7.9 (6.3-8.2) g/dL Albumin 4.4 (3.5-5.0) g/dL 11/14/22 11/14/22 11/14/22 Range/Units 14:56 16:09 16:09 WBC (3.8-10.6) k/uL RBC (3.80-5.40) m/uL Hgb (11.4-16.0) gm/dL Hct (34.0-46.0) % MCV (80.0-100.0) fL MCH (25.0-35.0) pg MCHC (31.0-37.0) g/dL RDW (11.5-15.5) % Plt Count (150-450) k/uL MPV Neutrophils % % Lymphocytes % % Monocytes % % Eosinophils % % Basophils % % Neutrophils # (1.3-7.7) k/uL Lymphocytes # (1.0-4.8) k/uL Monocytes # (0-1.0) k/uL Eosinophils # (0-0.7) k/uL Basophils # (0-0.2) k/uL PT 9.8 (9.0-12.0) sec INR 0.9 (<1.2) APTT 22.4 (22.0-30.0) sec D-Dimer 0.25 (<0.60) mg/L FEU Sodium (137-145) mmol/L Potassium (3.5-5.1) mmol/L Chloride (98-107) mmol/L Carbon Dioxide (22-30) mmol/L Anion Gap mmol/L BUN (7-17) mg/dL Creatinine (0.52-1.04) mg/dL Est GFR (CKD-EPI)AfAm (>60 ml/min/1.73 sqM) Est GFR (CKD-EPI)NonAf (>60 ml/min/1.73 sqM) Glucose (74-99) mg/dL Calcium (8.4-10.2) mg/dL Magnesium (1.6-2.3) mg/dL Total Bilirubin (0.2-1.3) mg/dL AST (14-36) U/L ALT (4-34) U/L Alkaline Phosphatase (38-126) U/L Troponin I <0.012 (0.000-0.034) ng/mL NT-Pro-B Natriuret Pep 317 pg/mL Total Protein (6.3-8.2) g/dL Albumin (3.5-5.0) g/dL 11/14/22 Range/Units 16:10 WBC (3.8-10.6) k/uL RBC (3.80-5.40) m/uL Hgb (11.4-16.0) gm/dL Hct (34.0-46.0) % MCV (80.0-100.0) fL MCH (25.0-35.0) pg MCHC (31.0-37.0) g/dL RDW (11.5-15.5) % Plt Count (150-450) k/uL MPV Neutrophils % % Lymphocytes % % Monocytes % % Eosinophils % % Basophils % % Neutrophils # (1.3-7.7) k/uL Lymphocytes # (1.0-4.8) k/uL Monocytes # (0-1.0) k/uL Eosinophils # (0-0.7) k/uL Basophils # (0-0.2) k/uL PT (9.0-12.0) sec INR (<1.2) APTT (22.0-30.0) sec D-Dimer (<0.60) mg/L FEU Sodium (137-145) mmol/L Potassium (3.5-5.1) mmol/L Chloride (98-107) mmol/L Carbon Dioxide (22-30) mmol/L Anion Gap mmol/L BUN (7-17) mg/dL Creatinine (0.52-1.04) mg/dL Est GFR (CKD-EPI)AfAm (>60 ml/min/1.73 sqM) Est GFR (CKD-EPI)NonAf (>60 ml/min/1.73 sqM) Glucose (74-99) mg/dL Calcium (8.4-10.2) mg/dL Magnesium 1.9 (1.6-2.3) mg/dL Total Bilirubin (0.2-1.3) mg/dL AST (14-36) U/L ALT (4-34) U/L Alkaline Phosphatase (38-126) U/L Troponin I (0.000-0.034) ng/mL NT-Pro-B Natriuret Pep pg/mL Total Protein (6.3-8.2) g/dL Albumin (3.5-5.0) g/dL - EKG Data -: EKG Interpreted by Me EKG shows normal: sinus rhythm, axis (Normal), intervals (Normal), QRS complexes (Suspect incomplete right ventricular conduction delay), ST-T waves (Normal) Rate: tachycardia (Rate 104 bpm) Disposition Clinical Impression: Pneumonia Disposition: HOME SELF-CARE Condition: Good Instructions (If sedation given, give patient instructions): Pneumonia (ED) Prescriptions: Azithromycin [Zithromax] 0 mg PO DIRECTED #6 tab Is patient prescribed a controlled substance at d/c from ED?: No Referrals: Yovanny Mcdonald MD [Primary Care Provider] - 1-2 days
--- NOTE | 2022-11-14 16:27 | XR ---
EXAMINATION TYPE: XR chest 2V DATE OF EXAM: 11/14/2022 COMPARISON: 11/12/2022 HISTORY: Shortness of breath TECHNIQUE: Frontal and lateral views of the chest are obtained. FINDINGS: Scattered senescent parenchymal changes noted. Increased density right infrahilar region may reflect developing pneumonia. Progress studies advised. Elevation right hemidiaphragm. Heart size is stable. Mediastinal structures are stable and grossly unremarkable. No evidence for hilar prominence. Degenerative changes dorsal spine. IMPRESSION: 1. Increased density right infrahilar region may reflect developing pneumonia. Progress studies advis ed.
[2022-11-14 16:33] LABS: INR 0.9 (<1.2)
[2022-11-14 16:34] LABS: Partial Thromboplastin Time 22.4 sec (22.0-30.0); Prothrombin Time 9.8 sec (9.0-12.0)
[2022-11-14] MEDS ORDERED: AZITHROMYCIN 500 MG TAB PO STA (18:58)
[2022-11-14 19:13] VITALS: RESP 16
[2022-11-14] MEDS ORDERED: MORPHINE SULFATE 4 MG/ML SYRINGE IV STA (19:42)
[2022-11-14 20:44] VITALS: BP 132/82; PULSE 78; TEMP 98.7
== END 2022-11-14 20:44 | disposition home or self-care (01) ==
LOC: EC 14:20
DX: J18.9 Pneumonia, unspecified organism (principal); B02.9 Zoster without complications; J44.9 Chronic obstructive pulmonary disease, unspecified; E07.9 Disorder of thyroid, unspecified; F32.A Depression, unspecified; Z79.01 Long term (current) use of anticoagulants; Z79.890 Hormone replacement therapy; Z79.899 Other long term (current) drug therapy; Z88.5 Allergy status to narcotic agent; Z88.8 Allergy status to other drugs, medicaments and biological substances
CPT/HCPCS: 36415; 93005; 85379; 83880; 80053; 83735; 84484; 85025; 85610; 85730; 71046; 99285; 96365; 96375; J2270; J0696

== ENCOUNTER → 2022-11-20 | Outpatient (CLI) | payer MEDICARE ==
--- NOTE | 2022-11-20 18:32 | MR ---
EXAMINATION TYPE: MR brain/cspine wo/w DATE OF EXAM: 11/20/2022 COMPARISON: CT brain 07/19/2021, CT cervical spine 07/14/2021, MR cervical spine 03/01/2017 HISTORY: Weakness, paralysis in BLE, face and throat since 2018. TECHNIQUE: Multiplanar, multisequence images of the brain and brainstem and cervical spine is performed without and with IV contrast, utilizing 10 mL intravenous Gadavist . FINDINGS: Brain: Diffusion weighted images demonstrate no evidence of a recent infarct or other diffusion abnor mality. There is no extra-axial fluid collection or significant white matter signal abnormality. Th e ventricular system and cisternal spaces are normal in size and appearance. The brain volume is age appropriate. No susceptibility artifact identified. Midline structures demonstrate normal morphology. The craniocervical junction appears within normal limits. Post contrast images demonstrate no abnormal enhancement. The dural venous sinuses appear pa tent. The visualized sinuses are clear and the globes are intact. Cervical spine: Prevertebral soft tissues are normal. Vertebral body height and alignment are maintained. There is a normal craniocervical junction. Cord signal is normal. Multilevel disc desiccation. No abnormal contr ast enhancement. At C2-C3, no definite abnormality is seen. At C3-C4, there is an eccentric right posterior disc osteophyte complex causing mild effacement of th e anterior thecal sac. Mild uncovertebral joint hypertrophy causing mild left and minimal right neura l foraminal stenosis. At C4-C5, there is tiny central disc protrusion without significant central canal stenosis. Uncoverte bral joint hypertrophy with minimal right neural foraminal stenosis and left neural foramen is patent . At C5-C6, minimal broad-based disc bulge with no significant central canal stenosis. Uncovertebral marvin int hypertrophy with mild bilateral neural foraminal stenosis. At C6-C7, there is no significant central canal stenosis. Uncovertebral joint hypertrophy resulting i n mild bilateral neural foraminal stenosis. At C7-T1, no definite abnormality is seen. IMPRESSION: 1. No evidence for acute/subacute infarct or abnormal contrast enhancement. 2. Similar mild multilevel degenerative disc and uncovertebral joint disease of the cervical spine as described above when compared to prior examination in 2017.
== END | disposition home or self-care (01) ==
LOC: RADMRIMAIN 13:14
PROVIDERS: ATTEND Psychiatry & Neurology Neurology
DX: M50.322 Other cervical disc degeneration at C5-C6 level (principal); M48.02 Spinal stenosis, cervical region; M47.812 Spondylosis without myelopathy or radiculopathy, cervical region; G82.50 Quadriplegia, unspecified; M25.78 Osteophyte, vertebrae
CPT/HCPCS: 70553; 72156; A9585

== ENCOUNTER 2023-12-28 11:36 | Observation (INO) | payer MEDICARE ==
[2023-12-28 11:43] VITALS: TEMP 97.6
[2023-12-28 12:41] LABS: Basophils # (A) 0.1 k/uL (0-0.2); Basophils % (A) 1 %; Eosinophils # (A) 0.2 k/uL (0-0.7); Eosinophils % (A) 4 %; HGB 12.3 gm/dL (11.4-16.0); Lymphocytes # (A) 2.4 k/uL (1.0-4.8); Lymphocytes % (A) 48 %; MCH 27.1 pg (25.0-35.0); MCHC 32.5 g/dL (31.0-37.0); MCV 83.3 fL (80.0-100.0); Mean Platelet Volume 7.3; Monocytes # (A) 0.4 k/uL (0-1.0); Monocytes % (A) 9 %; Neutrophils # (A) 1.8 k/uL (1.3-7.7); Neutrophils % (A) 36 %; Platelet Count 227 k/uL (150-450); RBC 4.56 m/uL (3.80-5.40); RDW 14.5 % (11.5-15.5)
--- NOTE | 2023-12-28 12:46 | XR ---
EXAMINATION TYPE: XR chest 2V DATE OF EXAM: 12/28/2023 12:41 PM CLINICAL INDICATION:Female, 63 years old with history of Chest Pain; [facility] COMPARISON: Chest radiographs from 11/14/2022 TECHNIQUE: XR chest 2V Frontal view of the chest. FINDINGS: Lungs/Pleura: There is flattening of the diaphragm with increased lucency of the lungs. No evidence o f pneumothorax, pleural effusion or focal consolidation. Pulmonary vascularity: Unremarkable. Heart/mediastinum: Cardiomediastinal silhouette is unremarkable. Musculoskeletal: No acute osseous pathology. IMPRESSION: 1. No acute cardiopulmonary disease process. 2. COPD changes.
[2023-12-28 12:47] LABS: ALT 18 U/L (4-34); AST 29 U/L (14-36); African American GFR (CKD) >90 (>60 ml/min/1.73 sqM); Albumin 3.9 g/dL (3.5-5.0); Alkaline Phosphatase 103 U/L (38-126); Anion Gap 5 mmol/L; Blood Urea Nitrogen 18 mg/dL (7-17); Calcium 9.4 mg/dL (8.4-10.2); Carbon Dioxide 29 mmol/L (22-30); Chloride 104 mmol/L (98-107); Glucose 84 mg/dL (74-99); Magnesium 1.7 mg/dL (1.6-2.3); Non-African American GFR(CKD) >90 (>60 ml/min/1.73 sqM); Potassium 4.1 mmol/L (3.5-5.1); Sodium 138 mmol/L (137-145); Total Bilirubin 0.6 mg/dL (0.2-1.3); Total Protein 6.8 g/dL (6.3-8.2)
[2023-12-28 12:55] LABS: INR 1.2 (<1.2); Partial Thromboplastin Time 27.3 sec (22.0-30.0); Prothrombin Time 12.6 sec (10.0-12.5)
--- NOTE | 2023-12-28 13:08 | ED ---
Chest Pain HPI - General Chief Complaint: Chest Pain Stated Complaint: Chest pain,L sided numbness Time Seen by Provider: 12/28/23 11:55 Source: patient, RN notes reviewed Mode of arrival: ambulatory Limitations: no limitations - History of Present Illness Initial Comments: 63-year-old female presents emergency department complaint of chest pain. Patient states she started having chest comfort rating to her left side left arm. She states it felt tingly. Denies any weakness she does admit that she is oxygen dependent COPD, has history of CHF. Patient states there is pressure on her chest she felt dizzy, lightheaded. She does have mild leg swelling. Denies any recent weight gain. - Related Data Home Medications Medication Instructions Recorded Confirmed Cyclobenzaprine [Flexeril] 10 mg PO BID PRN 02/20/17 11/12/22 HYDROcodone/APAP 10-325MG [[place] 1 tab PO BID PRN 02/20/17 11/12/22 10-325] Pregabalin [Lyrica] 225 mg PO BID 02/20/17 11/12/22 Levothyroxine Sodium [Synthroid] 175 mcg PO DAILY 08/14/20 11/12/22 Montelukast Sodium [Singulair] 10 mg PO HS 08/14/20 11/12/22 Atorvastatin [Lipitor] 20 mg PO DAILY@1200 07/14/21 11/12/22 Albuterol Inhaler [Ventolin Hfa 2 puff INHALATION RT-Q4H PRN 11/12/22 11/12/22 Inhaler] Amitriptyline HCl [Elavil] 75 mg PO HS 11/12/22 11/12/22 Apixaban [Eliquis] 5 mg PO BID 11/12/22 11/12/22 Ergocalciferol [Vitamin D2 (1250 1,250 mcg PO MO 11/12/22 11/12/22 Mcg = 82628 Iu)] Triamterene-Hctz 37.5-25Mg 1 cap PO DAILY 11/12/22 11/12/22 [Dyazide 37.5-25 Capsule] buPROPion [Wellbutrin] 100 mg PO BID 11/12/22 11/12/22 Previous Rx's Medication Instructions Recorded Acetaminophen Tab [Tylenol Tab] 500 mg PO Q4H PRN #30 tablet 11/12/22 Azithromycin [Zithromax] 500 mg PO DAILY #5 tab 11/12/22 predniSONE 50 mg PO DAILY #5 tab 11/12/22 Azithromycin [Zithromax] 0 mg PO DIRECTED #6 tab 11/14/22 Allergies Allergy/AdvReac Type Severity Reaction Status Date / Time carbamazepine [From Tegretol] Allergy Anaphylaxis Verified 12/28/23 11:43 codeine Allergy Anaphylaxis Verified 12/28/23 11:43 phenytoin [From Dilantin] Allergy Unknown Verified 12/28/23 11:44 Review of Systems ROS Statement: Those systems with pertinent positive or pertinent negative responses have been documented in the HPI. ROS Other: All systems not noted in ROS Statement are negative. 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 inpast used 02 but not now", murmur when younger,constipation(last bm 07-15-17,vertigo, "dry eye syndrome uses drops 4-6 times a day.stress test .had mamogram apr 2017-neg History of Any Multi-Drug Resistant Organisms: None Reported Past Surgical History: Appendectomy, Section, Cholecystectomy Additional Past Surgical History / Comment(s): 2 c-sections, fissurectomy, colonoscopy Past Anesthesia/Blood Transfusion Reactions: No Reported Reaction Past Psychological History: Depression Smoking Status: Never smoker Past Alcohol Use History: None Reported Past Drug Use History: None Reported - Past Family History Mother Family Medical History: Hypertension Additional Family Medical History / Comment(s): mom's mom had mi and stroke, mom's dad had hx of first mi age 40 and several after and stroke. Father Family Medical History: Cancer, Diabetes Mellitus, Mitral Valve Prolapse (MVP) Additional Family Medical History / Comment(s): lung/bone cancer. dad's mother had hx of cervical cancer and a pacemaker and dad's dad had hx mi's Sister(s) Family Medical History: Cancer, Diabetes Mellitus, Seizure Disorder Additional Family Medical History / Comment(s): one sister had seizures and 2nd sister had dm,skin cancer. Brother(s) Additional Family Medical History / Comment(s): brother had hernia sx and post op complictions-bleeding General Exam Limitations: no limitations General appearance: alert, in no apparent distress Head exam: Present: atraumatic, normocephalic, normal inspection ENT exam: Present: normal exam, mucous membranes moist Neck exam: Present: normal inspection, full ROM. Absent: tenderness, meningismus, lymphadenopathy Respiratory exam: Present: normal lung sounds bilaterally. Absent: respiratory distress, wheezes, rales, rhonchi, stridor Cardiovascular Exam: Present: regular rate, normal rhythm, normal heart sounds. Absent: systolic murmur, diastolic murmur, rubs, gallop, clicks GI/Abdominal exam: Present: soft, normal bowel sounds. Absent: distended, tenderness, guarding, rebound, rigid Neurological exam: Present: alert Skin exam: Present: warm, dry, intact, normal color. Absent: rash Course Vital Signs 12/28/23 11:38 Temperature 97.6 F Pulse Rate 71 Respiratory 20 Rate Blood Pressure 92/58 O2 Sat by Pulse 97 Oximetry Chest Pain MDM - MDM Was pt. sent in by a medical professional or institution (, PA, SAFETY SITTER, urgent care, hospital, or senior care...) When possible be specific @ -No Did you speak to anyone other than the patient for history (EMS, parent, family, police, friend...)? What history was obtained from this source @ -No Did you review nursing and triage notes (agree or disagree)? Why? @ -I reviewed and agree with nursing and triage notes Were old charts reviewed (outside hosp., previous admission, EMS record, old EKG, old radiological studies, urgent care reports/EKG's, senior care records)? Report findings @ -No old charts were reviewed Differential Diagnosis (chest pain, altered mental status, abdominal pain women, abdominal pain men, vaginal bleeding, weakness, fever, dyspnea, syncope, headache, dizziness, GI bleed, back pain, seizure, CVA, palpatations, mental health, musculoskeletal)? @ -Differential Chest Pain: Stable Angina, Unstable Angina, STEMI, NSTEMI Aortic Dissection, Pneumothorax, Musculoskeletal, Esophageal Spasm GERD, Cholecystitis, Pancreatitis, Zoster, this is not meant to be an all-inclusive list. EKG interpreted by me (3pts min.). @ -As above X-rays interpreted by me (1pt min.). @ -Chest x-ray has no acute cardiopulmonary process CT interpreted by me (1pt min.). @ -None done U/S interpreted by me (1pt. min.). @ -None done What testing was considered but not performed or refused? (CT, X-rays, U/S, labs)? Why? @ -None What meds were considered but not given or refused? Why? @ -None Did you discuss the management of the patient with other professionals (professionals i.e. , PA, SAFETY SITTER, lab, RT, psych nurse, social work specialist, forensic accountant, teacher, officer lieutenant, rehabilitation case coordinator)? Give summary @ -EMH for admission Was smoking cessation discussed for >3mins.? @ -No Was critical care preformed (if so, how long)? @ -No Were there social determinants of health that impacted care today? How? (Homelessness, low income, unemployed, alcoholism, drug addiction, transportation, low edu. Level, literacy, decrease access to med. care, [facility], rehab)? @ -No Was there de-escalation of care discussed even if they declined (Discuss DNR or withdrawal of care, Hospice)? DNR status @ -No What co-morbidities impacted this encounter? (DM, HTN, Smoking, COPD, CAD, Cancer, CVA, ARF, Chemo, Hep., AIDS, mental health diagnosis, sleep apnea, morbid obesity)? @ -CHF Was patient admitted / discharged? Hospital course, mention meds given and route, prescriptions, significant lab abnormalities, going to OR and other pertinent info. @ -Admitted patient has significant cardiac history of admitted for chest pain rule out initial troponin is negative. Patient will repeat troponin, echocardiogram. Undiagnosed new problem with uncertain prognosis? @ -No Drug Therapy requiring intensive monitoring for toxicity (Heparin, Nitro, Insulin, Cardizem)? @ -No Were any procedures done? @ -No Diagnosis/symptom? @ -Chest pain Acute, or Chronic, or Acute on Chronic? @ -Acute Uncomplicated (without systemic symptoms) or Complicated (systemic symptoms)? @ -Complicated Side effects of treatment? @ -No Exacerbation, Progression, or Severe Exacerbation? @ -No Poses a threat to life or bodily function? How? (Chest pain, [place], [place], pneumonia, PE, COPD, DKA, ARF, appy, cholecystitis, CVA, Diverticulitis, Homicidal, Suicidal, threat to staff... and all critical care pts) @ -Yes chest pain possible ACS Disposition Clinical Impression: Chest pain Disposition: ADMITTED IP TO THIS HOSP Condition: Fair Referrals: Yovanny Mcdonald MD [Primary Care Provider] - 1-2 days Time of Disposition: 14:37
[2023-12-28] MEDS ORDERED: NITROGLYCERIN SL TABS 0.4 MG TAB SUBLINGUAL PRN (14:38)
[2023-12-28] MEDS: ASPIRIN 81 MG PO STA (15:09)
--- NOTE | 2023-12-28 18:27 | P.HPIM ---
History of Present Illness H&P Date: 12/28/23 Chief Complaint: Chest pain 63-year-old female, history of fibromyalgia, hypothyroidism, COPD, hypertension, hyperlipidemia presents emergency department complaint of chest pain. Patient states she started having chest comfort rating to her left side left arm. She states it felt tingly. Denies any weakness she does admit that she is oxygen dependent COPD, has history of CHF. Patient states there is pressure on her chest she felt dizzy, lightheaded. She does have mild leg swelling. Denies any recent weight gain. At the time of evaluation patient is sitting up in bed eating dinner; reports some improvement in chest pain Blood work completed in ED reveals WBC of 5.2, hemoglobin of 12.3 and platelet count of 227, sodium 138, potassium 4.1, BUNs/creatinine of 18/0.72, troponin less than 0.012 EKG feels sinus rhythm rate 69 IN 167 QRS 89 QT/QTc 410/429; no acute ST or T wave changes Chest x-ray is negative for any acute process Review of Systems REVIEW OF SYSTEMS: CONSTITUTIONAL: No fever, no malaise, no fatigue. HEENT: No recent visual problems or hearing problems. Denied any sore throat. CARDIOVASCULAR: No chest pain, orthopnea, PND, no palpitations, no syncope. PULMONARY: No shortness of breath, no cough, no hemoptysis. GASTROINTESTINAL: No diarrhea, no nausea, no vomiting, no abdominal pain. NEUROLOGICAL: No headaches, no weakness, no numbness. HEMATOLOGICAL: Denies any bleeding or petechiae. GENITOURINARY: Denies any burning micturition, frequency, or urgency. MUSCULOSKELETAL/RHEUMATOLOGICAL: Denies any joint pain, swelling, or any muscle pain. ENDOCRINE: Denies any polyuria or polydipsia. The rest of the 14-point review of systems is negative. 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 inpast used 02 but not now", murmur when younger,constipation(last bm 07-15-17,vertigo, "dry eye syndrome uses drops 4-6 times a day.stress test .had mamogram apr 2017-neg History of Any Multi-Drug Resistant Organisms: None Reported Past Surgical History: Appendectomy, Section, Cholecystectomy Additional Past Surgical History / Comment(s): 2 c-sections, fissurectomy, colonoscopy Past Anesthesia/Blood Transfusion Reactions: No Reported Reaction Past Psychological History: Depression Smoking Status: Never smoker Past Alcohol Use History: None Reported Past Drug Use History: None Reported - Past Family History Mother Family Medical History: Hypertension Additional Family Medical History / Comment(s): mom's mom had mi and stroke, mom's dad had hx of first mi age 40 and several after and stroke. Father Family Medical History: Cancer, Diabetes Mellitus, Mitral Valve Prolapse (MVP) Additional Family Medical History / Comment(s): lung/bone cancer. dad's mother had hx of cervical cancer and a pacemaker and dad's dad had hx mi's Sister(s) Family Medical History: Cancer, Diabetes Mellitus, Seizure Disorder Additional Family Medical History / Comment(s): one sister had seizures and 2nd sister had dm,skin cancer. Brother(s) Additional Family Medical History / Comment(s): brother had hernia sx and post op complictions-bleeding Medications and Allergies Home Medications Medication Instructions Recorded Confirmed Type Cyclobenzaprine [Flexeril] 10 mg PO BID 02/20/17 12/28/23 History HYDROcodone/APAP 10-325MG [[place] 1 tab PO DAILY 02/20/17 12/28/23 History 10-325] Levothyroxine Sodium [Synthroid] 175 mcg PO DAILY 08/14/20 12/28/23 History Ergocalciferol [Vitamin D2 (1250 1,250 mcg PO MO 11/12/22 12/28/23 History Mcg = 31325 Iu)] buPROPion [Wellbutrin] 100 mg PO BID 11/12/22 12/28/23 History Aspirin EC [Ecotrin Low Dose] 81 mg PO DAILY 12/28/23 12/28/23 History Atorvastatin [Lipitor] 40 mg PO DAILY 12/28/23 12/28/23 History Bumetanide [Bumex] 1 mg PO BID 12/28/23 12/28/23 History DULoxetine HCL [Cymbalta] 30 mg PO HS 12/28/23 12/28/23 History HYDROcodone/APAP 10-325MG [[place] 1 tab PO DAILY PRN 12/28/23 12/28/23 History 10-325] Patient Own Pump 0 bag 12/28/23 12/28/23 History Potassium Chloride ER [K-Dur 20] 20 meq PO DAILY 12/28/23 12/28/23 History Pregabalin [Lyrica] 200 mg PO TID 12/28/23 12/28/23 History Warfarin [Coumadin] 2.5 mg PO HS 12/28/23 12/28/23 History diphenhydrAMINE HCL [Benadryl] 25 mg PO BID 12/28/23 12/28/23 History risperiDONE [RisperDAL] 0.5 mg PO BID 12/28/23 12/28/23 History Allergies Allergy/AdvReac Type Severity Reaction Status Date / Time carbamazepine [From Tegretol] Allergy Anaphylaxis Verified 12/28/23 16:14 codeine Allergy Anaphylaxis Verified 12/28/23 16:14 phenytoin [From Dilantin] Allergy Unknown Verified 12/28/23 16:14 Physical Exam Vitals: Vital Signs Temp Pulse Resp BP Pulse Ox 12/28/23 11:38 97.6 F 71 20 92/58 97 Intake and Output 12/28/23 12/28/23 12/28/23 06:59 14:59 22:59 Other: Weight 105.233 kg Results CBC & Chem 7: 12/28/23 12:27 12/28/23 12:27 Labs: Abnormal Lab Results - Last 24 Hours (Table) 12/28/23 12/28/23 Range/Units 12:27 12:27 PT 12.6 H (10.0-12.5) sec INR 1.2 H (<1.2) BUN 18 H (7-17) mg/dL Assessment and Plan Assessment: 1. Chest pain rule out acute coronary syndrome -Patient will be admitted to telemetry; serial EKG and trend troponin -Patient is placed on aspirin, statin -Consult cardiology for further evaluation 2. Hypertension; Bumex 1 mg twice daily 3. Hypothyroidism; levothyroxine 175 mcg daily 4. Hyperlipidemia; Lipitor 40 mg p.o. nightly 5. Fibromyalgia; patient takes Flexeril, [place] and Lyrica 200 mg 3 times daily 7. History of DVT; lower extremity; continue with Coumadin with pharmacy dosing service 8. History of COPD; not in exacerbation; continue not on any inhaler therapy DVT prophylaxis; SCDs/Coumadin CODE STATUS; full code
[2023-12-28] MEDS: WARFARIN 3 MG TAB PO ONE (22:04)
[2023-12-28] MEDS: BUMETANIDE 1 MG TAB PO SCH (22:04)
[2023-12-28] MEDS: CYCLOBENZAPRINE 10 MG TAB PO SCH (22:04)
[2023-12-28] MEDS: DULoxetine HCL 30 MG CAPSULE.DR PO SCH (22:05)
[2023-12-28] MEDS: PREGABALIN 100 MG CAP PO SCH (22:05)
[2023-12-28] MEDS: HYDROcodone/APAP 10-325MG 1 EACH TAB PO PRN (22:08)
[2023-12-28] MEDS: risperiDONE 0.5 MG TAB PO SCH (22:31)
[2023-12-28] MEDS: buPROPion 100 MG TAB PO SCH (22:31)
[2023-12-29 01:20] VITALS: BP 99/55; PULSE 63; RESP 18
[2023-12-29 07:07] LABS: INR 1.2 (<1.2); Prothrombin Time 12.3 sec (10.0-12.5)
[2023-12-29] MEDS ORDERED: POTASSIUM CHLORIDE ER 20 MEQ TAB.ER PO SCH (09:00)
[2023-12-29] MEDS ORDERED: LEVOTHYROXINE 88 MCG TAB PO SCH (09:00)
[2023-12-29] MEDS ORDERED: ASPIRIN 325 MG TAB PO SCH (09:00)
[2023-12-29] MEDS ORDERED: ATORVASTATIN 40 MG TAB PO SCH (09:00)
[2023-12-29] MEDS ORDERED: POTASSIUM CHLORIDE ER 20 MEQ TAB.ER PO ONE (09:30)
[2023-12-29] MEDS ORDERED: ATORVASTATIN 40 MG TAB ONE (09:30)
[2023-12-29] MEDS ORDERED: PREGABALIN 100 MG CAP ONE ×3 (09:30→22:00)
[2023-12-29] MEDS ORDERED: LEVOTHYROXINE 88 MCG TAB ONE (09:30)
[2023-12-29] MEDS ORDERED: ASPIRIN 325 MG TAB ONE (09:30)
[2023-12-29] MEDS ORDERED: HYDROcodone/APAP 10-325MG 1 EACH TAB ONE ×2 (09:31→20:45)
[2023-12-29] MEDS ORDERED: ERGOCALCIFEROL 1,250 MCG (50,000 IU) CAPSULE PO SCH (18:27)
[2023-12-29] MEDS ORDERED: CYCLOBENZAPRINE 10 MG TAB ONE (20:14)
[2023-12-30] MEDS ORDERED: POTASSIUM CHLORIDE ER 20 MEQ TAB.ER PO ONE (08:23)
[2023-12-30] MEDS ORDERED: CYCLOBENZAPRINE 10 MG TAB ONE (08:23)
[2023-12-30] MEDS ORDERED: ATORVASTATIN 40 MG TAB ONE (08:24)
[2023-12-30] MEDS ORDERED: ASPIRIN 325 MG TAB ONE (08:24)
[2023-12-30] MEDS ORDERED: HYDROcodone/APAP 10-325MG 1 EACH TAB ONE (08:25)
[2023-12-30] MEDS ORDERED: PREGABALIN 100 MG CAP ONE (08:25)
[2023-12-30] MEDS ORDERED: LEVOTHYROXINE 88 MCG TAB ONE (08:25)
[2023-12-30] MEDS ORDERED: DOBUTamine DRIP for NUC MED 500 MG/250 ML BAG IV ONE (10:50)
[2023-12-30] MEDS ORDERED: ATROPINE SULFATE 0.1 MG/ML 10ML SYRINGE ONE (10:50)
[2023-12-30] MEDS ORDERED: METOPROLOL TARTRATE 5 MG/5 ML VIAL IVP ONE ×2 (11:13→11:15)
== END 2023-12-30 14:38 | disposition home or self-care (01) ==
LOC: EC 11:36 → 6NMEDSUR 14:42
PROVIDERS: ADMIT Internal Medicine; ATTEND Internal Medicine
DX: R07.9 Chest pain, unspecified (principal); J44.9 Chronic obstructive pulmonary disease, unspecified; F32.A Depression, unspecified; E03.9 Hypothyroidism, unspecified; I11.0 Hypertensive heart disease with heart failure; I50.9 Heart failure, unspecified; E78.5 Hyperlipidemia, unspecified; M79.7 Fibromyalgia; Z86.718 Personal history of other venous thrombosis and embolism; Z79.899 Other long term (current) drug therapy; Z79.890 Hormone replacement therapy; Z79.01 Long term (current) use of anticoagulants; Z79.82 Long term (current) use of aspirin; Z88.5 Allergy status to narcotic agent
CPT/HCPCS: 36415; 71046; 80048; 80053; 80061; 83735; 84484; 85025; 85379; 85610; 85730; 93005; 93306; 93351; 99285

== ENCOUNTER 2024-01-29 06:33 | Emergency (ER) | payer MEDICARE ==
[2024-01-29 06:38] VITALS: RESP 18
[2024-01-29 06:41] VITALS: TEMP 98.3
--- NOTE | 2024-01-29 07:14 | ED ---
Fall HPI - General Chief Complaint: Fall Stated Complaint: Fall on thinners Time Seen by Provider: 01/29/24 06:37 Source: patient, EMS, RN notes reviewed Mode of arrival: EMS Limitations: no limitations - History of Present Illness Initial Comments: 63-year-old female presents emergency department via EMS chief complaint of a fall. Patient states she tripped over her oxygen tubing. Patient states that she fell striking her head she is on Coumadin. She states she has not had her INR checked in 2 to 3 weeks. She states she was scheduled for have it checked. Patient states she has Coumadin for history of DVT, PE. She denies any back pain or any significant extremity injuries. Patient states she does have a morphine pump, takes Omena daily. She denies chest pain no loss conscious. - Related Data Home Medications Medication Instructions Recorded Confirmed Cyclobenzaprine [Flexeril] 10 mg PO BID 02/20/17 12/28/23 HYDROcodone/APAP 10-325MG [Omena 1 tab PO DAILY 02/20/17 12/28/23 10-325] Levothyroxine Sodium [Synthroid] 175 mcg PO DAILY 08/14/20 12/28/23 Ergocalciferol [Vitamin D2 (1250 1,250 mcg PO MO 11/12/22 12/28/23 Mcg = 89394 Iu)] buPROPion [Wellbutrin] 100 mg PO BID 11/12/22 12/28/23 Aspirin EC [Ecotrin Low Dose] 81 mg PO DAILY 12/28/23 12/28/23 Atorvastatin [Lipitor] 40 mg PO DAILY 12/28/23 12/28/23 Bumetanide [Bumex] 1 mg PO BID 12/28/23 12/28/23 DULoxetine HCL [Cymbalta] 30 mg PO HS 12/28/23 12/28/23 HYDROcodone/APAP 10-325MG [Omena 1 tab PO DAILY PRN 12/28/23 12/28/23 10-325] Patient Own Pump 0 bag 12/28/23 12/28/23 Potassium Chloride ER [K-Dur 20] 20 meq PO DAILY 12/28/23 12/28/23 Pregabalin [Lyrica] 200 mg PO TID 12/28/23 12/28/23 Warfarin [Coumadin] 2.5 mg PO HS 12/28/23 12/28/23 diphenhydrAMINE HCL [Benadryl] 25 mg PO BID 12/28/23 12/28/23 risperiDONE [RisperDAL] 0.5 mg PO BID 12/28/23 12/28/23 Allergies Allergy/AdvReac Type Severity Reaction Status Date / Time carbamazepine [From Tegretol] Allergy Anaphylaxis Verified 12/28/23 16:14 codeine Allergy Anaphylaxis Verified 12/28/23 16:14 phenytoin [From Dilantin] Allergy Unknown Verified 12/28/23 16:14 Review of Systems ROS Statement: Those systems with pertinent positive or pertinent negative responses have been documented in the HPI. ROS Other: All systems not noted in ROS Statement are negative. 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 inpast used 02 but not now", murmur when younger,constipation(last bm 2-18,vertigo, "dry eye syndrome uses drops 4-6 times a day.stress test .had mamogram apr 2017-neg History of Any Multi-Drug Resistant Organisms: None Reported Past Surgical History: Appendectomy, Section, Cholecystectomy Additional Past Surgical History / Comment(s): 2 c-sections, fissurectomy, colonoscopy Past Anesthesia/Blood Transfusion Reactions: No Reported Reaction Past Psychological History: Depression Smoking Status: Never smoker Past Alcohol Use History: None Reported Past Drug Use History: None Reported - Past Family History Mother Family Medical History: Hypertension Additional Family Medical History / Comment(s): mom's mom had mi and stroke, mom's dad had hx of first mi age 40 and several after and stroke. Father Family Medical History: Cancer, Diabetes Mellitus, Mitral Valve Prolapse (MVP) Additional Family Medical History / Comment(s): lung/bone cancer. dad's mother had hx of cervical cancer and a pacemaker and dad's dad had hx mi's Sister(s) Family Medical History: Cancer, Diabetes Mellitus, Seizure Disorder Additional Family Medical History / Comment(s): one sister had seizures and 2nd sister had dm,skin cancer. Brother(s) Additional Family Medical History / Comment(s): brother had hernia sx and post op complictions-bleeding General Exam Limitations: no limitations General appearance: alert, in no apparent distress Head exam: Present: atraumatic, normocephalic, normal inspection Eye exam: Present: normal appearance, PERRL, EOMI. Absent: scleral icterus, conjunctival injection, periorbital swelling ENT exam: Present: normal exam, normal oropharynx, mucous membranes moist Neck exam: Present: normal inspection, tenderness. Absent: meningismus, full ROM (Patient in c-collar), lymphadenopathy Respiratory exam: Present: normal lung sounds bilaterally. Absent: respiratory distress, wheezes, rales, rhonchi, stridor Cardiovascular Exam: Present: regular rate, normal rhythm, normal heart sounds. Absent: systolic murmur, diastolic murmur, rubs, gallop, clicks GI/Abdominal exam: Present: soft, normal bowel sounds. Absent: distended, tenderness, guarding, rebound, rigid Extremities exam: Present: normal inspection, full ROM, normal capillary refill. Absent: tenderness, pedal edema, joint swelling, calf tenderness Back exam: Present: full ROM. Absent: tenderness Neurological exam: Present: alert, oriented X3, reflexes normal. Absent: motor sensory deficit Skin exam: Present: warm, dry, intact, normal color. Absent: rash Course Vital Signs 01/29/24 01/29/24 06:35 07:30 Temperature 98.3 F Pulse Rate 71 66 Respiratory 18 18 Rate Blood Pressure 92/69 108/63 O2 Sat by Pulse 92 L 96 Oximetry Medical Decision Making - Medical Decision Making Was pt. sent in by a medical professional or institution (, PA, BREAKING MACHINE OPERATOR, urgent care, hospital, or shelter...) When possible be specific @ -No Did you speak to anyone other than the patient for history (EMS, parent, family, police, friend...)? What history was obtained from this source @ -No Did you review nursing and triage notes (agree or disagree)? Why? @ -I reviewed and agree with nursing and triage notes Were old charts reviewed (outside hosp., previous admission, EMS record, old EKG, old radiological studies, urgent care reports/EKG's, shelter records)? Report findings @ -No old charts were reviewed Differential Diagnosis (chest pain, altered mental status, abdominal pain women, abdominal pain men, vaginal bleeding, weakness, fever, dyspnea, syncope, headache, dizziness, GI bleed, back pain, seizure, CVA, palpatations, mental health, musculoskeletal)? @ -Fall, intracranial hemorrhage, skull fracture, concussion, EKG interpreted by me (3pts min.). @ -None X-rays interpreted by me (1pt min.). @ -None done CT interpreted by me (1pt min.). @ -CT brain, C-spine shows no acute intracranial hemorrhage there is noted interval change from old imaging showing dilation of superior ophthalmic veins U/S interpreted by me (1pt. min.). @ -None done What testing was considered but not performed or refused? (CT, X-rays, U/S, labs)? Why? @ -None What meds were considered but not given or refused? Why? @ -None Did you discuss the management of the patient with other professionals (professionals i.e. , PA, BREAKING MACHINE OPERATOR, lab, RT, psych nurse, high school social studies teacher, water rights specialist, teacher, health officer, case planner)? Give summary @ -No Was smoking cessation discussed for >3mins.? @ -No Was critical care preformed (if so, how long)? @ -No Were there social determinants of health that impacted care today? How? (Homelessness, low income, unemployed, alcoholism, drug addiction, transportation, low edu. Level, literacy, decrease access to med. care, nursing home, rehab)? @ -No Was there de-escalation of care discussed even if they declined (Discuss DNR or withdrawal of care, Hospice)? DNR status @ -No What co-morbidities impacted this encounter? (DM, HTN, Smoking, COPD, CAD, Cancer, CVA, ARF, Chemo, Hep., AIDS, mental health diagnosis, sleep apnea, morbid obesity)? @ -None Was patient admitted / discharged? Hospital course, mention meds given and rout e, prescriptions, significant lab abnormalities, going to OR and other pertinent info. @ -This charge patient presented after a fall mechanical trip and fall over her oxygen tubing INR is 1.2. CT of the brain and C-spine were obtained secondary to anticoagulation she has no acute intracranial hemorrhage. There was incidental finding of dilation of the ophthalmic vein she will follow-up with ophthalmology, neurosurgery. Patient has no acute vision changes or frontal headache. She states that she has had issues with her eyes but this has been over the last year. Undiagnosed new problem with uncertain prognosis? @ -No Drug Therapy requiring intensive monitoring for toxicity (Heparin, Nitro, Insulin, Cardizem)? @ -No Were any procedures done? @ -No Diagnosis/symptom? @ -Close head injury, superior ophthalmic vein dilation Acute, or Chronic, or Acute on Chronic? @ -Acute Uncomplicated (without systemic symptoms) or Complicated (systemic symptoms)? @ -Uncomplicated Side effects of treatment? @ -No Exacerbation, Progression, or Severe Exacerbation? @ -No Poses a threat to life or bodily function? How? (Chest pain, USA, DC, pneumonia, PE, COPD, DKA, ARF, appy, cholecystitis, CVA, Diverticulitis, Homicidal, Suicidal, threat to staff... and all critical care pts) @ -No - Lab Data Lab Results 01/29/24 Range/Units 07:00 PT 12.8 H (10.0-12.5) sec INR 1.2 H (<1.2) Disposition Clinical Impression: Fall, Closed head injury Disposition: HOME SELF-CARE Condition: Stable Instructions (If sedation given, give patient instructions): Head Injury (ED) Additional Instructions: Please follow-up with ophthalmology regarding ophthalmic vein dilation. Please return to the Emergency Department if symptoms worsen or any other concerns. Is patient prescribed a controlled substance at d/c from ED?: No Referrals: Yovanny Mcdoanld MD [Primary Care Provider] - 1-2 days Milton East MD [STAFF PHYSICIAN] - 1-2 days Time of Disposition: 08:22
[2024-01-29 07:25] LABS: INR 1.2 (<1.2); Prothrombin Time 12.8 sec (10.0-12.5)
[2024-01-29 07:32] VITALS: PULSE 66
--- NOTE | 2024-01-29 08:12 | CT ---
EXAMINATION TYPE: CT brain garcía wo con DATE OF EXAM: 01/29/2024 COMPARISON: MRI 11/20/[address] 07/19/2021 HISTORY: 63-year-old female with pain after fall, hit back of head CT DLP: 1357.6 mGycm Automated exposure control for dose reduction was used. Technique: Examination of the head was done in axial plane without intravenous contrast. Coronal and sagittal reconstructions performed. CT of the cervical spine was obtained in axial plane without intravenous injection of contrast mater ial. Coronal and sagittal reformatted images were obtained from the axial views for evaluation of f ractures, spinal alignment and canal. FINDINGS: Head: There is no evidence of acute intracranial hemorrhage, acute ischemic changes, mass, mass-effect, or extra-axial fluid collection. There is no effacement of cerebral sulci or basal subarachnoid cister ns. There is no hydrocephalus. There is no midline shift. Brown-white matter distinction is preserv ed. There is new enlargement of the bilateral superior ophthalmic veins, right more so than the left. Dil atation up to nearly 8 mm. Scattered mild mucosal thickening ethmoid air cells and right sphenoid sinus. Mastoid air cells are w ell pneumatized. Cervical spine: The craniocervical junction anomaly, predental space widening, or prevertebral soft tissue swelling. Degenerative change at the C1 dens articulation. Moderate facet/uncovertebral joint degenerative change throughout, left greater than right. Degenerative grade 1 anterolisthesis C3-C4 and C4-C5. Remaining alignment is maintained. No acute fracture of the cervical spine. Changes result in moderate left neuroforaminal stenosis at C3-C4 and mild at additional levels. Sagittal and coronal reformatted images confirm above findings. COMBINED IMPRESSION: 1. No acute intracranial abnormality seen. 2. However, there is new enlargement of the bilateral superior ophthalmic veins (as compared to both 07/19/2021 CT and 11/20/2022 MRI) with dilatation nearly up to 8 mm. Interval development of venous jacky ix or an indirect carotid cavernous fistula are some differential considerations. Correlate with betsy ent's symptoms. 3. Cervical spine with moderate facet and uncovertebral joint arthropathy with degenerative grade 1 a nterolisthesis C3-C4 and C4-C5. No acute fracture of the cervical spine. Moderate left neuroforaminal stenosis at C3-C4.
[2024-01-29 09:48] VITALS: BP 102/68
== END 2024-01-29 09:48 | disposition home or self-care (01) ==
LOC: EC 06:33
CPT/HCPCS: 36415; 70450; 72125; 85610; 99284

== ENCOUNTER → 2024-01-30 | Outpatient (CLI) | payer MEDICARE ==
[2024-01-30 16:43] LABS: Basophils # (A) 0.11 X 10*3/uL (0.00-0.10); Basophils % (A) 1.4 %; Eosinophils # (A) 0.11 X 10*3/uL (0.04-0.35); Eosinophils % (A) 1.4 %; HCT 38.4 % (37.2-46.3); Lymphocytes % (A) 35.8 %; MCH 26.7 pg (27.0-32.0); MCHC 31.3 g/dL (32.0-37.0); MCV 85.3 FL (80.0-97.0); Mean Platelet Volume 10.7 FL (9.5-12.2); Monocytes # (A) 0.64 X 10*3/uL (0.20-1.00); Monocytes % (A) 7.9 %; NRBC Per 100 WBC 0 X 10*3/uL (0.00-0.01); Neutrophils # (A) 4.31 X 10*3/uL (1.80-7.70); Platelet Count 232 X 10*3/uL (140-440); RDW 15.2 % (11.5-14.5); WBC 8.11 X 10*3/uL (4.50-10.00)
[2024-01-30 17:00] LABS: Erythrocyte Sedimentation Rate 27 mm/Hr (0-30)
[2024-01-30 17:14] LABS: C Reactive Protein <0.30 mg/dL (0.00-0.80); Rheumatoid Factor, Qnt <15 IU/mL (0-15)
== END | disposition home or self-care (01) ==
LOC: LABWHC1 11:28
PROVIDERS: ATTEND Ophthalmology
DX: I67.1 Cerebral aneurysm, nonruptured (principal); S09.90XA Unspecified injury of head, initial encounter
CPT/HCPCS: 36415; 85025; 85652; 86140; 86431

== ENCOUNTER 2024-06-07 11:54 | Observation (INO) | payer MEDICARE ==
--- NOTE | 2024-06-07 12:55 | ED ---
General Adult HPI - General Chief complaint: Chest Pain Stated complaint: chest pain Time Seen by Provider: 06/07/24 12:27 Source: patient, RN notes reviewed, old records reviewed Mode of arrival: ambulatory Limitations: no limitations - History of Present Illness Initial comments: This is a 63-year-old female presents to the emergency department complaining of chest pain. Patient states she has a past medical history of high cholesterol as well as pulmonary hypertension. Patient denies any symptoms currently. Patient states earlier today she had severe chest pain radiating down her left arm and eventually went away but it did return and it lasted the second time for about 5 minutes and so she decided come to the emergency department. Patient denies any recent fever chills or cough or patient has abdominal pain patient [place] any nausea vomiting diarrhea. Patient states she was not short of breath during this chest pain episode but when she exerts herself she seems to be much more short of breath. Patient states she has been diagnosed with heart failure. - Related Data Home Medications Medication Instructions Recorded Confirmed Cyclobenzaprine [Flexeril] 10 mg PO BID 02/20/17 12/28/23 HYDROcodone/APAP 10-325MG [[place] 1 tab PO DAILY 02/20/17 12/28/23 10-325] Levothyroxine Sodium [Synthroid] 175 mcg PO DAILY 08/14/20 12/28/23 Ergocalciferol [Vitamin D2 (1250 1,250 mcg PO MO 11/12/22 12/28/23 Mcg = 18358 Iu)] buPROPion [Wellbutrin] 100 mg PO BID 11/12/22 12/28/23 Aspirin EC [Ecotrin Low Dose] 81 mg PO DAILY 12/28/23 12/28/23 Atorvastatin [Lipitor] 40 mg PO DAILY 12/28/23 12/28/23 Bumetanide [Bumex] 1 mg PO BID 12/28/23 12/28/23 DULoxetine HCL [Cymbalta] 30 mg PO HS 12/28/23 12/28/23 HYDROcodone/APAP 10-325MG [[place] 1 tab PO DAILY PRN 12/28/23 12/28/23 10-325] Patient Own Pump 0 bag 12/28/23 12/28/23 Potassium Chloride ER [K-Dur 20] 20 meq PO DAILY 12/28/23 12/28/23 Pregabalin [Lyrica] 200 mg PO TID 12/28/23 12/28/23 Warfarin [Coumadin] 2.5 mg PO HS 12/28/23 12/28/23 diphenhydrAMINE HCL [Benadryl] 25 mg PO BID 12/28/23 12/28/23 risperiDONE [RisperDAL] 0.5 mg PO BID 12/28/23 12/28/23 Allergies Allergy/AdvReac Type Severity Reaction Status Date / Time carbamazepine [From Tegretol] Allergy Anaphylaxis Verified 06/07/24 12:18 codeine Allergy Anaphylaxis Verified 06/07/24 12:18 phenytoin [From Dilantin] Allergy Unknown Verified 06/07/24 12:18 Review of Systems ROS Statement: Those systems with pertinent positive or pertinent negative responses have been documented in the HPI. ROS Other: All systems not noted in ROS Statement are negative. 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 inpast used 02 but not now", murmur when younger,constipation(last bm 2-18,vertigo, "dry eye syndrome uses drops 4-6 times a day.stress test .had mamogram apr 2017-neg History of Any Multi-Drug Resistant Organisms: None Reported Past Surgical History: Appendectomy, Section, Cholecystectomy Additional Past Surgical History / Comment(s): 2 c-sections, fissurectomy, colonoscopy Past Anesthesia/Blood Transfusion Reactions: No Reported Reaction Past Psychological History: Depression Smoking Status: Never smoker Past Alcohol Use History: None Reported Past Drug Use History: None Reported - Past Family History Mother Family Medical History: Hypertension Additional Family Medical History / Comment(s): mom's mom had mi and stroke, mom's dad had hx of first mi age 40 and several after and stroke. Father Family Medical History: Cancer, Diabetes Mellitus, Mitral Valve Prolapse (MVP) Additional Family Medical History / Comment(s): lung/bone cancer. dad's mother had hx of cervical cancer and a pacemaker and dad's dad had hx mi's Sister(s) Family Medical History: Cancer, Diabetes Mellitus, Seizure Disorder Additional Family Medical History / Comment(s): one sister had seizures and 2nd sister had dm,skin cancer. Brother(s) Additional Family Medical History / Comment(s): brother had hernia sx and post op complictions-bleeding General Exam - General Exam Comments Initial Comments: GENERAL: Patient is well-developed and well-nourished. Patient is nontoxic and well- hydrated and is in mild distress. ENT: Neck is soft and supple. No significant lymphadenopathy is noted. Oropharynx is clear. Moist mucous membranes. Neck has full range of motion without eliciting any pain. EYES: The sclera were anicteric and conjunctiva were pink and moist. Extraocular movements were intact and pupils were equal round and reactive to light. Eyelids were unremarkable. PULMONARY: Unlabored respirations. Good breath sounds bilaterally. No audible rales rhonchi or wheezing was noted. CARDIOVASCULAR: There is a regular rate and rhythm without any murmurs gallops or rubs. ABDOMEN: Soft and nontender with normal bowel sounds. SKIN: Skin is clear with no lesions or rashes and otherwise unremarkable. NEUROLOGIC: Patient is alert and oriented x3. Cranial nerves II through XII are grossly intact. Motor and sensory are also intact. Normal speech, volume and content. Symmetrical smile. MUSCULOSKELETAL: Normal extremities with adequate strength and full range of motion. No lower extremity swelling or edema. No calf tenderness. LYMPHATICS: No significant lymphadenopathy is noted PSYCHIATRIC: Normal psychiatric evaluation. Limitations: no limitations Course Vital Signs 06/07/24 12:18 Temperature 98.6 F Pulse Rate 81 Respiratory 18 Rate Blood Pressure 124/73 O2 Sat by Pulse 92 L Oximetry Medical Decision Making - Medical Decision Making EKG is interpreted by myself. EKG shows sinus rhythm at 70 bpm CO interval 177 QRS 99 QT interval is 412 QTc is 434. Patient's EKG shows no ST segment elevation or depression. Was pt. sent in by a medical professional or institution (, PA, SEQUENCING MACHINE OPERATOR, urgent care, hospital, or [place] health care facility...) When possible be specific @ -No Did you speak to anyone other than the patient for history (EMS, parent, family, police, friend...)? What history was obtained from this source @ -No Did you review nursing and triage notes (agree or disagree)? Why? @ -I reviewed and agree with nursing and triage notes Were old charts reviewed (outside hosp., previous admission, EMS record, old EKG, old radiological studies, urgent care reports/EKG's, [place] health [place] facility records)? Report findings @ -No old charts were reviewed Differential Diagnosis? @ -Differential Chest Pain: Stable Angina, Unstable Angina, STEMI, NSTEMI Aortic Dissection, Pneumothorax, Musculoskeletal, Esophageal Spasm GERD, Cholecystitis, Pancreatitis, Zoster, this is not meant to be an all-inclusive list. EKG interpreted by me (3pts min.). @ -As above X-rays interpreted by me (1pt min.). @ -Chest x-ray shows no acute abnormality CT interpreted by me (1pt min.). @ -None done U/S interpreted by me (1pt. min.). @ -None done What testing was considered but not performed or refused? (CT, X-rays, U/S, labs)? Why? @ -None What meds were considered but not given or refused? Why? @ -None Did you discuss the management of the patient with other professionals (professionals i.e. , PA, SEQUENCING MACHINE OPERATOR, lab, RT, psych nurse, social media project manager, joint machine operator, teacher, chief quality officer, case reviewer)? Give summary @ -I spoke with Dr. Mcguire and he agreed to admit the patient. Was smoking cessation discussed for >3mins.? @ -No Was critical care preformed (if so, how long)? @ -No Were there social determinants of health that impacted care today? How? (Homelessness, low income, unemployed, alcoholism, drug addiction, transportation, low edu. Level, literacy, decrease access to med. care, fci, r ehab)? @ -No Was there de-escalation of care discussed even if they declined (Discuss DNR or withdrawal of care, Hospice)? DNR status @ -No What co-morbidities impacted this encounter? (DM, HTN, Smoking, COPD, CAD, Cancer, CVA, ARF, Chemo, Hep., AIDS, mental health diagnosis, sleep apnea, morbid obesity)? @ -None Was patient admitted / discharged? Hospital course, mention meds given and route, prescriptions, significant lab abnormalities, going to OR and other pertinent info. @ -Patient was chest pain-free throughout the ED stay I did speak with Dr. Mcguire after all lab work came back normal chest x-ray is normal and I admitted the patient to Dr. Mcguire and consulted cardiology Undiagnosed new problem with uncertain prognosis? @ -No Drug Therapy requiring intensive monitoring for toxicity (Heparin, Nitro, Insulin, Cardizem)? @ -No Were any procedures done? @ -No Diagnosis/symptom? @ -Chest pain Acute, or Chronic, or Acute on Chronic? @ -Acute Uncomplicated (without systemic symptoms) or Complicated (systemic symptoms)? @ -Complicated Side effects of treatment? @ -No Exacerbation, Progression, or Severe Exacerbation? @ -No Poses a threat to life or bodily function? How? (Chest pain, USA, ME, pneumonia, PE, COPD, DKA, ARF, appy, cholecystitis, CVA, Diverticulitis, Homicidal, Suic idal, threat to staff... and all critical care pts) @ -Yes this can lead to an ME and endorgan dysfunction - Lab Data Result diagrams: 06/07/24 12:50 06/07/24 12:50 Lab Results 06/07/24 06/07/24 06/07/24 Range/Units 12:50 12:50 12:50 WBC 6.9 (3.8-10.6) k/uL RBC 4.21 (3.80-5.40) m/uL Hgb 11.5 (11.4-16.0) gm/dL Hct 35.1 (34.0-46.0) % MCV 83.4 (80.0-100.0) fL MCH 27.4 (25.0-35.0) pg MCHC 32.9 (31.0-37.0) g/dL RDW 13.4 (11.5-15.5) % Plt Count 226 (150-450) k/uL MPV 7.2 Neutrophils % 53 % Lymphocytes % 31 % Monocytes % 8 % Eosinophils % 4 % Basophils % 1 % Neutrophils # 3.7 (1.3-7.7) k/uL Lymphocytes # 2.2 (1.0-4.8) k/uL Monocytes # 0.6 (0-1.0) k/uL Eosinophils # 0.3 (0-0.7) k/uL Basophils # 0.1 (0-0.2) k/uL PT 75.5 H (10.0-12.5) sec INR 7.6 H* (<1.2) APTT 58.0 H (22.0-30.0) sec Sodium 141 (137-145) mmol/L Potassium 3.5 (3.5-5.1) mmol/L Chloride 97 L (98-107) mmol/L Carbon Dioxide 36 H (22-30) mmol/L Anion Gap 8 mmol/L BUN 17 (7-17) mg/dL Creatinine 1.07 H (0.52-1.04) mg/dL Est GFR (CKD-EPI)AfAm 64 (>60 ml/min/1.73 sqM) Est GFR (CKD-EPI)NonAf 56 (>60 ml/min/1.73 sqM) Glucose 99 (74-99) mg/dL Calcium 9.2 (8.4-10.2) mg/dL Magnesium 1.7 (1.6-2.3) mg/dL Total Bilirubin 0.2 (0.2-1.3) mg/dL AST 28 (14-36) U/L ALT 22 (4-34) U/L Alkaline Phosphatase 124 (38-126) U/L Troponin I (0.000-0.034) ng/mL NT-Pro-B Natriuret Pep 73 pg/mL Total Protein 7.2 (6.3-8.2) g/dL Albumin 3.8 (3.5-5.0) g/dL 06/07/24 Range/Units 12:50 WBC (3.8-10.6) k/uL RBC (3.80-5.40) m/uL Hgb (11.4-16.0) gm/dL Hct (34.0-46.0) % MCV (80.0-100.0) fL MCH (25.0-35.0) pg MCHC (31.0-37.0) g/dL RDW (11.5-15.5) % Plt Count (150-450) k/uL MPV Neutrophils % % Lymphocytes % % Monocytes % % Eosinophils % % Basophils % % Neutrophils # (1.3-7.7) k/uL Lymphocytes # (1.0-4.8) k/uL Monocytes # (0-1.0) k/uL Eosinophils # (0-0.7) k/uL Basophils # (0-0.2) k/uL PT (10.0-12.5) sec INR (<1.2) APTT (22.0-30.0) sec Sodium (137-145) mmol/L Potassium (3.5-5.1) mmol/L Chloride (98-107) mmol/L Carbon Dioxide (22-30) mmol/L Anion Gap mmol/L BUN (7-17) mg/dL Creatinine (0.52-1.04) mg/dL Est GFR (CKD-EPI)AfAm (>60 ml/min/1.73 sqM) Est GFR (CKD-EPI)NonAf (>60 ml/min/1.73 sqM) Glucose (74-99) mg/dL Calcium (8.4-10.2) mg/dL Magnesium (1.6-2.3) mg/dL Total Bilirubin (0.2-1.3) mg/dL AST (14-36) U/L ALT (4-34) U/L Alkaline Phosphatase (38-126) U/L Troponin I <0.012 (0.000-0.034) ng/mL NT-Pro-B Natriuret Pep pg/mL Total Protein (6.3-8.2) g/dL Albumin (3.5-5.0) g/dL Disposition Clinical Impression: Chest pain Disposition: ADMITTED IP TO THIS HOSP Referrals: Yovanny Mcdonald MD [Primary Care Provider] - 1-2 days Time of Disposition: 14:43
[2024-06-07 13:00] LABS: Basophils # (A) 0.1 k/uL (0-0.2); Basophils % (A) 1 %; Eosinophils # (A) 0.3 k/uL (0-0.7); Eosinophils % (A) 4 %; HCT 35.1 % (34.0-46.0); HGB 11.5 gm/dL (11.4-16.0); Lymphocytes # (A) 2.2 k/uL (1.0-4.8); Lymphocytes % (A) 31 %; MCH 27.4 pg (25.0-35.0); MCHC 32.9 g/dL (31.0-37.0); MCV 83.4 fL (80.0-100.0); Mean Platelet Volume 7.2; Monocytes # (A) 0.6 k/uL (0-1.0); Monocytes % (A) 8 %; Neutrophils # (A) 3.7 k/uL (1.3-7.7); Neutrophils % (A) 53 %; Platelet Count 226 k/uL (150-450); RBC 4.21 m/uL (3.80-5.40); RDW 13.4 % (11.5-15.5); WBC 6.9 k/uL (3.8-10.6)
--- NOTE | 2024-06-07 13:23 | XR ---
EXAMINATION TYPE: XR chest 2V DATE OF EXAM: 06/07/2024 1:19 PM COMPARISON: Chest radiographs from 12/28/2023. CLINICAL INDICATION: Female, 63 years old with history of Chest Pain; TECHNIQUE: XR chest 2V Frontal and lateral views of the chest. FINDINGS: Lungs/Pleura: There is no evidence of pleural effusion, focal consolidation, or pneumothorax. Pulmonary vascularity: Unremarkable. Heart/mediastinum: Cardiomediastinal silhouette is unremarkable. Musculoskeletal: No acute osseous pathology. IMPRESSION: No acute cardiopulmonary disease/process. [facility], , 06/07/2024 1:21 PM
[2024-06-07 13:30] LABS: Prothrombin Time 75.5 sec (10.0-12.5)
[2024-06-07 13:33] LABS: ALT 22 U/L (4-34); AST 28 U/L (14-36); African American GFR (CKD) 64 (>60 ml/min/1.73 sqM); Albumin 3.8 g/dL (3.5-5.0); Alkaline Phosphatase 124 U/L (38-126); Anion Gap 8 mmol/L; Blood Urea Nitrogen 17 mg/dL (7-17); Calcium 9.2 mg/dL (8.4-10.2); Carbon Dioxide 36 mmol/L (22-30); Chloride 97 mmol/L (98-107); Glucose 99 mg/dL (74-99); Magnesium 1.7 mg/dL (1.6-2.3); Non-African American GFR(CKD) 56 (>60 ml/min/1.73 sqM); Potassium 3.5 mmol/L (3.5-5.1); Sodium 141 mmol/L (137-145); Total Bilirubin 0.2 mg/dL (0.2-1.3); Total Protein 7.2 g/dL (6.3-8.2)
[2024-06-07 13:41] LABS: NT-Pro-B-Type Natriuretic Pept 73 pg/mL
[2024-06-07 13:52] LABS: INR 7.6 (<1.2)
[2024-06-07] MEDS ORDERED: NITROGLYCERIN SL TABS 0.4 MG TAB SUBLINGUAL PRN (14:44)
[2024-06-07] MEDS: NITROGLYCERIN OINT 1 INCH/GM PACKET TOPICAL SCH (17:43)
[2024-06-07] MEDS ORDERED: ALBUTEROL NEBULIZED 2.5 MG/3 ML INHALATION PRN (19:18)
--- NOTE | 2024-06-07 20:02 | P.HPIM ---
History of Present Illness H&P Date: 06/07/24 Chief Complaint: Chest pain 63-year-old patient, with chronic medical conditions that include morbid obesity, COPD, chronic family with chronic pain syndrome has a pain pump follow Dr. Suazo, chronic DVTs and PEs, hypothyroid, chronic headaches hypothyroid, dry eye syndrome. Patient earlier today developed left precordial pain. Lasted for about 5 minutes. It went down the left arm. Some lightheadedness. No perspiration. No shortness of breath. Patient also complaining of having headache started last night. No nausea vomiting. Patient had a good meal today. No fever no chills. Does use a four-wheel walker. Normally is a bowel movement once a week. No focal weakness. Patient last saw her nurse staff community health Dr. Sean Cheng in March. Review of systems: GEN.: A bit tired EYES: None HEENT: As above NECK: None RESPIRATORY: None CARDIOVASCULAR: None GASTROINTESTINAL: None GENITOURINARY: None MUSCULOSKELETAL: Chronic joint pains LYMPHATICS: None HEMATOLOGICAL: None PSYCHIATRY: Anxious NEUROLOGICAL: None Social history: Denies smoking alcohol. Does use a four-wheel walker. Physical examination: VITAL SIGNS:98.6, 81, 18, 122 x 73, 92% on 2 L GENERAL: BMI 22.4, reclining in bed awake a bit tired appearing. EYES: Pupils equal. Conjunctiva lu l. HEENT: External appearance of nose and ears normal, oral cavity grossly normal. NECK: JVD not raised; masses not palpable. HEART: First and second heart sounds are normal; no edema. LUNGS: Respiratory rate normal; clear to auscultation. ABDOMEN: Soft, nontender, liver spleen not palpable, no masses palpable. PSYCH: [Alert and oriented x3; mood and affect a bit tired appearing. MUSCULOSKELETAL:No Clubbing/cyanosis;muscles-grossly intact NEUROLOGICAL: Cranial nerves grossly intact; no facial asymmetry, power and sensation grossly intact. LYMPHATICS: No lymph nodes palpable in the axilla and neck INVESTIGATIONS, reviewed in the clinical context: June 07: White count 6.9 hemoglobin 11.5 platelets 226 INR 7.6 sodium 141 potassium 3.5 BUN 17 creatinine 1.07 Troponin I less than 0.012 x 2 EKG tracing personally reviewed by me-normal sinus rhythm. Chest x-ray film personally reviewed by me-some cardiomegaly. Assessment and plan: -Left precordial chest pain. Lasted for about 5 minutes. Associated with some lightheadedness. EKG unremarkable. Troponin negative. Telemetry. Cardiology consulted. -COPD, and a non-smoker Albuterol as needed. -Chronic fibromyalgia, with chronic pain syndrome Cymbalta. Flexeril. Lyrica. Pain pump. Patient does follow with Dr. Ki nix -Chronic DVTs and PEs On Coumadin -Coumadin toxicity with no bleeding Hold Coumadin tonight. Vitamin K p.o. 2.5 mg tonight. Follow INR -Depression Wellbutrin -History of psychosis Risperdal -Hypothyroid Synthroid 176 g daily -Acute on chronic headaches CT head and neck with contrast Consult neurology -Dry eye syndrome Artificial tears Care was discussed with the patient. 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 inpast used 02 but not now", murmur when younger,constipation(last bm 18,vertigo, "dry eye syndrome uses drops 4-6 times a day.stress test .had mamogram apr 2017-neg History of Any Multi-Drug Resistant Organisms: None Reported Past Surgical History: Appendectomy, Section, Cholecystectomy Additional Past Surgical History / Comment(s): 2 c-sections, fissurectomy, colonoscopy Past Anesthesia/Blood Transfusion Reactions: No Reported Reaction Past Psychological History: Depression Smoking Status: Never smoker Past Alcohol Use History: None Reported Past Drug Use History: None Reported - Past Family History Mother Family Medical History: Hypertension Additional Family Medical History / Comment(s): mom's mom had mi and stroke, mom's dad had hx of first mi age 40 and several after and stroke. Father Family Medical History: Cancer, Diabetes Mellitus, Mitral Valve Prolapse (MVP) Additional Family Medical History / Comment(s): lung/bone cancer. dad's mother had hx of cervical cancer and a pacemaker and dad's dad had hx mi's Sister(s) Family Medical History: Cancer, Diabetes Mellitus, Seizure Disorder Additional Family Medical History / Comment(s): one sister had seizures and 2nd sister had dm,skin cancer. Brother(s) Additional Family Medical History / Comment(s): brother had hernia sx and post op complictions-bleeding Medications and Allergies Home Medications Medication Instructions Recorded Confirmed Type Cyclobenzaprine [Flexeril] 10 mg PO BID PRN 02/20/17 06/07/24 History Levothyroxine Sodium [Synthroid] 175 mcg PO DAILY 08/14/20 06/07/24 History Ergocalciferol [Vitamin D2 (1250 1,250 mcg PO MO 11/12/22 06/07/24 History Mcg = 76746 Iu)] buPROPion [Wellbutrin] 100 mg PO BID 11/12/22 06/07/24 History Aspirin EC [Ecotrin Low Dose] 81 mg PO DAILY 12/28/23 06/07/24 History Bumetanide [Bumex] 1 mg PO BID 12/28/23 06/07/24 History DULoxetine HCL [Cymbalta] 30 mg PO HS 12/28/23 06/07/24 History HYDROcodone/APAP 10-325MG [[place] 1 tab PO BID PRN 12/28/23 06/07/24 History 10-325] Patient Own Pump 0 bag 12/28/23 12/28/23 History Potassium Chloride ER [K-Dur 20] 20 meq PO DAILY 12/28/23 06/07/24 History Pregabalin [Lyrica] 200 mg PO TID 12/28/23 06/07/24 History Warfarin [Coumadin] 3.75 mg PO DIRECTED 12/28/23 06/07/24 History risperiDONE [RisperDAL] 0.5 mg PO BID 12/28/23 06/07/24 History Albuterol Sulfate [Albuterol 2 puff PO RT-Q6H PRN 06/07/24 06/07/24 History Sulfate Hfa] Allergies Allergy/AdvReac Type Severity Reaction Status Date / Time carbamazepine [From Tegretol] Allergy Anaphylaxis Verified 06/07/24 15:52 codeine Allergy Anaphylaxis Verified 06/07/24 15:52 phenytoin [From Dilantin] Allergy Unknown Verified 06/07/24 15:52 Physical Exam Vitals: Vital Signs Temp Pulse Resp BP Pulse Ox 06/07/24 12:18 98.6 F 81 18 124/73 92 L Intake and Output 06/07/24 06/07/24 06/07/24 06:59 14:59 22:59 Other: Weight 68.946 kg Results CBC & Chem 7: 06/07/24 12:50 06/07/24 12:50 Labs: Abnormal Lab Results - Last 24 Hours (Table) 06/07/24 06/07/24 Range/Units 12:50 12:50 PT 75.5 H (10.0-12.5) sec INR 7.6 H* (<1.2) APTT 58.0 H (22.0-30.0) sec Chloride 97 L (98-107) mmol/L Carbon Dioxide 36 H (22-30) mmol/L Creatinine 1.07 H (0.52-1.04) mg/dL
[2024-06-07] MEDS: PHYTONADIONE ORAL 5 MG/5 ML ORAL.SYRG PO STA (21:53)
[2024-06-07] MEDS: DULoxetine HCL 30 MG CAPSULE.DR PO SCH (21:54)
[2024-06-07] MEDS: buPROPion 100 MG TAB PO SCH (21:54)
[2024-06-07] MEDS: BUMETANIDE 1 MG TAB PO SCH (21:54)
[2024-06-07] MEDS: PREGABALIN 100 MG CAP PO SCH (21:54)
[2024-06-07] MEDS: risperiDONE 0.5 MG TAB PO SCH (21:54)
--- NOTE | 2024-06-07 22:19 | CT ---
EXAMINATION TYPE: CT angio head neck CT DLP: 1782 mGycm, Automated exposure control for dose reduction was used. DATE OF EXAM: 06/07/2024 8:38 PM COMPARISON: None. CLINICAL INDICATION:Female, 63 years old with history of Acute on chronic headache; PHH, HEADACHE TECHNIQUE: Axially acquired helical CT angiogram of the head and neck was obtained with contrast. Axi al images are supplemented with 3D reconstructions and MIP images which were post-processed at an in dependent workstation. NASCET criteria used. Contrast used:65ML mL of Isovue 370 with IV Contrast, Oral contrast used: None. FINDINGS: CTA HEAD: No evidence of acute intracranial hemorrhage, mass effect, or midline shift. The ventricles, sulci, a nd cisterns are unremarkable. Mild mucosal thickening of bilateral maxillary sinuses.. The visualized portions of the internal carotid arteries, middle cerebral arteries, anterior cerebral arteries, and posterior cerebral arteries are patent. Left posterior communicating artery is hypopla stic. The right posterior communicating artery is patent. The basilar and vertebral arteries are patent. CTA NECK: Right Carotid System: The common carotid artery and external carotid artery are patent. The carotid bifurcation demonstrate s no evidence of hemodynamically significant stenosis. The remaining portions of the internal carotid artery demonstrate normal size without significant narrowing. There is slight medialization of the c ourse of the right internal carotid artery after bifurcation but then resumes normal position shortly after. Left Carotid System: The common carotid artery and external carotid artery are patent. The carotid bifurcation demonstrate s no evidence of hemodynamically significant stenosis. The remaining portions of the internal carotid artery demonstrate normal size without significant narrowing. Vertebral arteries are patent without evidence hemodynamically significant stenosis. There is a three-vessel aortic arch. The origins of the great vessels are patent. No evidence of hemo dynamically significant stenosis. Upper thorax: Right apical and right lung atelectasis/scarring. Degenerative changes of the visualized spine. IMPRESSION: 1. No evidence of dissection of the cervical internal carotid arteries or vertebral arteries or any e vidence of significant stenosis at the carotid bifurcations. 2. No evidence of intracranial high-grade stenosis or intracranial aneurysm. [facility], , 06/07/2024 10:16 PM
[2024-06-08] MEDS: LEVOTHYROXINE 88 MCG TAB PO SCH (06:19)
[2024-06-08 07:20] LABS: INR 4.7 (<1.2); Prothrombin Time 46.4 sec (10.0-12.5)
[2024-06-08] MEDS: POTASSIUM CHLORIDE ER 20 MEQ TAB.ER PO SCH (08:59)
[2024-06-08] MEDS: ASPIRIN 325 MG TAB PO SCH (08:59)
[2024-06-08] MEDS ORDERED: DOBUTamine DRIP for NUC MED 500 MG in DEXTROSE/WATER 1 250ML.BAG IV PRN (09:28)
--- NOTE | 2024-06-08 11:19 | P.CRDCN ---
History of Present Illness Consult date: 06/08/24 Consult reason: chest pain History of present illness: This is a 63-year-old female patient of Dr. Princess Cheng with past medical history of pulmonary embolism on Coumadin, pulmonary hypertension, hypertension, chronic diastolic heart failure. We have been asked to evaluate the patient for chest pain. Patient states that she had 4 episodes of chest pain yesterday and also 1 this morning. She states the pain occurs while she is at rest and does not occur when she is walking. She normally walks with a wheeled walker. She sometimes has some shortness of breath with it. Chest pain is on the left side of her chest and goes to her left arm and left jaw. She states that she has had this on and off for over a month but continues to worsen. She denies any palpitations. She states sometimes she has some lightheadedness or dizziness. Regarding INR 7.5. Patient states that she has not been feeling good so she is not at her INR checked at the hospital in a long time. Patient also complains of headache and chronic ear pain. Patient does have a pain pump in place. Blood pressure 117/71, heart rate 66, pulse ox 98% on 5 L nasal cannula. Patient is seen today in the emergency center waiting for a bed on the cardiac stepdown unit. Patient is s/p vitamin K 2.5 mg oral. Discussed plan for stress test and she is agreeable to move forward with this today. -EKG: Sinus rhythm with no acute ST-T wave changes. -Chest x-ray: No acute process. -CT angiogram of the head and neck revealed no dissection of cervical internal carotid arteries or vertebral arteries or any evidence of significant stenosis at the carotid bifurcations. No intracranial high-grade stenosis or intracranial aneurysm. -Laboratory studies: CBC within normal limits. INR 7.6 and repeat this morning 4.7. Sodium 141, potassium 3.5, creatinine 1.07 BUN 17. Troponin negative x 3. proBNP 73 -Home cardiac medications: Aspirin 81 mg daily, Bumex 1 mg twice daily, potassium chloride 20 mill equivalents daily, warfarin 3.75 mg as directed, also on levothyroxine. -Echocardiogram performed 12/30/2023 revealed a normal EF. -Dobutamine stress echocardiogram performed 01/2017 revealed no EKG or echocardiographic evidence of ischemia. Review Of Systems: At the time of my exam: CONSTITUTIONAL: Denies fever or chills. Complains of headache. HEENT: Denies blurred vision, vision changes, or eye pain. Denies hemoptysis CARDIOVASCULAR: Denies chest pain. Denies orthopnea. Denies PND. Denies palpitations RESPIRATORY: Denies shortness of breath. GASTROINTESTINAL: Denies abdominal pain. Denies nausea or vomiting. HEMATOLOGIC: Denies bleeding disorders. GENITOURINARY: Denies any blood in urine. SKIN: Denies puritis. Denies rash. Physical examination: Gen: This is a 63-year-old female in no acute distress VS: reviewed HEENT: Head is atraumatic, normocephalic. Pupils equal, round. Sclerae is anicteric. NECK: Supple. No JVD. LUNGS: Clear to auscultation. No wheezes or rhonchi. No intercostal retractions. HEART: Regular rate and rhythm. No murmur. ABDOMEN: Soft No tenderness. EXTREMITIES: No pedal edema. No calf tenderness. NEUROLOGICAL: Patient is awake, alert and oriented x3. Assessment: Atypical chest pain, acute coronary syndrome ruled out Hypercoagulopathy, patient has been noncompliant with INR checks Chronic diastolic heart failure History of pulmonary embolism on Coumadin Pulmonary hypertension Plan: Resume patient's home cardiac medications Coumadin is on hold Obtain dobutamine stress echocardiogram today If stress test is unremarkable, patient is cleared for discharge and may follow- up in the office with Dr. Princess Cheng in 1 month. Thank you kindly for this consultation. Nurse practitioner note has been reviewed, I agree with documented findings and plan of care. Patient was seen and examined. 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 inpast used 02 but not now", murmur when younger,constipation(last bm 2-20-18,vertigo, "dry eye syndrome uses drops 4-6 times a day.stress test .had mamogram apr 2017-neg History of Any Multi-Drug Resistant Organisms: None Reported Past Surgical History: Appendectomy, Section, Cholecystectomy Additional Past Surgical History / Comment(s): 2 c-sections, fissurectomy, colonoscopy Past Anesthesia/Blood Transfusion Reactions: No Reported Reaction Past Psychological History: Depression Smoking Status: Never smoker Past Alcohol Use History: None Reported Past Drug Use History: None Reported - Past Family History Mother Family Medical History: Hypertension Additional Family Medical History / Comment(s): mom's mom had mi and stroke, mom's dad had hx of first mi age 40 and several after and stroke. Father Family Medical History: Cancer, Diabetes Mellitus, Mitral Valve Prolapse (MVP) Additional Family Medical History / Comment(s): lung/bone cancer. dad's mother had hx of cervical cancer and a pacemaker and dad's dad had hx mi's Sister(s) Family Medical History: Cancer, Diabetes Mellitus, Seizure Disorder Additional Family Medical History / Comment(s): one sister had seizures and 2nd sister had dm,skin cancer. Brother(s) Additional Family Medical History / Comment(s): brother had hernia sx and post op complictions-bleeding Medications and Allergies Home Medications Medication Instructions Recorded Confirmed Type Cyclobenzaprine [Flexeril] 10 mg PO BID PRN 02/20/17 06/07/24 History Levothyroxine Sodium [Synthroid] 175 mcg PO DAILY 08/14/20 06/07/24 History Ergocalciferol [Vitamin D2 (1250 1,250 mcg PO MO 11/12/22 06/07/24 History Mcg = 30722 Iu)] buPROPion [Wellbutrin] 100 mg PO BID 11/12/22 06/07/24 History Aspirin EC [Ecotrin Low Dose] 81 mg PO DAILY 12/28/23 06/07/24 History Bumetanide [Bumex] 1 mg PO BID 12/28/23 06/07/24 History DULoxetine HCL [Cymbalta] 30 mg PO HS 12/28/23 06/07/24 History HYDROcodone/APAP 10-325MG [Crane 1 tab PO BID PRN 12/28/23 06/07/24 History 10-325] Patient Own Pump 0 bag 12/28/23 12/28/23 History Potassium Chloride ER [K-Dur 20] 20 meq PO DAILY 12/28/23 06/07/24 History Pregabalin [Lyrica] 200 mg PO TID 12/28/23 06/07/24 History Warfarin [Coumadin] 3.75 mg PO DIRECTED 12/28/23 06/07/24 History risperiDONE [RisperDAL] 0.5 mg PO BID 12/28/23 06/07/24 History Albuterol Sulfate [Albuterol 2 puff PO RT-Q6H PRN 06/07/24 06/07/24 History Sulfate Hfa] Allergies Allergy/AdvReac Type Severity Reaction Status Date / Time carbamazepine [From Tegretol] Allergy Anaphylaxis Verified 06/07/24 15:52 codeine Allergy Anaphylaxis Verified 06/07/24 15:52 phenytoin [From Dilantin] Allergy Unknown Verified 06/07/24 15:52 Physical Exam Vitals: Vital Signs Temp Pulse Pulse Resp BP BP Pulse Ox 06/08/24 03:40 98.2 F 66 12 117/71 98 06/08/24 00:00 98.5 F 73 15 106/55 97 06/07/24 20:00 98.0 F 65 16 119/68 98 06/07/24 12:18 98.6 F 81 18 124/73 92 L Intake and Output 06/07/24 06/08/24 06/08/24 22:59 06:59 14:59 Intake Total 500 Balance 500 Intake: Oral 500 Other: Voiding Method Toilet Toilet # Voids 1 Results 06/07/24 12:50 06/07/24 12:50 Cardiac Enzymes 06/07/24 06/07/24 06/07/24 Range/Units 12:50 12:50 16:15 AST 28 (14-36) U/L Troponin I <0.012 <0.012 (0.000-0.034) ng/mL 06/07/24 Range/Units 19:54 AST (14-36) U/L Troponin I <0.012 (0.000-0.034) ng/mL Coagulation 06/07/24 06/08/24 Range/Units 12:50 06:52 PT 75.5 H 46.4 H (10.0-12.5) sec APTT 58.0 H (22.0-30.0) sec CBC 06/07/24 Range/Units 12:50 WBC 6.9 (3.8-10.6) k/uL RBC 4.21 (3.80-5.40) m/uL Hgb 11.5 (11.4-16.0) gm/dL Hct 35.1 (34.0-46.0) % Plt Count 226 (150-450) k/uL Comprehensive Metabolic Panel 06/07/24 Range/Units 12:50 Sodium 141 (137-145) mmol/L Potassium 3.5 (3.5-5.1) mmol/L Chloride 97 L (98-107) mmol/L Carbon Dioxide 36 H (22-30) mmol/L BUN 17 (7-17) mg/dL Creatinine 1.07 H (0.52-1.04) mg/dL Glucose 99 (74-99) mg/dL Calcium 9.2 (8.4-10.2) mg/dL AST 28 (14-36) U/L ALT 22 (4-34) U/L Alkaline Phosphatase 124 (38-126) U/L Total Protein 7.2 (6.3-8.2) g/dL Albumin 3.8 (3.5-5.0) g/dL Current Medications Generic Name Dose Route Start Last Admin Trade Name Freq PRN Reason Stop Dose Admin Hydrocodone Bitart/Acetaminophen 1 each 06/07/24 19:18 Hydrocodone/Apap 10-325mg 1 Each Tab PO BID PRN Pain Albuterol Sulfate 2.5 mg 06/07/24 19:18 Albuterol Nebulized 2.5 Mg/3 Ml INHALATION RT-Q6H PRN Shortness Of Breath Aspirin 325 mg 06/08/24 09:00 Aspirin 325 Mg Tab PO DAILY KIMBERLYN Bumetanide 1 mg 06/07/24 20:00 06/07/24 21:54 Bumetanide 1 Mg Tab PO 1 mg BID@0900,1600 KIMBERLYN Administration Bupropion HCl 100 mg 06/07/24 21:00 06/07/24 21:54 Bupropion 100 Mg Tab PO 100 mg BID KIMBERLYN Administration Cyclobenzaprine HCl 10 mg 06/07/24 19:18 Cyclobenzaprine 10 Mg Tab PO BID PRN Muscle Spasm Duloxetine HCl 30 mg 06/07/24 21:00 06/07/24 21:54 Duloxetine Hcl 30 Mg Capsule.Dr PO 30 mg HS KIMBERLYN Administration Ergocalciferol 1,250 mcg 06/14/24 09:00 Ergocalciferol 1,250 Mcg (50,000 Iu) Capsule PO MO KIMBERLYN Levothyroxine Sodium 176 mcg 06/08/24 06:30 06/08/24 06:19 Levothyroxine 88 Mcg Tab PO 176 mcg 0630 KIMBERLYN Administration Nitroglycerin 0.4 mg 06/07/24 14:44 Nitroglycerin Sl Tabs 0.4 Mg Tab SUBLINGUAL Q5M PRN Chest Pain Potassium Chloride 20 meq 06/08/24 09:00 Potassium Chloride Er 20 Meq Tab.Er PO DAILY KIMBERLYN Pregabalin 200 mg 06/07/24 22:00 06/07/24 21:54 Pregabalin 100 Mg Cap PO 200 mg TID KIMBERLYN Administration Risperidone 0.5 mg 06/07/24 21:00 06/07/24 21:54 Risperidone 0.5 Mg Tab PO 0.5 mg BID KIMBERLYN Administration Intake and Output 06/07/24 06/08/24 06/08/24 22:59 06:59 14:59 Intake Total 500 Balance 500 Intake: Oral 500 Other: Voiding Method Toilet Toilet # Voids 1 06/07/24 12:50 06/07/24 12:50
[2024-06-08 13:42] LABS: Chol/HDL Ratio 5.33 Ratio; LDL Cholesterol,Calculated 119.8 mg/dL (0.0-131.0)
--- NOTE | 2024-06-08 16:38 | P.CNNES ---
History of Present Illness Consult date: 06/08/24 Requesting physician: Brando Mcguire Reason for Consult: acute on chronic headache History of Present Illness: This is a 63-year-old woman who present emergency department because of chest pain. Neurology is consulted because of headache. Patient states that she has history of migraine headache as well as tension headache for years and that she sees Dr. Suazo's team for her headache/migraines and she is pending to have Botox next month. She said that she tried multiple different medication and were ineffective. States the headache is mostly in bilateral temporal more than the frontal. The headache is more than 10 out of 10 at daily for the most part, she does have photophobia phonophobia at times with nausea. It can last the entire day. And her tension is just the head wrapping. Denies any visual dist urbance or focal weakness. She did have MRI of the brain according to the patient at her outpatient neurologist and was told it was unremarkable. She stated that she tried Elavil and other basic migraine medication but were ineffective. As stated earlier she is pending to have Botox next month. She was seen by Dr. Moreland in the past in June 2021 for her headaches/migraines and per Dr. Moreland's note she recommended avoiding opiates and to follow-up with her neurologist as an outpatient as well as consider a CGRP medication. Also she recommended psychiatry consultation because of her mu ltiple neurological complaints. Seems that psychiatry did evaluate her and they felt somatoform disorder. On reviewing the medical record it seems the patient had MRI of the brain and cervical spine in our facility on October 2022 and it is reported as no evidence of acute/subacute infarct or abnormal contrast-enhancement. Some of the workup during this hospital visit consisted of: I reviewed the labs CT angiography of the head and neck is reported as no evidence of dissection of cervical internal carotid artery or vertebral artery or any evidence of significant stenosis at carotid bifurcation. No evidence of intracranial high- grade stenosis or intracranial aneurysm. Review of Systems As per HPI peer Past Medical History Past Medical History: COPD, Fibromyalgia, Thyroid Disorder Additional Past Medical History / Comment(s): atypical facial pain, trigeminal neuralgia, "24 hour tension headache syndrome", migraines, shingles 2013 around her rt eye area.,hx dvt rt leg and multiple pe's found,past tx for "copd d/t mold in basement of her home that permeated to upstairs. inpast used 02 but not now", murmur when younger,constipation(last bm 07-15-17,vertigo, "dry eye syndrome uses drops 4-6 times a day.stress test .had mamogram apr 2017-neg History of Any Multi-Drug Resistant Organisms: None Reported Past Surgical History: Appendectomy, Section, Cholecystectomy Additional Past Surgical History / Comment(s): 2 c-sections, fissurectomy, colonoscopy Past Anesthesia/Blood Transfusion Reactions: No Reported Reaction Past Psychological History: Depression Additional Psychological History / Comment(s): pt lives at [facility] Smoking Status: Never smoker Past Alcohol Use History: None Reported Past Drug Use History: None Reported - Past Family History Mother Family Medical History: Hypertension Additional Family Medical History / Comment(s): mom's mom had mi and stroke, mom's dad had hx of first mi age 40 and several after and stroke. Father Family Medical History: Cancer, Diabetes Mellitus, Mitral Valve Prolapse (MVP) Additional Family Medical History / Comment(s): lung/bone cancer. dad's mother had hx of cervical cancer and a pacemaker and dad's dad had hx mi's Sister(s) Family Medical History: Cancer, Diabetes Mellitus, Seizure Disorder Additional Family Medical History / Comment(s): one sister had seizures and 2nd sister had dm,skin cancer. Brother(s) Additional Family Medical History / Comment(s): brother had hernia sx and post op complictions-bleeding Medications and Allergies Home Medications Medication Instructions Recorded Confirmed Type Cyclobenzaprine [Flexeril] 10 mg PO BID PRN 02/20/17 06/07/24 History Levothyroxine Sodium [Synthroid] 175 mcg PO DAILY 08/14/20 06/07/24 History Ergocalciferol [Vitamin D2 (1250 1,250 mcg PO MO 11/12/22 06/07/24 History Mcg = 06345 Iu)] buPROPion [Wellbutrin] 100 mg PO BID 11/12/22 06/07/24 History Aspirin EC [Ecotrin Low Dose] 81 mg PO DAILY 12/28/23 06/07/24 History Bumetanide [Bumex] 1 mg PO BID 12/28/23 06/07/24 History DULoxetine HCL [Cymbalta] 30 mg PO HS 12/28/23 06/07/24 History HYDROcodone/APAP 10-325MG [Auberry 1 tab PO BID PRN 12/28/23 06/07/24 History 10-325] Patient Own Pump 0 bag 12/28/23 12/28/23 History Potassium Chloride ER [K-Dur 20] 20 meq PO DAILY 12/28/23 06/07/24 History Pregabalin [Lyrica] 200 mg PO TID 12/28/23 06/07/24 History Warfarin [Coumadin] 3.75 mg PO DIRECTED 12/28/23 06/07/24 History risperiDONE [RisperDAL] 0.5 mg PO BID 12/28/23 06/07/24 History Albuterol Sulfate [Albuterol 2 puff PO RT-Q6H PRN 06/07/24 06/07/24 History Sulfate Hfa] Allergies Allergy/AdvReac Type Severity Reaction Status Date / Time carbamazepine [From Tegretol] Allergy Anaphylaxis Verified 06/07/24 15:52 codeine Allergy Anaphylaxis Verified 06/07/24 15:52 phenytoin [From Dilantin] Allergy Unknown Verified 06/07/24 15:52 Physical Examination - Vital Signs Vital Signs: Vital Signs Temp Pulse Resp BP Pulse Ox 06/08/24 15:35 16 06/08/24 15:31 65 16 118/76 99 06/08/24 12:07 97.6 F 75 16 126/82 97 06/08/24 08:17 98 06/08/24 08:00 97.9 F 68 16 117/66 98 06/08/24 03:40 98.2 F 66 12 117/71 98 06/08/24 00:00 98.5 F 73 15 106/55 97 06/07/24 20:00 98.0 F 65 16 119/68 98 Intake and Output 06/08/24 06/08/24 06/08/24 06:59 14:59 22:59 Intake Total 500 Balance 500 Intake: Oral 500 Other: Voiding Method Toilet # Voids 1 1 # Bowel Movements 0 Weight 114 kg GENERAL: The patient is lying in bed and is not in acute distress. NEUROLOGICAL: Higher mental function: The patient is awake, alert, oriented to self, place and time. Patient is following commands. No aphasia and no neglect. Cranial nerves: The pupils are round, equal and reactive to light and accommodation. Visual alvarado are full to confrontation throughout. Extraocular movement is intact no nystagmus is noted. Facial sensation is normal to touch throughout. The facial strength is normal throughout. Hearing is normal b ilaterally to hand rub. Tongue is midline and moved [id number] without any difficulty. No dysarthria is noted. Shoulder shrug is normal bilaterally. Motor: The strength is 5 over 5 throughout. Normal tone and bulk. Cerebellum: Normal finger to nose bilaterally. Sensation: Sensation is normal to touch throughout. Reflexes (right/left): 2+ throughout. Plantars are downgoing bilaterally. Results - Laboratory Findings CBC and BMP: 06/07/24 12:50 06/07/24 12:50 Abnormal Lab Findings: Abnormal Labs 06/07/24 06/07/24 06/08/24 12:50 12:50 06:52 PT 75.5 H INR 7.6 H* APTT 58.0 H Chloride 97 L Carbon Dioxide 36 H Creatinine 1.07 H Triglycerides 254.00 H Cholesterol 210.00 H VLDL Cholesterol, Calc 50.80 H HDL Cholesterol 39.40 L 06/08/24 06:52 PT 46.4 H INR 4.7 H APTT Chloride Carbon Dioxide Creatinine Triglycerides Cholesterol VLDL Cholesterol, Calc HDL Cholesterol Assessment and Plan Assessment: This is a 63-year-old woman who present emergency department because of chest pain. Neurology is consulted for ongoing headache. Patient states she has a history of migraine as well as tension headache and pending to have Botox as an outpatient by her neurologist next month. She had MRI of the brain and cervical spine in our facility in October 2022 which was unremarkable. Also she had during this hospital visit CT angiography of the head and neck which is unremarkable. Ongoing chronic cephalgia/migraine and tension headache. Patient is pending to have Botox injection at her outpatient neurology clinic Acute chest pain Somatoform disorder Plan: Recommend the patient to be on Topamax can help with her migraines but notified about the side effects but she declined. Therefore recommend the patient to follow-up with her outpatient neurologist as an outpatient for her scheduled Botox and if possible to start the process earlier than next month. Recommend also as Dr. Moreland recommended on 06/2021 CGRP inhibitor medications for her migraine but needs to be facilitated by her outpatient neurologist. Patient to continue to follow-up with her outpatient neurologist (Dr. Suazo) within 2 weeks. Thank you for the consultation Otherwise no additional neurological workup. Will sign off. Please reconsult if needed. Time with Patient: Greater than 30
--- NOTE | 2024-06-08 17:01 | P.PN ---
Progress Note - Text Progress Note Date: 06/08/24 Chief Complaint: Chest pain 63-year-old patient, with chronic medical conditions that include morbid obesity, COPD, chronic family with chronic pain syndrome has a pain pump follow Dr. Suazo, chronic DVTs and PEs, hypothyroid, chronic headaches hypothyroid, dry eye syndrome. Patient earlier today developed left precordial pain. Lasted for about 5 minutes. It went down the left arm. Some lightheadedness. No perspiration. No shortness of breath. Patient also complaining of having headache started last night. No nausea vomiting. Patient had a good meal today. No fever no chills. Does use a four-wheel walker. Normally is a bowel movement once a week. No focal weakness. 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 Sean Cheng in March. June 08: Overflowing the ER. Dobutamine echocardiogram stress echocardiogram done per cardiology. Results pending. No chest pain. Seen by neurology. No further intervention. CT scan of the head and neck was unremarkable. Active Medications Hydrocodone Bitart/Acetaminophen (Hydrocodone/Apap 10-325mg 1 Each Tab) 1 each PO BID PRN PRN Reason: Pain Albuterol Sulfate (Albuterol Nebulized 2.5 Mg/3 Ml) 2.5 mg INHALATION RT-Q6H PRN PRN Reason: Shortness Of Breath Aspirin (Aspirin 325 Mg Tab) 325 mg PO DAILY [facility] Last Admin: 06/08/24 08:59 Dose: 325 mg Bumetanide (Bumetanide 1 Mg Tab) 1 mg PO BID@0900,1600 [facility] Last Admin: 06/08/24 15:54 Dose: 1 mg Bupropion HCl (Bupropion 100 Mg Tab) 100 mg PO BID [facility] Last Admin: 06/08/24 09:00 Dose: 100 mg Cyclobenzaprine HCl (Cyclobenzaprine 10 Mg Tab) 10 mg PO BID PRN PRN Reason: Muscle Spasm Duloxetine HCl (Duloxetine Hcl 30 Mg Capsule.) 30 mg PO HS [facility] Last Admin: 06/07/24 21:54 Dose: 30 mg Ergocalciferol (Ergocalciferol 1,250 Mcg (50,000 Iu) Capsule) 1,250 mcg PO MO [facility] Levothyroxine Sodium (Levothyroxine 88 Mcg Tab) 176 mcg PO 0630 [facility] Last Admin: 06/08/24 06:19 Dose: 176 mcg Nitroglycerin (Nitroglycerin Sl Tabs 0.4 Mg Tab) 0.4 mg SUBLINGUAL Q5M PRN PRN Reason: Chest Pain Potassium Chloride (Potassium Chloride Er 20 Meq Tab.Er) 20 meq PO DAILY [facility] Last Admin: 06/08/24 08:59 Dose: 20 meq Pregabalin (Pregabalin 100 Mg Cap) 200 mg PO TID [facility] Last Admin: 06/08/24 15:54 Dose: 200 mg Risperidone (Risperidone 0.5 Mg Tab) 0.5 mg PO BID [facility] Last Admin: 06/08/24 09:00 Dose: 0.5 mg Social history: Denies smoking alcohol. Does use a four-wheel walker. Physical examination: VITAL SIGNS:9 7.6, 65, 16, 118 x 76, 99% on 3 L GENERAL: BMI 22.4, r reclining, comfortable EYES: Pupils equal. Conjunctiva lu l. HEENT: External appearance of nose and ears normal, oral cavity grossly normal. NECK: JVD not raised; masses not palpable. HEART: First and second heart sounds are normal; no edema. LUNGS: Respiratory rate normal; clear to auscultation. ABDOMEN: Soft, nontender, liver spleen not palpable, no masses palpable. PSYCH: [Alert and oriented x3; mood and affect a bit tired appearing. MUSCULOSKELETAL:No Clubbing/cyanosis;muscles-grossly intact INVESTIGATIONS, reviewed in the clinical context: CT head and neck with contrast: Unremarkable INR 4.7 June 07: White count 6.9 hemoglobin 11.5 platelets 226 INR 7.6 sodium 141 potassium 3.5 BUN 17 creatinine 1.07 Troponin I less than 0.012 x 2 EKG tracing personally reviewed by me-normal sinus rhythm. Chest x-ray film personally reviewed by me-some cardiomegaly. Assessment and plan: -Left precordial chest pain. Lasted for about 5 minutes. Associated with some lightheadedness. EKG unremarkable. Troponin negative. Telemetry. Cardiology following Dobutamine stress echocardiogram done today. Pending results -COPD, and a non-smoker Albuterol as needed. -Chronic fibromyalgia, with chronic pain syndrome Cymbalta. Flexeril. Lyrica. Pain pump. Patient does follow with Dr. Ki nix -Chronic DVTs and PEs On Coumadin -Coumadin toxicity with no bleeding: Initial INR 7.6 Hold Coumadin tonight. Received Vitamin K p.o. 2.5 mg Follow INR -Depression Wellbutrin -History of psychosis Risperdal -Hypothyroid Synthroid 176 g daily -Acute on chronic headaches CT head and neck with contrast: Unremarkable Seen by neurology Dr. HENNESSY. Patient to follow-up with her neurologist. -Dry eye syndrome Artificial tears Stress echocardiogram done. Results pending. Per neurology to follow-up with his neurologist outpatient. 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 inpast used 02 but not now", murmur when younger,constipation(last bm 2-20-18,vertigo, "dry eye syndrome uses drops 4-6 times a day.stress test .had mamogram apr 2017-neg History of Any Multi-Drug Resistant Organisms: None Reported Past Surgical History: Appendectomy, Section, Cholecystectomy Additional Past Surgical History / Comment(s): 2 c-sections, fissurectomy, colonoscopy Past Anesthesia/Blood Transfusion Reactions: No Reported Reaction Past Psychological History: Depression Smoking Status: Never smoker Past Alcohol Use History: None Reported Past Drug Use History: None Reported
[2024-06-08] MEDS: HYDROcodone/APAP 10-325MG 1 EACH TAB PO PRN (17:31)
--- NOTE | 2024-06-08 18:05 | CA ---
Dobutamine Stress Echocardiogram Report Stephanie Mendez Age: 63 Gender: F : 1960 Exam Date: 06/08/2024 10:57 Exam Location: [facility] Ordering Physician: Chanelle Soto Referring Physician: SONIA/EMMA,, Guest Experience Manager: Megan Freeman RDCS Technologist: Ht (in): 69 Wt (lb): 252 Procedure CPT: Indication: Chest Pain ICD-9 Codes: Rhythm: Patient History: CHEST PAIN, DIFFICULTY IN BREATHING, FAMILY HX OF HEART DISEASE, PRIOR HEART CATH, COPD Cardiac Medications: Medications in past 24 hours: Contrast: Definity Total Dose (mL): 3 Stress Results Protocol: Dobutamine Peak Dose (???g/kg/min): 40 Duration (min:sec): Atropine:(mg) Target HR: 133 Double Product: [id number] Resting HR: 68 Resting BP: 126 / 72 Peak HR: 137 Peak BP: 158 / 63 Max Predicted HR: 157 87 % Max Predicted HR Stress Summary: BP Response: Reason for Termination: Target HR Cardiac Symptoms: NO SYMPTOMS ECG Analysis Resting EKG: Normal sinus rhythm incomplete right bundle branch block Stress EKG: No abnormal ST/T wave changes with exercise Arrhythmia: Occasional PVCs Echo Analysis Base Echo Analysis: Normal resting echocardiogram. Low Echo Anaylsis: Normal wall thickening and motion Peak Echo Analysis: Normal wall motion and augmentation Recovery Echo: Normal left ventricular systolic function MEASUREMENTS (Male/Female) Normal Values CONCLUSIONS Normal response to Dobutamine no electrocardiographic changes. No echocardiographic evidence of myocardial ischemia. Normal stress echocardiogram Dr. Be Cook MD (Electronically Signed) Final Date: 08 June 2024 18:03
[2024-06-08] MEDS: CYCLOBENZAPRINE 10 MG TAB PO PRN (21:33)
[2024-06-09 14:09] VITALS: BP 97/62; PULSE 74; RESP 16; TEMP 98.5
--- NOTE | 2024-06-09 14:32 | P.PN ---
Subjective Progress Note Date: 06/09/24 Consult reason: chest pain History of present illness: This is a 63-year-old female patient of Dr. Princess Cheng with past medical history of pulmonary embolism on Coumadin, pulmonary hypertension, hypertension, chronic diastolic heart failure. We have been asked to evaluate the patient for chest pain. Patient states that she had 4 episodes of chest pain yesterday and also 1 this morning. She states the pain occurs while she is at rest and does not occ ur when she is walking. She normally walks with a wheeled walker. She sometimes has some shortness of breath with it. Chest pain is on the left side of her chest and goes to her left arm and left jaw. She states that she has had this on and off for over a month but continues to worsen. She denies any palpitations. She states sometimes she has some lightheadedness or dizziness. Regarding INR 7.5. Patient states that she has not been feeling good so she is not at her INR checked at the hospital in a long time. Patient also complains of headache and chronic ear pain. Patient does have a pain pump in place. Blood pressure 117/71, heart rate 66, pulse ox 98% on 5 L nasal cannula. Patient is seen today in the emergency center waiting for a bed on the cardiac stepdown unit. Patient is s/p vitamin K 2.5 mg oral. Discussed plan for stress test and she is agreeable to move forward with this today. -EKG: Sinus rhythm with no acute ST-T wave changes. -Chest x-ray: No acute process. -CT angiogram of the head and neck revealed no dissection of cervical internal carotid arteries or vertebral arteries or any evidence of significant stenosis at the carotid bifurcations. No intracranial high-grade stenosis or intracranial aneurysm. -Laboratory studies: CBC within normal limits. INR 7.6 and repeat this morning 4.7. Sodium 141, potassium 3.5, creatinine 1.07 BUN 17. Troponin negative x 3. proBNP 73 -Home cardiac medications: Aspirin 81 mg daily, Bumex 1 mg twice daily, potassi um chloride 20 mill equivalents daily, warfarin 3.75 mg as directed, also on levothyroxine. -Echocardiogram performed 12/30/2023 revealed a normal EF. -Dobutamine stress echocardiogram performed 01/2017 revealed no EKG or echocardiographic evidence of ischemia. 06/09/2024 Patient seen and examined. Patient underwent a dobutamine stress echocardiogram yesterday which was reportedly as normal study. Patient denies having any chest pain, no shortness of breath. Physical examination: Gen: This is a 63-year-old female in no acute distress VS: reviewed HEENT: Head is atraumatic, normocephalic. Pupils equal, round. Sclerae is anicteric. NECK: Supple. No JVD. LUNGS: Clear to auscultation. No wheezes or rhonchi. No intercostal retractions. HEART: Regular rate and rhythm. No murmur. ABDOMEN: Soft No tenderness. EXTREMITIES: No pedal edema. No calf tenderness. NEUROLOGICAL: Patient is awake, alert and oriented x3. Assessment: Atypical chest pain, acute coronary syndrome ruled out Hypercoagulopathy, patient has been noncompliant with INR checks Chronic diastolic heart failure History of pulmonary embolism on Coumadin Pulmonary hypertension Plan: Resume patient's home cardiac medications Obtain INR, attending to follow-up. Patient is cleared for discharge and may follow-up in the office with Dr. Princess Cheng in 1 month. Nurse practitioner note has been reviewed, I agree with documented findings and plan of care. Patient was seen and examined. Objective - Vital Signs Vital signs: Vital Signs Temp 98.4 F 06/08/24 21:20 Pulse 88 06/09/24 08:00 Resp 18 06/09/24 08:00 BP 94/56 06/09/24 08:00 Pulse Ox 94 L 06/09/24 08:00 FiO2 Intake & Output 06/08/24 06/09/24 06/09/24 18:59 06:59 18:59 Intake Total 118 597 118 Balance 118 597 118 Weight 114 kg 115.6 kg Intake: Oral 118 597 118 Other: Voiding Method Toilet Toilet # Voids 1 1 # Bowel Movements 0 - Labs CBC & Chem 7: 06/07/24 12:50 06/07/24 12:50 Labs: Abnormal Lab Results - Last 24 Hours (Table) 06/08/24 Range/Units 06:52 Triglycerides 254.00 H (0.00-149.00) mg/dL Cholesterol 210.00 H (0.00-200.00) mg/dL VLDL Cholesterol, Calc 50.80 H (5.00-40.00) mg/dL HDL Cholesterol 39.40 L (40.00-60.00) mg/dL
[2024-06-09 15:09] LABS: INR 1.8 (<1.2); Prothrombin Time 18.1 sec (10.0-12.5)
--- NOTE | 2024-06-10 21:23 | P.DS ---
Providers Date of admission: 06/07/24 14:45 Expected date of discharge: 06/09/24 Attending physician: Brando Mcguire Consults: 06/07/24 14:44 Consult Physician Urgent Consulting Provider: [facility] Consult Reason/Comments: Chest pain Do you want consulting provider notified?: Yes 06/07/24 19:59 Consult Physician Routine Consulting Provider: Christian Martin Consult Reason/Comments: Acute on chronic headache Do you want consulting provider notified?: Yes Primary care physician: [facility] Course: Chief Complaint: Chest pain 63-year-old patient, with chronic medical conditions that include morbid obesity, COPD, chronic family with chronic pain syndrome has a pain pump follow Dr. Suazo, chronic DVTs and PEs, hypothyroid, chronic headaches hypothyroid, dry eye syndrome. Patient earlier today developed left precordial pain. Lasted for about 5 minutes. It went down the left arm. Some lightheadedness. No perspiration. No shortness of breath. Patient also complaining of having headache started last night. No nausea vomiting. Patient had a good meal today. No fever no chills. Does use a four-wheel walker. Normally is a bowel movement once a week. No focal weakness. 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 Sean Cheng in March. June 08: Overflowing the ER. Dobutamine echocardiogram stress echocardiogram done per cardiology. Results pending. No chest pain. Seen by neurology. No further intervention. CT scan of the head and neck was unremarkable. June 09: Patient doing well. No chest pain. Cleared by cardiology. Patient to follow-up with her own neurologist. Neurology signed off. Social history: Denies smoking alcohol. Does use a four-wheel walker. Physical examination: VITAL SIGNS: 98.5, 74, 16, 97 x 62, 97% on 2 L GENERAL: BMI 22.4, r reclining, comfortable EYES: Pupils equal. Conjunctiva lu l. HEENT: External appearance of nose and ears normal, oral cavity grossly normal. NECK: JVD not raised; masses not palpable. HEART: First and second heart sounds are normal; no edema. LUNGS: Respiratory rate normal; clear to auscultation. ABDOMEN: Soft, nontender, liver spleen not palpable, no masses palpable. PSYCH: [Alert and oriented x3; mood and affect a bit tired appearing. MUSCULOSKELETAL:No Clubbing/cyanosis;muscles-grossly intact INVESTIGATIONS, reviewed in the clinical context: Dobutamine stress echocardiogram: Unremarkable June 09: INR 1.8 CT head and neck with contrast: Unremarkable INR 4.7 June 07: White count 6.9 hemoglobin 11.5 platelets 226 INR 7.6 sodium 141 potassium 3.5 BUN 17 creatinine 1.07 Troponin I less than 0.012 x 2 EKG tracing personally reviewed by me-normal sinus rhythm. Chest x-ray film personally reviewed by me-some cardiomegaly. Assessment and plan: -Left precordial chest pain. Lasted for about 5 minutes. Associated with some lightheadedness.: [place] to be noncardiac EKG unremarkable. Troponin negative. Telemetry. Cardiology following Dobutamine stress echocardiogram-remarkable -COPD, and a non-smoker Albuterol as needed. -Chronic fibromyalgia, with chronic pain syndrome Cymbalta. Flexeril. Lyrica. Pain pump. Patient does follow with Dr. Ki nix -Chronic DVTs and PEs On Coumadin -Coumadin toxicity with no bleeding: Initial INR 7.6 INR down to 1.5 Received Vitamin K p.o. 2.5 mg Discharged on Coumadin 2.5 mg daily. Follow INR check schedule outpatient. -Depression Wellbutrin -History of psychosis Risperdal -Hypothyroid Synthroid 176 g daily -Acute on chronic headaches: Improved CT head and neck with contrast: Unremarkable Seen by neurology Dr. MARTIN. Patient to follow-up with her neurologist. -Dry eye syndrome Artificial tears Disposition: Home Past Medical History Past Medical History: COPD, Fibromyalgia, Thyroid Disorder Additional Past Medical History / Comment(s): atypical facial pain, trigeminal neuralgia, "24 hour tension headache syndrome", migraines, shingles 2013 around her rt eye area.,hx dvt rt leg and multiple pe's found,past tx for "copd d/t mold in basement of her home that permeated to upstairs. inpast used 02 but not now", murmur when younger,constipation(last bm 2-20-18,vertigo, "dry eye syndrome uses drops 4-6 times a day.stress test .had mamogram apr 2017-neg History of Any Multi-Drug Resistant Organisms: None Reported Past Surgical History: Appendectomy, Section, Cholecystectomy Additional Past Surgical History / Comment(s): 2 c-sections, fissurectomy, colonoscopy Past Anesthesia/Blood Transfusion Reactions: No Reported Reaction Past Psychological History: Depression Smoking Status: Never smoker Past Alcohol Use History: None Reported Past Drug Use History: None Reported Plan - Discharge Summary Discharge Rx Participant: No New Discharge Prescriptions: New Nitroglycerin Sl Tabs [Nitrostat] 0.4 mg SUBLINGUAL Q5M PRN #30 tab PRN Reason: Chest Pain Continue Cyclobenzaprine [Flexeril] 10 mg PO BID PRN PRN Reason: Muscle Spasm HYDROcodone/APAP 10-325MG [[place]oper 10-325] 1 tab PO BID PRN PRN Reason: Pain Aspirin EC [Ecotrin Low Dose] 81 mg PO DAILY Pregabalin [Lyrica] 200 mg PO TID Potassium Chloride ER [K-Dur 20] 20 meq PO DAILY Bumetanide [BUMEX] 1 mg PO BID Patient Own Pump 0 bag Albuterol Sulfate [Albuterol Sulfate Hfa] 2 puff PO RT-Q6H PRN PRN Reason: Shortness Of Breath Levothyroxine Sodium [Synthroid] 175 mcg PO DAILY buPROPion [Wellbutrin] 100 mg PO BID Ergocalciferol [Vitamin D2 (1250 Mcg = 10709 Iu)] 1,250 mcg PO MO risperiDONE [RisperDAL] 0.5 mg PO BID DULoxetine HCL [Cymbalta] 30 mg PO HS Changed Warfarin [Coumadin] 2.5 mg PO DAILY #0 Discharge Medication List Cyclobenzaprine [Flexeril] 10 mg PO BID PRN 02/20/17 [History] Levothyroxine Sodium [Synthroid] 175 mcg PO DAILY 08/14/20 [History] Ergocalciferol [Vitamin D2 (1250 Mcg = 51300 Iu)] 1,250 mcg PO MO 11/12/22 [History] buPROPion [Wellbutrin] 100 mg PO BID 11/12/22 [History] Aspirin EC [Ecotrin Low Dose] 81 mg PO DAILY 12/28/23 [History] Bumetanide [BUMEX] 1 mg PO BID 12/28/23 [History] DULoxetine HCL [Cymbalta] 30 mg PO HS 12/28/23 [History] HYDROcodone/APAP 10-325MG [[place]oper 10-325] 1 tab PO BID PRN 12/28/23 [History] Patient Own Pump 0 bag 12/28/23 [History] Potassium Chloride ER [K-Dur 20] 20 meq PO DAILY 12/28/23 [History] Pregabalin [Lyrica] 200 mg PO TID 12/28/23 [History] risperiDONE [RisperDAL] 0.5 mg PO BID 12/28/23 [History] Albuterol Sulfate [Albuterol Sulfate Hfa] 2 puff PO RT-Q6H PRN 06/07/24 [History] Nitroglycerin Sl Tabs [Nitrostat] 0.4 mg SUBLINGUAL Q5M PRN #30 tab 06/09/24 [Rx] Warfarin [Coumadin] 2.5 mg PO DAILY #0 06/09/24 [Rx] Follow up Appointment(s)/Referral(s): Yovanny Mcdonald MD [Primary Care Provider] - 1-2 days (Office currently closed please call to set up follow appointment) Zeyad Cheng MD [STAFF PHYSICIAN] - 06/17/24 2:30 pm Patient Instructions/Handouts: Chest Pain (DC) Discharge Disposition: HOME WITH HOME HEALTH SERVICES
[2024-06-14] MEDS ORDERED: ERGOCALCIFEROL 1,250 MCG (50,000 IU) CAPSULE PO SCH (09:00)
== END 2024-06-09 18:05 | disposition home health service (06) ==
LOC: EC 11:54 → 3SCARD 14:45 → INTOOBSV 14:45 → 3SCARD 15:40
PROVIDERS: ADMIT Hospitalist; ATTEND Hospitalist
DX: R07.2 Precordial pain (principal); G43.909 Migraine, unspecified, not intractable, without status migrainosus; G44.209 Tension-type headache, unspecified, not intractable; J44.9 Chronic obstructive pulmonary disease, unspecified; T45.511A Poisoning by anticoagulants, accidental (unintentional), initial encounter; Z91.199 Patient's noncompliance with other medical treatment and regimen due to unspecified reason; R07.89 Other chest pain; I50.32 Chronic diastolic (congestive) heart failure; I11.0 Hypertensive heart disease with heart failure; E78.00 Pure hypercholesterolemia, unspecified; I27.20 Pulmonary hypertension, unspecified; E03.9 Hypothyroidism, unspecified; G89.4 Chronic pain syndrome; M79.7 Fibromyalgia; E66.01 Morbid (severe) obesity due to excess calories; Z68.37 Body mass index [BMI] 37.0-37.9, adult; H04.129 Dry eye syndrome of unspecified lacrimal gland; F32.A Depression, unspecified; F45.9 Somatoform disorder, unspecified; Z79.890 Hormone replacement therapy; Z79.82 Long term (current) use of aspirin; Z79.01 Long term (current) use of anticoagulants; Z79.899 Other long term (current) drug therapy; Z88.5 Allergy status to narcotic agent; Z88.8 Allergy status to other drugs, medicaments and biological substances; Z86.711 Personal history of pulmonary embolism; Z86.718 Personal history of other venous thrombosis and embolism; Z97.8 Presence of other specified devices; Z86.59 Personal history of other mental and behavioral disorders; Z82.49 Family history of ischemic heart disease and other diseases of the circulatory system
CPT/HCPCS: 99285; 36415; 94760; 93005 ×2; 83880; 80061; 80053; 83735; 84484; 85025; 85610 ×3; 85730; 71046; 70496; 70498; G0378 ×2; C8930; Q9957; Q9967; 93351

== ENCOUNTER → 2024-09-06 | Outpatient (CLI) | payer MEDICARE | END | disposition home or self-care (01) | LOC: LABWHC1 16:18 | PROVIDERS: ATTEND Internal Medicine Pulmonary Disease | DX: I27.24 Chronic thromboembolic pulmonary hypertension (principal); E66.01 Morbid (severe) obesity due to excess calories; J45.51 Severe persistent asthma with (acute) exacerbation; J96.01 Acute respiratory failure with hypoxia | CPT/HCPCS: 36415; 82103 ==

== ENCOUNTER → 2024-10-13 | Outpatient (CLI) | payer MEDICARE ==
--- NOTE | 2024-10-13 12:45 | XR ---
EXAMINATION TYPE: XR chest 2V DATE OF EXAM: 10/13/2024 12:39 PM COMPARISON: 06/07/2024 CLINICAL INDICATION: Female, 64 years old with history of I50.33 CHRONIC CONGESTIVE HEART FAILURE, , TECHNIQUE: Frontal and lateral views FINDINGS: Heart upper limits of normal in size. Mild interstitial density. No sandra consolidation or pleural ef fusion. IMPRESSION: Borderline heart size and mild interstitial density. Consider mild pulmonary vascular congestion vers us bronchitis or asthma. [facility], , 10/13/2024 12:43 PM
[2024-10-13 15:38] LABS: INR 1.72 sec (0.93-1.11); Prothrombin Time 18.8 sec (9.9-11.9)
[2024-10-13 15:46] LABS: HCT 36.9 % (37.2-46.3); HGB 11.3 g/dL (12.0-15.0); MCH 25.1 pg (27.0-32.0); MCHC 30.6 g/dL (32.0-37.0); MCV 81.8 FL (80.0-97.0); Mean Platelet Volume 9.9 FL (9.5-12.2); NRBC Per 100 WBC 0 X 10*3/uL (0.00-0.01); Platelet Count 225 X 10*3/uL (140-440); RBC 4.51 X 10*6/uL (4.10-5.20); RDW 15.6 % (11.5-14.5); WBC 5.63 X 10*3/uL (4.50-10.00)
[2024-10-13 16:25] LABS: BUN/Creat Ratio 20.56 Ratio (12.00-20.00); Blood Urea Nitrogen 18.5 mg/dL (9.0-27.0); Calcium 8.7 mg/dL (8.7-10.3); Carbon Dioxide 31.1 mmol/L (21.6-31.8); Chloride 96 mmol/L (96-109); Glucose 118 mg/dL (70-110); Potassium 3.4 mmol/L (3.5-5.5); Sodium 140 mmol/L (135-145)
[2024-10-13 16:33] LABS: NT-Pro-B-Type Natriuretic Pept 72 pg/mL (0-125)
== END | disposition home or self-care (01) ==
LOC: LABWHC1 12:08
PROVIDERS: ATTEND Internal Medicine Cardiovascular Disease
DX: I50.33 Acute on chronic diastolic (congestive) heart failure (principal); Z79.899 Other long term (current) drug therapy
CPT/HCPCS: 36415; 71046; 80048; 83880; 85027; 85610

== ENCOUNTER 2024-10-24 15:32 | Inpatient (IN) | payer MEDICARE ==
--- NOTE | 2024-10-24 16:00 | ED ---
SOB HPI - General Chief Complaint: Shortness of Breath Stated Complaint: HANNAH Time Seen by Provider: 10/24/24 16:00 Source: patient, RN notes reviewed, old records reviewed Mode of arrival: ambulatory Limitations: no limitations - History of Present Illness Initial Comments: 64-year-old female with a past medical history significant of COPD, CHF, fibromyalgia and thyroid disorder presenting the ER for evaluation of shortness of breath. Patient reports she typically wears 2 L nasal cannula oxygen at home. Patient states she was recently admitted to this facility for COPD exacerbation and was on IV steroids. Patient was discharged on 10-21-2024. Patient states over the past couple days she has continued cough, congestion, wheezing and shortness of breath. She has used nebulizers and inhalers as prescribed without relief of symptoms. Patient reports worsening peripheral edema over the past couple of days as well. She has been taking her diuretic. She states today she had to increase her oxygen to 4 L as she found her oxygen to be 88% on 2 L. Patient admits to exertional dyspnea mild orthopnea. She does admit to chest discomfort while coughing. None at rest. She denies any fevers, nausea, vomiting, abdominal pain, urinary complaints, change in bowel habits. - Related Data Home Medications Medication Instructions Recorded Confirmed Cyclobenzaprine [Flexeril] 10 mg PO BID 02/20/17 10/24/24 Levothyroxine Sodium [Synthroid] 175 mcg PO DAILY 08/14/20 10/24/24 Ergocalciferol [Vitamin D2 (1250 1,250 mcg PO MO 11/12/22 10/24/24 Mcg = 97251 Iu)] DULoxetine HCL [Cymbalta] 30 mg PO HS 12/28/23 10/24/24 HYDROcodone/APAP 10-325MG [[place] 1 tab PO BID 12/28/23 10/24/24 10-325] Patient Own Pump 0 bag 12/28/23 12/28/23 Potassium Chloride ER [K-Dur 20] 20 meq PO DAILY 12/28/23 10/24/24 Pregabalin [Lyrica] 200 mg PO TID 12/28/23 10/24/24 risperiDONE [RisperDAL] 0.5 mg PO BID 12/28/23 10/24/24 Ammonium Lactate Cream [Lac-Hydrin 1 applic TOPICAL BID PRN 10/15/24 10/24/24 12% Cream] Bumetanide [BUMEX] 2 mg PO BID@0900,1200 10/15/24 10/24/24 Bumetanide [BUMEX] 2 mg PO DAILY PRN 10/15/24 10/24/24 Warfarin [Coumadin] 2.5 mg PO HS 10/15/24 10/24/24 Ipratropium-Albuterol Nebulize 3 ml INHALATION RT-BID 10/24/24 10/24/24 [Duoneb 0.5 mg-3 mg/3 ml Soln] Previous Rx's Medication Instructions Recorded Nitroglycerin Sl Tabs [Nitrostat] 0.4 mg SUBLINGUAL Q5M PRN #30 tab 06/09/24 Budesonide-Formot 160-4.5 Mcg 2 puff INHALATION RT-BID #1 each 10/21/24 [Symbicort 160-4.5 Mcg Inhaler] Fluconazole [Diflucan] 100 mg PO DAILY #5 tab 10/21/24 Allergies Allergy/AdvReac Type Severity Reaction Status Date / Time carbamazepine [From Tegretol] Allergy Anaphylaxis Verified 10/24/24 17:44 codeine Allergy Anaphylaxis Verified 10/24/24 17:44 phenytoin [From Dilantin] Allergy Unknown Verified 10/24/24 17:44 Review of Systems ROS Statement: Those systems with pertinent positive or pertinent negative responses have been documented in the HPI. ROS Other: All systems not noted in ROS Statement are negative. 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 inpast used 02 but not now", murmur when younger,constipation(last bm 2-20-18,vertigo, "dry eye syndrome uses drops 4-6 times a day.stress test .had mamogram apr 2017-neg History of Any Multi-Drug Resistant Organisms: None Reported Past Surgical History: Appendectomy, Section, Cholecystectomy Additional Past Surgical History / Comment(s): 2 c-sections, fissurectomy, colonoscopy Past Anesthesia/Blood Transfusion Reactions: No Reported Reaction Past Psychological History: Depression Smoking Status: Never smoker Past Alcohol Use History: None Reported Past Drug Use History: None Reported - Past Family History Mother Family Medical History: Hypertension Additional Family Medical History / Comment(s): mom's mom had mi and stroke, mom's dad had hx of first mi age 40 and several after and stroke. Father Family Medical History: Cancer, Diabetes Mellitus, Mitral Valve Prolapse (MVP) Additional Family Medical History / Comment(s): lung/bone cancer. dad's mother had hx of cervical cancer and a pacemaker and dad's dad had hx mi's Sister(s) Family Medical History: Cancer, Diabetes Mellitus, Seizure Disorder Additional Family Medical History / Comment(s): one sister had seizures and 2nd sister had dm,skin cancer. Brother(s) Additional Family Medical History / Comment(s): brother had hernia sx and post o p complictions-bleeding General Exam Limitations: no limitations General appearance: alert, in no apparent distress ENT exam: Present: normal exam, normal oropharynx, mucous membranes moist Respiratory exam: Present: wheezes (Expiratory bilaterally) Cardiovascular Exam: Present: normal rhythm, tachycardia, normal heart sounds Extremities exam: Present: normal inspection, full ROM, normal capillary refill, pedal edema (Nonpitting bilaterally-pretibial). Absent: tenderness, joint swelling, calf tenderness Neurological exam: Present: alert, oriented X3, CN II-XII intact Skin exam: Present: warm, dry, intact, normal color. Absent: rash Course Vital Signs 10/24/24 10/24/24 10/24/24 15:42 15:53 16:01 Temperature 98.5 F 98.7 F Pulse Rate 107 H 101 H Respiratory 20 18 16 Rate Blood Pressure 114/80 136/84 O2 Sat by Pulse 97 96 Oximetry 10/24/24 10/24/24 10/24/24 16:13 16:21 17:00 Temperature Pulse Rate 94 90 Respiratory 20 18 Rate Blood Pressure 127/68 O2 Sat by Pulse Oximetry 10/24/24 10/24/24 10/24/24 17:28 17:39 17:50 Temperature Pulse Rate 105 H 91 88 Respiratory 22 18 16 Rate Blood Pressure 127/59 O2 Sat by Pulse 95 Oximetry 10/24/24 18:48 Temperature Pulse Rate 84 Respiratory 16 Rate Blood Pressure 131/68 O2 Sat by Pulse 95 Oximetry - Reevaluation(s) Reevaluation #1: 10/24/24 17:21 Patient reevaluated. No signs of acute distress. Vital signs stable. Patient sleeping in exam room. 10/24/24 18:[address] Mcguire for admission. Medical Decision Making - Medical Decision Making Was pt. sent in by a medical professional or institution (, PA, [employer], urgent care, hospital, or [place] [facility] facility...) When possible be specific @ -No Did you speak to anyone other than the patient for history (EMS, parent, family, police, friend...)? What history was obtained from this source @ -No Did you review nursing and triage notes (agree or disagree)? Why? @ -I reviewed and agree with nursing and triage notes Were old charts reviewed (outside hosp., previous admission, EMS record, old EKG, old radiological studies, urgent care reports/EKG's, [place] [facility] facility records)? Report findings @ -ER visit and admission from 10-15-2024. Patient evaluated for COPD exacerbation and was discharged on 10-21-2024. Differential Diagnosis (chest pain, altered mental status, abdominal pain women, abdominal pain men, vaginal bleeding, weakness, fever, dyspnea, syncope, headache, dizziness, GI bleed, back pain, seizure, CVA, palpatations, mental health, musculoskeletal)? @ -Differential Dyspnea:Coronary syndrome, arrhythmia, tamponade, asthma, COPD, pulmonary embolism, pneumonia, pneumothorax, pulmonary effusion, anaphylaxis, diabetic ketoacidosis, flailed chest, pulmonary contusion, diaphragmatic rupture, anemia, neuromuscular, this is not meant to be an all-inclusive list. EKG interpreted by me (3pts min.). @ -As above X-rays interpreted by me (1pt min.). @ -CXR interpreted by me CT interpreted by me (1pt min.). @ -None done U/S interpreted by me (1pt. min.). @ -None done What testing was considered but not performed or refused? (CT, X-rays, U/S, labs)? Why? @ -None What meds were considered but not given or refused? Why? @ -None Did you discuss the management of the patient with other professionals (professionals i.e. , PA, [employer], lab, RT, psych nurse, director of social media marketing, doughnut dough mixer, teacher, restoration officer, case monitor)? Give summary @ -Yes, case discussed with , for admission. Was smoking cessation discussed for >3mins.? @ -No Was critical care preformed (if so, how long)? @ -No Were there social determinants of health that impacted care today? How? (Homelessness, low income, unemployed, alcoholism, drug addiction, transportation, low edu. Level, literacy, decrease access to med. care, usp, rehab)? @ -No Was there de-escalation of care discussed even if they declined (Discuss DNR or withdrawal of care, Hospice)? DNR status @ -No What co-morbidities impacted this encounter? (DM, HTN, Smoking, COPD, CAD, Cancer, CVA, ARF, Chemo, Hep., AIDS, mental health diagnosis, sleep apnea, morbid obesity)? @ -COPD, history of CHF, thyroid disorder, fibromyalgia Was patient admitted / discharged? Hospital course, mention meds given and rout e, prescriptions, significant lab abnormalities, going to OR and other pertinent info. @ -Admitted. 64-year-old female presented to the ER for evaluation of dyspnea. Upon arrival patient tachycardic at 107 bpm oxygen saturation 97% on 4 L nasal cannula oxygen. Upon my evaluation, patient resting comfortably on stretcher no signs of acute distress. Oxygen decreased to 2 L nasal cannula oxygen with oxygen saturations remaining 96%. Patient does typically wear 2 L nasal cannula oxygen. Laboratory studies obtained remarkable for leukocytosis of 15.12 with a left shift patient was on IV steroids while admitted on 10-15-2024. INR 3.7 patient does take warfarin. Troponin undetectable, <0.012. BNP 44, D-dimer 0.19. CO2 39 Lactic elevated at 2.7 for which patient received 500 cc IV fluid bolus. Fluids limited given patient's history of CHF. Chest x-ray showing no acute process. Patient provided with 2 nebulized treatments in the emergency department. Upon reevaluation, lung sounds to be auscultated with no improvement of wheezing. Patient reporting continued shortness of breath worse with ambulation to bathroom. Given no improvement after nebulized treatments, admission was considered and accepted by Dr.Maynor for further evaluation of COPD exacerbation given failed outpatient treatment. Pulmonology on consult. Patient agreeable. DuoNeb every 6 ordered. Patient in stable condition for further evaluation and treatment. Case discussed with ED attending, Dr. Davsi. Undiagnosed new problem with uncertain prognosis? @ -No Drug Therapy requiring intensive monitoring for toxicity (Heparin, Nitro, Insulin, Cardizem)? @ -No Were any procedures done? @ -No Diagnosis/symptom? @ -COPD exacerbation/failed outpatient treatment Acute, or Chronic, or Acute on Chronic? @ -Acute Uncomplicated (without systemic symptoms) or Complicated (systemic symptoms)? @ -Complicated Side effects of treatment? @ -No Exacerbation, Progression, or Severe Exacerbation? @ -Yes Poses a threat to life or bodily function? How? (Chest pain, [place], TN, pneumonia, PE, COPD, DKA, ARF, appy, cholecystitis, CVA, Diverticulitis, Homicidal, Suicidal, threat to staff... and all critical care pts) @ -Yes can lead to hypoxia - Lab Data Result diagrams: 10/24/24 16:14 10/24/24 16:14 Lab Results 10/24/24 10/24/24 10/24/24 Range/Units 16:14 16:14 16:14 WBC 15.12 H (4.50-10.00) 10*3/uL RBC 4.93 (4.10-5.20) 10*6/uL Hgb 12.6 (12.0-15.0) g/dL Hct 39.6 (37.2-46.3) % MCV 80.3 (80.0-97.0) fL MCH 25.6 L (27.0-32.0) pg MCHC 31.8 L (32.0-37.0) g/dL Plt Count 282 (140-440) 10*3/uL MPV 9.9 (9.5-12.2) fL Immature Gran % (Auto) 3.1 % Neutrophils % 59.9 % Lymphocytes % 26.7 % Monocytes % 8.1 % Eosinophils % 1.9 % Basophils % 0.3 % Immature Gran # 0.47 H (0.00-0.04) 10*3/uL Neutrophils # 9.05 H (1.80-7.70) 10*3/uL Lymphocytes # 4.03 (0.90-5.00) 10*3/uL Monocytes # 1.23 H (0.20-1.00) 10*3/uL Eosinophils # 0.29 (0.04-0.35) 10*3/uL Basophils # 0.05 (0.00-0.10) 10*3/uL PT 36.3 H (10.0-12.5) sec INR 3.7 H (<1.2) APTT 38.4 H (22.0-30.0) sec D-Dimer (<0.60) mg/L FEU Sodium 137 (137-145) mmol/L Potassium 3.6 (3.5-5.1) mmol/L Chloride 89 L (98-107) mmol/L Carbon Dioxide 39 H (22-30) mmol/L Anion Gap 9 mmol/L BUN 30 H (7-17) mg/dL Creatinine 0.85 (0.52-1.04) mg/dL Est GFR (CKD-EPI)AfAm 84 (>60 ml/min/1.73 sqM) Est GFR (CKD-EPI)NonAf 73 (>60 ml/min/1.73 sqM) Glucose 142 H (74-99) mg/dL Lactic Ac Sepsis Rflx Plasma Lactic Acid [place] (0.7-2.0) mmol/L Calcium 8.6 (8.4-10.2) mg/dL Magnesium 1.7 (1.6-2.3) mg/dL Total Bilirubin 0.4 (0.2-1.3) mg/dL AST 24 (14-36) U/L ALT 54 H (4-34) U/L Alkaline Phosphatase 156 H (38-126) U/L Troponin I (0.000-0.034) ng/mL NT-Pro-B Natriuret Pep 44 pg/mL Total Protein 6.6 (6.3-8.2) g/dL Albumin 3.4 L (3.5-5.0) g/dL Urine Color Urine Appearance (Clear) Urine pH (5.0-8.0) Ur Specific [place] (1.001-1.035) Urine Protein (Negative) Urine Glucose (UA) (Negative) Urine Ketones (Negative) Urine Blood (Negative) Urine Nitrite (Negative) Urine Bilirubin (Negative) Urine Urobilinogen (<2.0) mg/dL Ur Leukocyte Esterase (Negative) 10/24/24 10/24/24 10/24/24 Range/Units 16:14 16:14 16:14 WBC (4.50-10.00) 10*3/uL RBC (4.10-5.20) 10*6/uL Hgb (12.0-15.0) g/dL Hct (37.2-46.3) % MCV (80.0-97.0) fL MCH (27.0-32.0) pg MCHC (32.0-37.0) g/dL Plt Count (140-440) 10*3/uL MPV (9.5-12.2) fL Immature Gran % (Auto) % Neutrophils % % Lymphocytes % % Monocytes % % Eosinophils % % Basophils % % Immature Gran # (0.00-0.04) 10*3/uL Neutrophils # (1.80-7.70) 10*3/uL Lymphocytes # (0.90-5.00) 10*3/uL Monocytes # (0.20-1.00) 10*3/uL Eosinophils # (0.04-0.35) 10*3/uL Basophils # (0.00-0.10) 10*3/uL PT (10.0-12.5) sec INR (<1.2) APTT (22.0-30.0) sec D-Dimer 0.19 (<0.60) mg/L FEU Sodium (137-145) mmol/L Potassium (3.5-5.1) mmol/L Chloride (98-107) mmol/L Carbon Dioxide (22-30) mmol/L Anion Gap mmol/L BUN (7-17) mg/dL Creatinine (0.52-1.04) mg/dL Est GFR (CKD-EPI)AfAm (>60 ml/min/1.73 sqM) Est GFR (CKD-EPI)NonAf (>60 ml/min/1.73 sqM) Glucose (74-99) mg/dL Lactic Ac Sepsis Rflx Plasma Lactic Acid [place] 2.7 H* (0.7-2.0) mmol/L Calcium (8.4-10.2) mg/dL Magnesium (1.6-2.3) mg/dL Total Bilirubin (0.2-1.3) mg/dL AST (14-36) U/L ALT (4-34) U/L Alkaline Phosphatase (38-126) U/L Troponin I <0.012 (0.000-0.034) ng/mL NT-Pro-B Natriuret Pep pg/mL Total Protein (6.3-8.2) g/dL Albumin (3.5-5.0) g/dL Urine Color Urine Appearance (Clear) Urine pH (5.0-8.0) Ur Specific [place] (1.001-1.035) Urine Protein (Negative) Urine Glucose (UA) (Negative) Urine Ketones (Negative) Urine Blood (Negative) Urine Nitrite (Negative) Urine Bilirubin (Negative) Urine Urobilinogen (<2.0) mg/dL Ur Leukocyte Esterase (Negative) 10/24/24 10/24/24 Range/Units 16:39 17:31 WBC (4.50-10.00) 10*3/uL RBC (4.10-5.20) 10*6/uL Hgb (12.0-15.0) g/dL Hct (37.2-46.3) % MCV (80.0-97.0) fL MCH (27.0-32.0) pg MCHC (32.0-37.0) g/dL Plt Count (140-440) 10*3/uL MPV (9.5-12.2) fL Immature Gran % (Auto) % Neutrophils % % Lymphocytes % % Monocytes % % Eosinophils % % Basophils % % Immature Gran # (0.00-0.04) 10*3/uL Neutrophils # (1.80-7.70) 10*3/uL Lymphocytes # (0.90-5.00) 10*3/uL Monocytes # (0.20-1.00) 10*3/uL Eosinophils # (0.04-0.35) 10*3/uL Basophils # (0.00-0.10) 10*3/uL PT (10.0-12.5) sec INR (<1.2) APTT (22.0-30.0) sec D-Dimer (<0.60) mg/L FEU Sodium (137-145) mmol/L Potassium (3.5-5.1) mmol/L Chloride (98-107) mmol/L Carbon Dioxide (22-30) mmol/L Anion Gap mmol/L BUN (7-17) mg/dL Creatinine (0.52-1.04) mg/dL Est GFR (CKD-EPI)AfAm (>60 ml/min/1.73 sqM) Est GFR (CKD-EPI)NonAf (>60 ml/min/1.73 sqM) Glucose (74-99) mg/dL Lactic Ac Sepsis Rflx Y Plasma Lactic Acid [place] (0.7-2.0) mmol/L Calcium (8.4-10.2) mg/dL Magnesium (1.6-2.3) mg/dL Total Bilirubin (0.2-1.3) mg/dL AST (14-36) U/L ALT (4-34) U/L Alkaline Phosphatase (38-126) U/L Troponin I (0.000-0.034) ng/mL NT-Pro-B Natriuret Pep pg/mL Total Protein (6.3-8.2) g/dL Albumin (3.5-5.0) g/dL Urine Color Colorless Urine Appearance Clear (Clear) Urine pH 7.5 (5.0-8.0) Ur Specific [place] 1.009 (1.001-1.035) Urine Protein Negative (Negative) Urine Glucose (UA) Negative (Negative) Urine Ketones Negative (Negative) Urine Blood Negative (Negative) Urine Nitrite Negative (Negative) Urine Bilirubin Negative (Negative) Urine Urobilinogen <2.0 (<2.0) mg/dL Ur Leukocyte Esterase Negative (Negative) - EKG Data -: EKG Interpreted by Me EKG Comments: EKG taken at 16: 32 showing a sinus rhythm. No ST segment elevations or depressions. No T wave inversions. Ventricular rate 90, TN interval 152, QRS duration 89, QT/QTc 358/406. - Radiology Data Radiology results: report reviewed, image reviewed Disposition Clinical Impression: COPD exacerbation, Failure of outpatient treatment Disposition: ADMITTED IP TO THIS HOSP Condition: Stable Time of Disposition: 18:32
[2024-10-24] MEDS: IPRATROPIUM-ALBUTEROL 3 ML NEB INHALATION STA ×2 (16:13→17:28)
[2024-10-24 16:21] LABS: Basophils # (A) 0.05 10*3/uL (0.00-0.10); Basophils % (A) 0.3 %; Eosinophils # (A) 0.29 10*3/uL (0.04-0.35); Eosinophils % (A) 1.9 %; HCT 39.6 % (37.2-46.3); HGB 12.6 g/dL (12.0-15.0); Lymphocytes # (A) 4.03 10*3/uL (0.90-5.00); Lymphocytes % (A) 26.7 %; MCH 25.6 pg (27.0-32.0); MCHC 31.8 g/dL (32.0-37.0); MCV 80.3 fL (80.0-97.0); Mean Platelet Volume 9.9 fL (9.5-12.2); Monocytes # (A) 1.23 10*3/uL (0.20-1.00); Monocytes % (A) 8.1 %; Neutrophils # (A) 9.05 10*3/uL (1.80-7.70); Neutrophils % (A) 59.9 %; Platelet Count 282 10*3/uL (140-440); RBC 4.93 10*6/uL (4.10-5.20); RDW 15.8 % (11.5-14.5); WBC 15.12 10*3/uL (4.50-10.00)
[2024-10-24 16:39] LABS: INR 3.7 (<1.2); Partial Thromboplastin Time 38.4 sec (22.0-30.0); Prothrombin Time 36.3 sec (10.0-12.5)
[2024-10-24 16:48] LABS: ALT 54 U/L (4-34); AST 24 U/L (14-36); African American GFR (CKD) 84 (>60 ml/min/1.73 sqM); Albumin 3.4 g/dL (3.5-5.0); Alkaline Phosphatase 156 U/L (38-126); Blood Urea Nitrogen 30 mg/dL (7-17); Calcium 8.6 mg/dL (8.4-10.2); Chloride 89 mmol/L (98-107); Glucose 142 mg/dL (74-99); Magnesium 1.7 mg/dL (1.6-2.3); Non-African American GFR(CKD) 73 (>60 ml/min/1.73 sqM); Potassium 3.6 mmol/L (3.5-5.1); Sodium 137 mmol/L (137-145); Total Bilirubin 0.4 mg/dL (0.2-1.3); Total Protein 6.6 g/dL (6.3-8.2)
[2024-10-24 16:54] LABS: Anion Gap 9 mmol/L
[2024-10-24 16:56] LABS: NT-Pro-B-Type Natriuretic Pept 44 pg/mL
[2024-10-24 16:57] LABS: Carbon Dioxide 39 mmol/L (22-30)
--- NOTE | 2024-10-24 17:04 | XR ---
EXAMINATION TYPE: XR chest 2V DATE OF EXAM: 10/24/2024 4:59 PM COMPARISON: Prior chest radiographs, most recently dated 10/15/2024. CLINICAL INDICATION: Female, 64 years old with history of difficulty breathing; [facility] TECHNIQUE: XR chest 2V Frontal and lateral views of the chest. FINDINGS: Lungs/Pleura: There is no evidence of pleural effusion, focal consolidation, or pneumothorax. Pulmonary vascularity: Unremarkable. Heart/mediastinum: Cardiomediastinal silhouette is unremarkable. Musculoskeletal: No acute osseous pathology. Other findings: None IMPRESSION: No acute cardiopulmonary disease/process. [facility], , 10/24/2024 5:02 PM
[2024-10-24] MEDS: SODIUM CHLORIDE 0.9% 500 ML 500 ML IV ONE (17:18)
[2024-10-24 17:36] LABS: Appearance,Urine Clear (Clear); Bilirubin,Urine Negative (Negative); Blood,Urine Negative (Negative); Color,Urine Colorless; Glucose,Urine (UA) Negative (Negative); Ketones,Urine Negative (Negative); Leukocyte Esterase,Urine Negative (Negative); Nitrite,Urine Negative (Negative); PH, Urine 7.5 (5.0-8.0); Protein,Urine Negative (Negative); Specific Gravity,Urine 1.009 (1.001-1.035); Urobilinogen,Urine <2.0 mg/dL (<2.0)
[2024-10-24] MEDS ORDERED: NALOXONE 0.4 MG/ML 1 ML VIAL IV PRN (18:28)
[2024-10-24] MEDS ORDERED: AMMONIUM LACTATE 12% CREAM 140 GM TUBE TOPICAL PRN (21:19)
[2024-10-24] MEDS ORDERED: NITROGLYCERIN SL TABS 0.4 MG TAB SUBLINGUAL PRN (21:19)
[2024-10-24] MEDS: WARFARIN 2.5 MG TAB PO SCH (22:37)
[2024-10-24] MEDS: PREGABALIN 100 MG CAP PO SCH (22:43)
[2024-10-24] MEDS: HYDROcodone/APAP 10-325MG 1 EACH TAB PO SCH (22:43)
[2024-10-24] MEDS: DULoxetine HCL 30 MG CAPSULE.DR PO SCH (22:44)
[2024-10-24] MEDS: CYCLOBENZAPRINE 10 MG TAB PO SCH (22:44)
[2024-10-24] MEDS: risperiDONE 0.5 MG TAB PO SCH (22:44)
[2024-10-25 03:49] LABS: INR 4.2 (<1.2); Prothrombin Time 41.8 sec (10.0-12.5)
[2024-10-25] MEDS: IPRATROPIUM-ALBUTEROL 3 ML NEB INHALATION SCH ×2 (04:50→06:06)
[2024-10-25] MEDS: SYMBICORT 160-4.5 MCG INHALER INHALATION SCH (06:06)
[2024-10-25] MEDS: LEVOTHYROXINE 75 MCG TAB PO SCH (06:16)
[2024-10-25] MEDS: LEVOTHYROXINE 100 MCG TAB PO SCH (06:16)
[2024-10-25] MEDS: POTASSIUM CHLORIDE ER 20 MEQ TAB.ER PO SCH (10:05)
[2024-10-25] MEDS: ERGOCALCIFEROL 1,250 MCG (50,000 IU) CAPSULE PO SCH (10:06)
[2024-10-25] MEDS: BUMETANIDE 1 MG TAB PO SCH (10:06)
[2024-10-25] MEDS: FLUCONAZOLE 100 MG TAB PO SCH (10:06)
[2024-10-25] MEDS: LACTULOSE 20 GM/30 ML CUP PO ONE (11:33)
[2024-10-25] MEDS: methylPREDNISolone SOD SUCCI 40 MG/ML 1 ML VIAL IV SCH (11:33)
[2024-10-25] MEDS: FORMOTEROL FUMARATE 20 MCG/2 ML NEBU INHALATION SCH (12:07)
[2024-10-25] MEDS: BUDESONIDE 1 MG/2 ML NEBU INHALATION SCH (12:07)
[2024-10-25] MEDS: guaiFENesin 600 MG TABLET.ER PO SCH (12:53)
[2024-10-25] MEDS: WARFARIN 0.5 MG TAB PO ONE (17:29)
--- NOTE | 2024-10-25 17:56 | P.HPIM ---
History of Present Illness H&P Date: 10/25/24 Chief Complaint: Short of breath Pleasant 64-year-old patient follows Dr. Yovanny Mcdonald. [facility] Dr. JEIMY Lezama Patient just in the hospital from October 16 through October 21. Was admitted with COPD exacerbation, pharyngeal thrush, also had some fluid overload. Patient states upon getting home her symptoms got worse. Standing more cough wheezing. She says last bowel movement was over a week ago. Also swelling lower extremity. Has had increased fluid intake. No fever no chills. Review of systems: GEN.: Tired EYES: None HEENT: None NECK: None RESPIRATORY: [As above CARDIOVASCULAR: Edema GASTROINTESTINAL: [None GENITOURINARY: None MUSCULOSKELETAL: None LYMPHATICS: None HEMATOLOGICAL: None PSYCHIATRY: None NEUROLOGICAL: None Social history: Denies smoking alcohol. Does use a four-wheel walker. Home alone Physical examination: VITAL SIGNS: 97.4, 87, 18, 1970, 80, 100% 2 L GENERAL: Reclining bed, but short of breath. EYES: Pupils equal. Conjunctiva lu l. HEENT: External appearance of nose and ears normal, oral cavity : Normal NECK: JVD unable to assess; masses not palpable. HEART: First and second heart sounds are normal; edema present LUNGS: Respiratory rate increased; decreased breath sound. Expiratory wheezing ABDOMEN: Soft, nontender, liver spleen not palpable, no masses palpable. PSYCH: [Alert and oriented x3; mood and affect-a bit anxious MUSCULOSKELETAL:No Clubbing/cyanosis;muscles-grossly intact INVESTIGATIONS, reviewed in the clinical context: INR 4.2 October 24: White count 15.1 hemoglobin 12.6 platelets 282 sodium 137 potassium 3.6 BUN 30 creatinine 0.85 Lactic acid 2.7 repeat 1.0 EKG tracing personally reviewed by me-normal sinus rhythm Chest x-ray film personally reviewed by me-no obvious abnormality Recent investigations: Dobutamine echocardiogram [May 2024] unremarkable Assessment and plan: -Acute COPD exacerbation, in a non-smoker, with a recent admission. DuoNeb 4 times daily. IV Solu-Medrol, nebulized Perforomist, nebulized Pulmicort -Chronic fibromyalgia, with chronic pain syndrome Cymbalta. Flexeril. Lyrica. Pain pump. Patient does follow with Dr. Ki nix -Chronic DVTs and PEs On Coumadin - Fluid overload from excessive fluid intake . Bumex. Fluid restriction. 2D echo -Coumadin monitoring per pharmacy -Depression Wellbutrin -History of psychosis Risperdal -Hypothyroid Synthroid 176 g daily - Obesity BMI 36.5 -Chronic intermittent headaches Patient to follow-up with her neurologist. -Keratoconjunctivitis sicca Artificial tears Past Medical History Past Medical History: COPD, Fibromyalgia, Thyroid Disorder Additional Past Medical History / Comment(s): atypical facial pain, trigeminal neuralgia, "24 hour tension headache syndrome", migraines, shingles 2013 around her rt eye area.,hx dvt rt leg and multiple pe's found,past tx for "copd d/t mold in basement of her home that permeated to upstairs. inpast used 02 but not now", murmur when younger,constipation(last bm 07-15-17,vertigo, "dry eye syndrome uses drops 4-6 times a day.stress test .had mamogram apr 2017-neg History of Any Multi-Drug Resistant Organisms: None Reported Past Surgical History: Appendectomy, Section, Cholecystectomy Additional Past Surgical History / Comment(s): 2 c-sections, fissurectomy, colonoscopy Past Anesthesia/Blood Transfusion Reactions: No Reported Reaction Past Psychological History: Depression Additional Psychological History / Comment(s): pt lives at [facility] Smoking Status: Never smoker Past Alcohol Use History: None Reported Past Drug Use History: None Reported - Past Family History Mother Family Medical History: Hypertension Additional Family Medical History / Comment(s): mom's mom had mi and stroke, mom's dad had hx of first mi age 40 and several after and stroke. Father Family Medical History: Cancer, Diabetes Mellitus, Mitral Valve Prolapse (MVP) Additional Family Medical History / Comment(s): lung/bone cancer. dad's mother had hx of cervical cancer and a pacemaker and dad's dad had hx mi's Sister(s) Family Medical History: Cancer, Diabetes Mellitus, Seizure Disorder Additional Family Medical History / Comment(s): one sister had seizures and 2nd sister had dm,skin cancer. Brother(s) Additional Family Medical History / Comment(s): brother had hernia sx and post op complictions-bleeding Medications and Allergies Home Medications Medication Instructions Recorded Confirmed Type Cyclobenzaprine [Flexeril] 10 mg PO BID 02/20/17 10/24/24 History Levothyroxine Sodium [Synthroid] 175 mcg PO DAILY 08/14/20 10/24/24 History Ergocalciferol [Vitamin D2 (1250 1,250 mcg PO MO 11/12/22 10/24/24 History Mcg = 57996 Iu)] DULoxetine HCL [Cymbalta] 30 mg PO HS 12/28/23 10/24/24 History HYDROcodone/APAP 10-325MG [[place] 1 tab PO BID 12/28/23 10/24/24 History 10-325] Patient Own Pump 0 bag 12/28/23 12/28/23 History Potassium Chloride ER [K-Dur 20] 20 meq PO DAILY 12/28/23 10/24/24 History Pregabalin [Lyrica] 200 mg PO TID 12/28/23 10/24/24 History risperiDONE [RisperDAL] 0.5 mg PO BID 12/28/23 10/24/24 History Nitroglycerin Sl Tabs [Nitrostat] 0.4 mg SUBLINGUAL Q5M PRN #30 tab 06/09/24 10/24/24 Rx Ammonium Lactate Cream [Lac-Hydrin 1 applic TOPICAL BID PRN 10/15/24 10/24/24 History 12% Cream] Bumetanide [BUMEX] 2 mg PO BID@0900,1200 10/15/24 10/24/24 History Bumetanide [BUMEX] 2 mg PO DAILY PRN 10/15/24 10/24/24 History Warfarin [Coumadin] 2.5 mg PO HS 10/15/24 10/24/24 History Budesonide-Formot 160-4.5 Mcg 2 puff INHALATION RT-BID #1 each 10/21/24 10/24/24 Rx [Symbicort 160-4.5 Mcg Inhaler] Fluconazole [Diflucan] 100 mg PO DAILY #5 tab 10/21/24 10/24/24 Rx Ipratropium-Albuterol Nebulize 3 ml INHALATION RT-BID 10/24/24 10/24/24 History [Duoneb 0.5 mg-3 mg/3 ml Soln] Allergies Allergy/AdvReac Type Severity Reaction Status Date / Time carbamazepine [From Tegretol] Allergy Anaphylaxis Verified 10/24/24 17:44 codeine Allergy Anaphylaxis Verified 10/24/24 17:44 phenytoin [From Dilantin] Allergy Unknown Verified 10/24/24 17:44 Physical Exam Vitals: Vital Signs Temp Pulse Pulse Resp BP BP BP 10/25/24 07:00 97.4 F L 87 18 117/80 10/25/24 06:22 92 10/25/24 06:08 89 10/25/24 00:55 98.0 F 65 20 111/70 10/24/24 21:00 97.4 F L 59 L 20 130/80 10/24/24 20:22 82 18 127/65 10/24/24 20:00 20 10/24/24 18:48 84 16 131/68 10/24/24 17:50 88 16 127/59 10/24/24 17:39 91 18 10/24/24 17:28 105 H 22 10/24/24 17:00 127/68 10/24/24 16:21 90 18 10/24/24 16:13 94 20 10/24/24 16:01 98.7 F 101 H 16 136/84 10/24/24 15:53 18 10/24/24 15:42 98.5 F 107 H 20 114/80 Pulse Ox 10/25/24 07:00 100 10/25/24 06:22 10/25/24 06:08 10/25/24 00:55 93 L 10/24/24 21:00 95 10/24/24 20:22 95 10/24/24 20:00 10/24/24 18:48 95 10/24/24 17:50 95 10/24/24 17:39 10/24/24 17:28 10/24/24 17:00 10/24/24 16:21 10/24/24 16:13 10/24/24 16:01 96 10/24/24 15:53 10/24/24 15:42 97 Intake and Output 10/24/24 10/25/24 10/25/24 22:59 06:59 14:59 Intake Total 118 Balance 118 Intake: Oral 118 Other: Voiding Method Toilet # Voids 2 Weight 115.666 kg Results CBC & Chem 7: 10/24/24 16:14 10/24/24 16:14 Labs: Abnormal Lab Results - Last 24 Hours (Table) 10/24/24 10/24/24 10/24/24 Range/Units 16:14 16:14 16:14 WBC 15.12 H (4.50-10.00) 10*3/uL MCH 25.6 L (27.0-32.0) pg MCHC 31.8 L (32.0-37.0) g/dL Immature Gran # 0.47 H (0.00-0.04) 10*3/uL Neutrophils # 9.05 H (1.80-7.70) 10*3/uL Monocytes # 1.23 H (0.20-1.00) 10*3/uL PT 36.3 H (10.0-12.5) sec INR 3.7 H (<1.2) APTT 38.4 H (22.0-30.0) sec Chloride 89 L (98-107) mmol/L Carbon Dioxide 39 H (22-30) mmol/L BUN 30 H (7-17) mg/dL Glucose 142 H (74-99) mg/dL Plasma Lactic Acid [place] (0.7-2.0) mmol/L ALT 54 H (4-34) U/L Alkaline Phosphatase 156 H (38-126) U/L Albumin 3.4 L (3.5-5.0) g/dL 10/24/24 10/25/24 Range/Units 16:14 03:06 WBC (4.50-10.00) 10*3/uL MCH (27.0-32.0) pg MCHC (32.0-37.0) g/dL Immature Gran # (0.00-0.04) 10*3/uL Neutrophils # (1.80-7.70) 10*3/uL Monocytes # (0.20-1.00) 10*3/uL PT 41.8 H (10.0-12.5) sec INR 4.2 H (<1.2) APTT (22.0-30.0) sec Chloride (98-107) mmol/L Carbon Dioxide (22-30) mmol/L BUN (7-17) mg/dL Glucose (74-99) mg/dL Plasma Lactic Acid [place] 2.7 H* (0.7-2.0) mmol/L ALT (4-34) U/L Alkaline Phosphatase (38-126) U/L Albumin (3.5-5.0) g/dL Thrombosis Risk Factor Assmnt - Choose All That Apply Each Factor Represents 1 point: Obesity (BMI >25), Swollen legs (current) Each Risk Factor Represents 2 Points: Age 61-74 years Each Risk Factor Represents 3 Points: History of DVT/PE Other congenital or acquired thrombophilia - If yes, enter type in comment: No Thrombosis Risk Factor Assessment Total Risk Factor Score: 7 Thrombosis Risk Factor Assessment Level: High Risk
--- NOTE | 2024-10-25 18:38 | P.CNPUL ---
History of Present Illness Consult date: 10/25/24 Reason for consult: dyspnea History of present illness: This is a 64-year-old female patient, obese with a BMI of 38.8 along with history of chronic bronchial asthma that was labile to be mild intermittent in nature. She also has chronic pain/fibromyalgia/trigeminal neuralgia and known history of hypercoagulable state maintained on anticoagulation with warfarin on outpatient basis. The patient was in the hospital 10/15/2024 through 10/21/2024. The patient was discharged home after being treated for acute COPD/asthma exacerbation and the patient was discharged home on Symbicort, DuoNeb updrafts and a course of Diflucan that was given to her for oropharyngeal candidiasis. She presented back to the hospital with increased cough and congestion and some degree of fluid overload as the patient has noted to have some increased welling lower extremities bilaterally. No reported fever. No chills. She states that she was taking her medication and she was quite compliant. Chest x-ray shows no acute abnormalities. Initial lactic acid level was at 2.7 dropped down to 1.0. White cell count at 13.1, hemoglobin 12.6, BUN 30 with a creatinine 0.8. INR was at 4.2. Accordingly, the patient was hospitalized for further care. She is currently on oxygen at 2 L with a pulse ox of 96%. Afebrile. Hemodynamically stable. Breathing is nonlabored. Review of Systems CONSTITUTIONAL: Denies any recent significant weight loss or weight gain. EYES: Denies change in vision. EARS, NOSE, MOUTH, THROAT: Denies headaches, denies sore throat. CARDIOVASCULAR: Denies chest pain, palpitations or syncopal episodes. RESPIRATORY: Positive for shortness of breath, cough, congestion no hemoptysis. GASTROINTESTINAL: Denies change in appetite, denies abdominal pain GENITOURINARY: Denies hematuria, denies infections. MUSKULOSKELETAL: Denies pain, denies swelling. INTEGUMENTARY: Denies rash, denies eczema. NEUROLOGICAL: Denies recent memory loss, no recent seizure activity. PSYCHIATRIC: Denies anxiety, denies depression. HEMATOLOGIC/LYMPHATIC: Denies anemia, denies enlarged lymph nodes. 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 inpast used 02 but not now", murmur when younger,constipation(last bm 2--18,vertigo, "dry eye syndrome uses drops 4-6 times a day.stress test .had mamogram apr 2017-neg History of Any Multi-Drug Resistant Organisms: None Reported Past Surgical History: Appendectomy, Section, Cholecystectomy Additional Past Surgical History / Comment(s): 2 c-sections, fissurectomy, colonoscopy Past Anesthesia/Blood Transfusion Reactions: No Reported Reaction Past Psychological History: Depression Additional Psychological History / Comment(s): pt lives at [facility] Smoking Status: Never smoker Past Alcohol Use History: None Reported Past Drug Use History: None Reported - Past Family History Mother Family Medical History: Hypertension Additional Family Medical History / Comment(s): mom's mom had mi and stroke, mom's dad had hx of first mi age 40 and several after and stroke. Father Family Medical History: Cancer, Diabetes Mellitus, Mitral Valve Prolapse (MVP) Additional Family Medical History / Comment(s): lung/bone cancer. dad's mother had hx of cervical cancer and a pacemaker and dad's dad had hx mi's Sister(s) Family Medical History: Cancer, Diabetes Mellitus, Seizure Disorder Additional Family Medical History / Comment(s): one sister had seizures and 2nd sister had dm,skin cancer. Brother(s) Additional Family Medical History / Comment(s): brother had hernia sx and post op complictions-bleeding Medications and Allergies Home Medications Medication Instructions Recorded Confirmed Type Cyclobenzaprine [Flexeril] 10 mg PO BID 02/20/17 10/24/24 History Levothyroxine Sodium [Synthroid] 175 mcg PO DAILY 08/14/20 10/24/24 History Ergocalciferol [Vitamin D2 (1250 1,250 mcg PO MO 11/12/22 10/24/24 History Mcg = 67708 Iu)] DULoxetine HCL [Cymbalta] 30 mg PO HS 12/28/23 10/24/24 History HYDROcodone/APAP 10-325MG [[place] 1 tab PO BID 12/28/23 10/24/24 History 10-325] Patient Own Pump 0 bag 12/28/23 12/28/23 History Potassium Chloride ER [K-Dur 20] 20 meq PO DAILY 12/28/23 10/24/24 History Pregabalin [Lyrica] 200 mg PO TID 12/28/23 10/24/24 History risperiDONE [RisperDAL] 0.5 mg PO BID 12/28/23 10/24/24 History Nitroglycerin Sl Tabs [Nitrostat] 0.4 mg SUBLINGUAL Q5M PRN #30 tab 06/09/24 10/24/24 Rx Ammonium Lactate Cream [Lac-Hydrin 1 applic TOPICAL BID PRN 10/15/24 10/24/24 History 12% Cream] Bumetanide [BUMEX] 2 mg PO BID@0900,1200 10/15/24 10/24/24 History Bumetanide [BUMEX] 2 mg PO DAILY PRN 10/15/24 10/24/24 History Warfarin [Coumadin] 2.5 mg PO HS 10/15/24 10/24/24 History Budesonide-Formot 160-4.5 Mcg 2 puff INHALATION RT-BID #1 each 10/21/24 10/24/24 Rx [Symbicort 160-4.5 Mcg Inhaler] Fluconazole [Diflucan] 100 mg PO DAILY #5 tab 10/21/24 10/24/24 Rx Ipratropium-Albuterol Nebulize 3 ml INHALATION RT-BID 10/24/24 10/24/24 History [Duoneb 0.5 mg-3 mg/3 ml Soln] Allergies Allergy/AdvReac Type Severity Reaction Status Date / Time carbamazepine [From Tegretol] Allergy Anaphylaxis Verified 10/24/24 17:44 codeine Allergy Anaphylaxis Verified 10/24/24 17:44 phenytoin [From Dilantin] Allergy Unknown Verified 10/24/24 17:44 Physical Exam Vitals: Vital Signs Temp Pulse Pulse Resp BP BP BP 10/25/24 07:00 97.4 F L 87 18 117/80 10/25/24 06:22 92 10/25/24 06:08 89 10/25/24 00:55 98.0 F 65 20 111/70 10/24/24 21:00 97.4 F L 59 L 20 130/80 10/24/24 20:22 82 18 127/65 10/24/24 20:00 20 10/24/24 18:48 84 16 131/68 10/24/24 17:50 88 16 127/59 10/24/24 17:39 91 18 10/24/24 17:28 105 H 22 10/24/24 17:00 127/68 10/24/24 16:21 90 18 10/24/24 16:13 94 20 10/24/24 16:01 98.7 F 101 H 16 136/84 10/24/24 15:53 18 10/24/24 15:42 98.5 F 107 H 20 114/80 Pulse Ox 10/25/24 07:00 100 10/25/24 06:22 10/25/24 06:08 10/25/24 00:55 93 L 10/24/24 21:00 95 10/24/24 20:22 95 10/24/24 20:00 10/24/24 18:48 95 10/24/24 17:50 95 10/24/24 17:39 10/24/24 17:28 10/24/24 17:00 10/24/24 16:21 10/24/24 16:13 10/24/24 16:01 96 10/24/24 15:53 10/24/24 15:42 97 Intake and Output 10/24/24 10/25/24 10/25/24 22:59 06:59 14:59 Intake Total 118 Balance 118 Intake: Oral 118 Other: Voiding Method Toilet # Voids 2 Weight 115.666 kg GENERAL EXAM: Alert, pleasant 64-year-old female, on 2 L nasal cannula, fairly comfortable in no apparent distress. HEAD: Normocephalic. EYES: Normal reaction of pupils, equal size. NOSE: Clear with pink turbinates. THROAT: No erythema or exudates. NECK: No masses, no JVD. CHEST: No chest wall deformity. LUNGS: Equal air entry with bilateral wheeze, scattered rhonchi. CVS: S1 and S2 normal with no audible murmur, regular rhythm. ABDOMEN: No hepatosplenomegaly, normal bowel sounds, no guarding or rigidity. SPINE: No scoliosis or deformity SKIN: No rashes CENTRAL NERVOUS SYSTEM: No focal deficits, tone is normal in all 4 extremities. EXTREMITIES: There is +1 peripheral edema. No clubbing, no cyanosis. Peripheral pulses are intact. Results - Laboratory Findings CBC and BMP: 10/24/24 16:14 10/24/24 16:14 PT/INR, D-dimer PT 41.8 sec (10.0-12.5) H 10/25/24 03:06 INR 4.2 (<1.2) H 10/25/24 03:06 D-Dimer 0.19 mg/L FEU (<0.60) 10/24/24 16:14 Abnormal lab findings: Abnormal Labs 10/24/24 10/24/24 10/24/24 16:14 16:14 16:14 WBC 15.12 H MCH 25.6 L MCHC 31.8 L Immature Gran # 0.47 H Neutrophils # 9.05 H Monocytes # 1.23 H PT 36.3 H INR 3.7 H APTT 38.4 H Chloride 89 L Carbon Dioxide 39 H BUN 30 H Glucose 142 H Plasma Lactic Acid [place] ALT 54 H Alkaline Phosphatase 156 H Albumin 3.4 L 10/24/24 10/25/24 16:14 03:06 WBC MCH MCHC Immature Gran # Neutrophils # Monocytes # PT 41.8 H INR 4.2 H APTT Chloride Carbon Dioxide BUN Glucose Plasma Lactic Acid [place] 2.7 H* ALT Alkaline Phosphatase Albumin - Diagnostic Findings Chest x-ray: image reviewed Assessment and Plan Plan: Acute exacerbation of COPD/mild intermittent chronic bronchial asthma complicated by tracheobronchitis. Chest x-ray is free of any acute pulmonary filtrates. The patient remains bronchospastic and wheezy. She is on oxygen 2 L/min nasal cannula Acute on chronic hypoxic respiratory insufficiency secondary to above, maintained on home oxygen, maintained on oxygen 2 L/min nasal cannula, INR is slightly supratherapeutic at 4.2 Fibromyalgia Trigeminal neuralgia Previous PE/DVTs, maintained on warfarin Lifelong non-smoker Chronic pain syndrome, pain pump in place Hypothyroidism Obesity Mild leukocytosis Plan: The patient is currently on 2 L of O2 nasal cannula DuoNeb nebulized treatments 4 times a day IV Solu-Medrol 40 mg every 8 hours Pulmicort Respules 1 mg twice a day in combination with Perforomist nebulized twice a day Obtain sputum Gram stain and culture Diflucan for oropharyngeal candidiasis Bumex 2 mg IV every 12 hours Resume home medications Anticoagulation will be resumed with warfarin and daily PT/INR monitoring Will continue to follow
[2024-10-25] MEDS: BUMETANIDE 0.25 MG/ML 10 ML VIAL IV SCH (20:55)
[2024-10-25] MEDS: MAGNESIUM CITRATE 296 ML BOTTLE PO ONE (20:57)
[2024-10-26 05:18] LABS: African American GFR (CKD) >90 (>60 ml/min/1.73 sqM); Anion Gap 7 mmol/L; Blood Urea Nitrogen 25 mg/dL (7-17); Carbon Dioxide 38 mmol/L (22-30); Chloride 88 mmol/L (98-107); Glucose 199 mg/dL (74-99); Non-African American GFR(CKD) 80 (>60 ml/min/1.73 sqM); Potassium 3.8 mmol/L (3.5-5.1); Sodium 133 mmol/L (137-145)
[2024-10-26 05:21] LABS: INR 4.1 (<1.2); Prothrombin Time 40.1 sec (10.0-12.5)
--- NOTE | 2024-10-26 15:01 | P.PN ---
Progress Note - Text Progress Note Date: 10/26/24 Chief Complaint: Short of breath Pleasant 64-year-old patient follows Dr. Yovanny Mcdonald. Defense Attorney Dr. JEIMY Lezama Patient just in the hospital from October 16 through October 21. Was admitted with COPD exacerbation, pharyngeal thrush, also had some fluid overload. Patient states upon getting home her symptoms got worse. Standing more cough wheezing. She says last bowel movement was over a week ago. Also swelling lower extremity. Has had increased fluid intake. No fever no chills. October 26: Admitted with COPD exacerbation and increased fluid intake causing fluid overload. Some improvement breathing today. Bertram wrap was ordered yesterday. Reminded. Some improvement in breathing. Eating fair. Continue bronchodilators Solu-Medrol. Diflucan. Active Medications Hydrocodone Bitart/Acetaminophen (Hydrocodone/Apap 10-325mg 1 Each Tab) 1 each PO BID [facility] Last Admin: 10/26/24 09:58 Dose: 1 each Albuterol/Ipratropium (Ipratropium-Albuterol 3 Ml Neb) 3 ml INHALATION RT-BID [facility] Last Admin: 10/26/24 08:38 Dose: 3 ml Albuterol/Ipratropium (Ipratropium-Albuterol 3 Ml Neb) 3 ml INHALATION RT-Q2H PRN PRN Reason: Shortness Of Breath Or Wheezing Budesonide (Budesonide 1 Mg/2 Ml Nebu) 1 mg INHALATION RT-BID [facility] Last Admin: 10/26/24 08:38 Dose: 1 mg Bumetanide (Bumetanide 0.25 Mg/Ml 10 Ml Vial) 2 mg IV Q12H [facility] Last Admin: 10/26/24 06:38 Dose: 2 mg Cyclobenzaprine HCl (Cyclobenzaprine 10 Mg Tab) 10 mg PO BID [facility] Last Admin: 10/26/24 09:58 Dose: 10 mg Duloxetine HCl (Duloxetine Hcl 30 Mg Capsule.) 30 mg PO HS [facility] Last Admin: 10/25/24 20:57 Dose: 30 mg Ergocalciferol (Ergocalciferol 1,250 Mcg (50,000 Iu) Capsule) 1,250 mcg PO MO [facility] Last Admin: 10/25/24 10:06 Dose: 1,250 mcg Fluconazole (Fluconazole 100 Mg Tab) 100 mg PO DAILY [facility]; Protocol Stop: 10/26/24 23:59 Last Admin: 10/26/24 10:00 Dose: 100 mg Formoterol Fumarate (Formoterol Fumarate 20 Mcg/2 Ml Nebu) 20 mcg INHALATION RT-BID [facility] Last Admin: 10/26/24 08:38 Dose: 20 mcg Guaifenesin (Guaifenesin 600 Mg Tablet.Er) 600 mg PO QID [facility] Last Admin: 10/26/24 14:35 Dose: 600 mg Lactic Acid (Ammonium Lactate 12% Cream 140 Gm Tube) 1 applic TOPICAL BID PRN; Protocol PRN Reason: Dry Skin Levothyroxine Sodium (Levothyroxine 100 Mcg Tab) 100 mcg PO DAILY@0600 [facility] Last Admin: 10/26/24 06:38 Dose: 100 mcg Levothyroxine Sodium (Levothyroxine 75 Mcg Tab) 75 mcg PO DAILY@0600 [facility] Last Admin: 10/26/24 06:38 Dose: 75 mcg Methylprednisolone Sodium Succinate (Methylprednisolone Sod Succi 40 Mg/Ml 1 Ml Vial) 40 mg IV Q8HR [facility] Last Admin: 10/26/24 09:57 Dose: 40 mg Miscellaneous Information (Warfarin Per Pharmacy) 0 each MISCELLANE DIRECTED PRN PRN Reason: PHARMACY DOSING PROTOCOL Naloxone HCl (Naloxone 0.4 Mg/Ml 1 Ml Vial) 0.2 mg IV Q2M PRN PRN Reason: Opioid Reversal Nitroglycerin (Nitroglycerin Sl Tabs 0.4 Mg Tab) 0.4 mg SUBLINGUAL Q5M PRN PRN Reason: Chest Pain Potassium Chloride (Potassium Chloride Er 20 Meq Tab.Er) 20 meq PO DAILY [facility] Last Admin: 10/26/24 09:58 Dose: 20 meq Pregabalin (Pregabalin 100 Mg Cap) 200 mg PO TID [facility] Last Admin: 10/26/24 09:59 Dose: 200 mg Risperidone (Risperidone 0.5 Mg Tab) 0.5 mg PO BID [facility] Last Admin: 10/26/24 10:01 Dose: 0.5 mg Warfarin Sodium (Warfarin 0.5 Mg Tab) 0 mg PO ONCE@1800 ONE Stop: 10/26/24 18:01 Social history: Denies smoking alcohol. Does use a four-wheel walker. Home alone Physical examination: VITAL SIGNS: 98.2, 90, 17, 113 x 66, 92% on nasal cannula GENERAL: In recliner, some shortness of breath. EYES: Pupils equal. Conjunctiva lu l. HEENT: External appearance of nose and ears normal, oral cavity : Normal NECK: JVD unable to assess; masses not palpable. HEART: First and second heart sounds are normal; edema present LUNGS: Respiratory rate increased; decreased breath sound. Expiratory wheezing- 7 Naresh ABDOMEN: Soft, nontender, liver spleen not palpable, no masses palpable. PSYCH: [Alert and oriented x3; mood and affect-a bit anxious MUSCULOSKELETAL:No Clubbing/cyanosis;muscles-grossly intact INVESTIGATIONS, reviewed in the clinical context: October 26: 133 potassium 3.8 creatinine 0.79 INR 4.2 October 24: White count 15.1 hemoglobin 12.6 platelets 282 sodium 137 potassium 3.6 BUN 30 creatinine 0.85 Lactic acid 2.7 repeat 1.0 EKG tracing personally reviewed by me-normal sinus rhythm Chest x-ray film personally reviewed by me-no obvious abnormality Recent investigations: Dobutamine echocardiogram [May 2024] unremarkable Assessment and plan: -Acute COPD exacerbation, in a non-smoker, with a recent admission.: Improving DuoNeb 4 times daily. IV Solu-Medrol, nebulized Perforomist, nebulized Pulmicort -Chronic fibromyalgia, with chronic pain syndrome Cymbalta. Flexeril. Lyrica. Pain pump. Patient does follow with Dr. Ki nix -Chronic DVTs and PEs On Coumadin - Fluid overload from excessive fluid intake . Bumex. Fluid restriction. 2D echo, pending -Coumadin monitoring per pharmacy -Depression Wellbutrin -History of psychosis Risperdal -Hypothyroid Synthroid 176 g daily - Obesity BMI 36.5 -Chronic intermittent headaches Patient to follow-up with her neurologist. -Keratoconjunctivitis sicca Artificial tears . Continue current treatment plan. Pending 2D echo. Clinical improvement Past Medical History Past Medical History: COPD, Fibromyalgia, Thyroid Disorder Additional Past Medical History / Comment(s): atypical facial pain, trigeminal neuralgia, "24 hour tension headache syndrome", migraines, shingles 2012 around her rt eye area.,hx dvt rt leg and multiple pe's found,past tx for "copd d/t mold in basement of her home that permeated to upstairs. inpast used 02 but not now", murmur when younger,constipation(last bm 2-20-18,vertigo, "dry eye syndrome uses drops 4-6 times a day.stress test .had mamogram apr 2017-neg History of Any Multi-Drug Resistant Organisms: None Reported Past Surgical History: Appendectomy, Section, Cholecystectomy Additional Past Surgical History / Comment(s): 2 c-sections, fissurectomy, colonoscopy Past Anesthesia/Blood Transfusion Reactions: No Reported Reaction Past Psychological History: Depression Additional Psychological History / Comment(s): pt lives at [facility] Smoking Status: Never smoker Past Alcohol Use History: None Reported Past Drug Use History: None Reported
[2024-10-26] MEDS: IPRATROPIUM-ALBUTEROL 3 ML NEB INHALATION PRN (15:39)
--- NOTE | 2024-10-26 18:11 | P.PN ---
Subjective Progress Note Date: 10/26/24 This is a 64-year-old female patient, obese with a BMI of 38.8 along with history of chronic bronchial asthma that was labile to be mild intermittent in nature. She also has chronic pain/fibromyalgia/trigeminal neuralgia and known history of hypercoagulable state maintained on anticoagulation with warfarin on outpatient basis. The patient was in the hospital 10/15/2024 through 10/21/2024. The patient was discharged home after being treated for acute COPD/asthma exacerbation and the patient was discharged home on Symbicort, DuoNeb updrafts and a course of Diflucan that was given to her for oropharyngeal candidiasis. She presented back to the hospital with increased cough and congestion and some degree of fluid overload as the patient has noted to have some increased welling lower extremities bilaterally. No reported fever. No chills. She states that she was taking her medication and she was quite compliant. Chest x-ray shows no acute abnormalities. Initial lactic acid level was at 2.7 dropped down to 1.0. White cell count at 13.1, hemoglobin 12.6, BUN 30 with a creatinine 0.8. INR was at 4.2. Accordingly, the patient was hospitalized for further care. She is currently on oxygen at 2 L with a pulse ox of 96%. Afebrile. Hemodynamically stable. Breathing is nonlabored. 11/22/2024, the patient is being seen for a follow-up. Sitting up in a chair. Feeling better compared to yesterday. Less bronchospastic and wheezy and the patient remains on DuoNeb updrafts, IV Solu-Medrol. Rest of medications are unchanged. Electrolytes show no significant abnormalities. Serum bicarb is at 38, BUN is 25 with a creatinine of 0.7. INR remains at 4.1. The patient remains on oxygen and she is currently on 2 L/min nasal cannula. No chest pain. No pleurisy or hemoptysis. No other significant events overnight. Objective - Vital Signs Vital signs: Vital Signs Temp 98.2 F 10/26/24 13:32 Pulse 86 10/26/24 15:49 Resp 17 10/26/24 13:32 BP 113/66 10/26/24 13:32 Pulse Ox 92 L 10/26/24 13:32 FiO2 Intake & Output 10/25/24 10/26/24 10/26/24 18:59 06:59 18:59 Intake Total 118 1160 Balance 118 1160 Intake: Oral 118 1160 Other: Voiding Method Toilet Toilet - Exam GENERAL EXAM: Alert, pleasant 64-year-old female, on 2 L nasal cannula, fairly comfortable in no apparent distress. HEAD: Normocephalic. EYES: Normal reaction of pupils, equal size. NOSE: Clear with pink turbinates. THROAT: No erythema or exudates. NECK: No masses, no JVD. CHEST: No chest wall deformity. LUNGS: Equal air entry with bilateral wheeze, scattered rhonchi. CVS: S1 and S2 normal with no audible murmur, regular rhythm. ABDOMEN: No hepatosplenomegaly, normal bowel sounds, no guarding or rigidity. SPINE: No scoliosis or deformity SKIN: No rashes CENTRAL NERVOUS SYSTEM: No focal deficits, tone is normal in all 4 extremities. EXTREMITIES: There is +1 peripheral edema. No clubbing, no cyanosis. Peripheral pulses are intact. - Labs CBC & Chem 7: 10/24/24 16:14 10/26/24 04:22 Labs: Abnormal Lab Results - Last 24 Hours (Table) 10/26/24 10/26/24 Range/Units 04:22 04:22 PT 40.1 H (10.0-12.5) sec INR 4.1 H (<1.2) Sodium 133 L (137-145) mmol/L Chloride 88 L (98-107) mmol/L Carbon Dioxide 38 H (22-30) mmol/L BUN 25 H (7-17) mg/dL Glucose 199 H (74-99) mg/dL Assessment and Plan Plan: Acute exacerbation of COPD/mild intermittent chronic bronchial asthma complicated by tracheobronchitis. Chest x-ray is free of any acute pulmonary filtrates. The patient remains bronchospastic and wheezy. She is on oxygen 2 L/min nasal cannula Acute on chronic hypoxic respiratory insufficiency secondary to above, maintained on home oxygen, maintained on oxygen 2 L/min nasal cannula, INR is slightly supratherapeutic at 4.2 Fibromyalgia Trigeminal neuralgia Previous PE/DVTs, maintained on warfarin Lifelong non-smoker Chronic pain syndrome, pain pump in place Hypothyroidism Obesity Mild leukocytosis Plan: Clinically stable and slightly improved compared to yesterday. Will continue the same treatment for now. The patient is currently on 2 L of O2 nasal cannula DuoNeb nebulized treatments 4 times a day IV Solu-Medrol 40 mg every 8 hours Pulmicort Respules 1 mg twice a day in combination with Perforomist nebulized twice a day Obtain sputum Gram stain and culture Diflucan for oropharyngeal candidiasis Bumex 2 mg IV every 12 hours Resume home medications Anticoagulation will be resumed with warfarin and daily PT/INR monitoring Will continue to follow
[2024-10-26] MEDS: WARFARIN 0.5 MG TAB PO ONE (18:35)
--- NOTE | 2024-10-26 18:36 | CA ---
Transthoracic Echo Report Name: Stephanie Mendez Age: 64 Gender: F : 1960 Exam Date: 10/26/2024 13:24 Exam Location: [place] [facility] Ht (in): 68 Wt (lb): 255 Ordering Physician: Brando Mcguire MD Attending/Referring Phys: Equal Employment Opportunity Officer Lauren Fox RDCS Procedure CPT: Indications: Assess LV Function, Cardiomyopathy, unspecified Cardiac Hx: Technical Quality: Technically difficult study Contrast 1: Definity Total Dose (mL): 3 Contrast 2: Total Dose (mL): MEASUREMENTS (Male / Female) Normal Values 2D ECHO LV Diastolic Diameter PLAX 4.9 cm 4.2 - 5.9 / 3.9 - 5.3 cm LV Systolic Diameter PLAX 3.2 cm IVS Diastolic Thickness 1.0 cm 0.6 - 1.0 / 0.6 - 0.9 cm LVPW Diastolic Thickness 1.1 cm 0.6 - 1.0 / 0.6 - 0.9 cm LV Relative Wall Thickness 0.4 LVOT Diameter 2.2 cm LV Diastolic Volume MOD BP 68.0 cm??? 67 - 155 / 56 - 104 cm??? LV Systolic Volume MOD BP 18.3 cm??? 22 - 58 / 19 - 49 cm??? LV Ejection Fraction MOD BP 73.1 % >= 55 % LV Cardiac Index MOD BP 1859.6 cm???/min???m??? LV Diastolic Volume MOD 4C 70.6 cm??? LV Systolic Volume MOD 4C 22.3 cm??? LV Ejection Fraction MOD 4C 68.4 % LV Cardiac Index MOD 4C 1804.0 cm???/min???m??? LV Diastolic Length 4C 6.7 cm LV Systolic Length 4C 5.4 cm LV Diastolic Volume MOD 2C 61.5 cm??? LV Systolic Volume MOD 2C 14.6 cm??? LV Ejection Fraction MOD 2C 76.3 % LV Cardiac Index MOD 2C 1755.2 cm???/min???m??? LV Diastolic Length 2C 7.2 cm LV Systolic Length 2C 5.3 cm M-MODE LV Diastolic Diameter MM 5.2 cm 4.2 - 5.9 / 3.9 - 5.3 cm LV Systolic Diameter MM 3.1 cm LV Cardiac Index MM Teich 3306.1 cm???/min???m??? IVS Diastolic Thickness MM 1.1 cm 0.6 - 1.0 / 0.6 - 0.9 cm LVPW Diastolic Thickness MM 1.2 cm 0.6 - 1.0 / 0.6 - 0.9 cm LV Relative Wall Thickness MM 0.5 0.24 - 0.42 / 0.22 - 0.42 LV Mass Index MM 100.0 g/m??? 49 - 115 / 43 - 95 g/m??? DOPPLER AV Peak Velocity 155.5 cm/s AV Peak Gradient 9.7 mmHg AV Mean Velocity 107.9 cm/s AV Mean Gradient 5.2 mmHg AV Velocity Time Integral 27.7 cm LVOT Peak Velocity 117.8 cm/s LVOT Peak Gradient 5.5 mmHg LVOT Velocity Time Integral 20.9 cm LVOT Stroke Volume 81.2 cm??? LVOT Stroke Volume Index 35.8 ml/m??? LVOT Cardiac Index 3034.8 cm???/min???m??? AV Area Cont Eq vti 2.9 cm??? AV Area Cont Eq pk 2.9 cm??? MV Area PHT 4.5 cm??? Mitral E Point Velocity 56.5 cm/s Mitral A Point Velocity 79.2 cm/s Mitral E to A Ratio 0.7 MV Deceleration Time 169.4 ms PV Peak Velocity 97.6 cm/s PV Peak Gradient 3.8 mmHg FINDINGS Left Ventricle Left ventricular ejection fraction is estimated at 60-65 %. Mildly increased left ventricular mass. Mildly increased septal wall thickness. Mildly increased posterior wall thickness. Mildly increased left ventricular relative wall thickness. Left ventricular cavity size normal. No obvious regional wall motion abnormalities. Hyperdynamic left ventricular systolic function. Right Ventricle Right ventricle not well visualized. Unable to estimate the right ventricular systolic pressure. Right Atrium Right atrium not well visualized. Left Atrium Left atrium not well visualized. Mitral Valve Structurally normal mitral valve. No mitral stenosis, regurgitation or prolapse. Aortic Valve Trileaflet aortic valve. No aortic valve stenosis or regurgitation. Tricuspid Valve Structurally normal tricuspid valve. No tricuspid stenosis. Trace tricuspid regurgitation. Pulmonic Valve No pulmonic stenosisstructurally normal pulmonic valve. No pulmonic stenosis. No pulmonic regurgitation. Pericardium No pericardial effusion. Fat pad. Aorta Normal size aortic root and proximal ascending aorta. CONCLUSIONS Technically difficult study. LVEF 60 to 65% Mild concentric LVH Normal RV size and systolic function. Hyperdynamic LV. No significant valvular dysfunction Previewed by: Dr Myron Emerson (Electronically Signed) Final Date: 26 October 2024 18:35
[2024-10-27 05:29] LABS: Prothrombin Time 29.6 sec (10.0-12.5)
--- NOTE | 2024-10-27 16:14 | P.PN ---
Subjective Progress Note Date: 10/27/24 This is a 64-year-old female patient, obese with a BMI of 38.8 along with history of chronic bronchial asthma that was labile to be mild intermittent in nature. She also has chronic pain/fibromyalgia/trigeminal neuralgia and known history of hypercoagulable state maintained on anticoagulation with warfarin on outpatient basis. The patient was in the hospital 10/15/2024 through 10/21/2024. The patient was discharged home after being treated for acute COPD/asthma exacerbation and the patient was discharged home on Symbicort, DuoNeb updrafts and a course of Diflucan that was given to her for oropharyngeal candidiasis. She presented back to the hospital with increased cough and congestion and some degree of fluid overload as the patient has noted to have some increased welling lower extremities bilaterally. No reported fever. No chills. She states that she was taking her medication and she was quite compliant. Chest x-ray shows no acute abnormalities. Initial lactic acid level was at 2.7 dropped down to 1.0. White cell count at 13.1, hemoglobin 12.6, BUN 30 with a creatinine 0.8. INR was at 4.2. Accordingly, the patient was hospitalized for further care. She is currently on oxygen at 2 L with a pulse ox of 96%. Afebrile. Hemodynamically stable. Breathing is nonlabored. 11/22/2024, the patient is being seen for a follow-up. Sitting up in a chair. Feeling better compared to yesterday. Less bronchospastic and wheezy and the patient remains on DuoNeb updrafts, IV Solu-Medrol. Rest of medications are unchanged. Electrolytes show no significant abnormalities. Serum bicarb is at 38, BUN is 25 with a creatinine of 0.7. INR remains at 4.1. The patient remains on oxygen and she is currently on 2 L/min nasal cannula. No chest pain. No pleurisy or hemoptysis. No other significant events overnight. On today's evaluation of 10/27/2024, the patient is being seen for a follow-up. Sitting up in a chair. No significant chest pain. Continues to be bronchospastic and wheezy. Unable to bring up much of sputum. Considering a bronchoscopy on this patient if no improvement. Remains on DuoNeb updrafts. Remains on performance of Pulmicort nebulized treatments twice a day and IV Solu-Medrol 40 mg every 8 hours. Remains anticoagulation with warfarin. INR elevated at 3.0. Awake and alert and communicating. Oxygenation is stable and the patient is currently on nasal cannula at 2 L with a pulse ox of 95%. Tolerating her diet. Objective - Vital Signs Vital signs: Vital Signs Temp 98.0 F 10/27/24 07:00 Pulse 82 10/27/24 11:32 Resp 18 10/27/24 07:00 BP 144/85 10/27/24 07:00 Pulse Ox 95 10/27/24 07:55 FiO2 Intake & Output 10/26/24 10/27/24 10/27/24 18:59 06:59 18:59 Intake Total 1160 690 240 Balance 1160 690 240 Intake: Oral 1160 690 240 Other: Voiding Method Toilet - Exam GENERAL EXAM: Alert, pleasant 64-year-old female, on 2 L nasal cannula, fairly comfortable in no apparent distress. HEAD: Normocephalic. EYES: Normal reaction of pupils, equal size. NOSE: Clear with pink turbinates. THROAT: No erythema or exudates. NECK: No masses, no JVD. CHEST: No chest wall deformity. LUNGS: Equal air entry with bilateral wheeze, scattered rhonchi. CVS: S1 and S2 normal with no audible murmur, regular rhythm. ABDOMEN: No hepatosplenomegaly, normal bowel sounds, no guarding or rigidity. SPINE: No scoliosis or deformity SKIN: No rashes CENTRAL NERVOUS SYSTEM: No focal deficits, tone is normal in all 4 extremities. EXTREMITIES: There is +1 peripheral edema. No clubbing, no cyanosis. Perip heral pulses are intact. - Labs CBC & Chem 7: 10/24/24 16:14 10/26/24 04:22 Labs: Abnormal Lab Results - Last 24 Hours (Table) 10/27/24 Range/Units 04:58 PT 29.6 H (10.0-12.5) sec INR 3.0 H (<1.2) Assessment and Plan Plan: Acute exacerbation of COPD/mild intermittent chronic bronchial asthma complicated by tracheobronchitis. Chest x-ray is free of any acute pulmonary filtrates. The patient remains bronchospastic and wheezy. She is on oxygen 2 L/min nasal cannula Acute on chronic hypoxic respiratory insufficiency secondary to above, maintained on home oxygen, maintained on oxygen 2 L/min nasal cannula, INR is slightly supratherapeutic at 4.2 Fibromyalgia Trigeminal neuralgia Previous PE/DVTs, maintained on warfarin Lifelong non-smoker Chronic pain syndrome, pain pump in place Hypothyroidism Obesity Mild leukocytosis Plan: Clinically stable and slightly improved compared to yesterday. Will continue the same treatment for now. Nevertheless, the patient continues to bronchospastic and wheezy and she continues to have a congested cough. 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 Will continue same treatment will consider bronchoscopy if no improvement in the next 24 hours. Meanwhile, the patient is off anticoagulation for now. Warfarin is on hold and the patient's INR is at 3.0. The patient is currently on 2 to 3 L of O2 nasal cannula DuoNeb nebulized treatments 4 times a day IV Solu-Medrol 40 mg every 8 hours Pulmicort Respules 1 mg twice a day in combination with Perforomist nebulized twice a day Obtain sputum Gram stain and culture, unable to bring up much of sputum. Diflucan for oropharyngeal candidiasis Bumex 2 mg IV every 12 hours Resume home medications Anticoagulation will be resumed with warfarin and daily PT/INR monitoring Will continue to follow
[2024-10-27] MEDS: WARFARIN 1 MG TAB PO ONE (17:00)
--- NOTE | 2024-10-27 18:27 | P.PN ---
Progress Note - Text Progress Note Date: 10/27/24 Chief Complaint: Short of breath Pleasant 64-year-old patient follows Dr. Yovanny Mcdonald. 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 Was admitted with COPD exacerbation, pharyngeal thrush, also had some fluid overload. Patient states upon getting home her symptoms got worse. Standing more cough wheezing. She says last bowel movement was over a week ago. Also swelling lower extremity. Has had increased fluid intake. No fever no chills. October 26: Admitted with COPD exacerbation and increased fluid intake causing fluid overload. Some improvement breathing today. Bertram wrap was ordered yesterday. Reminded. Some improvement in breathing. Eating fair. Continue bronchodilators Solu-Medrol. Diflucan. 27 October: Breathing better. Some congested chest. Patient requesting to stay 1 more day. Will switch to oral prednisone tomorrow morning. Active Medications Hydrocodone Bitart/Acetaminophen (Hydrocodone/Apap 10-325mg 1 Each Tab) 1 each PO BID [facility] Last Admin: 10/27/24 08:22 Dose: 1 each Albuterol/Ipratropium (Ipratropium-Albuterol 3 Ml Neb) 3 ml INHALATION RT-BID [facility] Last Admin: 10/27/24 07:55 Dose: 3 ml Albuterol/Ipratropium (Ipratropium-Albuterol 3 Ml Neb) 3 ml INHALATION RT-Q2H PRN PRN Reason: Shortness Of Breath Or Wheezing Last Admin: 10/27/24 15:00 Dose: 3 ml Budesonide (Budesonide 1 Mg/2 Ml Nebu) 1 mg INHALATION RT-BID [facility] Last Admin: 10/27/24 07:54 Dose: 1 mg Bumetanide (Bumetanide 0.25 Mg/Ml 10 Ml Vial) 2 mg IV Q12H [facility] Last Admin: 10/27/24 17:43 Dose: 2 mg Cyclobenzaprine HCl (Cyclobenzaprine 10 Mg Tab) 10 mg PO BID [facility] Last Admin: 10/27/24 08:21 Dose: 10 mg Duloxetine HCl (Duloxetine Hcl 30 Mg Capsule.) 30 mg PO HS [facility] Last Admin: 10/26/24 20:42 Dose: 30 mg Ergocalciferol (Ergocalciferol 1,250 Mcg (50,000 Iu) Capsule) 1,250 mcg PO MO [facility] Last Admin: 10/25/24 10:06 Dose: 1,250 mcg Formoterol Fumarate (Formoterol Fumarate 20 Mcg/2 Ml Nebu) 20 mcg INHALATION RT-BID [facility] Last Admin: 10/27/24 07:54 Dose: 20 mcg Guaifenesin (Guaifenesin 600 Mg Tablet.Er) 600 mg PO QID [facility] Last Admin: 10/27/24 17:00 Dose: 600 mg Lactic Acid (Ammonium Lactate 12% Cream 140 Gm Tube) 1 applic TOPICAL BID PRN; Protocol PRN Reason: Dry Skin Levothyroxine Sodium (Levothyroxine 100 Mcg Tab) 100 mcg PO DAILY@0600 [facility] Last Admin: 10/27/24 06:16 Dose: 100 mcg Levothyroxine Sodium (Levothyroxine 75 Mcg Tab) 75 mcg PO DAILY@0600 [facility] Last Admin: 10/27/24 06:16 Dose: 75 mcg Methylprednisolone Sodium Succinate (Methylprednisolone Sod Succi 40 Mg/Ml 1 Ml Vial) 40 mg IV Q8HR [facility] Stop: 10/27/24 23:59 Last Admin: 10/27/24 17:00 Dose: 40 mg Miscellaneous Information (Warfarin Per Pharmacy) 0 each MISCELLANE DIRECTED PRN PRN Reason: PHARMACY DOSING PROTOCOL Naloxone HCl (Naloxone 0.4 Mg/Ml 1 Ml Vial) 0.2 mg IV Q2M PRN PRN Reason: Opioid Reversal Nitroglycerin (Nitroglycerin Sl Tabs 0.4 Mg Tab) 0.4 mg SUBLINGUAL Q5M PRN PRN Reason: Chest Pain Potassium Chloride (Potassium Chloride Er 20 Meq Tab.Er) 20 meq PO DAILY [facility] Last Admin: 10/27/24 08:21 Dose: 20 meq Prednisone (Prednisone 20 Mg Tab) 40 mg PO DAILY [facility] Pregabalin (Pregabalin 100 Mg Cap) 200 mg PO TID [facility] Last Admin: 10/27/24 17:00 Dose: 200 mg Risperidone (Risperidone 0.5 Mg Tab) 0.5 mg PO BID [facility] Last Admin: 10/27/24 08:22 Dose: 0.5 mg Social history: Denies smoking alcohol. Does use a four-wheel walker. Home alone Physical examination: VITAL SIGNS: 98.4, 92, 18, 134 x 75, 95% GENERAL: In recliner, breathing much better. EYES: Pupils equal. Conjunctiva lu l. HEENT: External appearance of nose and ears normal, oral cavity : Normal NECK: JVD unable to assess; masses not palpable. HEART: First and second heart sounds are normal; edema present LUNGS: Respiratory rate ; d improved air entry. Someexp crackles ABDOMEN: Soft, nontender, liver spleen not palpable, no masses palpable. PSYCH: [Alert and oriented x3; mood and affect-a bit anxious MUSCULOSKELETAL:No Clubbing/cyanosis;muscles-grossly intact INVESTIGATIONS, reviewed in the clinical context: October 26: 133 potassium 3.8 creatinine 0.79 2D echo: EF 60 to 65%. INR 4.2 October 24: White count 15.1 hemoglobin 12.6 platelets 282 sodium 137 potassium 3.6 BUN 30 creatinine 0.85 Lactic acid 2.7 repeat 1.0 EKG tracing personally reviewed by me-normal sinus rhythm Chest x-ray film personally reviewed by me-no obvious abnormality Recent investigations: Dobutamine echocardiogram [May 2024] unremarkable Assessment and plan: -Acute COPD exacerbation, in a non-smoker, with a recent admission.: Much better DuoNeb 4 times daily. IV Solu-Medrol, nebulized Perforomist, nebulized Pulmicort Change to oral prednisone tomorrow -Chronic fibromyalgia, with chronic pain syndrome Cymbalta. Flexeril. Lyrica. Pain pump. Patient does follow with Dr. Ki nix -Chronic DVTs and PEs On Coumadin - Fluid overload from excessive fluid intake . Bumex. Fluid restriction. 2D echo-preserved LV function, -Coumadin monitoring per pharmacy -Depression Wellbutrin -History of psychosis Risperdal -Hypothyroid Synthroid 176 g daily - Obesity BMI 36.5 -Chronic intermittent headaches Patient to follow-up with her neurologist. -Keratoconjunctivitis sicca Artificial tears Much better. Plan for discharge tomorrow Past Medical History Past Medical History: COPD, Fibromyalgia, Thyroid Disorder Additional Past Medical History / Comment(s): atypical facial pain, trigeminal neuralgia, "24 hour tension headache syndrome", migraines, shingles 2012 around her rt eye area.,hx dvt rt leg and multiple pe's found,past tx for "copd d/t mold in basement of her home that permeated to upstairs. inpast used 02 but not now", murmur when younger,constipation(last bm 2-20-18,vertigo, "dry eye syndrome uses drops 4-6 times a day.stress test .had mamogram apr 2017-neg History of Any Multi-Drug Resistant Organisms: None Reported Past Surgical History: Appendectomy, Section, Cholecystectomy Additional Past Surgical History / Comment(s): 2 c-sections, fissurectomy, colonoscopy Past Anesthesia/Blood Transfusion Reactions: No Reported Reaction Past Psychological History: Depression Additional Psychological History / Comment(s): [facility] Smoking Status: Never smoker Past Alcohol Use History: None Reported Past Drug Use History: None Reported
[2024-10-28 04:57] LABS: INR 2.6 (<1.2); Prothrombin Time 26.2 sec (10.0-12.5)
[2024-10-28 05:03] LABS: African American GFR (CKD) 74 (>60 ml/min/1.73 sqM); Blood Urea Nitrogen 37 mg/dL (7-17); Calcium 8.8 mg/dL (8.4-10.2); Chloride 91 mmol/L (98-107); Glucose 211 mg/dL (74-99); Non-African American GFR(CKD) 64 (>60 ml/min/1.73 sqM); Potassium 3.4 mmol/L (3.5-5.1); Sodium 135 mmol/L (137-145)
[2024-10-28 05:09] LABS: Anion Gap 9 mmol/L
[2024-10-28 05:29] LABS: Carbon Dioxide 35 mmol/L (22-30)
[2024-10-28] MEDS: predniSONE 20 MG TAB PO SCH (08:20)
--- NOTE | 2024-10-28 18:04 | P.PN ---
Subjective Progress Note Date: 10/28/24 This is a 64-year-old female patient, obese with a BMI of 38.8 along with history of chronic bronchial asthma that was labile to be mild intermittent in nature. She also has chronic pain/fibromyalgia/trigeminal neuralgia and known history of hypercoagulable state maintained on anticoagulation with warfarin on outpatient basis. The patient was in the hospital 10/15/2024 through 10/21/2024. The patient was discharged home after being treated for acute COPD/asthma exacerbation and the patient was discharged home on Symbicort, DuoNeb updrafts and a course of Diflucan that was given to her for oropharyngeal candidiasis. She presented back to the hospital with increased cough and congestion and some degree of fluid overload as the patient has noted to have some increased welling lower extremities bilaterally. No reported fever. No chills. She states that she was taking her medication and she was quite compliant. Chest x-ray shows no acute abnormalities. Initial lactic acid level was at 2.7 dropped down to 1.0. White cell count at 13.1, hemoglobin 12.6, BUN 30 with a creatinine 0.8. INR was at 4.2. Accordingly, the patient was hospitalized for further care. She is currently on oxygen at 2 L with a pulse ox of 96%. Afebrile. Hemodynamically stable. Breathing is nonlabored. 11/22/2024, the patient is being seen for a follow-up. Sitting up in a chair. Feeling better compared to yesterday. Less bronchospastic and wheezy and the patient remains on DuoNeb updrafts, IV Solu-Medrol. Rest of medications are unchanged. Electrolytes show no significant abnormalities. Serum bicarb is at 38, BUN is 25 with a creatinine of 0.7. INR remains at 4.1. The patient remains on oxygen and she is currently on 2 L/min nasal cannula. No chest pain. No pleurisy or hemoptysis. No other significant events overnight. On today's evaluation of 10/27/2024, the patient is being seen for a follow-up. Sitting up in a chair. No significant chest pain. Continues to be bronchospastic and wheezy. Unable to bring up much of sputum. Considering a bronchoscopy on this patient if no improvement. Remains on DuoNeb updrafts. Remains on performance of Pulmicort nebulized treatments twice a day and IV Solu-Medrol 40 mg every 8 hours. Remains anticoagulation with warfarin. INR elevated at 3.0. Awake and alert and communicating. Oxygenation is stable and the patient is currently on nasal cannula at 2 L with a pulse ox of 95%. Tolerating her diet. 10/28/2024, the patient remains bronchospastic and wheezy although she seems to be less congested compared to yesterday. Considering bronchoscopy endobronchial lavage of no improvement over the next 24 hours. Meanwhile, she remains on DuoNeb updrafts. Remains on prednisone and she is currently on a 40 mg as part of the burst taper. She is also on a combination of Perforomist and Pulmicort nebulized treatments twice a day. INR is at 2.6. BUN 37 creatinine 0.9. Oxygenation stable and the patient remains on 2 L of oxygen by nasal cannula with a pulse ox of 95%. No altered mentation patient is able to sit up in the chair without any major difficulties. Objective - Vital Signs Vital signs: Vital Signs Temp 97.8 F 10/28/24 14:26 Pulse 82 10/28/24 16:33 Resp 18 10/28/24 14:26 BP 129/77 10/28/24 14:26 Pulse Ox 95 10/28/24 14:26 FiO2 Intake & Output 10/27/24 10/28/24 10/28/24 18:59 06:59 18:59 Intake Total 1512 1330 Balance 1512 1330 Intake: Oral 1512 1330 Other: Voiding Method Toilet Toilet Toilet # Voids 3 2 - Exam GENERAL EXAM: Alert, pleasant 64-year-old female, on 2 L nasal cannula, fairly comfortable in no apparent distress. HEAD: Normocephalic. EYES: Normal reaction of pupils, equal size. NOSE: Clear with pink turbinates. THROAT: No erythema or exudates. NECK: No masses, no JVD. CHEST: No chest wall deformity. LUNGS: Equal air entry with bilateral wheeze, scattered rhonchi. CVS: S1 and S2 normal with no audible murmur, regular rhythm. ABDOMEN: No hepatosplenomegaly, normal bowel sounds, no guarding or rigidity. SPINE: No scoliosis or deformity SKIN: No rashes CENTRAL NERVOUS SYSTEM: No focal deficits, tone is normal in all 4 extremities. EXTREMITIES: There is +1 peripheral edema. No clubbing, no cyanosis. Peripheral pulses are intact. - Labs CBC & Chem 7: 10/24/24 16:14 10/28/24 04:32 Labs: Abnormal Lab Results - Last 24 Hours (Table) 10/28/24 10/28/24 Range/Units 04:32 04:32 PT 26.2 H (10.0-12.5) sec INR 2.6 H (<1.2) Sodium 135 L (137-145) mmol/L Potassium 3.4 L (3.5-5.1) mmol/L Chloride 91 L (98-107) mmol/L Carbon Dioxide 35 H (22-30) mmol/L BUN 37 H (7-17) mg/dL Glucose 211 H (74-99) mg/dL Assessment and Plan Plan: Acute exacerbation of COPD/mild intermittent chronic bronchial asthma complicated by tracheobronchitis. Chest x-ray is free of any acute pulmonary filtrates. The patient remains bronchospastic and wheezy. She is on oxygen 2 L/min nasal cannula Acute on chronic hypoxic respiratory insufficiency secondary to above, freddy ntained on home oxygen, maintained on oxygen 2 L/min nasal cannula, INR is slightly supratherapeutic at 4.2 Fibromyalgia Trigeminal neuralgia Previous PE/DVTs, maintained on warfarin Lifelong non-smoker Chronic pain syndrome, pain pump in place Hypothyroidism Obesity Mild leukocytosis Plan: Clinically stable and slightly improved compared to yesterday. The cough seems to be less congested compared to yesterday. Will continue the same treatment for now. Nevertheless, the patient continues to bronchospastic and wheezy and she continues to have a congested cough. 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 Will continue same treatment will consider bronchoscopy if no improvement in the next 24 hours. Meanwhile, the patient is off anticoagulation for now. Warfarin is on hold and the patient's INR is at 2.6 The patient is currently on 2 liters of O2 nasal cannula DuoNeb nebulized treatments 4 times a day Prednisone 40 mg p.o. daily Pulmicort Respules 1 mg twice a day in combination with Perforomist nebulized twice a day Diflucan for oropharyngeal candidiasis Bumex 2 mg IV every 12 hours Resume home medications Anticoagulation will be resumed with warfarin and daily PT/INR monitoring Will continue to follow
[2024-10-28] MEDS: WARFARIN 1 MG TAB PO ONE (18:17)
--- NOTE | 2024-10-28 18:53 | P.PN ---
Progress Note - Text Progress Note Date: 10/28/24 Chief Complaint: Short of breath Pleasant 64-year-old patient follows Dr. Yovanny Mcdonald. 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 Was admitted with COPD exacerbation, pharyngeal thrush, also had some fluid overload. Patient states upon getting home her symptoms got worse. Standing more cough wheezing. She says last bowel movement was over a week ago. Also swelling lower extremity. Has had increased fluid intake. No fever no chills. October 26: Admitted with COPD exacerbation and increased fluid intake causing fluid overload. Some improvement breathing today. Bertram wrap was ordered yesterday. Reminded. Some improvement in breathing. Eating fair. Continue bronchodilators Solu-Medrol. Diflucan. 27 October: Breathing better. Some congested chest. Patient requesting to stay 1 more day. Will switch to oral prednisone tomorrow morning. October 28: Up in a recliner. Expiratory rattling. Secretions. Discussed with Dr. Mccauley. For bronchoscopy with lavage tomorrow. Medications to continue. Active Medications Hydrocodone Bitart/Acetaminophen (Hydrocodone/Apap 10-325mg 1 Each Tab) 1 each PO BID [facility] Last Admin: 10/28/24 08:20 Dose: 1 each Albuterol/Ipratropium (Ipratropium-Albuterol 3 Ml Neb) 3 ml INHALATION RT-BID [facility] Last Admin: 10/28/24 07:47 Dose: 3 ml Albuterol/Ipratropium (Ipratropium-Albuterol 3 Ml Neb) 3 ml INHALATION RT-Q2H PRN PRN Reason: Shortness Of Breath Or Wheezing Last Admin: 10/28/24 16:23 Dose: 3 ml Budesonide (Budesonide 1 Mg/2 Ml Nebu) 1 mg INHALATION RT-BID [facility] Last Admin: 10/28/24 07:47 Dose: 1 mg Bumetanide (Bumetanide 0.25 Mg/Ml 10 Ml Vial) 2 mg IV Q12H [facility] Last Admin: 10/28/24 18:17 Dose: 2 mg Cyclobenzaprine HCl (Cyclobenzaprine 10 Mg Tab) 10 mg PO BID [facility] Last Admin: 10/28/24 08:20 Dose: 10 mg Duloxetine HCl (Duloxetine Hcl 30 Mg Capsule.) 30 mg PO HS [facility] Last Admin: 10/27/24 21:20 Dose: 30 mg Ergocalciferol (Ergocalciferol 1,250 Mcg (50,000 Iu) Capsule) 1,250 mcg PO MO [facility] Last Admin: 10/25/24 10:06 Dose: 1,250 mcg Formoterol Fumarate (Formoterol Fumarate 20 Mcg/2 Ml Nebu) 20 mcg INHALATION RT-BID [facility] Last Admin: 10/28/24 07:47 Dose: 20 mcg Guaifenesin (Guaifenesin 600 Mg Tablet.Er) 600 mg PO QID [facility] Last Admin: 10/28/24 18:17 Dose: 600 mg Lactic Acid (Ammonium Lactate 12% Cream 140 Gm Tube) 1 applic TOPICAL BID PRN; Protocol PRN Reason: Dry Skin Levothyroxine Sodium (Levothyroxine 100 Mcg Tab) 100 mcg PO DAILY@0600 [facility] Last Admin: 10/28/24 05:45 Dose: 100 mcg Levothyroxine Sodium (Levothyroxine 75 Mcg Tab) 75 mcg PO DAILY@0600 [facility] Last Admin: 10/28/24 05:45 Dose: 75 mcg Miscellaneous Information (Warfarin Per Pharmacy) 0 each MISCELLANE DIRECTED PRN PRN Reason: PHARMACY DOSING PROTOCOL Naloxone HCl (Naloxone 0.4 Mg/Ml 1 Ml Vial) 0.2 mg IV Q2M PRN PRN Reason: Opioid Reversal Nitroglycerin (Nitroglycerin Sl Tabs 0.4 Mg Tab) 0.4 mg SUBLINGUAL Q5M PRN PRN Reason: Chest Pain Potassium Chloride (Potassium Chloride Er 20 Meq Tab.Er) 20 meq PO DAILY [facility] Last Admin: 10/28/24 08:21 Dose: 20 meq Prednisone (Prednisone 20 Mg Tab) 40 mg PO DAILY [facility] Last Admin: 10/28/24 08:20 Dose: 40 mg Pregabalin (Pregabalin 100 Mg Cap) 200 mg PO TID [facility] Last Admin: 10/28/24 16:39 Dose: 200 mg Risperidone (Risperidone 0.5 Mg Tab) 0.5 mg PO BID [facility] Last Admin: 10/28/24 08:22 Dose: 0.5 mg Social history: Denies smoking alcohol. Does use a four-wheel walker. Home alone Physical examination: VITAL SIGNS: 97.8, 82, 18, 129 x 77, 95% 2 L GENERAL: In recliner, EYES: Pupils equal. Conjunctiva lu l. HEENT: External appearance of nose and ears normal, oral cavity : Normal NECK: JVD unable to assess; masses not palpable. HEART: First and second heart sounds are normal; edema decreased LUNGS: Respiratory rate ; d improved air entry. Expiratory coarse crackles ABDOMEN: Soft, nontender, liver spleen not palpable, no masses palpable. PSYCH: [Alert and oriented x3; mood and affect-a bit anxious MUSCULOSKELETAL:No Clubbing/cyanosis;muscles-grossly intact INVESTIGATIONS, reviewed in the clinical context: October 26: 133 potassium 3.8 creatinine 0.79 2D echo: EF 60 to 65%. INR 4.2 October 24: White count 15.1 hemoglobin 12.6 platelets 282 sodium 137 potassium 3.6 BUN 30 creatinine 0.85 Lactic acid 2.7 repeat 1.0 EKG tracing personally reviewed by me-normal sinus rhythm Chest x-ray film personally reviewed by me-no obvious abnormality Recent investigations: Dobutamine echocardiogram [May 2024] unremarkable Assessment and plan: -Acute COPD exacerbation, in a non-smoker, with a recent admission.: Improving DuoNeb 4 times daily. IV Solu-Medrol, nebulized Perforomist, nebulized Pulmicort Change to oral prednisone tomorrow -Increased pulmonary secretions. Unable to expectorate. For bronchoscopy with lavage tomorrow by Dr. Mccauley -Chronic fibromyalgia, with chronic pain syndrome Cymbalta. Flexeril. Lyrica. Pain pump. Patient does follow with Dr. Ki nix -Chronic DVTs and PEs On Coumadin - Fluid overload from excessive fluid intake . Bumex. Fluid restriction. 2D echo-preserved LV function, -Coumadin monitoring per pharmacy -Depression Wellbutrin -History of psychosis Risperdal -Hypothyroid Synthroid 176 g daily - Obesity BMI 36.5 -Chronic intermittent headaches Patient to follow-up with her neurologist. -Keratoconjunctivitis sicca Artificial tears For bronchoscopy with lavage tomorrow. Medication to continue. Discussed with patient Dr. Mccauley. 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 inpast used 02 but not now", murmur when younger,constipation(last bm 218,vertigo, "dry eye syndrome uses drops 4-6 times a day.stress test .had mamogram apr 2017-neg History of Any Multi-Drug Resistant Organisms: None Reported Past Surgical History: Appendectomy, Section, Cholecystectomy Additional Past Surgical History / Comment(s): 2 c-sections, fissurectomy, colonoscopy Past Anesthesia/Blood Transfusion Reactions: No Reported Reaction Past Psychological History: Depression Additional Psychological History / Comment(s): pt lives at [facility] Smoking Status: Never smoker Past Alcohol Use History: None Reported Past Drug Use History: None Reported
[2024-10-29 05:22] LABS: INR 2.4 (<1.2); Prothrombin Time 23.6 sec (10.0-12.5)
[2024-10-29 12:43] VITALS: BMI 38.7
[2024-10-29] MEDS: NYSTATIN 100,000 UNIT/ML SUSP 500,000 UNIT/5 ML CUP PO SCH (13:00)
[2024-10-29] MEDS ORDERED: PROPOFOL 10 MG/ML 20 ML VIAL IV ONE (13:50)
[2024-10-29] MEDS ORDERED: KETAMINE HCL IN 0.9 % NACL 50 MG/5 ML SYRINGE ONE (13:50)
[2024-10-29] MEDS ORDERED: fentaNYL (PF) 50 MCG/ML 2 ML AMP ONE (13:50)
[2024-10-29] MEDS ORDERED: LIDOCAINE 1% INJ 10MG/ML (20 ML MDV) ONE (13:50)
[2024-10-29] MEDS ORDERED: MIDAZOLAM 2 MG/2 ML VIAL ONE (13:50)
[2024-10-29] MEDS: LACTATED RINGERS 1,000 ML IV ONE (14:13)
[2024-10-29] MEDS: IPRATROPIUM-ALBUTEROL 3 ML NEB INHALATION SCH (15:26)
--- NOTE | 2024-10-29 17:37 | P.PN ---
Progress Note - Text Progress Note Date: 10/29/24 Chief Complaint: Short of breath Pleasant 64-year-old patient follows Dr. Yovanny Mcdonald. Senior Accounting Manager Dr. JEIMY Lezama Patient just in the hospital from October 16 through October 21. Was admitted with COPD exacerbation, pharyngeal thrush, also had some fluid overload. Patient states upon getting home her symptoms got worse. Standing more cough wheezing. She says last bowel movement was over a week ago. Also swelling lower extremity. Has had increased fluid intake. No fever no chills. October 26: Admitted with COPD exacerbation and increased fluid intake causing fluid overload. Some improvement breathing today. Bertram wrap was ordered yesterday. Reminded. Some improvement in breathing. Eating fair. Continue bronchodilators Solu-Medrol. Diflucan. 27 October: Breathing better. Some congested chest. Patient requesting to stay 1 more day. Will switch to oral prednisone tomorrow morning. October 28: Up in a recliner. Expiratory rattling. Secretions. Discussed with Dr. Mccauley. For bronchoscopy with lavage tomorrow. Medications to continue. October 29: Patient seen this morning. Later this afternoon went down for bronchoscopy lavage. Formal results are pending. Active Medications Hydrocodone Bitart/Acetaminophen (Hydrocodone/Apap 10-325mg 1 Each Tab) 1 each PO BID [facility] Last Admin: 10/29/24 09:03 Dose: 1 each Albuterol/Ipratropium (Ipratropium-Albuterol 3 Ml Neb) 3 ml INHALATION RT-Q2H PRN PRN Reason: Shortness Of Breath Or Wheezing Last Admin: 10/29/24 11:41 Dose: 3 ml Albuterol/Ipratropium (Ipratropium-Albuterol 3 Ml Neb) 3 ml INHALATION RT-QID [facility] Last Admin: 10/29/24 15:26 Dose: 3 ml Budesonide (Budesonide 1 Mg/2 Ml Nebu) 1 mg INHALATION RT-BID [facility] Last Admin: 10/29/24 07:46 Dose: 1 mg Bumetanide (Bumetanide 0.25 Mg/Ml 10 Ml Vial) 2 mg IV Q12H [facility] Last Admin: 10/29/24 06:21 Dose: 2 mg Cyclobenzaprine HCl (Cyclobenzaprine 10 Mg Tab) 10 mg PO BID [facility] Last Admin: 10/29/24 09:04 Dose: 10 mg Duloxetine HCl (Duloxetine Hcl 30 Mg Capsule.Dr) 30 mg PO HS [facility] Last Admin: 10/28/24 21:27 Dose: 30 mg Ergocalciferol (Ergocalciferol 1,250 Mcg (50,000 Iu) Capsule) 1,250 mcg PO MO [facility] Last Admin: 10/25/24 10:06 Dose: 1,250 mcg Formoterol Fumarate (Formoterol Fumarate 20 Mcg/2 Ml Nebu) 20 mcg INHALATION RT-BID [facility] Last Admin: 10/29/24 07:47 Dose: 20 mcg Guaifenesin (Guaifenesin 600 Mg Tablet.Er) 600 mg PO QID [facility] Last Admin: 10/29/24 16:33 Dose: 600 mg Lactic Acid (Ammonium Lactate 12% Cream 140 Gm Tube) 1 applic TOPICAL BID PRN; Protocol PRN Reason: Dry Skin Levothyroxine Sodium (Levothyroxine 100 Mcg Tab) 100 mcg PO DAILY@0600 [facility] Last Admin: 10/29/24 06:22 Dose: 100 mcg Levothyroxine Sodium (Levothyroxine 75 Mcg Tab) 75 mcg PO DAILY@0600 [facility] Last Admin: 10/29/24 06:22 Dose: 75 mcg Miscellaneous Information (Warfarin Per Pharmacy) 0 each MISCELLANE DIRECTED PRN PRN Reason: PHARMACY DOSING PROTOCOL Naloxone HCl (Naloxone 0.4 Mg/Ml 1 Ml Vial) 0.2 mg IV Q2M PRN PRN Reason: Opioid Reversal Nitroglycerin (Nitroglycerin Sl Tabs 0.4 Mg Tab) 0.4 mg SUBLINGUAL Q5M PRN PRN Reason: Chest Pain Nystatin (Nystatin 100,000 Unit/Ml Susp 500,000 Unit/5 Ml Cup) 500,000 unit PO QID [facility]; Protocol Last Admin: 10/29/24 16:32 Dose: 500,000 unit Potassium Chloride (Potassium Chloride Er 20 Meq Tab.Er) 20 meq PO DAILY [facility] Last Admin: 10/29/24 09:04 Dose: 20 meq Prednisone (Prednisone 20 Mg Tab) 40 mg PO DAILY [facility] Last Admin: 10/29/24 09:03 Dose: 40 mg Pregabalin (Pregabalin 100 Mg Cap) 200 mg PO TID [facility] Last Admin: 10/29/24 16:32 Dose: 200 mg Risperidone (Risperidone 0.5 Mg Tab) 0.5 mg PO BID [facility] Last Admin: 10/29/24 09:03 Dose: 0.5 mg Warfarin Sodium (Warfarin 2.5 Mg Tab) 2.5 mg PO ONCE@1800 ONE Stop: 10/29/24 18:01 Social history: Denies smoking alcohol. Does use a four-wheel walker. Home alone Physical examination: VITAL SIGNS: 98.1, 72, 18, 114 x 59, 93% 3 L GENERAL: Up in a recliner EYES: Pupils equal. Conjunctiva lu l. HEENT: External appearance of nose and ears normal, oral cavity : Normal NECK: JVD unable to assess; masses not palpable. HEART: First and second heart sounds are normal; edema decreased LUNGS: Respiratory rate ; d improved air entry. Some expiratory crackles ABDOMEN: Soft, nontender, liver spleen not palpable, no masses palpable. PSYCH: [Alert and oriented x3; mood and affect-a bit anxious MUSCULOSKELETAL:No Clubbing/cyanosis;muscles-grossly intact INVESTIGATIONS, reviewed in the clinical context: October 26: 133 potassium 3.8 creatinine 0.79 2D echo: EF 60 to 65%. INR 4.2 October 24: White count 15.1 hemoglobin 12.6 platelets 282 sodium 137 potassium 3.6 BUN 30 creatinine 0.85 Lactic acid 2.7 repeat 1.0 EKG tracing personally reviewed by me-normal sinus rhythm Chest x-ray film personally reviewed by me-no obvious abnormality Recent investigations: Dobutamine echocardiogram [May 2024] unremarkable Assessment and plan: -Acute COPD exacerbation, in a non-smoker, with a recent admission.: Improving DuoNeb 4 times daily. IV Solu-Medrol, nebulized Perforomist, nebulized Pulmicort Oral prednisone -Increased pulmonary secretions. Unable to expectorate. Today bronchoscopy with lavage done by Dr. Mccauley -Chronic fibromyalgia, with chronic pain syndrome Cymbalta. Flexeril. Lyrica. Pain pump. Patient does follow with Dr. Ki nix -Chronic DVTs and PEs On Coumadin - Fluid overload from excessive fluid intake . Bumex. Fluid restriction. 2D echo-preserved LV function, -Coumadin monitoring per pharmacy -Depression Wellbutrin -History of psychosis Risperdal -Hypothyroid Synthroid 176 g daily - Obesity BMI 36.5 -Chronic intermittent headaches Patient to follow-up with her neurologist. -Keratoconjunctivitis sicca Artificial tears Status post bronchoscopy lavage. 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 inpast used 02 but not now", murmur when younger,constipation(last bm 07-15-17,vertigo, "dry eye syndrome uses drops 4-6 times a day.stress test .had mamogram apr 2017-neg History of Any Multi-Drug Resistant Organisms: None Reported Past Surgical History: Appendectomy, Section, Cholecystectomy Additional Past Surgical History / Comment(s): 2 c-sections, fissurectomy, colonoscopy Past Anesthesia/Blood Transfusion Reactions: No Reported Reaction Past Psychological History: Depression Additional Psychological History / Comment(s): pt lives at [facility] Smoking Status: Never smoker Past Alcohol Use History: None Reported Past Drug Use History: None Reported
[2024-10-29] MEDS: WARFARIN 2.5 MG TAB PO ONE (18:08)
--- NOTE | 2024-10-29 22:14 | P.PN ---
Subjective Progress Note Date: 10/29/24 This is a 64-year-old female patient, obese with a BMI of 38.8 along with history of chronic bronchial asthma that was labile to be mild intermittent in nature. She also has chronic pain/fibromyalgia/trigeminal neuralgia and known history of hypercoagulable state maintained on anticoagulation with warfarin on outpatient basis. The patient was in the hospital 10/15/2024 through 10/21/2024. The patient was discharged home after being treated for acute COPD/asthma exacerbation and the patient was discharged home on Symbicort, DuoNeb updrafts and a course of Diflucan that was given to her for oropharyngeal candidiasis. She presented back to the hospital with increased cough and congestion and some degree of fluid overload as the patient has noted to have some increased welling lower extremities bilaterally. No reported fever. No chills. She states that she was taking her medication and she was quite compliant. Chest x-ray shows no acute abnormalities. Initial lactic acid level was at 2.7 dropped down to 1.0. White cell count at 13.1, hemoglobin 12.6, BUN 30 with a creatinine 0.8. INR was at 4.2. Accordingly, the patient was hospitalized for further care. She is currently on oxygen at 2 L with a pulse ox of 96%. Afebrile. Hemodynamically stable. Breathing is nonlabored. 11/22/2024, the patient is being seen for a follow-up. Sitting up in a chair. Feeling better compared to yesterday. Less bronchospastic and wheezy and the patient remains on DuoNeb updrafts, IV Solu-Medrol. Rest of medications are unchanged. Electrolytes show no significant abnormalities. Serum bicarb is at 38, BUN is 25 with a creatinine of 0.7. INR remains at 4.1. The patient remains on oxygen and she is currently on 2 L/min nasal cannula. No chest pain. No pleurisy or hemoptysis. No other significant events overnight. On today's evaluation of 10/27/2024, the patient is being seen for a follow-up. Sitting up in a chair. No significant chest pain. Continues to be bronchospastic and wheezy. Unable to bring up much of sputum. Considering a bronchoscopy on this patient if no improvement. Remains on DuoNeb updrafts. Remains on performance of Pulmicort nebulized treatments twice a day and IV Solu-Medrol 40 mg every 8 hours. Remains anticoagulation with warfarin. INR elevated at 3.0. Awake and alert and communicating. Oxygenation is stable and the patient is currently on nasal cannula at 2 L with a pulse ox of 95%. Tolerating her diet. 10/28/2024, the patient remains bronchospastic and wheezy although she seems to be less congested compared to yesterday. Considering bronchoscopy endobronchial lavage of no improvement over the next 24 hours. Meanwhile, she remains on DuoNeb updrafts. Remains on prednisone and she is currently on a 40 mg as part of the burst taper. She is also on a combination of Perforomist and Pulmicort nebulized treatments twice a day. INR is at 2.6. BUN 37 creatinine 0.9. Oxygenation stable and the patient remains on 2 L of oxygen by nasal cannula with a pulse ox of 95%. No altered mentation patient is able to sit up in the chair without any major difficulties. Take 10/2024, the patient continues to be essentially unchanged, continues to have cough and congestion and shortness of breath and wheezing. Unable to bring up much of sputum. INR today is at 2.4. No hemoptysis. No pleurisy. She remains on 3 L of oxygen by nasal cannula with pulse ox of 93%. She remains on DuoNeb of chest. She is also on steroids and the patient has been switched to oral prednisone 40 mg p.o. daily and she remains on Perforomist Pulmicort nebulized treatments [id number]. She is n.p.o. and the patient is going to undergo a bronchoscopy because of her recurrent hospitalization ongoing symptoms of cough and congestion and bronchospasm and wheeze. Objective - Vital Signs Vital signs: Vital Signs Temp 98 F 10/29/24 19:44 Pulse 72 10/29/24 20:41 Resp 18 10/29/24 20:41 BP 118/74 10/29/24 19:44 Pulse Ox 93 L 10/29/24 19:44 FiO2 Intake & Output 10/29/24 10/29/24 10/30/24 06:59 18:59 06:59 Intake Total 100 Balance 100 Weight 115.666 kg Intake: IV 100 Other: Voiding Method Toilet # Voids 4 # Bowel Movements 0 - Exam GENERAL EXAM: Alert, pleasant 64-year-old female, on 2 L nasal cannula, fairly comfortable in no apparent distress. HEAD: Normocephalic. EYES: Normal reaction of pupils, equal size. NOSE: Clear with pink turbinates. THROAT: No erythema or exudates. NECK: No masses, no JVD. CHEST: No chest wall deformity. LUNGS: Equal air entry with bilateral wheeze, scattered rhonchi. CVS: S1 and S2 normal with no audible murmur, regular rhythm. ABDOMEN: No hepatosplenomegaly, normal bowel sounds, no guarding or rigidity. SPINE: No scoliosis or deformity SKIN: No rashes CENTRAL NERVOUS SYSTEM: No focal deficits, tone is normal in all 4 extremities. EXTREMITIES: There is +1 peripheral edema. No clubbing, no cyanosis. Peripheral pulses are intact. - Labs CBC & Chem 7: 10/24/24 16:14 10/28/24 04:32 Labs: Abnormal Lab Results - Last 24 Hours (Table) 10/29/24 Range/Units 03:41 PT 23.6 H (10.0-12.5) sec INR 2.4 H (<1.2) Assessment and Plan Plan: Acute exacerbation of COPD/mild intermittent chronic bronchial asthma complicated by tracheobronchitis. Chest x-ray is free of any acute pulmonary filtrates. The patient remains bronchospastic and wheezy. She is on oxygen 2 L/min nasal cannula Acute on chronic hypoxic respiratory insufficiency secondary to above, maintained on home oxygen, maintained on oxygen 2 L/min nasal cannula, INR is slightly supratherapeutic at 4.2 Fibromyalgia Trigeminal neuralgia Previous PE/DVTs, maintained on warfarin Lifelong non-smoker Chronic pain syndrome, pain pump in place Hypothyroidism Obesity Mild leukocytosis Plan: Still symptomatic with ongoing bronchospasm and wheezing. Will continue the same treatment for now. Nevertheless, the patient continues to bronchospastic and wheezy and she continues to have a congested cough. 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 Will continue same treatment will consider bronchoscopy if no improvement in the next 24 hours. Meanwhile, the patient is off anticoagulation for now. Warfarin is on hold and the patient's INR is at 2.4 The patient is currently on 2 liters of O2 nasal cannula DuoNeb nebulized treatments 4 times a day Prednisone 40 mg p.o. daily Pulmicort Respules 1 mg twice a day in combination with Perforomist nebulized twice a day Diflucan for oropharyngeal candidiasis Bumex 2 mg IV every 12 hours Resume home medications Patient is currently n.p.o. and the patient is going to have a bronchoscopy today. Will continue to follow
--- NOTE | 2024-10-29 22:18 | P.PCN ---
Date of Procedure: 10/29/24 Preoperative Diagnosis: Chronic cough Postoperative Diagnosis: Tracheobronchomalacia Tracheobronchitis Mucous plugs Procedure(s) Performed: Flexible bronchoscopy, bronchial lavage of the right lower lobe Anesthesia: KIMBERLY Surgeon: Jackelin Mccauley IV fluids (ml): 0 Pathology: other Condition: stable Disposition: same day Operative Findings: The procedure was done in the endoscopy suite. A consent was obtained. A timeout was done. Anesthetic agents was administered by ADULT CROSSING GUARD at the bedside and the procedure was done by the patient being on a simple facemask 10 L O2 After achieving adequate sedation, the flexible scope was introduced to the left nostril. The bronchoscope was easily passed through the posterior pharynx and later on to the larynx and upper airway structures were visualized and they were well within normal limits. The vallecula, arytenoids, vocal cords and epiglottis were all within normal limits. A total of 2 mL of 1% lidocaine was applied to the vocal cord and following the bronchoscope was advanced to the upper trachea. Examination of the tracheobronchial tree was done. 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 This was noted with exhalation maneuvers and coughing. The same time, the patient was noted extensive have copious amount of thick secretions retained throughout the airways. Therapeutic airway suctioning was done. The bronchial mucosa was inflammatory and erythematous. After achieving adequate airway patency and removing all of the respiratory secretions, the bronchoscope was up to the lower lobe on the right and a bronchioloalveolar lavage was done with a total of 40 cc of saline was infused and 20 cc was aspirated. Rest of the airway inspection was included the bilateral mainstem bronchi, right upper lobe bronchus, right middle lobe bronchus, right lower lobe bronchus, left upper lobe bronchus and the left lower lobe bronchus and the metastatic mass in the right and 8 segments on the left. After performing therapeutic airway suctioning, bronchoscope was removed and the patient was transferred to recovery in stable condition. No complications. The bronchoalveolar lavage from the right lower lobe will be sent for cultures.
[2024-10-30 06:42] LABS: INR 2.3 (<1.2)
[2024-10-30 08:14] VITALS: BP 104/64; RESP 15; TEMP 98
--- NOTE | 2024-10-30 12:56 | P.PN ---
Subjective Progress Note Date: 10/30/24 This is a 64-year-old female patient, obese with a BMI of 38.8 along with history of chronic bronchial asthma that was labile to be mild intermittent in nature. She also has chronic pain/fibromyalgia/trigeminal neuralgia and known history of hypercoagulable state maintained on anticoagulation with warfarin on outpatient basis. The patient was in the hospital 10/15/2024 through 10/21/2024. The patient was discharged home after being treated for acute COPD/asthma exacerbation and the patient was discharged home on Symbicort, DuoNeb updrafts and a course of Diflucan that was given to her for oropharyngeal candidiasis. She presented back to the hospital with increased cough and congestion and some degree of fluid overload as the patient has noted to have some increased welling lower extremities bilaterally. No reported fever. No chills. She states that she was taking her medication and she was quite compliant. Chest x-ray shows no acute abnormalities. Initial lactic acid level was at 2.7 dropped down to 1.0. White cell count at 13.1, hemoglobin 12.6, BUN 30 with a creatinine 0.8. INR was at 4.2. Accordingly, the patient was hospitalized for further care. She is currently on oxygen at 2 L with a pulse ox of 96%. Afebrile. Hemodynamically stable. Breathing is nonlabored. 11/22/2024, the patient is being seen for a follow-up. Sitting up in a chair. Feeling better compared to yesterday. Less bronchospastic and wheezy and the patient remains on DuoNeb updrafts, IV Solu-Medrol. Rest of medications are unchanged. Electrolytes show no significant abnormalities. Serum bicarb is at 38, BUN is 25 with a creatinine of 0.7. INR remains at 4.1. The patient remains on oxygen and she is currently on 2 L/min nasal cannula. No chest pain. No pleurisy or hemoptysis. No other significant events overnight. On today's evaluation of 10/27/2024, the patient is being seen for a follow-up. Sitting up in a chair. No significant chest pain. Continues to be bronchospastic and wheezy. Unable to bring up much of sputum. Considering a bronchoscopy on this patient if no improvement. Remains on DuoNeb updrafts. Remains on performance of Pulmicort nebulized treatments twice a day and IV Solu-Medrol 40 mg every 8 hours. Remains anticoagulation with warfarin. INR elevated at 3.0. Awake and alert and communicating. Oxygenation is stable and the patient is currently on nasal cannula at 2 L with a pulse ox of 95%. Tolerating her diet. 10/28/2024, the patient remains bronchospastic and wheezy although she seems to be less congested compared to yesterday. Considering bronchoscopy endobronchial lavage of no improvement over the next 24 hours. Meanwhile, she remains on DuoNeb updrafts. Remains on prednisone and she is currently on a 40 mg as part of the burst taper. She is also on a combination of Perforomist and Pulmicort nebulized treatments twice a day. INR is at 2.6. BUN 37 creatinine 0.9. Oxygenation stable and the patient remains on 2 L of oxygen by nasal cannula with a pulse ox of 95%. No altered mentation patient is able to sit up in the chair without any major difficulties. Take 10/2024, the patient continues to be essentially unchanged, continues to have cough and congestion and shortness of breath and wheezing. Unable to bring up much of sputum. INR today is at 2.4. No hemoptysis. No pleurisy. She remains on 3 L of oxygen by nasal cannula with pulse ox of 93%. She remains on DuoNeb of chest. She is also on steroids and the patient has been switched to oral prednisone 40 mg p.o. daily and she remains on Perforomist Pulmicort nebulized treatments [id number]. She is n.p.o. and the patient is going to undergo a bronchoscopy because of her recurrent hospitalization ongoing symptoms of cough and congestion and bronchospasm and wheeze. On today's evaluation of 10/30/2024, the patient is post bronchoscopy and the patient is feeling much improved compared to yesterday. Less bronchospastic and wheezy. Awaiting the results of the bronchial lavage that was collected yesterday. Is on prednisone burst taper. She is on DuoNeb nebulizer treatments [id number]. She has no specific complaints. INR today is at 2.3. Objective - Vital Signs Vital signs: Vital Signs Temp 98.0 F 10/30/24 07:00 Pulse 96 10/30/24 12:15 Resp 15 10/30/24 08:08 BP 104/64 10/30/24 07:00 Pulse Ox 97 10/30/24 08:57 FiO2 Intake & Output 10/29/24 10/30/24 10/30/24 18:59 06:59 18:59 Intake Total 100 Balance 100 Weight 115.666 kg Intake: IV 100 Other: Voiding Method Toilet Toilet # Voids 4 # Bowel Movements 0 - Exam GENERAL EXAM: Alert, pleasant 64-year-old female, on 2 L nasal cannula, fairly comfortable in no apparent distress. HEAD: Normocephalic. EYES: Normal reaction of pupils, equal size. NOSE: Clear with pink turbinates. THROAT: No erythema or exudates. NECK: No masses, no JVD. CHEST: No chest wall deformity. LUNGS: Equal air entry with bilateral wheeze, scattered rhonchi. CVS: S1 and S2 normal with no audible murmur, regular rhythm. ABDOMEN: No hepatosplenomegaly, normal bowel sounds, no guarding or rigidity. SPINE: No scoliosis or deformity SKIN: No rashes CENTRAL NERVOUS SYSTEM: No focal deficits, tone is normal in all 4 extremities. EXTREMITIES: There is +1 peripheral edema. No clubbing, no cyanosis. Peripheral pulses are intact. - Labs CBC & Chem 7: 10/24/24 16:14 10/28/24 04:32 Labs: Abnormal Lab Results - Last 24 Hours (Table) 10/30/24 Range/Units 05:51 PT 23.0 H (10.0-12.5) sec INR 2.3 H (<1.2) Microbiology - Last 24 Hours (Table) 10/29/24 14:00 Gram Stain - Preliminary Bronchoalviolar Lavage - Right Assessment and Plan Plan: Acute exacerbation of COPD/mild intermittent chronic bronchial asthma complicated by tracheobronchitis. Chest x-ray is free of any acute pulmonary filtrates. The patient remains bronchospastic and wheezy. She is on oxygen 2 L/min nasal cannula. The patient is post bronchoscopy and the patient is much improved compared to yesterday and she seems to be less short of breath. COPD Tracheobronchomalacia, severe with mucous plugging post bronchoscopy endobronchial lavage of the right lower lobe Acute on chronic hypoxic respiratory insufficiency secondary to above, maintained on home oxygen, maintained on oxygen 2 L/min nasal cannula, INR is therapeutic Fibromyalgia Trigeminal neuralgia Previous PE/DVTs, maintained on warfarin Lifelong non-smoker Chronic pain syndrome, pain pump in place Hypothyroidism Obesity Mild leukocytosis Plan: Clinically improved post bronchoscopy. Awaiting results of bronchial lavage The patient was noted to have extensive tracheobronchomalacia and mucous plugging and therapeutic airway suctioning was done. The patient is currently on 2 liters of O2 nasal cannula DuoNeb nebulized treatments 4 times a day Prednisone 40 mg p.o. daily Pulmicort Respules 1 mg twice a day in combination with Perforomist nebulized twice a day Diflucan for oropharyngeal candidiasis Bumex 2 mg IV every 12 hours Resume home medications Will continue to follow
[2024-10-30 14:56] VITALS: PULSE 92
[2024-10-30] MEDS ORDERED: WARFARIN 2.5 MG TAB PO ONE (18:00)
--- NOTE | 2024-10-30 19:46 | P.DS ---
Providers Date of admission: 10/24/24 18:28 Expected date of discharge: 10/30/24 Attending physician: Brando Mcguire Consults: 10/24/24 18:28 Consult Physician Urgent Consulting Provider: Ben Martin Reason/Comments: sob/copd Do you want consulting provider notified?: Yes Primary care physician: Yovanny Mcdonald [facility] Course: Chief Complaint: Short of breath Pleasant 64-year-old patient follows Dr. Yovanny Mcdonald. Director Decision Support Dr. JEIMY Lezama Patient just in the hospital from October 16 through October 21. Was admitted with COPD exacerbation, pharyngeal thrush, also had some fluid overload. Patient states upon getting home her symptoms got worse. Standing more cough wheezing. She says last bowel movement was over a week ago. Also swelling low er extremity. Has had increased fluid intake. No fever no chills. October 26: Admitted with COPD exacerbation and increased fluid intake causing fluid overload. Some improvement breathing today. Bertram wrap was ordered yesterday. Reminded. Some improvement in breathing. Eating fair. Continue bronchodilators Solu-Medrol. Diflucan. 27 October: Breathing better. Some congested chest. Patient requesting to stay 1 more day. Will switch to oral prednisone tomorrow morning. October 28: Up in a recliner. Expiratory rattling. Secretions. Discussed with Dr. Mccauley. For bronchoscopy with lavage tomorrow. Medications to continue. October 29: Patient seen this morning. Later this afternoon went down for bronchoscopy lavage. Formal results are pending. October 30: Patient underwent bronchoscopy lavage yesterday. A lot of secretions were removed by Dr. Mccauley. Tracheobronchomalacia was found. Patient lung sounds are greatly improved. Is being discharged. Social history: Denies smoking alcohol. Does use a four-wheel walker. Home alone Physical examination: VITAL SIGNS: 98, 865, 15, 104 x 64, 95% 3 L GENERAL: Up in a recliner, comfortable EYES: Pupils equal. Conjunctiva lu l. HEENT: External appearance of nose and ears normal, oral cavity : Normal NECK: JVD unable to assess; masses not palpable. HEART: First and second heart sounds are normal; edema decreased LUNGS: Respiratory rate normal. Improved air entry ABDOMEN: Soft, nontender, liver spleen not palpable, no masses palpable. PSYCH: [Alert and oriented x3; mood and affect-a bit anxious MUSCULOSKELETAL:No Clubbing/cyanosis;muscles-grossly intact INVESTIGATIONS, reviewed in the clinical context: October 26: 133 potassium 3.8 creatinine 0.79 2D echo: EF 60 to 65%. INR 4.2 October 24: White count 15.1 hemoglobin 12.6 platelets 282 sodium 137 potassium 3.6 BUN 30 creatinine 0.85 Lactic acid 2.7 repeat 1.0 EKG tracing personally reviewed by me-normal sinus rhythm Chest x-ray film personally reviewed by me-no obvious abnormality Recent investigations: Dobutamine echocardiogram [May 2024] unremarkable Assessment and plan: -Acute COPD exacerbation, in a non-smoker, with a recent admission.: Much improved DuoNeb 4 times daily. 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 Unable to expectorate. Responded well to lavage by bronchoscopy by Dr. Mccauley - Tracheobronchomalacia - Chronic hypoxic respiratory failure from underlying COPD On home oxygen -Chronic fibromyalgia, with chronic pain syndrome Cymbalta. Flexeril. Lyrica. Pain pump. Patient does follow with Dr. Ki nix -Chronic DVTs and PEs On Coumadin - Fluid overload from excessive fluid intake . Bumex. Fluid restriction. 2D echo-preserved LV function, -Coumadin monitoring per pharmacy -Depression Wellbutrin -History of psychosis Risperdal -Hypothyroid Synthroid 176 g daily - Obesity BMI 36.5 -Chronic intermittent headaches Patient to follow-up with her neurologist. -Keratoconjunctivitis sicca Artificial tears Disposition: Home Past Medical History Past Medical History: COPD, Fibromyalgia, Thyroid Disorder Additional Past Medical History / Comment(s): atypical facial pain, trigeminal neuralgia, "24 hour tension headache syndrome", migraines, shingles 2012 around her rt eye area.,hx dvt rt leg and multiple pe's found,past tx for "copd d/t mold in basement of her home that permeated to upstairs. inpast used 02 but not now", murmur when younger,constipation(last bm 2-20-18,vertigo, "dry eye syndrome uses drops 4-6 times a day.stress test .had mamogram apr 2017-neg History of Any Multi-Drug Resistant Organisms: None Reported Past Surgical History: Appendectomy, Section, Cholecystectomy Additional Past Surgical History / Comment(s): 2 c-sections, fissurectomy, colonoscopy Past Anesthesia/Blood Transfusion Reactions: No Reported Reaction Past Psychological History: Depression Additional Psychological History / Comment(s): pt lives at [facility] Smoking Status: Never smoker Past Alcohol Use History: None Reported Past Drug Use History: None Reported Plan - Discharge Summary Discharge Rx Participant: No New Discharge Prescriptions: New predniSONE 10 mg PO DAILY #30 tab Continue Cyclobenzaprine [Flexeril] 10 mg PO BID HYDROcodone/APAP 10-325MG [[place] 10-325] 1 tab PO BID Pregabalin [Lyrica] 200 mg PO TID Potassium Chloride ER [K-Dur 20] 20 meq PO DAILY Patient Own Pump 0 bag Bumetanide [BUMEX] 2 mg PO DAILY PRN PRN Reason: Edema Warfarin [Coumadin] 2.5 mg PO HS Ipratropium-Albuterol Nebulize [Duoneb 0.5 mg-3 mg/3 ml Soln] 3 ml INHALATION RT-BID Levothyroxine Sodium [Synthroid] 175 mcg PO DAILY Ergocalciferol [Vitamin D2 (1250 Mcg = 43961 Iu)] 1,250 mcg PO MO risperiDONE [RisperDAL] 0.5 mg PO BID DULoxetine HCL [Cymbalta] 30 mg PO HS Nitroglycerin Sl Tabs [Nitrostat] 0.4 mg SUBLINGUAL Q5M PRN #30 tab PRN Reason: Chest Pain Ammonium Lactate Cream [Lac-Hydrin 12% Cream] 1 applic TOPICAL BID PRN PRN Reason: Dry Skin Bumetanide [BUMEX] 2 mg PO BID@0900,1200 Budesonide-Formot 160-4.5 Mcg [Symbicort 160-4.5 Mcg Inhaler] 2 puff INHALATION RT-BID #1 each Fluconazole [Diflucan] 100 mg PO DAILY #5 tab Discharge Medication List Cyclobenzaprine [Flexeril] 10 mg PO BID 02/20/17 [History] Levothyroxine Sodium [Synthroid] 175 mcg PO DAILY 08/14/20 [History] Ergocalciferol [Vitamin D2 (1250 Mcg = 86175 Iu)] 1,250 mcg PO MO 11/12/22 [History] DULoxetine HCL [Cymbalta] 30 mg PO HS 12/28/23 [History] HYDROcodone/APAP 10-325MG [[place] 10-325] 1 tab PO BID 12/28/23 [History] Patient Own Pump 0 bag 12/28/23 [History] Potassium Chloride ER [K-Dur 20] 20 meq PO DAILY 12/28/23 [History] Pregabalin [Lyrica] 200 mg PO TID 12/28/23 [History] risperiDONE [RisperDAL] 0.5 mg PO BID 12/28/23 [History] Nitroglycerin Sl Tabs [Nitrostat] 0.4 mg SUBLINGUAL Q5M PRN #30 tab 06/09/24 [Rx] Ammonium Lactate Cream [Lac-Hydrin 12% Cream] 1 applic TOPICAL BID PRN 10/15/24 [History] Bumetanide [BUMEX] 2 mg PO BID@0900,1200 10/15/24 [History] Bumetanide [BUMEX] 2 mg PO DAILY PRN 10/15/24 [History] Warfarin [Coumadin] 2.5 mg PO HS 10/15/24 [History] Budesonide-Formot 160-4.5 Mcg [Symbicort 160-4.5 Mcg Inhaler] 2 puff INHALATION RT-BID #1 each 10/21/24 [Rx] Ipratropium-Albuterol Nebulize [Duoneb 0.5 mg-3 mg/3 ml Soln] 3 ml INHALATION RT-BID 10/24/24 [History] Fluconazole [Diflucan] 100 mg PO DAILY #5 tab 10/30/24 [Rx] predniSONE 10 mg PO DAILY #30 tab 10/30/24 [Rx] Follow up Appointment(s)/Referral(s): Jo Knowles MD [STAFF PHYSICIAN] - 1 Week Yovanny Mcdonald MD [Primary Care Provider] - 1-2 days Patient Instructions/Handouts: COPD (Chronic Obstructive Pulmonary Disease) (ED), COPD (Chronic Obstructive Pulmonary Disease) (DC), Dyspnea (ED), Dyspnea (DC) Activity/Diet/Wound Care/Special Instructions: FOLLOW UP DIRECTED, SOONER FOR WORSENING SYMPTOMS, PROBLEMS, OR CONCERNS. Discharge/Stand Alone Forms: Who Do I Call?, Assisted Living Facilities, Community Resources, Help In The Home Discharge Disposition: HOME SELF-CARE
== END 2024-10-30 15:34 | disposition home or self-care (01) | DRG 191 ==
LOC: EC 15:32 → OBSVTOIN 18:28 → 6NMEDSUR 18:28
PROVIDERS: ADMIT Hospitalist; ATTEND Hospitalist
PROC: 0B978ZZ Drainage of Left Main Bronchus, Via Natural or Artificial Opening Endoscopic (ICD-10-PCS; 2024-10-29)
PROC: 0B918ZZ Drainage of Trachea, Via Natural or Artificial Opening Endoscopic (ICD-10-PCS; 2024-10-29)
PROC: 0B938ZZ Drainage of Right Main Bronchus, Via Natural or Artificial Opening Endoscopic (ICD-10-PCS; 2024-10-29)
PROC: 0B9J8ZX Drainage of Left Lower Lung Lobe, Via Natural or Artificial Opening Endoscopic, Diagnostic (ICD-10-PCS; principal; 2024-10-29 14:00)
DX: J44.1 Chronic obstructive pulmonary disease with (acute) exacerbation (principal); B37.89 Other sites of candidiasis; T17.890A Other foreign object in other parts of respiratory tract causing asphyxiation, initial encounter; I50.9 Heart failure, unspecified; F32.A Depression, unspecified; E03.9 Hypothyroidism, unspecified; E66.9 Obesity, unspecified; J96.11 Chronic respiratory failure with hypoxia; Z99.81 Dependence on supplemental oxygen; J98.09 Other diseases of bronchus, not elsewhere classified; G89.4 Chronic pain syndrome; M79.7 Fibromyalgia; H16.229 Keratoconjunctivitis sicca, not specified as Sjogren's, unspecified eye; G50.0 Trigeminal neuralgia; Z68.38 Body mass index [BMI] 38.0-38.9, adult; Z79.890 Hormone replacement therapy; Z79.01 Long term (current) use of anticoagulants; Z86.711 Personal history of pulmonary embolism; Z86.718 Personal history of other venous thrombosis and embolism; Z79.51 Long term (current) use of inhaled steroids; Z79.899 Other long term (current) drug therapy
CPT/HCPCS: 31624; 36415; 71046; 80048; 80053; 81003; 83605; 83735; 83880; 84484; 85025; 85379; 85610; 85730; 87070; 87102; 87116; 87205; 87206; 87496; 87498; 87502; 87529; 87634; 87635; 87798; 88108; 88305; 93005; 93306; 94640; 94667; 94668; 94760; 99285